=== PATIENT | male | born 1950 | race Caucasian/White ===

== ENCOUNTER 2018-01-06 05:14 | Observation (INO) | payer MEDICARE, OTHER, SELFPAY ==
[2017-12-30 11:09] VITALS: BP 133/68; PULSE 60; RESP 16; TEMP 36.6; O2SAT 94; BMI 33.3
--- NOTE | 2017-12-30 11:15 | SDCEKG_ITS ---
Test Reason : Blood Pressure : / mmHG Vent. Rate : 059 BPM Atrial Rate : 059 BPM P-R Int : 162 ms QRS Dur : 100 ms QT Int : 386 ms P-R-T Axes : 034 -29 043 degrees QTc Int : 382 ms Sinus bradycardia Leftward axis Poor R wave progression Confirmed by MARGARITA SHANE, MARVA ([id number]), commissioning editor KELLY MALDONADO ([id number] on 12/31/2017 2:29:45 PM Referred By: ABDOULAYE Confirmed By:MARVA AVILA MD
[2017-12-30 11:35] LABS: Hematocrit 44.8 % (40-54); Hemoglobin 15.5 g/dl (13.0-16.5); Mean Corp Hgb Conc 34.6 g/gl (32-36); Mean Corpuscular Hgb 32.3 pg (27.0-32.0); Mean Corpuscular Volume 93.3 fL (80-94); Mean Platelet Vol. 8.9 fl (6.2-12.0); Platelet Count 223 K/mm3 (150-450); RBC Distribution Width CV 13.5 % (11.6-14.6); RBC Distribution Width SD 45.1 fl (35.1-43.9); White Blood Count 7.9 K/mm3 (4.4-11.0)
[2017-12-30 11:36] LABS: Scan Indicated on CBC? Y/N NO
--- NOTE | 2017-12-31 10:39 | CASEMGMT ---
Social Work Note Placed call to pt to discuss discharge plan. Introduced self and role at [facility]. The pt reports that he lives with his in a one-story home with 3 entry steps and HR. DME consists of a walker and cane, and pt does not anticipate additional DME needs. Plans to participate in outpatient therapy at [facility], and does not have an appointment setup yet. can transport to appointments. RN CM to f/u with post-operatively. Plan: Outpatient therapy at [facility]. YESSICA Trejo HSE COORDINATOR
[2018-01-06] VITALS (13 sets, daily range): BP systolic 97–129; BP diastolic 60–73; PULSE 47–72; RESP 16–18; TEMP 35.9–36.9; O2SAT 92–98; BMI 33.3
[2018-01-06] MEDS: Celecoxib 200 MG Capsule PO (06:00)
[2018-01-06] MEDS: oxyCODONE HCl Cr 10 MG Tablet PO ×2 (06:00→21:36)
[2018-01-06] MEDS: Clindamycin 900 MG/50 ML BAG 75 MG IV (07:14)
--- NOTE | 2018-01-06 10:20 | RAD_ITS ---
STUDY: X-RAY - LEFT KNEE REASON FOR EXAM: Male, 67 years old. Total knee replacement. TECHNIQUE: AP and lateral view(s) of the knee. COMPARISON: Comparison is made with prior study dated September 24, 2016. FINDINGS: Normal visualized distal femur. Normal visualized proximal tibia and fibula. Normal proximal tibiofibular articulation. The patient is status post total knee replacement. Postoperative soft tissue changes. RAD/Knee 1 or 2 Views IMPRESSION: Total knee replacement. There is good alignment. Postoperative soft tissue changes. Electronically Signed: Enrique Mark MD at 11:14 EST Tel [phone], Service support ,
[2018-01-06] MEDS: Lactated Ringers 1,000 ML 75 ML IV (10:24)
--- NOTE | 2018-01-06 10:35 | PCM.IMDPSTOP ---
Immediate Post-Op Note Date of Procedure: 01/06/18 Primary Surgeon/Physician: Ross Cleary DO live out nanny: Sanjay Aguirre Pre-Operative Diagnosis: Left knee osteoarthritis Post-Operative Diagnosis: Same as above Surgery/Procedure Performed:: Left total knee arthroplasty using the [employer] press-fit system Description of Surgical Findings:: See dictation Estimated Blood Loss: 50 Specimen's removed: Bone cuts Type of Anesthesia:: Spinal - Admit VTE Documentation VTE Present on Admission: No VTE Mechan Device Prophylaxis: SCD's, Knee High RAJESH Hose VTE Pharm Prophylaxis ordered?: Yes
--- NOTE | 2018-01-06 10:36 | PCM.OPRPT ---
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 Patient had hypertrophic synovial changes and underwent a synovectomy at that time as well. Having failed conservative measures and due to the varus nature of his knee the recommendation was for total knee arthroplasty. Patient was met in the holding area where his left lower extremity was marked and identified by the with surgeon. Patient was taken the operating room in satisfactory condition with somewhat to place to identify patient up procedure limb. Patient received 900 clindamycin. He also received 1 g of TXA. He had a well-placed tourniquet left proximal thigh was then prepped and draped in usual fashion. Left lower extremity was elevated Esmarch used for exsanguination and tourniquet was increased to 250 mmHg for roughly 60 minutes. Patient had a standard midline incision made just medial to the tibia to have tibial tubercle and then moved to 2 fingerbreadths above the patella. He then underwent a standard medial parapatellar approach. Patient had a large return effusion upon opening the joint space. He has significant hypertrophic anterior fat pad that was subtotally resected using standard technique. Due to the varus nature of his knee he had when it underwent a standard posterior medial release to neutral mechanical alignment. At that point time the intramedullary kishore was introduced into the femur to perform our distal femoral cut. We took 8 mm off the distal femoral cut with 6? of valgus 3? of external rotation. Sized to a size 6 femur. We then turned our attention to performing her standard femoral cuts with a 6 sizing block. This done using standard technique. We then turned our attention to the tibia. We anticipated using a CR component. Tibial guide was set accordingly. We then took 2 mm off of the low side where he had somewhat of a cavitary change. Depressive change highly consistent with his varus deformity. We preserve the PCL. Overall size of the tibial block measured to a size 6. Injector mechanical alignment which was found to be neutral at 0 and 30?. We had no flexion or extension gap imbalances. Patient spaced out to about a 9 mm spacer block. At that point time the size 6 femur was introduced and the 6 tibial plateau along with a 9 mm spacer was placed. We had good mechanical alignment again good stability at 0 3090? of range of motion. Patient no showed no flexion extension gaps. The tibial plateau was then seated using standard technique the poly-removed as was the femoral component. We then placed her keel punch for the tibia anticipation of a press-fit component the secondary keel punch was then introduced. I placed additional drill holes around the plateau to help with bio ingrowth as well as placing holes across the femur. We then turned our attention to the patella. Patella measured overall 26 mm in overall thickness we took off 10 using a 35 patella button. Wound was then copiously irrigated and excess debris removed to include the remnant menisci. We cauterized the posterior lateral and posterior medial corners. We then prepped the knee for implantation. The patient tibial plateau was introduced and the #6 femoral component was then press-fit in to the tibia using standard technique. Femoral #6 size component was then also press-fit and we re-trialed with a 9 mm Angela patient had excellent extension and flexion balance I elected to use a 9 mm CS Angela. This was then seated using copious irrigation and then impacted using standard technique. We then turned our attention to the patella the patella was then press-fit using standard technique. We cycled the knee through a range of motion did not feel lateral release was required. The joint was ran one additional time and copious irrigated remove any excess debris. We then began our closure in full extension proximally using #1 Vicryl eocwcz-tc-afhme technique. Once we got to the superior aspect of the patella the knee was bent 30? and remaining portion of the capsule closed again using #1 Vicryl with [id number]-fh-guymv technique. Soft tissue was reapproximated with 2-0 Vicryl in a running subicular Monocryl. He was then dressed with Dermabond and a Silverlon dressing was applied with the knee in 30? knee flexion. The tourniquet was let down during final closure at roughly 68 minutes. I was scrubbed and available time during our procedure. We had no drains or complications. Implants included the [employer] triathlon total knee system press-fit 6 femur 6 tibia 9 CS Angela and a 35 patella button. Patient will be admitted floor for 24 hours of IV antibiotics. Appropriate IV and p.o. pain medication. DVT prophylaxis to include SCDs teds and aspirin 325 p.o. twice daily with GI prophylaxis. Any major issues please contact me. intelligent systems engineer: Sanjay Aguirre Type of Anesthesia:: Spinal Specimen's removed: Bone cuts Estimated Blood Loss (mL): 50 Grafts/Implants Used: Striker triathlon press-fit 6, 6, 9 CS, 35 - Complications None - Admit VTE Documentation VTE Present on Admission: No VTE Mechan Device Prophylaxis: SCD's, Knee High RAJESH Hose VTE Pharm Prophylaxis ordered?: Yes
--- NOTE | 2018-01-06 10:43 | OP.PCM_ITS ---
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 Patient had hypertrophic synovial changes and underwent a synovectomy at that time as well. Having failed conservative measures and due to the varus nature of his knee the recommendation was for total knee arthroplasty. Patient was met in the holding area where his left lower extremity was marked and identified by the with surgeon. Patient was taken the operating room in satisfactory condition with somewhat to place to identify patient up procedure limb. Patient received 900 clindamycin. He also received 1 g of TXA. He had a well-placed tourniquet left proximal thigh was then prepped and draped in usual fashion. Left lower extremity was elevated Esmarch used for exsanguination and tourniquet was increased to 250 mmHg for roughly 60 minutes. Patient had a standard midline incision made just medial to the tibia to have tibial tubercle and then moved to 2 fingerbreadths above the patella. He then underwent a standard medial parapatellar approach. Patient had a large return effusion upon opening the joint space. He has significant hypertrophic anterior fat pad that was subtotally resected using standard technique. Due to the varus nature of his knee he had when it underwent a standard posterior medial release to neutral mechanical alignment. At that point time the intramedullary kishore was introduced into the femur to perform our distal femoral cut. We took 8 mm off the distal femoral cut with 6? of valgus 3? of external rotation. Sized to a size 6 femur. We then turned our attention to performing her standard femoral cuts with a 6 sizing block. This done using standard technique. We then turned our attention to the tibia. We anticipated using a CR component. Tibial guide was set accordingly. We then took 2 mm off of the low side where he had somewhat of a cavitary change. Depressive change highly consistent with his varus deformity. We preserve the PCL. Overall size of the tibial block measured to a size 6. Injector mechanical alignment which was found to be neutral at 0 and 30?. We had no flexion or extension gap imbalances. Patient spaced out to about a 9 mm spacer block. At that point time the size 6 femur was introduced and the 6 tibial plateau along with a 9 mm spacer was placed. We had good mechanical alignment again good stability at 0 3090? of range of motion. Patient no showed no flexion extension gaps. The tibial plateau was then seated using standard technique the poly-removed as was the femoral component. We then placed her keel punch for the tibia anticipation of a press- fit component the secondary keel punch was then introduced. I placed additional drill holes around the plateau to help with bio ingrowth as well as placing holes across the femur. We then turned our attention to the patella. Patella measured overall 26 mm in overall thickness we took off 10 using a 35 patella button. Wound was then copiously irrigated and excess debris removed to include the remnant menisci. We cauterized the posterior lateral and posterior medial corners. We then prepped the knee for implantation. The patient tibial plateau was introduced and the #6 femoral component was then press-fit in to the tibia using standard technique. Femoral #6 size component was then also press-fit and we re-trialed with a 9 mm Angela patient had excellent extension and flexion balance I elected to use a 9 mm CS Angela. This was then seated using copious irrigation and then impacted using standard technique. We then turned our attention to the patella the patella was then press-fit using standard technique. We cycled the knee through a range of motion did not feel lateral release was required. The joint was ran one additional time and copious irrigated remove any excess debris. We then began our closure in full extension proximally using #1 Vicryl qlmdxj-du-lsfgy technique. Once we got to the superior aspect of the patella the knee was bent 30? and remaining portion of the capsule closed again using #1 Vicryl with afyrlx-va-sgtud technique. Soft tissue was reapproximated with 2-0 Vicryl in a running subicular Monocryl. He was then dressed with Dermabond and a Silverlon dressing was applied with the knee in 30? knee flexion. The tourniquet was let down during final closure at roughly 68 minutes. I was scrubbed and available time during our procedure. We had no drains or complications. Implants included the [employer] triathlon total knee system press-fit 6 femur 6 tibia 9 CS Angela and a 35 patella button. Patient will be admitted floor for 24 hours of IV antibiotics. Appropriate IV and p.o. pain medication. DVT prophylaxis to include SCDs teds and aspirin 325 p.o. twice daily with GI prophylaxis. Any major issues please contact me. meter repairer helper: Sanjay Aguirre Type of Anesthesia:: Spinal Specimen's removed: Bone cuts Estimated Blood Loss (mL): 50 Grafts/Implants Used: Striker triathlon press-fit 6, 6, 9 CS, 35 - Complications None - Admit VTE Documentation VTE Present on Admission: No VTE Mechan Device Prophylaxis: SCD's, Knee High RAJESH Hose VTE Pharm Prophylaxis ordered?: Yes
--- NOTE | 2018-01-06 12:43 | KNEE_PTH ---
PATIENT: RENATA MARTIN LOC: MS3 U#:[id number] AGE/SX: 67/M ROOM: MS317 RE01/06/[address]: Ross Cleary DO : 1950 BED: 1 DIS: 01/07/2018 SPEC #: [id number] RECD: 01/06/18 14:30 STATUS: KAITLYNN REBeth #: [id number] LIO: 01/06/18 12:[address]: Ross Cleary DEPT: SURGICAL PATHOLOGY RECD BY: Spencer Davis ENTERED: 01/06/18 14:30 SP TYPE: TOTAL KNEE OTHR DR: Dr. Nakul Oliva MD Tissues: Knee, NOS Procedures: Decalcification bone/plaque Surgery Specimen Level IV HEADER OPERATION: Total knee replacement PRE-OP DIAGNOSIS: Chronic pain and osteoarthritis of left knee; unspecified osteoarthritis type TISSUE SUBMITTED: Debrided bone and tissue, left knee MICROSCOPIC DIAGNOSIS Bone and soft tissue, left knee, total knee replacement: Pieces of bone with degenerative osteoarthritic changes. Fibroadipose tissue, fibroconnective tissue and reactive synovial tissue. NANCY:stefania 01/09/18 MICROSCOPIC DESCRIPTION Slides are reviewed. GROSS DESCRIPTION Received is one container designated bone and soft tissue left knee. The specimen consists of multiple fragments of daniels-yellow bone measuring in aggregate 15 x 14 x 2 cm. Also in the specimen container are multiple fragments of yellow-white soft tissue measuring in aggregate 10 x 7 x 2 cm. A number of bony fragments contain articular surfaces consistent with tibial plateau and femoral condyle and displaying prominent osteophyte formation, eburnation, and bone erosion. Statistical Engineer sections are submitted in two cassettes as follows: 1 - soft tissue, 2 - bone after decalcification. / AM:stefania 01/06/18 TC:5 [facility]: [id number]
[2018-01-06] MEDS: Clindamycin 600 MG/50 ML BAG 100 MG IV ×2 (13:06→18:36)
[2018-01-06] MEDS: Senna/Docusate Sodium 1 Tablet 2 TABLET PO ×2 (14:34→21:36)
[2018-01-06] MEDS: Famotidine 20 MG Tablet PO (14:35)
[2018-01-06] MEDS: Acetaminophen 500 MG Tablet 1000 MG PO ×2 (14:35→21:36)
[2018-01-06] MEDS: Ascorbic Acid 500 MG Tablet 1000 MG PO (14:35)
[2018-01-06] MEDS: Multivitamins,Therapeutic Tablet 1 TABLET PO (14:35)
[2018-01-06] MEDS: Finasteride 5 MG Tablet PO (14:37)
[2018-01-06] MEDS: oxyCODONE 5 MG Tablet PO (14:43)
[2018-01-06] MEDS: Aspirin 325 MG Tablet PO (16:15)
[2018-01-07] MEDS: Clindamycin 600 MG/50 ML BAG 100 MG IV (01:10)
[2018-01-07 01:30] VITALS: BP 115/65; PULSE 53; RESP 18; TEMP 36.7; O2SAT 93
--- NOTE | 2018-01-07 03:50 | NUR.TO.PHY ---
To patient room at this time due to continuous pulse ox @ 86-87% Patient did have nasal CPAP in, but was observed to be breathing out of mouth upon entering room. Awoke patient and O2 level up to 91% primary RN notified.
[2018-01-07] MEDS: Acetaminophen 500 MG Tablet 1000 MG PO ×2 (06:05→14:15)
[2018-01-07 06:26] LABS: Hematocrit 37.7 % (40-54); Mean Corp Hgb Conc 34.5 g/gl (32-36); Mean Corpuscular Hgb 32.4 pg (27.0-32.0); Mean Platelet Vol. 9.5 fl (6.2-12.0); Platelet Count 179 K/mm3 (150-450); RBC Distribution Width CV 13.3 % (11.6-14.6); RBC Distribution Width SD 43.9 fl (35.1-43.9); Red Blood Count 4.01 M/mm3 (4.6-6.2); White Blood Count 11.4 K/mm3 (4.4-11.0)
[2018-01-07 06:29] LABS: Scan Indicated on CBC? Y/N NO
[2018-01-07 06:40] LABS: Anion Gap 9 (5-15); BUN 20 mg/dL (7-18); BUN/Creat Ratio 13.6 RATIO (10-20); Calcium,Total 8.4 mg/dL (8.5-10.1); Chloride 110 mmol/L (98-107); Creatinine, Serum 1.47 mg/dL (0.70-1.30); EST Glomerular Filtration Rate 51 mL/min (>60); Est Glom Filt Rate - Afr Amer 61 mL/min (>60); Estimated Creatinine Clearance 48.76 ml/min; Glucose 142 mg/dL (74-106); Sodium Level 142 mmol/L (136-145)
--- NOTE | 2018-01-07 07:36 | PCM.PN.ORT ---
Subjective: Postop day 1 status post left total knee arthroplasty. No issues overnight. Patient currently sitting the edge of the bed performing extension raises to his leg and can bend to about 75? at this point time. No complaints. Told him that the pain will increase as the blocks were off around noon. Otherwise at this point time patient is doing well. No fevers chills nausea vomiting chest pain or shortness of breath - Physical Exam General: Alert, Oriented x3, Cooperative, No apparent distress Musculoskeletal: - - Distally neurovascular intact. SCDs teds in place. Silverlon dressing in place. No expanding hematoma. No calf pain negative Homans. EHL anterior gastric shoulders peroneals quads hamstrings 5 out of 5. Hardware reviewed well seated well-placed. H&H stable Vital Signs Temp Pulse Resp BP Pulse Ox 98.1 F 53 L 18 115/65 93 01/07/18 01:30 01/07/18 01:30 01/07/18 01:30 01/07/18 01:30 01/07/18 01:30 Oxygen Flow Rate 1 Oxygen Delivery Method Room Air Weight: 225 lb 4.999 oz Body Mass Index (BMI) 33.3 Intake and Output for Last 24 Hours 01/05/18 01/06/18 01/07/18 23:59 23:59 23:59 Intake Total 4033 / 4033 423 / 423 Output Total 500 / 500 1450 / 1450 Balance 3533 / 3533 -1027 / -1027 Laboratory Tests Past 24 Hrs 01/07/18 01/07/18 05:20 05:20 WBC 11.4 H RBC 4.01 L Hgb 13.0 Hct 37.7 L MCV 94.0 MCH 32.4 H MCHC 34.5 RDW 13.3 RDW Differential 43.9 Plt Count 179 MPV 9.5 Sodium 142 Potassium 4.0 Chloride 110 H Carbon Dioxide 23.0 Anion Gap 9 BUN 20 H Creatinine 1.47 H Estim Creat Clear Calc 48.76 Est GFR (MDRD) Af Amer 61 Est GFR (MDRD) Non-Af 51 L BUN/Creatinine Ratio 13.6 Glucose 142 H Calcium 8.4 L Assessment/Plan This point time the patient is doing well. He has been cautioned that his pain will increase some time around 11 or 12:00 as the blocks continue to wear off to include the Alberto cocktail. Told the patient however if he is doing well later today he can go home otherwise anticipate home discharge tomorrow. Continue with aspirin for prophylaxis for DVT. Any issues contact me Assessment: After orthopedics status post left total knee arthroplasty for osteoarthritis. Plan:
[2018-01-07 08:16] VITALS: BP 106/56; PULSE 55; RESP 18; TEMP 36.9; O2SAT 94
[2018-01-07] MEDS: Aspirin 325 MG Tablet PO (08:20)
[2018-01-07] MEDS: Multivitamins,Therapeutic Tablet 1 TABLET PO (08:20)
[2018-01-07] MEDS: Ascorbic Acid 500 MG Tablet 1000 MG PO (08:20)
[2018-01-07] MEDS: oxyCODONE HCl Cr 10 MG Tablet PO (09:30)
[2018-01-07] MEDS: Senna/Docusate Sodium 1 Tablet 2 TABLET PO (09:31)
[2018-01-07] MEDS: Famotidine 20 MG Tablet PO (09:31)
[2018-01-07] MEDS: Finasteride 5 MG Tablet PO (09:31)
[2018-01-07 09:35] VITALS: PULSE 64
[2018-01-07] MEDS: oxyCODONE 5 MG Tablet PO (14:17)
--- NOTE | 2018-01-07 14:23 | CASEMGMT ---
BRYSON WHALEY Face to Face with patient for initial transition planning/care coordination assessment. BRYSON WHALEY introduced self and role at [facility]. Patient sitting in chair, alert and oriented, spouse at bedside. Patient willing to participate in assessment and is able to answer all questions appropriately. Care providers, pharmacy, and demographics verified. See link attached. Pt wishes to discharge home with outpatient therapy at [facility]. Patient states he has no further needs or concerns at this time. BRYSON WHALEY called Dr. Cleary's office and requested order be sent to [facility] for outpatient therapy. CM to follow for discharge planning needs that may arise. Disposition Plan: Patient to discharge home with outpatient therapy, family support, and follow-up plans in place.
[2018-01-07 14:44] VITALS: BP 118/71; PULSE 71; RESP 18; TEMP 36.7; O2SAT 98
--- NOTE | 2018-01-07 15:48 | PCM.DC.TKR ---
Discharge Activity: Return to Normal Activity, May not drive while taking narcotic pain medications., May Shower, Use Walker, Use Crutches May shower in (days): 1 May resume sexual activity in: No Restrictions Ice area for (Minutes): 20 - Use Polar Care as needed Weight Bearing Status: Weight bearing as tolerated Call your doctor if your incision/area has: Continuous Slow Oozing, Sudden Increased Bleeding, Increased Pain/ Swelling, Increased Redness, Foul Smelling Discharge, Swelling at the incision site Call your doctor if you observe: Fever of 101 or Higher, Coldness, Increased Pain, Numbness or Tingling, Change in Color, Inability to urinate, Inability to have a bowel movement, Using more than one pad per hour, Shortness of breath, Dizziness, Fainting spells, Swelling in the ankles, Chest pain, Prolonged hiccoughing, Increased palpitations (irregular heartbeat), Calf discomfort, Uncontrolled pain Suture Line Care: Avoid Pulling/Pushing, Avoid Pinching/Bending Change Dressing in (Days):: 5 Remove Dressing in (days):: 5 Cleanse incision/area with: Soap & Water Additional Dressing/Incision Instructions:: Dressing stays in place 5-7 days from date of surgery. May shower. Do not submerge wound. Wash hands prior to touching wound. Allergies/Adverse Reactions: Allergies cephalexin monohydrate [From Keflex] Allergy (Severe, Verified 01/06/18 06:54) Swelling Medications to take at Discharge Finasteride [Finasteride] 5 mg PO DAILY 05/27/14 Aspirin [Aspirin EC] 81 mg PO QHS 03/28/17 Cholecalciferol (Vitamin D3) [Vitamin D3] 1,000 unit PO DAILY 12/30/17 Multivitamin [Multiple Vitamins] 1 each PO DAILY 12/30/17 [place]-3 Fatty Acids/Fish Oil [[place] 3 1,000 mg Softgel] 1 each PO DAILY 12/30/17 Aspirin E.C. [Ecotrin] 325 mg PO BID #30 tab 01/07/18 Docusate Sodium [Colace] 100 mg PO BID PRN PRN #10 cap 01/07/18 Famotidine [Pepcid] 20 mg PO BID #60 tab 01/07/18 Oxycodone HCl/Acetaminophen [Percocet 5/325] 1 - 2 tablet PO Q4H PRN PRN #60 tablet 01/07/18 ProMETHAzine [Phenergan] 25 mg PO Q4H PRN PRN #10 tab 01/07/18 Primary Care Physician: Nakul Oliva MD [Primary Care Provider] - Please Follow Up With: Ross Cleary DO When: call [facility] for appt for 2 weeks Proposed Discharge Date: 01/07/18
--- NOTE | 2018-01-07 15:59 | DCINST_ITS ---
Discharge Activity: Return to Normal Activity, May not drive while taking narcotic pain medications., May Shower, Use Walker, Use Crutches May shower in (days): 1 May resume sexual activity in: No Restrictions Ice area for (Minutes): 20 - Use Polar Care as needed Weight Bearing Status: Weight bearing as tolerated Call your doctor if your incision/area has: Continuous Slow Oozing, Sudden Increased Bleeding, Increased Pain/ Swelling, Increased Redness, Foul Smelling Discharge, Swelling at the incision site Call your doctor if you observe: Fever of 101 or Higher, Coldness, Increased Pain, Numbness or Tingling, Change in Color, Inability to urinate, Inability to have a bowel movement, Using more than one pad per hour, Shortness of breath, Dizziness, Fainting spells, Swelling in the ankles, Chest pain, Prolonged hiccoughing, Increased palpitations (irregular heartbeat), Calf discomfort, Uncontrolled pain Suture Line Care: Avoid Pulling/Pushing, Avoid Pinching/Bending Change Dressing in (Days):: 5 Remove Dressing in (days):: 5 Cleanse incision/area with: Soap & Water Additional Dressing/Incision Instructions:: Dressing stays in place 5-7 days from date of surgery. May shower. Do not submerge wound. Wash hands prior to touching wound. Allergies/Adverse Reactions: Allergies cephalexin monohydrate [From Keflex] Allergy (Severe, Verified 01/06/18 06:54) Swelling Medications to take at Discharge Finasteride [Finasteride] 5 mg PO DAILY 05/27/14 Aspirin [Aspirin EC] 81 mg PO QHS 03/28/17 Cholecalciferol (Vitamin D3) [Vitamin D3] 1,000 unit PO DAILY 12/30/17 Multivitamin [Multiple Vitamins] 1 each PO DAILY 12/30/17 [place]-3 Fatty Acids/Fish Oil [[place] 3 1,000 mg Softgel] 1 each PO DAILY Aspirin E.C. [Ecotrin] 325 mg PO BID #30 tab 01/07/18 Docusate Sodium [Colace] 100 mg PO BID PRN PRN #10 cap 01/07/18 Famotidine [Pepcid] 20 mg PO BID #60 tab 01/07/18 Oxycodone HCl/Acetaminophen [Percocet 5/325] 1 - 2 tablet PO Q4H PRN PRN #60 tablet 01/07/18 ProMETHAzine [Phenergan] 25 mg PO Q4H PRN PRN #10 tab 01/07/18 Primary Care Physician: Nakul Oliva MD [Primary Care Provider] - Please Follow Up With: Ross Cleary DO When: call [facility] for appt for 2 weeks Proposed Discharge Date: 01/07/18
[2018-01-07 16:28] VITALS: BP 133/63; PULSE 68; RESP 18; TEMP 36.8; O2SAT 96
== END 2018-01-07 16:47 | disposition home or self-care (01) ==
PROVIDERS: Anesthesiology; Admitting Provider Orthopaedic Surgery; Family Provider Family Medicine; PCP Family Medicine; Visit Provider Orthopaedic Surgery
PROC: (CPT 27447; principal; 2018-01-06 06:50)
DX: M17.12 Unilateral primary osteoarthritis, left knee (principal); G89.29 Other chronic pain; R00.1 Bradycardia, unspecified; G47.30 Sleep apnea, unspecified; G25.81 Restless legs syndrome; K21.9 Gastro-esophageal reflux disease without esophagitis; Z87.891 Personal history of nicotine dependence; Z79.82 Long term (current) use of aspirin; Z79.899 Other long term (current) drug therapy; Z86.718 Personal history of other venous thrombosis and embolism
CPT/HCPCS: 27447; 64447; 36415; 73560; 80048; 85027; 87081; 88305; 88311; 96361; 96365; 96366; 96375; 97110; 97116; 97162; 97165; 97530; 97535; 99218; J7120; G0378; G0379; G8979; J2405

== ENCOUNTER 2018-01-08 13:18 | Emergency (ER) | payer MEDICARE, OTHER, SELFPAY ==
[2018-01-08 13:18] VITALS: BP 145/76; PULSE 73; RESP 15; TEMP 36.6; O2SAT 96; BMI 33.2
--- NOTE | 2018-01-08 13:51 | VDLE_ITS ---
Reason For Study: LEG SWELLING RIGHT LEFT CFV is compressible, spontaneous, phasic, GSV is normal. competent and demonstrates normal CFV is compressible, spontaneous, phasic, augmentation. competent, and demonstrates normal Procedure augmentation. Exam performed in department. FV is compressible, spontaneous, phasic, A preliminary report was called and/or faxed competent and demonstrates normal to Dr. Medel. augmentation. POP V is compressible, spontaneous, phasic, competent and demonstrates normal augmentation. T/P Trunk is compressible. PTV is compressible. LT PerV is compressible. Interpretation Summary There is no evidence of left lower extremity deep vein thrombosis. Normal flow patterns right common femoral vein Ordering Physician: Elkin Medel Referring Physician: Nakul Oliva MD Performed By: Oliva Santos RVT
--- NOTE | 2018-01-08 14:47 | ED.VISSUMM ---
- ER Visit Summary Date of Service: 01/08/18 Chief Complaint: Thigh and calf pain status post total knee arthroplasty January [address] Cleary History of Present Illness: The patient is a 67 M Kimbrough with left calf pain with standing. He also complains of left inner thigh pain. He denies shortness of breath or chest discomfort. He denies fever, chills or night sweats. He also called Dr. Cleary's office because of drainage from the incision site. He was told that the dressing should remain in place until January 11. He has no other complaints please read written note Physical Examination: Vital signs are remarkable for a blood pressure of 145/76. The left lower extremity is significant swollen in comparison the right. There is pain to palpation proximal left calf and along the abductor canal left thigh. There is a medicated strip over the incision site. A small blister noted with clear serous fluid. There is bruising noted. There is no erythema or warmth noted. Heart is regular without murmur, gallop or rub. S1 and S2 are normal. Lungs are clear to auscultation with good movement of air bilaterally. Test Results: Venous duplex study was obtained since patient is moderate risk for DVT. Venous duplex study was read as negative. Emergency Department Course and Treatment: Venous duplex study was obtained because patient is at moderate risk for DVT. Treatment Plan: Elevate left lower extremity and follow-up with Dr. Cleary as scheduled Disposition: Discharge to home Impression: Lymphedema left lower extremity status post total knee arthroplasty This note was generated with [employer] dictation software. It may contain incorrect words, spelling, and punctuation that were not noted in review of the chart prior to signing ED Disposition - Plan for ED Patient: Disposition: Home or Assisted Living Chief Complaint: Wound Check Instructions: ED Wound Check Post Op No Infec, ED Lymphedema Referrals: Nakul Oliva MD [Primary Care Provider] - As Needed Ross Cleary DO [STAFF PHYSICIAN] - Keep Irene appointment
--- NOTE | 2018-01-08 14:52 | ED.DCSUM_ITS ---
- ER Visit Summary Date of Service: 01/08/18 Chief Complaint: Thigh and calf pain status post total knee arthroplasty January [address] Cleary History of Present Illness: The patient is a 67 M K[place]rough with left calf pain with standing. He also complains of left inner thigh pain. He denies shortness of breath or chest discomfort. He denies fever, chills or night sweats. He also called Dr. Cleary's office because of drainage from the incision site. He was told that the dressing should remain in place until January 11. He has no other complaints please read written note Physical Examination: Vital signs are remarkable for a blood pressure of 145/ 76. The left lower extremity is significant swollen in comparison the right. There is pain to palpation proximal left calf and along the abductor canal left thigh. There is a medicated strip over the incision site. A small blister noted with clear serous fluid. There is bruising noted. There is no erythema or warmth noted. Heart is regular without murmur, gallop or rub. S1 and S2 are normal. Lungs are clear to auscultation with good movement of air bilaterally. Test Results: Venous duplex study was obtained since patient is moderate risk for DVT. Venous duplex study was read as negative. Emergency Department Course and Treatment: Venous duplex study was obtained because patient is at moderate risk for DVT. Treatment Plan: Elevate left lower extremity and follow-up with Dr. Cleary as scheduled Disposition: Discharge to home Impression: Lymphedema left lower extremity status post total knee arthroplasty This note was generated with [employer] dictation software. It may contain incorrect words, spelling, and punctuation that were not noted in review of the chart prior to signing ED Disposition - Plan for ED Patient: Disposition: Home or Assisted Living Chief Complaint: Wound Check Instructions: ED Wound Check Post Op No Infec, ED Lymphedema Referrals: Nakul Oliva MD [Primary Care Provider] - As Needed Ross Cleary DO [STAFF PHYSICIAN] - Keep Irene appointment
== END 2018-01-08 15:02 | disposition home or self-care (01) ==
PROVIDERS: Emergency Provider Emergency Medicine; Family Provider Family Medicine; PCP Family Medicine
DX: I89.0 Lymphedema, not elsewhere classified (principal); Z96.659 Presence of unspecified artificial knee joint
CPT/HCPCS: 93971; 99282

== ENCOUNTER → 2018-02-16 15:11 | Outpatient (CLI) | payer MEDICARE, OTHER, SELFPAY ==
--- NOTE | 2018-02-16 15:14 | RAD_ITS ---
STUDY: X-RAY - LEFT KNEE REASON FOR EXAM: Male, 67 years old. Knee replacement surgery TECHNIQUE: 4 view(s) of the knee. COMPARISON: 01/06/2018 FINDINGS: There has been knee replacement surgery. The hardware is intact. There is NO acute bony abnormality. There is postsurgical soft tissue swelling. There is NO joint effusion. RAD/Knee 4 or More Views IMPRESSION: Knee replacement hardware is intact. Electronically Signed: Jamin Espinoza MD at 6:19 EDT , Service support ,
== END ==
PROVIDERS: Family Provider Family Medicine; PCP Family Medicine; Visit Provider Orthopaedic Surgery
DX: M25.562 Pain in left knee (principal)
CPT/HCPCS: 73564; 97110

== ENCOUNTER 2018-02-19 16:00 | Outpatient (RCR) | payer MEDICARE, OTHER, SELFPAY ==
--- NOTE | 2018-01-12 12:01 | HP.PTEVAL_ITS ---
Patient's Visit Information RENATA MARTIN is a 67 year old M referred to Physical Therapy by Ross Cleary DO DR.MTHEAVEN with a diagnosis of L TKA. Date of Evaluation: 01/12/18 Physical Therapist: Fabian Apodaca PT, - Visit Plan Frequency: 2-3x /Week Duration: 4-6 Weeks Plan: L knee PROM/Mobs, stretching and strengthening, balance and proprio, core , nustep, and HEP - Subjective Subjective: DOS: 01/06/18. Pt reports his L knee has been sore for a long time. Pt was unable to work all last year secondary to pain. Pt reports he had L knee arthroscopy one year ago due to pain and deg changes. Pt reports he is still in a lot of pain. Pt reports the pain is better than he had before the surgery, but he is still very sore. Pt reports sig sleep diff secondary to pain. Pt reports no T or N in L LE. Pt has 3 steps into house, and can negotiate them without problems as long as he does one step at a time. Pt is currently retired at this time. 2/10 at rest, 6/10 at worst - Pain L knee Pain Intensity (Out of 10): 2 Pain Intensity Range: 6 - Objective Neuro: B LE sensation is WNL to light touch. Observation: Obvious swelling present this date. Pt does have a blister on periphery of bandage. No obvious signs of infection. Girth at joint line: R knee 38 cm, L knee 44 cm. ROM: R knee 0-2-130; L knee 0-9-98 degrees. MMT: R knee 5/5 throughout. L knee 3/5 and painful - Goals Goal 1:: Decrease L knee pain x 50% to aid with sleep Goal Time Frame: 4-6 Weeks Goal 2:: Increase L knee strength x 1 grade to aid with stair negotiation Goal Time Frame: 4-6 Weeks Goal 3:: Increase L knee ROM x 30 degrees to aid with restoring a more normal gait pattern Goal Time Frame: 4-6 Weeks Goal 4:: I with HEP Goal Time Frame: 4-6 Weeks - Rehabilitation Potential Physical Therapy Diagnosis: L knee pain, weakness, and limited ROM secondary to L TKA Rehabilitation Potential: Good - Anticipated Interventions Patient/Client Instruction: Educate patient on: Condition, Plan of Care For the Purpose of:: To improve self management Therapeutic Exercise to Include: Strength training, Endurance training, Balance training, Flexibilty training, Gait and locomotor training, Passive ROM, Active ROM, Dynamic Lumbar Stabilization For the Purpose of:: To decrease pain, To increase ROM, To improve muscle performance and motor function Cryotherapy (ice pack, ice massage): Yes For the Purpose of:: To decrease pain Thank you for the opportunity to evaluate your patient. For Medicare and Medicare HMO plans, please review the plan of care and approve it. It will need to be FAXED BACK to us at [phone] for Medicare purposes. Please let me know if there are questions or concerns regarding this plan of care. Physician Signature: Date:
--- NOTE | 2018-02-02 17:07 | HP.PTREVAL_ITS ---
Ross Cleary DO, It has been my pleasure to treat RENATA MARTIN over the last 10 visits for L TKA. Please see the progress note below for an update on the physical therapy plan of care! Subjective: Minor pain today. Terrible pain last night Objective/Function: L knee ROM: 0-5-122. L knee MMT: flex and ext 4+/5 throughout. Pain is minimal throughout the day but still keeps pt up at night Plan Plan: L knee PROM/Mobs, stretching and strengthening, balance and proprio, core , nustep, and HEP Goals Goal 1:: Decrease L knee pain x 50% to aid with sleep Goal Time Frame: 4-6 Weeks Goal 2:: Increase L knee strength x 1 grade to aid with stair negotiation Goal Time Frame: 4-6 Weeks Goal 3:: Increase L knee ROM x 30 degrees to aid with restoring a more normal gait pattern Goal Time Frame: 4-6 Weeks Goal 4:: I with HEP Goal Time Frame: 4-6 Weeks Anticipated Interventions Patient/Client Instruction: Educate patient on: Condition, Plan of Care For the Purpose of:: To improve self management Therapeutic Exercise to Include: Strength training, Endurance training, Balance training, Flexibilty training, Gait and locomotor training, Passive ROM, Active ROM, Dynamic Lumbar Stabilization For the Purpose of:: To decrease pain, To increase ROM, To improve muscle performance and motor function Cryotherapy (ice pack, ice massage): Yes For the Purpose of:: To decrease pain Please do not hesitate to contact me at [phone] by phone or Fax: if you have questions or concerns regarding this new plan of care! Sincerely, Fabian Apodaca, PT,
--- NOTE | 2018-02-19 16:27 | HP.PTDCSUM ---
HP - PT D/C Summary It has been my pleasure to treat RENATA MARTIN under orders from Ross Cleary DO, for the diagnosis of L TKA for a total of 15 visit(s). Discharge Date: Please see the following information for a summary of their discharge status. - Subjective Subjective: Pt reports his pain is much improved - Pain L knee Pain Intensity (Out of 10): 1 - Overall Improvement % Improvement: 85 - Objective Objective/Function: L knee ROM: 0-122. L knee MMT: 03/28 throughout. L knee pain 12/03. I with HEP - Goals Goal 1:: Decrease L knee pain x 50% to aid with sleep Goal Progress: Goal Met Goal 2:: Increase L knee strength x 1 grade to aid with stair negotiation Goal Progress: Goal Met Goal 3:: Increase L knee ROM x 30 degrees to aid with restoring a more normal gait pattern Goal Progress: Goal Met Goal 4:: I with HEP Goal Progress: Goal Met - Plan Plan: Discharge - D/C Information If there are questions or concerns regarding this patient's physical therapy, please feel free to call me at [phone]. Thank you for the referral of this patient. Sincerely, Fabian Apodaca, PT,
== END 2018-02-19 19:00 | disposition home or self-care (01) ==
LOC: PT 16:00
PROVIDERS: Family Provider Family Medicine; PCP Family Medicine; Visit Provider Orthopaedic Surgery
DX: Z98.890 Other specified postprocedural states (principal)
CPT/HCPCS: 97110; 97161; 97530; G8978; G8979

== ENCOUNTER → 2018-04-08 12:20 | Outpatient (CLI) | payer MEDICARE, OTHER, SELFPAY ==
--- NOTE | 2018-04-08 12:23 | MRI_ITS ---
STUDY: MRI RIGHT KNEE REASON FOR EXAM: Right medial knee pain for 4 months, no specific injury. TECHNIQUE: Standardized fat and water weighted pulse sequences were obtained in all 3 orthogonal planes. COMPARISON: Radiographs 12/15/2017. FINDINGS: There is tear/degeneration of the posterior horn/posterior body of the medial meniscus (proton-density sagittal images 33-35; proton density coronal images 13-16). There is mild peripheral subluxation of the medial meniscus. There is arthrosis of the medial femorotibial compartment with chondral thinning (T2 sagittal image 19). There is subchondral bone edema of the medial femoral condyle and tibial plateau (T2 sagittal images 17-21), a stress phenomenon. There is mild periligamentous inflammation of the medial collateral ligament (T2 coronal image 16). Normal distal semimembranosus, gracilis and semitendinosus tendons. Normal lateral meniscus. Normal hyaline cartilage of the lateral femorotibial compartment. Normal lateral femoral condyle and tibial plateau. Normal proximal tibiofibular articulation. Normal lateral collateral (fibular) ligament. Normal popliteus tendon. Normal biceps femoris tendon. There is mild intrasubstance mucoid degeneration of the anterior cruciate ligament (T2 sagittal image 11). Normal posterior cruciate ligament (PCL). Normal congruent patellofemoral articulation. Normal hyaline cartilage of the patellofemoral compartment. Normal medial and lateral patellar retinaculum. Normal quadriceps tendon. Normal patellar tendon. Normal Hoffa's fat pad. There is a [id number] sized joint effusion with synovitis in the suprapatellar recess (T2 sagittal images 4-6). There is a small popliteal cyst with mild extravasation of fluid (T2 sagittal images 16-20). The otherwise visualized osseous structures are unremarkable. MRI/Lower Ext Joint Only (Routine) IMPRESSION: Tear/degeneration of the medial meniscus. Arthrosis of the medial femorotibial compartment. Subchondral bone edema of the medial femoral condyle and medial tibial plateau, a stress phenomenon. Mild periligamentous inflammation of the medial collateral ligament. Joint effusion with synovitis. Small popliteal cyst with mild extravasation of fluid. Electronically Signed: Kenneth Ornelas MD at 13:54 EDT Tel , Service support ,
== END ==
PROVIDERS: Family Provider Family Medicine; PCP Family Medicine; Visit Provider Orthopaedic Surgery
DX: S83.241A Other tear of medial meniscus, current injury, right knee, initial encounter (principal)
CPT/HCPCS: 73721

== ENCOUNTER 2018-05-26 10:05 | Inpatient (IN) | payer MEDICARE, OTHER, SELFPAY ==
[2018-05-18 08:18] VITALS: BP 133/72; PULSE 52; RESP 16; TEMP 36.6; O2SAT 97; BMI 34.1
[2018-05-18 08:58] LABS: Absolute Lymphocyte Count 2.09 X10^3/ul (0.83-4.51); Absolute Neutrophil Count 4.7 X10^3/uL (2.0-7.7); Basophil# 0.02 X10^3/uL; Basophil% 0.3 % (0-1); Eosinophil# 0.19 X10^3/uL; Eosinophils% 2.5 % (0-5); Hemoglobin 16.8 g/dl (13.0-16.5); Lymphocyte # 2.09 X10^3/ul (4.0); Lymphocyte % 27.9 % (19-41); Mean Corpuscular Hgb 32.3 pg (27.0-32.0); Mean Corpuscular Volume 92.3 fL (80-94); Mean Platelet Vol. 9.4 fl (6.2-12.0); Monocyte# 0.46 X10^3/uL; Monocyte% 6.1 % (0-10); Neutrophil # 4.71 X10^3/uL (2.7-7.7); Neutrophil % 63.1 % (47-70); Platelet Count 163 K/mm3 (150-450); RBC Distribution Width CV 13.6 % (11.6-14.6); RBC Distribution Width SD 45.8 fl (35.1-43.9); White Blood Count 7.5 K/mm3 (4.4-11.0)
[2018-05-18 08:59] LABS: POSITIVE COUNT NO; POSITIVE DIFFERENTIAL NO; POSITIVE MORPHOLOGY NO
[2018-05-18 09:10] LABS: Anion Gap 9 (5-15); BUN 23 mg/dL (7-18); BUN/Creat Ratio 15.1 RATIO (10-20); Calcium,Total 9.7 mg/dL (8.5-10.1); Chloride 107 mmol/L (98-107); Creatinine, Serum 1.52 mg/dL (0.70-1.30); EST Glomerular Filtration Rate 49 mL/min (>60); Est Glom Filt Rate - Afr Amer 59 mL/min (>60); Estimated Creatinine Clearance 45.63 ml/min; Glucose 110 mg/dL (74-106); Potassium 4.1 mmol/L (3.5-5.1); Sodium Level 141 mmol/L (136-145)
--- NOTE | 2018-05-19 15:33 | PCM.HP.BLA ---
History and Physical DATE OF SURGERY: 05/26/2018 SCHEDULED PROCEDURE: Right total knee arthroplasty HISTORY OF PRESENT ILLNESS: This is a 67-year-old male who is been having ongoing pain in the right knee since November 2017. Patient states his pain can reach as high as a 6 out of 10. His pain is constant, dull, aching, sharp, stabbing, and sore. He has increased pain going up and down stairs, walking any amount of distance, and sitting for extended periods of time. Pain is primarily over the medial joint line and around his patella. He does complain of episodes of instability with the right knee. The pain does wake him at night. Patient has difficult time with activities of daily living including dressing, housework, and shopping. He has tripped/stumbled secondary to his right knee pain. Patient has tried conservative measures consisting of rest and elevation with minimal relief. He has tried ice, heat, and corticosteroid injection with no relief in symptoms. He has had a previous corticosteroid injection by Dr. Cleary. Patient has tried oral medications consisting of ibuprofen with no significant improvement. Patient has not had any previous surgery on the right knee. Patient did have a left total knee arthroplasty done by Dr. Cleary in December 2017. He states the left knee is doing well. Patient currently denies any chest pain, shortness of breath, fevers chills, recent infections. Patient has medical history pertinent for previous DVT approximately 3 years ago as well as sleep apnea. We are obtaining surgical clearance from patient's primary care physician. REVIEW OF SYSTEMS: ROS: Const: Denies change in appetite, fever and weight change. CV: Denies chest pain, heart murmur and irregular heartbeat. Resp: Denies cough, pneumonia, shortness of breath, tuberculosis and wheezing. GI: Reports heartburn, but denies constipation, diarrhea, nausea, rectal itching, bloody stools and vomiting. : Denies incontinence. Musculo: Reports leg swelling, but denies pain, trouble walking and weakness. Skin: Denies Raynaud's, history of shingles and tattoo. Neuro: Denies ambulatory dysfunction, dizziness, numbness/tingling and tremor. Psych: Denies anxiety, insomnia and stress. Augustin/Lymph: Denies anemia, bleeding/bruising tendency and past transfusion. Reviewed, no changes. PAST MEDICAL HISTORY: Advance Care Plan: No Advance Directives Effective Date: 04/24/2018 PMH: Medical Problems: Arthritis, Hard of Hearing, History Of Phlebitis, Sleep Apnea Accidents: Fracture - LT RING FINGER Surgical Hx: Gallbladder Knee Arthroscopy Lt - (2017) Knee Replacement Lt - (2018) Anesthesia Complications: None Assistive Devices: Glasses, Hearing Aid Reviewed and updated. SOCIAL HISTORY: SH: Marital: .Occupation: Retired.Work Status: Retired.Hand Dominance: Right-handed. Personal Habits: Cigarette Use: Former.Alcohol: Denies use.Drug Use: Denies Use.Enjoy Exercising: Exercises 1-3 X/Week. Reviewed, no changes. VITALS: Ht: 68 Wt: 224lb Wt k.606 BMI: 34.1 BP: 118/74 Pulse: 60 Resp: 18 T: 97.6 T: 36.4C ALLERGIES: Keflex MEDICATIONS: Aspirin 81 mg 1 tab PO daily, Multi Vitamin 1 tab PO daily PRE-OP EXAM: General appearance:NORMAL Other: Eyes: Conjunctivae and lids: NORMAL Pupils: ERR Ears, Nose, Mouth, and Throat: NORMAL Other: Inspection of lips, teeth and gums: NORMAL Other: Neck: Examination of neck: no masses noted. Respiratory: Assessment of respiratory effort: NORMAL Other: Auscultation of lungs: clear to auscultation no wheezes, rhonchi or rales. Cardiovascular: Auscultation of heart: regular rate and rhythm, no murmurs, gallops or rubs. Exam of carotid arteries: NORMAL Other: Gastrointestinal: Exam of abdomen: soft, nontender, nondistended bowel sounds present. PHYSICAL EXAMINATION: Patient walks with an antalgic gait. Right knee is cool to touch without erythema or signs of infection. Patient has tenderness to palpation on the right knee over the medial joint line as well as medial/lateral patella. Patient is stable to varus and valgus stress test. Range of motion: Lacks 3? of full extension to 120? of flexion with pain at end range flexion. Sensations intact light touch. Left knee shows well-healed incision from previous total knee arthroplasty. 1. IMAGING STUDIES: X-rays were obtained at [facility] [place] on April 24, 2018 including bilateral standing AP and coronal radiographs show varus alignment medial joint space narrowing, subchondral sclerosis, and osteophyte formation consistent with severe osteoarthritis of the right knee. IMPRESSION: 1. Severe right knee osteoarthritis 2. Previous left total knee arthroplasty 3. Sleep apnea 4. History of DVT 3 years ago PLAN: Dr. Fofana did discuss and review with the patient all treatment options including surgical versus nonsurgical. Patient wishes to proceed with above-stated procedure. Potential risks, benefits, and complications of this procedure were discussed in detail including but not limited to , infection, nerve and blood vessel damage, persistent pain, numbness, tingling, paresthesias, blood clot, pulmonary embolism, and requirement for further surgery. The patient expressed full understanding has no further questions for the doctor. Patient does agree to proceed with the above-stated procedure and has signed the surgery consent form. ___ I have re-examined the patient. There are no clinical changes since date of exam. ___ See progress notes for changes. ___ Dictated on admission Date: Time: Signature:
--- NOTE | 2018-05-19 15:42 | HP.PCM_ITS ---
History and Physical DATE OF SURGERY: 05/26/2018 SCHEDULED PROCEDURE: Right total knee arthroplasty HISTORY OF PRESENT ILLNESS: This is a 67-year-old male who is been having ongoing pain in the right knee since November 2017. Patient states his pain can reach as high as a 6 out of 10. His pain is constant, dull, aching, sharp, stabbing, and sore. He has increased pain going up and down stairs, walking any amount of distance, and sitting for extended periods of time. Pain is primarily over the medial joint line and around his patella. He does complain of episodes of instability with the right knee. The pain does wake him at night. Patient has difficult time with activities of daily living including dressing, housework, and shopping. He has tripped/stumbled secondary to his right knee pain. Patient has tried conservative measures consisting of rest and elevation with minimal relief. He has tried ice, heat, and corticosteroid injection with no relief in symptoms. He has had a previous corticosteroid injection by Dr. Cleary. Patient has tried oral medications consisting of ibuprofen with no significant improvement. Patient has not had any previous surgery on the right knee. Patient did have a left total knee arthroplasty done by Dr. Cleary in December 2017. He states the left knee is doing well. Patient currently denies any chest pain, shortness of breath, fevers chills, recent infections. Patient has medical history pertinent for previous DVT approximately 3 years ago as well as sleep apnea. We are obtaining surgical clearance from patient's primary care physician. REVIEW OF SYSTEMS: ROS: Const: Denies change in appetite, fever and weight change. CV: Denies chest pain, heart murmur and irregular heartbeat. Resp: Denies cough, pneumonia, shortness of breath, tuberculosis and wheezing. GI: Reports heartburn, but denies constipation, diarrhea, nausea, rectal itching , bloody stools and vomiting. : Denies incontinence. Musculo: Reports leg swelling, but denies pain, trouble walking and weakness. Skin: Denies Raynaud's, history of shingles and tattoo. Neuro: Denies ambulatory dysfunction, dizziness, numbness/tingling and tremor. Psych: Denies anxiety, insomnia and stress. Augustin/Lymph: Denies anemia, bleeding/bruising tendency and past transfusion. Reviewed, no changes. PAST MEDICAL HISTORY: Advance Care Plan: No Advance Directives Effective Date: 04/24/2018 PMH: Medical Problems: Arthritis, Hard of Hearing, History Of Phlebitis, Sleep Apnea Accidents: Fracture - LT RING FINGER Surgical Hx: Gallbladder Knee Arthroscopy Lt - (2017) Knee Replacement Lt - (2018) Anesthesia Complications: None Assistive Devices: Glasses, Hearing Aid Reviewed and updated. SOCIAL HISTORY: SH: Marital: .Occupation: Retired.Work Status: Retired.Hand Dominance: Right- handed. Personal Habits: Cigarette Use: Former.Alcohol: Denies use.Drug Use: Denies Use.Enjoy Exercising: Exercises 1-3 X/Week. Reviewed, no changes. VITALS: Ht: 68 Wt: 224lb Wt k.606 BMI: 34.1 BP: 118/74 Pulse: 60 Resp: 18 T: 97.6 T: 36.4C ALLERGIES: Keflex MEDICATIONS: Aspirin 81 mg 1 tab PO daily, Multi Vitamin 1 tab PO daily PRE-OP EXAM: General appearance:NORMAL Other: Eyes: Conjunctivae and lids: NORMAL Pupils: ERR Ears, Nose, Mouth, and Throat: NORMAL Other: Inspection of lips, teeth and gums: NORMAL Other: Neck: Examination of neck: no masses noted. Respiratory: Assessment of respiratory effort: NORMAL Other: Auscultation of lungs: clear to auscultation no wheezes, rhonchi or rales. Cardiovascular: Auscultation of heart: regular rate and rhythm, no murmurs, gallops or rubs. Exam of carotid arteries: NORMAL Other: Gastrointestinal: Exam of abdomen: soft, nontender, nondistended bowel sounds present. PHYSICAL EXAMINATION: Patient walks with an antalgic gait. Right knee is cool to touch without erythema or signs of infection. Patient has tenderness to palpation on the right knee over the medial joint line as well as medial/lateral patella. Patient is stable to varus and valgus stress test. Range of motion: Lacks 3? of full extension to 120? of flexion with pain at end range flexion. Sensations intact light touch. Left knee shows well-healed incision from previous total knee arthroplasty. 1. IMAGING STUDIES: X-rays were obtained at [facility] [place] on April including bilateral standing AP and coronal radiographs show varus alignment medial joint space narrowing, subchondral sclerosis, and osteophyte formation consistent with severe osteoarthritis of the right knee. IMPRESSION: 1. Severe right knee osteoarthritis 2. Previous left total knee arthroplasty 3. Sleep apnea 4. History of DVT 3 years ago PLAN: Dr. Fofana did discuss and review with the patient all treatment options including surgical versus nonsurgical. Patient wishes to proceed with above- stated procedure. Potential risks, benefits, and complications of this procedure were discussed in detail including but not limited to , infection , nerve and blood vessel damage, persistent pain, numbness, tingling, paresthesias, blood clot, pulmonary embolism, and requirement for further surgery. The patient expressed full understanding has no further questions for the doctor. Patient does agree to proceed with the above-stated procedure and has signed the surgery consent form. ___ I have re-examined the patient. There are no clinical changes since date of exam. ___ See progress notes for changes. ___ Dictated on admission Date: Time: Signature:
[2018-05-26] VITALS (10 sets, daily range): BP systolic 106–138; BP diastolic 57–83; PULSE 46–59; RESP 14–18; TEMP 36.1–36.9; O2SAT 94–99; BMI 34.1
[2018-05-26] MEDS: oxyCODONE HCl Cr 10 MG Tablet PO (10:35)
[2018-05-26] MEDS: Celecoxib 200 MG Capsule 400 MG PO (10:36)
[2018-05-26] MEDS: Acetaminophen 500 MG Tablet 1000 MG PO ×2 (10:36→20:55)
--- NOTE | 2018-05-26 12:47 | RAD_ITS ---
STUDY: X-RAY - RIGHT KNEE REASON FOR EXAM: Male, 67 years old. Total knee replacement. TECHNIQUE: AP and lateral view(s) of the knee. COMPARISON: Comparison is made with prior study dated June 14, 2018. FINDINGS: Normal visualized distal femur. Normal visualized proximal tibia and fibula. Normal proximal tibiofibular articulation. The patient is status post total knee replacement. There is good alignment. Postoperative soft tissue changes. RAD/Knee 1 or 2 Views IMPRESSION: Status post total knee replacement. There is good alignment. Postoperative soft tissue changes. Electronically Signed: Enrique Mark MD at 15:32 EDT Tel [phone], Service support ,
--- NOTE | 2018-05-26 12:49 | PCM.OPRPT ---
Report of Operation Date of Procedure: 05/26/18 Pre-Operative Diagnosis: Right knee primary osteoarthritis Post-Operative Diagnosis: Right knee primary osteoarthritis Surgery/Procedure Performed:: Right total knee replacement Description of Surgical Findings:: Press-fit cruciate retaining total knee replacement commercial real estate paralegal: Tristian Sanchez Type of Anesthesia:: Spinal Anesthesiologist: Nakul Skaggs Special Medications: 600 mg clindamycin, 1 g TXA at incision, 1 g TXA closure, 10 mg Decadron, joint cocktail (5 mg Duramorph, 30 mL of 0.5% Ropivicaine, 1000 units of epinephrine, 30 mg of Toradol) Specimen's removed: Bony cuts Estimated Blood Loss (mL): 50 Fluids Replaced: 1700 ml LR Description of Procedure: Implants used: 1. [place] size 5 press-fit triathlon cruciate retaining distal femoral component 2. [place] size 6 press-fit tibial baseplate 3. [place] X3 9 mm CS polyethylene 4. Elizabeth X3 35 mm asymmetric patella Brief history operative indications: 67-year-old m with history of Right knee osteoarthritis with radiographic findings with loss of joint space, osteophyte formation and subchondral sclerosis. Failed conservative measures as mentioned in the H&P. Discussion of total knee arthroplasty as well as risk and benefits were discussed the patient including but not limited to blood loss, DVTs, PEs, neurovascular damage, general risk of anesthesia including loss of life, and stiffness or instability were discussed with patient. Patient demonstrated understanding and was able to sign informed consent. Procedure: On the date of procedure patient's right lower extremity was marked in the preoperative area. The patient was then taken back to the operating room where the patient was placed on the table in the supine position. All bony prominences were identified a well-padded. Anesthesia assumed control of the C-spine and airway and remained controlled throughout the remainder of the procedure. A tourniquet was placed on the right upper thigh and the leg was prepped in a sterile fashion. The surgeon then scrubbed at this time .Upon reentering the room right lower extremity was draped in a standard orthopedic fashion. A timeout was then called and everyone agreed upon the side, the site, the procedure to be performed, patient's identity and antibiotics given. Esmarch bandage was used to exsanguinate the extremity and the tourniquet was placed up to 250 mmHg with the knee in flexion. A midline skin incision was made and sharp dissection was taken down through skin subcutaneous tissue and fat. The standard medial parapatellar incision was made and the patella was subluxed laterally. The standard deep MCL release was done and the fat pad was resected. Next our attention was directed to the femur. Navigation pins were placed, navigation was registered. The distal femoral cutting block was pinned into place and 10 mm of distal femur resection was completed. The distal femoral cut was verified with navigation. The knee was then placed in deep flexion in the standard [employer] sizing guide was used to place the femoral component in 3? external rotation based on the posterior condyles. A size 5 4-in-1 cutting block was selected and pinned into place. The anterior cut was then made and checked for notching. The subsequent anterior chamfer cuts, posterior condylar cuts and posterior chamfer cuts were made while ensuring the MCL and LCL were protected. Our attention was then turned to the tibia where the navigation pins were placed, navigation was registered. [employer] tibial cutting guide was used to make the appropriate tibial cut 90 degrees from the mechanical axis. Navigation was then used to verify the cut. A size 6 tibial base plate was selected. the knee was flexed to 90 degrees and the soft tissues and posterior osteophytes were removed from the joint. 40 cc of the periarticular injection was injected into the posterior medial corner of the joint. The appropriate trials were then placed on the femur and tibia. A trial polyethylene was trialed to ensure proper balancing and stability of the knee. Patella tracking, was then verified and corrected appropriately as needed. The appropriate tibial internal rotation was then marked with a bovie. Our attention was then directed to the patella. The patella was everted and a flat resection was made. The lug holes were drilled and the patella trial was placed. Patellar tracking was checked and deemed appropriate. Once we were happy lug holes were drilled for the femur and trial components were removed. Cement was mixed at this time and the tourniquet was let down the tibia was subluxed and pinned into place and the keel was punched and the canal was reamed. Final components were verified and opened, and cement was mixed in a vacuum. [place] Simplex cement was used. The wound was copiously irrigated with normal saline. When the cement was ready the press-fit components were impacted into place starting with the tibia, femur and finally the patella cemented into place. The trial poly component was placed and the knee was placed in full extension. All excess cement was removed in the process. Once the cement had cured the tracking, alignment and balance were verified and a size [] mm polyethylene component was placed. Once the final components were placed the wound was copiously irrigated with normal saline solution and the periarticular injection was given. The wound was closed in a layer ramirez fashion using #1 vicryl interrupted sutures for the arthrotomy, 2-0 interrupted Vicryl suture for the subcuticular layer and jonathon for final skin closure. A sterile compressive dressing was then placed. The patient was then awakened from anesthesia, transferred to the [place] and transferred to the PACU for recovery. Post op plan DVT ppx: Xarelto due to previous DVT, thigh high compression stockings Follow up: in office in 2 weeks for wound check PT: to start POD #0 at hospital, outpatient PT should be arranged. My physician molding line assistant was a vital part of this case. He was important in appropriate retraction during the case, and protection of soft tissues during bony cuts. His intimate knowledge of the case and my steps aided in safe and expedient completion of the procedure as well as appropriate position of the leg during the case. He was also vital in assisting with closure under my direct supervision. Grafts/Implants Used: Elizabeth triathlon total knee replacement - Complications NONE - Admit VTE Documentation VTE Present on Admission: No VTE Mechan Device Prophylaxis: SCD's, Thigh High RAJESH Hose VTE Pharm Prophylaxis ordered?: Yes
--- NOTE | 2018-05-26 12:52 | OP.PCM_ITS ---
Report of Operation Date of Procedure: 05/26/18 Pre-Operative Diagnosis: Right knee primary osteoarthritis Post-Operative Diagnosis: Right knee primary osteoarthritis Surgery/Procedure Performed:: Right total knee replacement Description of Surgical Findings:: Press-fit cruciate retaining total knee replacement derrick operator: Tristian Sanchez Type of Anesthesia:: Spinal Anesthesiologist: Nakul Skaggs Special Medications: 600 mg clindamycin, 1 g TXA at incision, 1 g TXA closure, 10 mg Decadron, joint cocktail (5 mg Duramorph, 30 mL of 0.5% Ropivicaine, 1000 units of epinephrine, 30 mg of Toradol) Specimen's removed: Bony cuts Estimated Blood Loss (mL): 50 Fluids Replaced: 1700 ml LR Description of Procedure: Implants used: 1. [place] size 5 press-fit triathlon cruciate retaining distal femoral component 2. Elizabeth size 6 press-fit tibial baseplate 3. [place] X3 9 mm CS polyethylene 4. Elizabeth X3 35 mm asymmetric patella Brief history operative indications: 67-year-old m with history of Right knee osteoarthritis with radiographic findings with loss of joint space, osteophyte formation and subchondral sclerosis. Failed conservative measures as mentioned in the H&P. Discussion of total knee arthroplasty as well as risk and benefits were discussed the patient including but not limited to blood loss, DVTs, PEs, neurovascular damage , general risk of anesthesia including loss of life, and stiffness or instability were discussed with patient. Patient demonstrated understanding and was able to sign informed consent. Procedure: On the date of procedure patient's right lower extremity was marked in the preoperative area. The patient was then taken back to the operating room where the patient was placed on the table in the supine position. All bony prominences were identified a well-padded. Anesthesia assumed control of the C- spine and airway and remained controlled throughout the remainder of the procedure. A tourniquet was placed on the right upper thigh and the leg was prepped in a sterile fashion. The surgeon then scrubbed at this time .Upon reentering the room right lower extremity was draped in a standard orthopedic fashion. A timeout was then called and everyone agreed upon the side, the site, the procedure to be performed, patient's identity and antibiotics given. Esmarch bandage was used to exsanguinate the extremity and the tourniquet was placed up to 250 mmHg with the knee in flexion. A midline skin incision was made and sharp dissection was taken down through skin subcutaneous tissue and fat. The standard medial parapatellar incision was made and the patella was subluxed laterally. The standard deep MCL release was done and the fat pad was resected. Next our attention was directed to the femur. Navigation pins were placed, navigation was registered. The distal femoral cutting block was pinned into place and 10 mm of distal femur resection was completed. The distal femoral cut was verified with navigation. The knee was then placed in deep flexion in the standard [employer] sizing guide was used to place the femoral component in 3? external rotation based on the posterior condyles. A size 5 4-in-1 cutting block was selected and pinned into place. The anterior cut was then made and checked for notching. The subsequent anterior chamfer cuts, posterior condylar cuts and posterior chamfer cuts were made while ensuring the MCL and LCL were protected. Our attention was then turned to the tibia where the navigation pins were placed , navigation was registered. [employer] tibial cutting guide was used to make the appropriate tibial cut 90 degrees from the mechanical axis. Navigation was then used to verify the cut. A size 6 tibial base plate was selected. the knee was flexed to 90 degrees and the soft tissues and posterior osteophytes were removed from the joint. 40 cc of the periarticular injection was injected into the posterior medial corner of the joint. The appropriate trials were then placed on the femur and tibia. A trial polyethylene was trialed to ensure proper balancing and stability of the knee. Patella tracking, was then verified and corrected appropriately as needed. The appropriate tibial internal rotation was then marked with a bovie. Our attention was then directed to the patella. The patella was everted and a flat resection was made. The lug holes were drilled and the patella trial was placed. Patellar tracking was checked and deemed appropriate. Once we were happy lug holes were drilled for the femur and trial components were removed. Cement was mixed at this time and the tourniquet was let down the tibia was subluxed and pinned into place and the keel was punched and the canal was reamed. Final components were verified and opened, and cement was mixed in a vacuum. [employer] Simplex cement was used. The wound was copiously irrigated with normal saline. When the cement was ready the press-fit components were impacted into place starting with the tibia, femur and finally the patella cemented into place. The trial poly component was placed and the knee was placed in full extension. All excess cement was removed in the process. Once the cement had cured the tracking , alignment and balance were verified and a size [] mm polyethylene component was placed. Once the final components were placed the wound was copiously irrigated with normal saline solution and the periarticular injection was given. The wound was closed in a layer ramirez fashion using #1 vicryl interrupted sutures for the arthrotomy, 2-0 interrupted Vicryl suture for the subcuticular layer and jonathon for final skin closure. A sterile compressive dressing was then placed. The patient was then awakened from anesthesia, transferred to the [place] and transferred to the PACU for recovery. Post op plan DVT ppx: Xarelto due to previous DVT, thigh high compression stockings Follow up: in office in 2 weeks for wound check PT: to start POD #0 at hospital, outpatient PT should be arranged. My physician blood donor unit assistant was a vital part of this case. He was important in appropriate retraction during the case, and protection of soft tissues during bony cuts. His intimate knowledge of the case and my steps aided in safe and expedient completion of the procedure as well as appropriate position of the leg during the case. He was also vital in assisting with closure under my direct supervision. Grafts/Implants Used: [place] triathlon total knee replacement - Complications NONE - Admit VTE Documentation VTE Present on Admission: No VTE Mechan Device Prophylaxis: SCD's, Thigh High RAJESH Hose VTE Pharm Prophylaxis ordered?: Yes
[2018-05-26] MEDS: Lactated Ringers 1,000 ML 125 ML IV ×2 (15:44→23:51)
[2018-05-26] MEDS: Clindamycin 600 MG/50 ML BAG 100 MG IV ×2 (17:43→23:50)
[2018-05-26] MEDS: Senna/Docusate Sodium 1 Tablet 2 TABLET PO (20:55)
[2018-05-26] MEDS: Meloxicam 7.5 MG Tablet PO (20:55)
[2018-05-27] MEDS: Rivaroxaban 10 MG Tablet PO (05:17)
[2018-05-27] MEDS: Acetaminophen 500 MG Tablet 1000 MG PO (05:17)
[2018-05-27] MEDS: Clindamycin 600 MG/50 ML BAG 100 MG IV (05:17)
[2018-05-27 05:51] LABS: Hematocrit 45.7 % (40-54); Hemoglobin 15.5 g/dl (13.0-16.5); Mean Corp Hgb Conc 33.9 g/gl (32-36); Mean Corpuscular Hgb 32.6 pg (27.0-32.0); Mean Corpuscular Volume 96.2 fL (80-94); Mean Platelet Vol. 9.7 fl (6.2-12.0); Platelet Count 181 K/mm3 (150-450); RBC Distribution Width CV 13.6 % (11.6-14.6); RBC Distribution Width SD 47.5 fl (35.1-43.9); Red Blood Count 4.75 M/mm3 (4.6-6.2); White Blood Count 15.8 K/mm3 (4.4-11.0)
[2018-05-27 06:15] LABS: Scan Indicated on CBC? Y/N NO
[2018-05-27 06:19] LABS: Anion Gap 10 (5-15); BUN 21 mg/dL (7-18); Calcium,Total 8.3 mg/dL (8.5-10.1); Chloride 110 mmol/L (98-107); EST Glomerular Filtration Rate 54 mL/min (>60); Est Glom Filt Rate - Afr Amer 65 mL/min (>60); Estimated Creatinine Clearance 49.54 ml/min; Glucose 114 mg/dL (74-106); Potassium 4.6 mmol/L (3.5-5.1); Sodium Level 141 mmol/L (136-145)
[2018-05-27] MEDS: Senna/Docusate Sodium 1 Tablet 2 TABLET PO (08:13)
[2018-05-27] MEDS: Multivitamins,Therapeutic Tablet 1 TABLET PO (08:13)
[2018-05-27] MEDS: Famotidine 20 MG Tablet PO (08:14)
[2018-05-27] MEDS: Aspirin E.C. 81 MG Tablet PO (08:14)
[2018-05-27 08:20] VITALS: BP 141/72; PULSE 59; RESP 18; TEMP 36.8; O2SAT 99
--- NOTE | 2018-05-27 08:24 | PN.ORTHO_ITS ---
Subjective: The patient was sitting in bedside chair upon examination. Patient denies any chest pain, shortness of breath, dizziness, lightheadedness, nausea or vomiting , or calf pain. Pain is controlled on medications. No adverse overnight events. Overall patient is doing well this morning. Patient does wish to try to go home today if pain is well controlled and tolerates physical therapy. Objective: Vital signs stable and afebrile. Patient is able to plantarflex and dorsiflex actively. Sensation is intact to light touch to saphenous, sural, superficial and deep peroneal, and tibial distribution. Dressing is clean dry and intact. Negative Homans bilaterally, negative signs and symptoms of DVT. - Physical Exam General: Alert, Oriented x3, Cooperative, No apparent distress Vital Signs Temp Pulse Resp BP Pulse Ox 98.3 F 59 L 18 141/72 H 99 05/27/18 08:20 05/27/18 08:20 05/27/18 08:20 05/27/18 08:20 05/27/18 08:20 Oxygen Delivery Method Room Air Weight: 101.8 kg Body Mass Index (BMI) 34.1 Intake and Output for Last 24 Hours 05/25/18 05/26/18 05/27/18 23:59 23:59 23:59 Intake Total 3852 / 3852 844 / 844 Balance 3852 / 3852 844 / 844 Laboratory Tests Past 24 Hrs 05/27/18 05/27/18 05:36 05:36 WBC 15.8 H RBC 4.75 Hgb 15.5 Hct 45.7 MCV 96.2 H MCH 32.6 H MCHC 33.9 RDW 13.6 RDW Differential 47.5 H Plt Count 181 MPV 9.7 Sodium 141 Potassium 4.6 Chloride 110 H Carbon Dioxide 21.0 Anion Gap 10 BUN 21 H Creatinine 1.40 H Estim Creat Clear Calc 49.54 Est GFR (MDRD) Af Amer 65 Est GFR (MDRD) Non-Af 54 L BUN/Creatinine Ratio 15.0 Glucose 114 H Calcium 8.3 L Medical Necessity - Tobacco Use Smoking Status: Former smoker Tobacco Use: Cigarettes Assessment/Plan 1. S/P right total knee arthroplasty POD #1 2. Continue Pain Medications: Tylenol and OxyIR 3. DVT Prophylaxis: Xarelto for 2 weeks postoperatively 4. PT/OT: Weightbearing as tolerated 5. H & H: 15.5/45.7, asymptomatic 6. Leukocytosis: Currently 15.8, afebrile. Patient did receive Decadron intraoperatively 7. Encouraged Incentive Spirometry 8. Disposition: Plan will be for possible discharge home today if pain is controlled and patient tolerates physical therapy. Prescriptions will be attached to chart. Patient will follow-up per [facility] postop instructions.
--- NOTE | 2018-05-27 08:28 | PCM.DC.TKR ---
Discharge Diet: No Restrictions Discharge Activity: May Not Drive May shower in (days): 1 - Turned dressing away from water Ice area for (Minutes): 20 - every hour while awake. Weight Bearing Status: Weight bearing as tolerated Elevate: Operative Extremity Additional Activity Instructions:: Wear elastic stockings for 2 weeks after your surgery. Call your doctor if your incision/area has: Continuous Slow Oozing, Sudden Increased Bleeding, Increased Pain/ Swelling, Increased Redness, Foul Smelling Discharge Call your doctor if you observe: Fever of 101 or Higher, Coldness, Increased Pain, Numbness or Tingling, Change in Color, Calf discomfort, Uncontrolled pain Remove Dressing in (days):: 4 - Okay to remove on May 31, 2018 Additional Instructions: Follow [facility] postop instructions Allergies/Adverse Reactions: Allergies cephalexin monohydrate [From Keflex] Allergy (Severe, Verified 05/18/18 08:14) Swelling Medications to take at Discharge Multivitamin [Multiple Vitamins] 1 each PO DAILY 12/30/17 Aspirin [Adult Aspirin] 81 mg PO DAILY 05/18/18 Calcium Carbonate [Tums] 200 mg PO PRN PRN 05/18/18 Acetaminophen [Tylenol] 1,000 mg PO Q8 #90 tab 05/27/18 Famotidine [Pepcid] 20 mg PO DAILY #30 tab 05/27/18 Oxycodone [Oxyir] 5 - 10 mg PO Q4H PRN PRN 6 Days #80 tab 05/27/18 Rivaroxaban [Xarelto] 10 mg PO DAILY@0600 #14 tab 05/27/18 Senna/Docusate Sodium [Senokot-S] 2 tab PO BID #20 tab 05/27/18 The following prescriptions were given: Oxycodone [Oxyir] 5 - 10 mg PO Q4H PRN PRN 6 Days #80 tab PRN Reason: Mod-Severe Pain (4-09/02) Acetaminophen [Tylenol] 1,000 mg PO Q8 #90 tab Famotidine [Pepcid] 20 mg PO DAILY #30 tab Rivaroxaban [Xarelto] 10 mg PO DAILY@0600 #14 tab Senna/Docusate Sodium [Senokot-S] 2 tab PO BID #20 tab Primary Care Physician: Nakul Oliva MD [Primary Care Provider] - Test Results: Please Follow Up With: [facility] When: 05/29/18 @ 1:30 pm Please Follow Up With: Tristian Sanchez PA-C When: 06/08/18 @ 11:00 am
[2018-05-27] MEDS: oxyCODONE 5 MG Tablet PO ×2 (09:43→15:17)
[2018-05-27 17:36] VITALS: BP 136/66; PULSE 62; RESP 18; TEMP 36.9; O2SAT 98
== END 2018-05-27 16:15 | disposition home or self-care (01) | DRG 470 ==
LOC: ACINP 10:06 → MS3 13:01
PROVIDERS: Admitting Provider Specialist; Family Provider Family Medicine; PCP Family Medicine; Visit Provider Specialist
PROC: 0SRC0JA Replacement of Right Knee Joint with Synthetic Substitute, Uncemented, Open Approach (ICD-10-PCS; CPT 27447; principal; 2018-05-26 12:15)
DX: M17.11 Unilateral primary osteoarthritis, right knee (principal); Z96.652 Presence of left artificial knee joint; Z86.718 Personal history of other venous thrombosis and embolism; G47.30 Sleep apnea, unspecified
CPT/HCPCS: 36415; 73560; 80048; 85025; 85027; 87081; 97161; 97166; C1776; J7120

== ENCOUNTER → 2018-10-21 11:59 | Outpatient (CLI) | payer MEDICARE, OTHER, SELFPAY ==
[2018-05-26 16:36] VITALS: BMI 34.1
[2018-10-21 14:13] LABS: Absolute Lymphocyte Count 2.01 X10^3/ul (0.83-4.51); Absolute Neutrophil Count 6.3 X10^3/uL (2.0-7.7); Basophil# 0.03 X10^3/uL; Basophil% 0.3 % (0-1); Eosinophil# 0.13 X10^3/uL; Eosinophils% 1.4 % (0-5); Hematocrit 46.9 % (40-54); Hemoglobin 16.2 g/dl (13.0-16.5); Lymphocyte # 2.01 X10^3/ul (4.0); Lymphocyte % 21.9 % (19-41); Mean Corp Hgb Conc 34.5 g/gl (32-36); Mean Corpuscular Hgb 32.5 pg (27.0-32.0); Mean Corpuscular Volume 94.2 fL (80-94); Mean Platelet Vol. 10.1 fl (6.2-12.0); Monocyte# 0.69 X10^3/uL; Monocyte% 7.5 % (0-10); Neutrophil # 6.32 X10^3/uL (2.7-7.7); Neutrophil % 68.8 % (47-70); Platelet Count 195 K/mm3 (150-450); RBC Distribution Width CV 13.8 % (11.6-14.6); RBC Distribution Width SD 46.5 fl (35.1-43.9); Red Blood Count 4.98 M/mm3 (4.6-6.2); White Blood Count 9.2 K/mm3 (4.4-11.0)
[2018-10-21 14:14] LABS: POSITIVE COUNT NO; POSITIVE DIFFERENTIAL NO; POSITIVE MORPHOLOGY NO
[2018-10-21 14:26] LABS: Hemoglobin A1c 6.4 % (4.2-6.3)
[2018-10-21 14:30] LABS: ALB/GLOB Ratio 1.2 RATIO (0.9-2.4); AST(SGOT) 39 U/L (15-37); Alanine Aminotransfer ALT/SGPT 65 U/L (16-61); Albumin, Serum 3.8 g/dL (3.2-5.0); Alkaline Phosphatase 99 U/L (45-117); Anion Gap 10 (5-15); BUN 26 mg/dL (7-18); BUN/Creat Ratio 18.3 RATIO (10-20); Chloride 109 mmol/L (98-107); Cholesterol 182 mg/dL (200); Creatinine, Serum 1.42 mg/dL (0.70-1.30); EST Glomerular Filtration Rate 53 mL/min (>60); Est Glom Filt Rate - Afr Amer 64 mL/min (>60); Ferritin 158 ng/mL (26-388); Globulin 3.3 g/dL (2.2-4.2); Glucose 94 mg/dL (74-106); High Density Lipoprotein 37 mg/dL; Iron 138 ug/dL (65-175); Potassium 3.9 mmol/L (3.5-5.1); Protein, Total 7.1 g/dL (6.4-8.2); Sodium Level 142 mmol/L (136-145); Triglycerides 256 mg/dL; Very Low Density Lipoprotein 51 mg/dL (5-40)
[2018-10-22 15:14] LABS: Hepatitis A AB, Total Negative (Negative)
--- OUTSIDE RECORDS SUMMARY | 2018-12-16 21:23 | XMS RPT_ITS ---
:1950 Author Organization OHIP Support Name Relationship Address Phone CANODE MATIAS Unavailable [address] + [place] [address] R Unavailable Unavailable Unavailable CANODE, MATIAS Unavailable [address] + [place] [address] R Unavailable Unavailable Unavailable CANODE, MATIAS Unavailable [address] + [place] [address] R Unavailable Unavailable Unavailable CANODE, MATIAS Unavailable [address] + [place] [address] R Unavailable Unavailable Unavailable CANODE, MATIAS Unavailable [address] + [place] [address] R Unavailable Unavailable Unavailable CANODE, MATIAS Unavailable [address] + [place] [address] R Unavailable Unavailable Unavailable CANODE, MATIAS Unavailable [address] + [place] [address] R Unavailable Unavailable Unavailable CANODE, MATIAS Unavailable [address] + [place] [address] R Unavailable Unavailable Unavailable CANODE, MATIAS Unavailable [address] + [place] [address] R Unavailable Unavailable Unavailable CANODE, MATIAS Unavailable [address] + [place] [address] R Unavailable Unavailable Unavailable CANODE, MATIAS Unavailable [address] + [place] [address] R Unavailable Unavailable Unavailable CANODE, MATIAS Unavailable [address] + [place] [address] R Unavailable Unavailable Unavailable CANODE, MATIAS Unavailable [address] + [place] [address] R Unavailable Unavailable Unavailable CANODE, MATIAS Unavailable [address] + [place] [address] R Unavailable Unavailable Unavailable CANODE, MATIAS Unavailable [address] + [place] [address] R Unavailable Unavailable Unavailable CANODE, MATIAS Unavailable [address] + [place] [address] R Unavailable Unavailable Unavailable CANODE, MATIAS Unavailable [address] + [place] [address] R Unavailable Unavailable Unavailable CANODE, MATIAS Unavailable [address] + [place] [address] R Unavailable Unavailable Unavailable CANODE, MATIAS Unavailable [address] + [place] [address] R Unavailable Unavailable Unavailable CANODE, MATIAS Unavailable [address] + [place] [address] R Unavailable Unavailable Unavailable Care Team Providers Name Role Phone Nakul Oliva Attending Unavailable Oliva, Nakul Referring Unavailable Oliva, Nakul Primary Care Unavailable Ross Cleary Attending Unavailable Oliva, Nakul Referring Unavailable Oliva, Nakul Primary Care Unavailable Ross Cleary Attending Unavailable Oliva, Nakul Referring Unavailable Oliva, Nakul Primary Care Unavailable Ross Cleary Attending Unavailable Oliva, Nakul Primary Care Unavailable Ross Cleary Admitting Unavailable Ross Cleary Attending Unavailable Pj, Nakul Primary Care Unavailable Ross Cleary Admitting Unavailable Ross Cleary Attending Unavailable Pj, Nakul Primary Care Unavailable Ross Cleary Consulting Unavailable Ross Cleary Admitting Unavailable Ross Cleary Attending Unavailable Oliva, Nakul Primary Care Unavailable Ross Cleary Consulting Unavailable Oliva, Nakul Primary Care Unavailable Elkin Medel Attending Unavailable Ross Cleary Attending Unavailable Oliva, Nakul Primary Care Unavailable Ross Cleary Referring Unavailable Ross Cleary Attending Unavailable Oliva, Nakul Referring Unavailable Oliva, Nakul Primary Care Unavailable Edmar Avila Attending Unavailable Baltazarrtmichael, Nakul Referring Unavailable Ross Cleary Attending Unavailable Oliva, Nakul Referring Unavailable Oliva, Nakul Primary Care Unavailable Ross Cleary Attending Unavailable Oliva, Nakul Primary Care Unavailable Telly Peters Attending Unavailable Evin, Ross Attending Unavailable Oliva, Nakul Referring Unavailable Oliva, Nakul Primary Care Unavailable Evin, Ross Attending Unavailable Oliva, Nakul Referring Unavailable Oliva, Nakul Primary Care Unavailable Evin, Ross Attending Unavailable Evin, Ross Referring Unavailable Oliva, Nakul Primary Care Unavailable Evin, Ross Attending Unavailable Oliva, Nakul Referring Unavailable Oliva, Nakul Primary Care Unavailable Gary Fofana Admitting Unavailable Brgiido, Gary Attending Unavailable Brigido, Gary Referring Unavailable Oliva, Nakul Primary Care Unavailable Oliva, Nakul Attending Unavailable Oliva, Nakul Primary Care Unavailable PROBLEMS PROBLEMS DATE TYPE CONDITION / CODE ATTENDING STATUS SOURCE 05/28/2018 Unknown Z96.651 - Presence Gary Fofana Active [place] of right artificial Community knee joint / Hospital Z96.651(ICD-10) Repository 03/30/2018 Unknown S83.241A - Other Ross Cleary Active [place] tear of medial Community meniscus, current Hospital injury, right knee, Repository initial encounter / S83.241A(ICD-10) 03/30/2018 Unknown M23.91 - Unspecified Ross Cleary Active [place] internal derangement Community of right knee / Hospital M23.91(ICD-10) Repository 02/20/2018 Unknown Z98.890 - Other Ross Cleary Active [place] specified Community postprocedural Hospital states / Repository Z98.890(ICD-10) 02/16/2018 Unknown M25.562 - Pain in Ross Cleary Active [place] left knee / Community M25.562(ICD-10) Hospital Repository 02/27/2018 Unknown M79.89 - Other Telly Peters Active [place] specified soft Community tissue disorders / Hospital M79.89(ICD-10) Repository 01/07/2018 Unknown M17.12 - Unilateral Ross Cleary Active [place] primary Community osteoarthritis, left Hospital knee / Repository M17.12(ICD-10) 04/22/2018 Unknown M25.561 - Pain in Ross Cleary Active [place] right knee / Community M25.561(ICD-10) Hospital Repository 12/31/2017 Unknown G89.29 - Other Ross Cleary Active [place] chronic pain / Community G89.29(ICD-10) Hospital Repository PROCEDURES PROCEDURES No Procedure Records FoundRESULTS RESULTS LOW DOSE CT LUNG Observed: 11/09/2018 Status: F Source: [place] SCREENING 4:52 PM [facility] H[facility] REPOSITORY [facility] Imaging Services [address] [place] [address] Lung Screening MR#: [id number] Acct: [id number] Name: RENATA MARTIN Rep #: [id number] : 1950 M 68 From: Corbin Yin MD PCP: Nakul Oliva MD Status: REG CL Study: Low Dose CT Lung Screening Date of Exam: 11/09/18 Exam# [id number] Ordering Dr: Nakul Oliva MD STUDY: LOW DOSE CT LUNG CANCER SCREENING REASON FOR EXAM: Male, 68 years old. Long history of smoking RADIATION DOSAGE (If Supplied By Facility): CTDIvol = ( 4.02 ) mGy, DLP = ( 138.43 ) mGycm TECHNIQUE: No contrast was administered. Low dose technique was utilized (average mAS-38 and kVp 120). 1.25 mm axial source images with a slice interval of 1.25- mm were reconstructed in lung windows. 2.5 mm axial source images with a slice interval of 2.5-mm were reconstructed in lung windows. 5.0 mm axial source images with a slice interval of 5.0-mm were reconstructed in soft tissue windows. Nodule measured using lung windows on PACS and/or independent workstation with automated measurement of minimum and maximum diameter. Nodule measurement reported as average diameter rounded to the nearest whole number. Growth is defined as an increase ins size of greater than 1.5 mm. COMPARISON: None. NODULES: There is mild bronchial wall thickening suggesting chronic bronchitis. There is no abnormal lung mass. There is no demonstrated pleural abnormality. Normal heart and pericardium. Normal mediastinum. Normal hilar regions. Normal unenhanced pulmonary arteries. Normal aorta arch and descending thoracic aorta. There are multi-level degenerative changes of the thoracic spine. There is no demonstrated abnormality of the visualized upper abdomen. CT/Low Dose CT Lung Screening IMPRESSION: Lung-RADS category 2. Benign findings. There is no evidence of malignancy. Recommendation: Routine screening CT scan in one year. IMPORTANT NOTES FOR USE: ACR Lung-RADS Version 1.0 Assessment Categories Release Date: March 21, 2014 Category: Coded 0-4 bases on nodule(s) with highest degree of suspicion. Negative screen is defined as categories 1 and 2; a positive screen is defined as categories 3 and 4. Category 3 and 4A nodules that are unchanged on interval CT should be coded as category 2, and individuals returned to screening in 12 months. Category 4X: Category 3 or 4 nodules with additional imaging findings that increase the suspicion of lung cancer, such as spiculation, GGN that doubles in size in 1 year, enlarged lymph notes, etc. Category Modifiers: S (significant finding unrelated to lung cancer) and C (prior history of treated lung cancer) may be added to the 0-4 Lung-RADS Electronically Signed: Corbin Yin MD at 8:08 EST Tel , Service support , CC: Nakul Oliva MD Boiler/Chiller Operator: Signed CBC W/DIFF, AUTOMATED Collected: 10/21/2018 Status: F Source: [place] 12:02 PM [facility] REPOSITORY TYPE CODE TESTS RESULT OUT OF RANGE REFERENCE UNITS LAB L100.1000 4.4-11.0 K/mm3 Normal WBC 9.2 LAB L100.1200 4.6-6.2 M/mm3 Normal RBC 4.98 LAB L100.1300 13.0-16.5 g/dl Normal HGB 16.2 LAB L100.1400 40-54 % Normal HCT 46.9 LAB L100.1500 80-94 fL High MCV 94.2 LAB L100.1600 27.0-32.0 pg High MCH 32.5 LAB L100.1700 32-36 g/gl Normal MCHC 34.5 LAB L100.1810 11.6-14.6 % Normal RDW CV 13.8 LAB L100.1820 35.1-43.9 fl High RDW SD 46.5 LAB L100.1900 150-450 K/mm3 Normal PLT 195 LAB L100.2000 6.2-12.0 fl Normal MPV 10.1 LAB L100.2100 47-70 % Normal NEUT% 68.8 LAB L100.2200 19-41 % Normal LY% 21.9 LAB L100.2300 0-10 % Normal MONO% 7.5 LAB L100.2400 0-5 % Normal EO% 1.4 LAB L100.2500 0-1 % Normal BASO% 0.3 LAB L100.2550 0.0-0.9 % Normal IM GRAN % 0.100 Result Comment: IG% - Immature Granulocytes (promyelocytes, myelocytes and metamyelocytes) > 1% indicates that a LEFT SHIFT is Present. LAB L100.2620 2.0-7.7 X10 3/uL Normal Absolute Neut 6.3 LAB L100.2720 0.83-4.51 X10 3/ul Normal Absolute Lymph 2.01 Performed By: #### L100.0100, L501.9985, L500.4050, L500.4100, L503.6150, L503.6550 #### [facility] [place], [address] #### L3100.0300 #### [facility] (refer to report for specific site) refer to report for address and phone number HEMOGLOBIN A1C Collected: 10/21/2018 Status: F Source: [place] 12:02 PM [facility] REPOSITORY TYPE CODE TESTS RESULT OUT OF RANGE REFERENCE UNITS LAB L501.9985 4.2-6.3 % High HGB A1C 6.4 Performed By: #### L100.0100, L501.9985, L500.4050, L500.4100, L503.6150, L503.6550 #### [facility] [address] [place], [place], [id number] #### L3100.0300 #### [facility] (refer to report for specific site) refer to report for address and phone number COMPREHENSIVE METABOLIC Collected: 10/21/2018 Status: F Source: [facility] 12:02 PM [facility] REPOSITORY TYPE CODE TESTS RESULT OUT OF RANGE REFERENCE UNITS LAB L501.0100 74-106 mg/dL Normal GLU 94 Result Comment: Please note revised GLUCOSE reference range effective 2017. LAB L501.1000 7-18 mg/dL High BUN 26 LAB L501.1100 0.70-1.30 mg/dL High CREAT,SERUM 1.42 Result Comment: The validity of the calculated GFR AND GFRAA in patients over 70 years has not been determined. Clinical correlation is essential. LAB L501.1110 >60 mL/min Low EST GFR 53 Result Comment: Non- GFR Calc LAB L501.1115 >60 mL/min Normal EST GFR - AA 64 Result Comment: GFR Calc LAB L501.1300 10-20 RATIO Normal BUN/CRE 18.3 LAB L501.1500 6.4-8.2 g/dL T Normal PROT 7.1 LAB L501.1800 3.2-5.0 g/dL Normal ALB 3.8 LAB L501.1950 2.2-4.2 g/dL Normal GLOB 3.3 LAB L501.2000 0.9-2.4 RATIO Normal A/G 1.2 LAB L501.2200 8.5-10.1 mg/dL CA Normal 9.0 LAB L501.4100 15-37 U/L High AST 39 LAB L501.4305 45-117 U/L Normal ALK P 99 LAB L501.4405 16-61 U/L High ALT 65 LAB L501.4600 0.20-1.00 mg/dL T Normal BILI 0.80 LAB L501.5300 136-145 mmol/L NA Normal 142 LAB L501.5600 3.5-5.1 mmol/L K Normal 3.9 LAB L501.5900 98-107 mmol/L High CL 109 LAB L501.6100 21.0-32.0 mmol/L Normal CO2 23.0 LAB L501.6200 5-15 Normal GAP 10 Performed By: #### L100.0100, L501.9985, L500.4050, L500.4100, L503.6150, L503.6550 #### [facility] [address] [place], [address] #### L3100.0300 #### [facility] (refer to report for specific site) refer to report for address and phone number LIPID PROFILE Collected: 10/21/2018 Status: F Source: [place] 12:02 PM [facility] REPOSITORY TYPE CODE TESTS RESULT OUT OF RANGE REFERENCE UNITS LAB L501.4900 200 mg/dL Normal CHOL 182 Result Comment: <200 mg/dL Desirable 200-240 mg/dL Borderline >240 mg/dL High Risk LAB L501.5000 mg/dL High TRIG 256 Result Comment: The drugs N-Acetylcysteine and Metamizole may falsely depress this assay. Serum Triglycerides Reference Interval Normal <150 mg/dL Borderline high 150 - 199 mg/dL High 200 - 499 mg/dL Very High > or = 500 mg/dL LAB L501.6400 mg/dL Low HDL 37 Result Comment: The drugs N-Acetylcysteine and Metamizole may falsely depress this assay. Reference Range HDL <40 mg/dL Low HDL Cholesterol HDL >or= 60 mg/dL High HDL Cholesterol LAB L501.6500 0-130 mg/dL Normal LDL 94 LAB L501.6600 5-40 mg/dL High VLDL 51 Performed By: #### L100.0100, L501.9985, L500.4050, L500.4100, L503.6150, L503.6550 #### [facility] [address] [place] [id number] #### L3100.0300 #### [facility] (refer to report for specific site) refer to report for address and phone number IRON Collected: 10/21/2018 Status: F Source: [place] 12:02 [facility] REPOSITORY TYPE CODE TESTS RESULT OUT OF RANGE REFERENCE UNITS LAB L503.6150 65-175 ug/dL Normal IRON 138 Performed By: #### L100.0100, L501.9985, L500.4050, L500.4100, L503.6150, L503.6550 #### [facility] [address] [place], [address] #### L3100.0300 #### [facility] (refer to report for specific site) refer to report for address and phone number FERRITIN Collected: 10/21/2018 Status: F Source: [place] 12:02 PM [facility] REPOSITORY TYPE CODE TESTS RESULT OUT OF RANGE REFERENCE UNITS LAB L503.6550 26-388 ng/mL Normal FERRITIN 158 Performed By: #### L100.0100, L501.9985, L500.4050, L500.4100, L503.6150, L503.6550 #### [facility] [address] [place], [place], [id number] #### L3100.0300 #### [facility] (refer to report for specific site) refer to report for address and phone number HEPATITIS A AB, TOTAL Collected: 10/21/2018 Status: F Source: [place] 12:02 PM [facility] TYPE CODE TESTS RESULT OUT OF RANGE REFERENCE UNITS LAB L3100.0300 Negative Normal HEP A Negative AB,T.6726 Result Comment: Performed at: [facility] [address] [id number] Sheet Tester: Lobo Alicia PhD, Phone: [phone] Performed By: #### L100.0100, L501.9985, L500.4050, L500.4100, L503.6150, L503.6550 #### [facility] [address] [place] [address], [id number] #### L3100.0300 #### [facility] (refer to report for specific site) refer to report for address and phone number DISCHARGE INSTRUCTION Observed: 05/27/2018 Status: F Source: [place] 8:30 AM [facility] Medical Records Department [address] [place] [address] Instructions for Home/Discharge Instructions 05/27/18 0828 MR#: [id number] Acct: [id number] Name: RENATA MARTIN Calixto Rep #: [id number] : 1950 67 From: Tristian Sanchez PA-C PCP: Nakul Oliva MD Status: ADM IN Discharge Diet: No Restrictions Discharge Activity: May Not Drive May shower in (days): 1 - Turned dressing away from water Ice area for (Minutes): 20 - every hour while awake. Weight Bearing Status: Weight bearing as tolerated Elevate: Operative Extremity Additional Activity Instructions:: Wear elastic stockings for 2 weeks after your surgery. Call your doctor if your incision/area has: Continuous Slow Oozing, Sudden Increased Bleeding, Increased Pain/ Swelling, Increased Redness, Foul Smelling Discharge Call your doctor if you observe: Fever of 101 or Higher, Coldness, Increased Pain, Numbness or Tingling, Change in Color, Calf discomfort, Uncontrolled pain Remove Dressing in (days):: 4 - Okay to remove on May 31, 2018 Additional Instructions: Follow [place] [facility] postop instructions Allergies/Adverse Reactions: Allergies cephalexin monohydrate [From Keflex] Allergy (Severe, Verified 05/18/18 08:14) Swelling Medications to take at Discharge Multivitamin [Multiple Vitamins] 1 each PO DAILY 12/30/17 Aspirin [Adult Aspirin] 81 mg PO DAILY 05/18/18 Calcium Carbonate [Tums] 200 mg PO PRN PRN 05/18/18 Acetaminophen [Tylenol] 1,000 mg PO Q8 #90 tab 05/27/18 Famotidine [Pepcid] 20 mg PO DAILY #30 tab 05/27/18 Oxycodone [Oxyir] 5 - 10 mg PO Q4H PRN PRN 6 Days #80 tab 05/27/18 Rivaroxaban [Xarelto] 10 mg PO DAILY@0600 #14 tab 05/27/18 Senna/Docusate Sodium [Senokot-S] 2 tab PO BID #20 tab 05/27/18 The following prescriptions were given: Oxycodone [Oxyir] 5 - 10 mg PO Q4H PRN PRN 6 Days #80 tab PRN Reason: Mod-Severe Pain (4-10/10) Acetaminophen [Tylenol] 1,000 mg PO Q8 #90 tab Famotidine [Pepcid] 20 mg PO DAILY #30 tab Rivaroxaban [Xarelto] 10 mg PO DAILY@0600 #14 tab Senna/Docusate Sodium [Senokot-S] 2 tab PO BID #20 tab Primary Care Physician: Nakul Oliva MD [Primary Care Provider] - Test Results: Please Follow Up With: [facility] physical therapy When: 05/29/18 @ 1:30 pm Please Follow Up With: Tristian Sanchez PA-C When: 06/08/18 @ 11:00 am 05/27/18 0830 <Electronically signed by Tristian Sanchez PA-C> Date Tristian Sanchez PA-C CC: Nakul Oliva MD CBC-COMPLETE BLOOD CNT Collected: 05/27/2018 Status: F Source: [place] NO DIFF 5:36 AM [facility] REPOSITORY TYPE CODE TESTS RESULT OUT OF RANGE REFERENCE UNITS LAB L100.1000 4.4-11.0 K/mm3 High WBC 15.8 LAB L100.1200 4.6-6.2 M/mm3 Normal RBC 4.75 LAB L100.1300 13.0-16.5 g/dl Normal HGB 15.5 LAB L100.1400 40-54 % Normal HCT 45.7 LAB L100.1500 80-94 fL High MCV 96.2 LAB L100.1600 27.0-32.0 pg High MCH 32.6 LAB L100.1700 32-36 g/gl Normal MCHC 33.9 LAB L100.1810 11.6-14.6 % Normal RDW CV 13.6 LAB L100.1820 35.1-43.9 fl High RDW SD 47.5 LAB L100.1900 150-450 K/mm3 Normal PLT 181 LAB L100.2000 6.2-12.0 fl Normal MPV 9.7 Performed By: #### L100.0500 #### [facility] [address] [place], [address] BASIC METABOLIC Collected: 05/27/2018 Status: F Source: [place] PROFILE (BMP) 5:36 AM [facility] REPOSITORY TYPE CODE TESTS RESULT OUT OF RANGE REFERENCE UNITS LAB L501.0100 74-106 mg/dL High GLU 114 Result Comment: Fasting Glucose result from 100 to 125 mg/dL suggests IMPAIRED HOMEOSTASIS per A.D.A. criteria. Please note revised GLUCOSE reference range effective 2017. LAB L501.1000 7-18 mg/dL High BUN 21 LAB L501.1100 0.70-1.30 mg/dL High CREAT,SERUM 1.40 Result Comment: The validity of the calculated GFR AND GFRAA in patients over 70 years has not been determined. Clinical correlation is essential. LAB L501.1110 >60 mL/min Low EST GFR 54 Result Comment: Non- GFR Calc LAB L501.1115 >60 mL/min Normal EST GFR - AA 65 Result Comment: GFR Calc LAB L501.1255 ml/min Normal Estimated CRCL 49.54 LAB L501.1300 10-20 RATIO Normal BUN/CRE 15.0 LAB L501.2200 8.5-10 mg/dL Low .1 CA 8.3 LAB L501.5300 136-14 mmol/L Normal 5 NA 141 LAB L501.5600 3.5-5. mmol/L Normal 1 K 4.6 LAB L501.5900 98-107 mmol/L High CL 110 LAB L501.6100 21.0-3 mmol/L Normal 2.0 CO2 21.0 LAB L501.6200 5-15 Normal GAP 10 Performed By: #### L500.2500 #### [facility] [address] [facility] [place], [address] OPERATIVE REPORT Observed: 05/26/2018 Status: F Source: [place] 2:13 PM [facility] REPOSITORY [facility] Medical Records Department [address] [place] [address] Operative Report 05/26/18 1249 MR#: [id number] Acct: [id number] Name: RENATA MARTIN Rep #: [id number] : 1950 67 From: Gary Fofana MD PCP: Nakul Oliva MD Status: ADM IN Location: [place] [address] Report of Operation Date of Procedure: 05/26/18 Pre-Operative Diagnosis: Right knee primary osteoarthritis Post-Operative Diagnosis: Right knee primary osteoarthritis Surgery/Procedure Performed:: Right total knee replacement Description of Surgical Findings:: Press-fit cruciate retaining total knee replacement design specialist: Tristian Sanchez Type of Anesthesia:: Spinal Anesthesiologist: Nakul Skaggs Special Medications: 600 mg clindamycin, 1 g TXA at incision, 1 g TXA closure, 10 mg Decadron, joint cocktail (5 mg Duramorph, 30 mL of 0.5% Ropivicaine, 1000 units of epinephrine, 30 mg of Toradol) Specimen's removed: Bony cuts Estimated Blood Loss (mL): 50 Fluids Replaced: 1700 ml LR Description of Procedure: Implants used: 1. Elizabeth size 5 press-fit triathlon cruciate retaining distal femoral component 2. Elizabeth size 6 press-fit tibial baseplate 3. Elizabeth X3 9 mm CS polyethylene 4. [place] X3 35 mm asymmetric patella Brief history operative indications: 67-year-old m with history of Right knee osteoarthritis with radiographic findings with loss of joint space, osteophyte formation and subchondral sclerosis. Failed conservative measures as mentioned in the H AND P. Discussion of total knee arthroplasty as well as risk and benefits were discussed the patient including but not limited to blood loss, DVTs, PEs, neurovascular damage, general risk of anesthesia including loss of life, and stiffness or instability were discussed with patient. Patient demonstrated understanding and was able to sign informed consent. Procedure: On the date of procedure patient's right lower extremity was marked in the preoperative area. The patient was then taken back to the operating room where the patient was placed on the table in the supine position. All bony prominences were identified a well-padded. Anesthesia assumed control of the C-spine and airway and remained controlled throughout the remainder of the procedure. A tourniquet was placed on the right upper thigh and the leg was prepped in a sterile fashion. The surgeon then scrubbed at this time .Upon reentering the room right lower extremity was draped in a standard orthopedic fashion. A timeout was then called and everyone agreed upon the side, the site, the procedure to be performed, patient's identity and antibiotics given. Esmarch bandage was used to exsanguinate the extremity and the tourniquet was placed up to 250 mmHg with the knee in flexion. A midline skin incision was made and sharp dissection was taken down through skin subcutaneous tissue and fat. The standard medial parapatellar incision was made and the patella was subluxed laterally. The standard deep MCL release was done and the fat pad was resected. Next our attention was directed to the femur. Navigation pins were placed, navigation was registered. The distal femoral cutting block was pinned into place and 10 mm of distal femur resection was completed. The distal femoral cut was verified with navigation. The knee was then placed in deep flexion in the standard Elizabeth sizing guide was used to place the femoral component in 3 external rotation based on the posterior condyles. A size 5 4-in-1 cutting block was selected and pinned into place. The anterior cut was then made and checked for notching. The subsequent anterior chamfer cuts, posterior condylar cuts and posterior chamfer cuts were made while ensuring the MCL and LCL were protected. Our attention was then turned to the tibia where the navigation pins were placed, navigation was registered. [employer] tibial cutting guide was used to make the appropriate tibial cut 90 degrees from the mechanical axis. Navigation was then used to verify the cut. A size 6 tibial base plate was selected. the knee was flexed to 90 degrees and the soft tissues and posterior osteophytes were removed from the joint. 40 cc of the periarticular injection was injected into the posterior medial corner of the joint. The appropriate trials were then placed on the femur and tibia. A trial polyethylene was trialed to ensure proper balancing and stability of the knee. Patella tracking, was then verified and corrected appropriately as needed. The appropriate tibial internal rotation was then marked with a bovie. Our attention was then directed to the patella. The patella was everted and a flat resection was made. The lug holes were drilled and the patella trial was placed. Patellar tracking was checked and deemed appropriate. Once we were happy lug holes were drilled for the femur and trial components were removed. Cement was mixed at this time and the tourniquet was let down the tibia was subluxed and pinned into place and the keel was punched and the canal was reamed. Final components were verified and opened, and cement was mixed in a vacuum. IMVU Simplex cement was used. The wound was copiously irrigated with normal saline. When the cement was ready the press-fit components were impacted into place starting with the tibia, femur and finally the patella cemented into place. The trial poly component was placed and the knee was placed in full extension. All excess cement was removed in the process. Once the cement had cured the tracking, alignment and balance were verified and a size [] mm polyethylene component was placed. Once the final components were placed the wound was copiously irrigated with normal saline solution and the periarticular injection was given. The wound was closed in a layer ramirez fashion using #1 vicryl interrupted sutures for the arthrotomy, 2-0 interrupted Vicryl suture for the subcuticular layer and jonathon for final skin closure. A sterile compressive dressing was then placed. The patient was then awakened from anesthesia, transferred to the [facility] and transferred to the PACU for recovery. Post op plan DVT ppx: Xarelto due to previous DVT, thigh high compression stockings Follow up: in office in 2 weeks for wound check PT: to start POD #0 at hospital, outpatient PT should be arranged. My physician assistant field hockey coach was a vital part of this case. He was important in appropriate retraction during the case, and protection of soft tissues during bony cuts. His intimate knowledge of the case and my steps aided in safe and expedient completion of the procedure as well as appropriate position of the leg during the case. He was also vital in assisting with closure under my direct supervision. Grafts/Implants Used: Elizabeth triathlon total knee replacement - Complications NONE - Admit VTE Documentation VTE Present on Admission: No VTE Mechan Device Prophylaxis: SCD's, Thigh High RAJESH Hose VTE Pharm Prophylaxis ordered?: Yes 05/26/18 1413 <Electronically signed by Gary Fofana MD> Date Gary Fofana MD CC: Nakul Oliva MD; Gary Fofana MD Signed KNEE 1 OR 2 VIEWS Observed: 05/26/2018 Status: F Source: [facility] 12:49 PM [facility] REPOSITORY [facility] Imaging Services [address] [place] [id number] Knee 1 or 2 Views MR#: [id number] Acct: [id number] Name: RENATA MARTIN Rep #: [id number] : 1950 M 67 From: Enrique Mark MD PCP: Nakul Oliva MD Status: ADM IN Study: Knee 1 or 2 Views Date of Exam: 05/26/18 Exam# [id number] Ordering Dr: Gary Fofana MD STUDY: X-RAY - RIGHT KNEE REASON FOR EXAM: Male, 67 years old. Total knee replacement. TECHNIQUE: AP and lateral view(s) of the knee. COMPARISON: Comparison is made with prior study dated June 14, 2018. FINDINGS: Normal visualized distal femur. Normal visualized proximal tibia and fibula. Normal proximal tibiofibular articulation. The patient is status post total knee replacement. There is good alignment. Postoperative soft tissue changes. RAD/Knee 1 or 2 Views IMPRESSION: Status post total knee replacement. There is good alignment. Postoperative soft tissue changes. Electronically Signed: Enrique Mark MD at 15:32 EDT Tel [phone], Service support , CC: Nakul Oliva MD; Gary Fofana MD Boiler/Chiller Operator: Signed HISTORY AND PHYSICAL Observed: 05/19/2018 Status: F Source: [facility] EXAM 3:42 PM [facility] REPOSITORY [facility] Medical Records Department [address] [place] [id number] History and Physical 05/19/18 1533 MR#: [id number] Acct: [id number] Name: ERNATA MARTIN Rep #: [id number] : 1950 67 From: Tristian Sanchez PA-C PCP: Nakul Oliva MD Status: PRE IN Y Location: [facility] History and Physical DATE OF SURGERY: 05/26/2018 SCHEDULED PROCEDURE: Right total knee arthroplasty HISTORY OF PRESENT ILLNESS: This is a 67-year-old male who is been having ongoing pain in the right knee since November 2017. Patient states his pain can reach as high as a 6 out of 10. His pain is constant, dull, aching, sharp, stabbing, and sore. He has increased pain going up and down stairs, walking any amount of distance, and sitting for extended periods of time. Pain is primarily over the medial joint line and around his patella. He does complain of episodes of instability with the right knee. The pain does wake him at night. Patient has difficult time with activities of daily living including dressing, housework, and shopping. He has tripped/stumbled secondary to his right knee pain. Patient has tried conservative measures consisting of rest and elevation with minimal relief. He has tried ice, heat, and corticosteroid injection with no relief in symptoms. He has had a previous corticosteroid injection by Dr. Cleary. Patient has tried oral medications consisting of ibuprofen with no significant improvement. Patient has not had any previous surgery on the right knee. Patient did have a left total knee arthroplasty done by Dr. Cleary in December 2017. He states the left knee is doing well. Patient currently denies any chest pain, shortness of breath, fevers chills, recent infections. Patient has medical history pertinent for previous DVT approximately 3 years ago as well as sleep apnea. We are obtaining surgical clearance from patient's primary care physician. REVIEW OF SYSTEMS: ROS: Const: Denies change in appetite, fever and weight change. CV: Denies chest pain, heart murmur and irregular heartbeat. Resp: Denies cough, pneumonia, shortness of breath, tuberculosis and wheezing. GI: Reports heartburn, but denies constipation, diarrhea, nausea, rectal itching, bloody stools and vomiting. : Denies incontinence. Musculo: Reports leg swelling, but denies pain, trouble walking and weakness. Skin: Denies Raynaud's, history of shingles and tattoo. Neuro: Denies ambulatory dysfunction, dizziness, numbness/tingling and tremor. Psych: Denies anxiety, insomnia and stress. Augustin/Lymph: Denies anemia, bleeding/bruising tendency and past transfusion. Reviewed, no changes. PAST MEDICAL HISTORY: Advance Care Plan: No Advance Directives Effective Date: 04/24/2018 PMH: Medical Problems: Arthritis, Hard of Hearing, History Of Phlebitis, Sleep Apnea Accidents: Fracture - LT RING FINGER Surgical Hx: Gallbladder Knee Arthroscopy Lt - (2017) Knee Replacement Lt - (2018) Anesthesia Complications: None Assistive Devices: Glasses, Hearing Aid Reviewed and updated. SOCIAL HISTORY: SH: Marital: .Occupation: Retired.Work Status: Retired.Hand Dominance: Right-handed. Personal Habits: Cigarette Use: Former.Alcohol: Denies use.Drug Use: Denies Use.Enjoy Exercising: Exercises 1-3 X/Week. Reviewed, no changes. VITALS: Ht: 68 Wt: 224lb Wt k.606 BMI: 34.1 BP: 118/74 Pulse: 60 Resp: 18 T: 97.6 T: 36.4C ALLERGIES: Keflex MEDICATIONS: Aspirin 81 mg 1 tab PO daily, Multi Vitamin 1 tab PO daily PRE-OP EXAM: General appearance:NORMAL Other: Eyes: Conjunctivae and lids: NORMAL Pupils: ERR Ears, Nose, Mouth, and Throat: NORMAL Other: Inspection of lips, teeth and gums: NORMAL Other: Neck: Examination of neck: no masses noted. Respiratory: Assessment of respiratory effort: NORMAL Other: Auscultation of lungs: clear to auscultation no wheezes, rhonchi or rales. Cardiovascular: Auscultation of heart: regular rate and rhythm, no murmurs, gallops or rubs. Exam of carotid arteries: NORMAL Other: Gastrointestinal: Exam of abdomen: soft, nontender, nondistended bowel sounds present. PHYSICAL EXAMINATION: Patient walks with an antalgic gait. Right knee is cool to touch without erythema or signs of infection. Patient has tenderness to palpation on the right knee over the medial joint line as well as medial/lateral patella. Patient is stable to varus and valgus stress test. Range of motion: Lacks 3 of full extension to 120 of flexion with pain at end range flexion. Sensations intact light touch. Left knee shows well-healed incision from previous total knee arthroplasty. 1. IMAGING STUDIES: X-rays were obtained at [facility] [place] on April 24, 2018 including bilateral standing AP and coronal radiographs show varus alignment medial joint space narrowing, subchondral sclerosis, and osteophyte formation consistent with severe osteoarthritis of the right knee. IMPRESSION: 1. Severe right knee osteoarthritis 2. Previous left total knee arthroplasty 3. Sleep apnea 4. History of DVT 3 years ago PLAN: Dr. Fofana did discuss and review with the patient all treatment options including surgical versus nonsurgical. Patient wishes to proceed with above- stated procedure. Potential risks, benefits, and complications of this procedure were discussed in detail including but not limited to , infection, nerve and blood vessel damage, persistent pain, numbness, tingling, paresthesias, blood clot, pulmonary embolism, and requirement for further surgery. The patient expressed full understanding has no further questions for the doctor. Patient does agree to proceed with the above-stated procedure and has signed the surgery consent form. ___ I have re-examined the patient. There are no clinical changes since date of exam. ___ See progress notes for changes. ___ Dictated on admission Date: Time: Signature: 05/19/18 1542 <Electronically signed by Tristian Sanchez PA-C> Date Tristian Sanchez PA-C Cosigner Signature: Date (if applicable) CC: Nakul Oliva MD; Tristian PICHARDO Signed CBC W/DIFF, AUTOMATED Collected: 05/18/2018 Status: F Source: [facility] 8:50 AM [facility] REPOSITORY TYPE CODE TESTS RESULT OUT OF RANGE REFERENCE UNITS LAB L100.1000 4.4-11.0 K/mm3 Normal WBC 7.5 LAB L100.1200 4.6-6.2 M/mm3 Normal RBC 5.20 LAB L100.1300 13.0-16.5 g/dl High HGB 16.8 LAB L100.1400 40-54 % Normal HCT 48.0 LAB L100.1500 80-94 fL Normal MCV 92.3 LAB L100.1600 27.0-32.0 pg High MCH 32.3 LAB L100.1700 32-36 g/gl Normal MCHC 35.0 LAB L100.1810 11.6-14.6 % Normal RDW CV 13.6 LAB L100.1820 35.1-43.9 fl High RDW SD 45.8 LAB L100.1900 150-450 K/mm3 Normal PLT 163 LAB L100.2000 6.2-12.0 fl Normal MPV 9.4 LAB L100.2100 47-70 % Normal NEUT% 63.1 LAB L100.2200 19-41 % Normal LY% 27.9 LAB L100.2300 0-10 % Normal MONO% 6.1 LAB L100.2400 0-5 % Normal EO% 2.5 LAB L100.2500 0-1 % Normal BASO% 0.3 LAB L100.2550 0.0-0.9 % Normal IM GRAN % 0.100 Result Comment: IG% - Immature Granulocytes (promyelocytes, myelocytes and metamyelocytes) > 1% indicates that a LEFT SHIFT is Present. LAB L100.2620 2.0-7.7 X10 3/uL Normal Absolute Neut 4.7 LAB L100.2720 0.83-4.51 X10 3/ul Normal Absolute Lymph 2.09 Performed By: #### L100.0100 #### [facility] [address] [place], [address] BASIC METABOLIC Collected: 05/18/2018 Status: F Source: [place] PROFILE (BMP) 8:50 AM [facility] REPOSITORY TYPE CODE TESTS RESULT OUT OF RANGE REFERENCE UNITS LAB L501.0100 74-106 mg/dL High GLU 110 Result Comment: Fasting Glucose result from 100 to 125 mg/dL suggests IMPAIRED HOMEOSTASIS per A.D.A. criteria. Please note revised GLUCOSE reference range effective 2017. LAB L501.1000 7-18 mg/dL High BUN 23 LAB L501.1100 0.70-1.30 mg/dL High CREAT,SERUM 1.52 Result Comment: The validity of the calculated GFR AND GFRAA in patients over 70 years has not been determined. Clinical correlation is essential. LAB L501.1110 >60 mL/min Low EST GFR 49 Result Comment: Non- GFR Calc LAB L501.1115 >60 mL/min Low EST GFR - AA 59 Result Comment: GFR Calc LAB L501.1255 ml/min Normal Estimated CRCL 45.63 LAB L501.1300 10-20 RATIO Normal BUN/CRE 15.1 LAB L501.2200 8.5-10 mg/dL Normal .1 CA 9.7 LAB L501.5300 136-14 mmol/L Normal 5 NA 141 LAB L501.5600 3.5-5. mmol/L Normal 1 K 4.1 LAB L501.5900 98-107 mmol/L Normal CL 107 LAB L501.6100 21.0-3 mmol/L Normal 2.0 CO2 25.0 LAB L501.6200 5-15 Normal GAP 9 Performed By: #### L500.2500 #### [facility] [address] [place], [address] Observed: 05/18/2018 Status: F Source: RADHA MRSA/SAID SCREEN 8:50 AM [facility] REPOSITORY MRSA/SAID SCRN S. AUREUS S. aureus Negative MRSA MRSA Negative Performed By: #### M100.651 #### [facility] [address] [place], [address] ORTHOPEDIC VISIT Observed: 05/10/2018 Status: F Source: [facility] REPORT 9:30 PM [facility] REPOSITORY [facility] [address] [place] [address] 5 [place] [address] OFFICE VISIT Date of Service: 04/15/18 MR#: [id number] Acct: [id number] Name: WILLRENATA PASTRANA Calixto Rep #: [id number] : 1950 Provider: Ross Cleary DO Age/Sex: 67/M Location: [facility] Status: Signed Intake Intake Visit Reasons: RIGHT KNEE Is patient in pain?: Yes Pain scale (1-10): 4 Allergies cephalexin monohydrate [From Keflex] Allergy (Severe, Verified 03/30/18 15:13) Swelling Medications Finasteride 5 mg PO DAILY 05/27/14 [History Confirmed 01/08/18] Cholecalciferol (Vitamin D3) [Vitamin D3] 1,000 unit PO DAILY 12/30/17 [History Confirmed 01/08/18] Multivitamin [Multiple Vitamins] 1 ea PO DAILY 12/30/17 [History Confirmed 01/08/18] Niantic-3 Fatty Acids/Fish Oil [Niantic 3 1,000 mg Softgel] 1 ea PO DAILY 12/30/17 [History Confirmed 01/08/18] Aspirin E.C. [Ecotrin] 325 mg PO BID #30 tab 01/07/18 [Rx Confirmed 01/08/18] Docusate Sodium [Colace] 100 mg PO BID PRN PRN #10 cap 01/07/18 [Rx Confirmed 01/08/18] Famotidine [Pepcid] 20 mg PO BID #60 tab 01/07/18 [Rx Confirmed 01/08/18] proMETHazine tablet [Phenergan] 25 mg PO Q4H PRN PRN #10 tab 01/07/18 [Rx Confirmed 01/08/18] PFSH Medical History Arthritis (Chronic) Surgical History History of left knee replacement (Inactive) S/P cholecystectomy (Inactive) S/P left knee arthroscopy (Inactive) left foot (Inactive) Family History Mother Hypertension CVA (cerebral vascular accident) Father Kidney disease Brother Kidney disease Lung cancer Sister Breast cancer Social History Smoking Status: Former smoker HPI RIGHT KNEE: Details: RENATA MARTIN is a 67 year old M here today for MRI review of the right knee, he states that he has constant pain and a sharp shooting pain on occasion that is not related to any certain motion or activity. He is walking with an antalgic gait. His pain is medial, denies locking. ROS Musc Reports joint pain, Reports muscle weakness, Reports as per HPI Ortho Exam Right Knee Skin/Wound: Yes CDI Contralateral Normal: Yes Homans Sign: No 1+: Effusion Knee ROM: Yes ROM-Extension -20 to 0, Yes ROM-Flexion 0-140, Yes ROM-Passive Extension -10 to 0, Yes ROM-Passive Flexion 0-140 Examination: Yes Med jt line tenderness, Yes Crepitus, Yes Pain with flexion, Yes Natty's Test, Yes Duck Walk Quad Atrophy: No Stability: NML: Anterior Drawer, NML: Breana, NML: Posterior Drawer, NML: Valgus 0, NML: Varus 0, NML: Varus 30, NML: Dial 90, NML: Dial 30, 1+: Valgus 30 Popliteal Adenopathy: No Patella Translation: 1 Apprehension with Lateral Translation: No Patellar Tilt Normal: Yes Patella Grind: No KNEE: Alert and oriented x3 in no acute distress. Appropriate eye contact and affect. Intact from L1-S1 distributions. He has +2 pulses. Patient has a varus knee with medial compartment tenderness palpation. Positive Natty's and Thessaly at 30 and 60 degrees. Range of motion is otherwise preserved. He has grade 1 opening to his MCL. He has no popliteal mass or calf pain he has positive effusion. Muscle strength otherwise 5 out of 5 in all planes. MRI: Evaluated by myself with the patient-patient at this point time shows medial femoral condyle and medial tibial plateau subchondral edema, patient shows significant chondral injury and loss from around 10-80 degrees of knee flexion across the medial compartment. He has a complex tear of medial meniscus with partial extrusion. Patient's medial tibial plateau also shows significant chondral changes. Lateral compartment is preserved. ACL and PCL within normal limits. Left Knee Patella Translation: 1 Assessment AND Plan Problems 1. Derangement of medial meniscus of right knee M23.303 2. Other internal derangements of right knee M23.8X1 Plan Assessment: Right knee pain right knee medial meniscus tear with extrusion, subchondral edema to the medial tibial plateau and femoral condyle and associated high-grade chondromalacia and internal. Plan: This point I reviewed the MRI with the patient and his daughter. Patient had a similar knee on his left side which was treated with a arthroplasty. After his initial left knee scope which showed the patient having high-grade chondromalacia and again significant chondral changes across the medial compartment is despite the lack of significant radiographic evidence of arthrosis. However his MRI clearly showed degenerative changes. His MRI of his right knee is near similar. I think the patient may be a candidate for unicompartmental arthroplasty. Otherwise consideration for total knee arthroplasty. The patient is aware that I am leaving my practice and I am not performing the arthroplasties at this point time so we will provide him with contact information with Dr. Fofana at the [facility] for surgical intervention. Patient currently does not need to take any radiographs with him as WOG is on our system. Any issues return. Patient agrees with plan. Coding Level of Care Code Off vis,est,level 4 Diagnoses Derangement of medial meniscus of right knee M23.303 Other internal derangements of right knee M23.8X1 05/10/182129 <Electronically signed by Ross Cleary DO> Date Ross Cleary DO Cosigner Signature: Date (if applicable) CC: ORTHOPEDIC VISIT Observed: 04/09/2018 Status: F Source: [facility] REPORT 11:03 AM [facility] REPOSITORY [facility] [address] [place] [address] [place] [address] OFFICE VISIT Date of Service: 03/30/18 MR#: [id number] Acct: [id number] Name: RENATA MARTIN Rep #: [id number] : 1950 Provider: Ross Cleary DO Age/Sex: 67/M Location: [facility] Status: Signed Intake Intake Visit Reasons: LEFT KNEE Is patient in pain?: Yes Allergies cephalexin monohydrate [From Keflex] Allergy (Severe, Verified 03/30/18 15:13) Swelling Medications Finasteride 5 mg PO DAILY 05/27/14 [History Confirmed 01/08/18] Cholecalciferol (Vitamin D3) [Vitamin D3] 1,000 unit PO DAILY 12/30/17 [History Confirmed 01/08/18] Multivitamin [Multiple Vitamins] 1 ea PO DAILY 12/30/17 [History Confirmed 01/08/18] Niantic-3 Fatty Acids/Fish Oil [Niantic 3 1,000 mg Softgel] 1 ea PO DAILY 12/30/17 [History Confirmed 01/08/18] Aspirin E.C. [Ecotrin] 325 mg PO BID #30 tab 01/07/18 [Rx Confirmed 01/08/18] Docusate Sodium [Colace] 100 mg PO BID PRN PRN #10 cap 01/07/18 [Rx Confirmed 01/08/18] Famotidine [Pepcid] 20 mg PO BID #60 tab 01/07/18 [Rx Confirmed 01/08/18] proMETHazine tablet [Phenergan] 25 mg PO Q4H PRN PRN #10 tab 01/07/18 [Rx Confirmed 01/08/18] PFSH Medical History Arthritis (Chronic) Surgical History History of left knee replacement (Inactive) S/P cholecystectomy (Inactive) S/P left knee arthroscopy (Inactive) left foot (Inactive) Family History Mother Hypertension CVA (cerebral vascular accident) Father Kidney disease Brother Kidney disease Lung cancer Sister Breast cancer Social History Smoking Status: Former smoker HPI LEFT KNEE: Details: RENATA MARTIN is a 67 year old M here today for s/p left knee dos 01/06/18. Patient states that his left knee is feeling good and he has no pain. He has good range of motion and strength. He complains of pain into his right knee. He had an injection a few weeks ago which was helpful for less than a day. His pain is over his medial knee. Denies numbness, tingling or other associated symptoms. ROS Const Reports system reviewed and no additional complaints, except as docu Eyes Reports system reviewed and no additional complaints, except as docu ENT Reports system reviewed and no additional complaints, except as docu Card Reports system reviewed and no additional complaints, except as docu Resp Reports system reviewed and no additional complaints, except as docu GI Reports system reviewed and no additional complaints, except as docu Reports system reviewed and no additional complaints, except as docu Musc Reports joint pain Skin/Breast Reports system reviewed and no additional complaints, except as docu Neuro Yes system reviewed and no additional complaints, except as docu Psych Reports system reviewed and no additional complaints, except as docu Endo Reports system reviewed and no additional complaints, except as docu Ortho Exam Right Knee Patella Translation: 1 Left Knee Skin/Wound: Yes CDI, Yes healed Contralateral Normal: No Swelling: No Homans Sign: No Knee ROM: Yes ROM-Flexion 0-140 (0-125.) Examination: No med jt line tenderness, No Lat jt line tenderness, No TTP inf pole patella, No Crepitus, No Pain with flexion, No Natty's Test, No Dial at 90, No Dial at 60, No Duck Walk Quad Atrophy: No Stability: NML: Posterior Drawer, NML: Valgus 0, NML: Valgus 30, NML: Varus 0, NML: Varus 30, NML: Dial 90, NML: Dial 30 Popliteal Adenopathy: No Patella Translation: 1 Apprehension with Lateral Translation: No Patellar Tilt Normal: Yes Patella Grind: No KNEE: No calf pain negative Homans. Right knee patient continues have medial joint line pain pain across patellofemoral joint. Patient has a mild effusion noted today despite the injection. He has no calf pain negative Homans range of motion is 0-125. He continues have grade 1 MCL change. ACL PCL otherwise within normal limits. Assessment AND Plan Problems 1. Orthopedic aftercare Z47.89 Plan Assessment: After orthopedic status post left total knee arthroplasty doing well. With associated right-sided knee pain most likely with internal derangement medial compartment patellofemoral joint. Plan: This point time patient doing very well his left knee just need to stay the course. In terms of his right knee were to go and get an MRI to evaluate for medial compartment changes. Patient's left knee showed a well-preserved medial compartment initially however on MRI patient showed significant degenerative changes that was again well visualized on plain radiographs. We will proceed with the appropriate operative intervention to his right knee after the MRI is completed we will make appropriate evaluation. In terms of his left knee I will see him back for repeat radiographs the six-month desiree. Patient can follow- up with RPA for visualization. Patient well aware that I will be leaving the practice and may require transfer to the [facility] should arthroplasty need to be performed to the right or or vision procedure to the left. A major issues return. Follow-up after MRI completed Orders Orders: Coding Level of Care Code Global Post Op Diagnoses Orthopedic aftercare Z47.89 04/09/18 1103 <Electronically signed by Ross Cleary DO> Date Ross Cleary DO Cosigner Signature: Date (if applicable) CC: LOWER EXT JOINT ONLY Observed: 04/08/2018 Status: F Source: [facility]OY (ROUTINE) 12:23 PM [facility] REPOSITORY [facility] Imaging Services [address] [place] [address] Lower Ext Joint Only (Routine) MR#: [id number] Acct: [id number] Name: RENATA MARTIN Rep #: [id number] : 1950 M 67 From: Kenneth Ornelas MD PCP: Nakul Oliva MD Status: REG CLI Study: Lower Ext Joint Only (Routine) Date of Exam: 04/08/18 Exam# [id number] Ordering Dr: Ross Cleary DO STUDY: MRI RIGHT KNEE REASON FOR EXAM: Right medial knee pain for 4 months, no specific injury. TECHNIQUE: Standardized fat and water weighted pulse sequences were obtained in all 3 orthogonal planes. COMPARISON: Radiographs 12/15/2017. FINDINGS: There is tear/degeneration of the posterior horn/posterior body of the medial meniscus (proton-density sagittal images 33-35; proton density coronal images 13-16). There is mild peripheral subluxation of the medial meniscus. There is arthrosis of the medial femorotibial compartment with chondral thinning (T2 sagittal image 19). There is subchondral bone edema of the medial femoral condyle and tibial plateau (T2 sagittal images 17-21), a stress phenomenon. There is mild periligamentous inflammation of the medial collateral ligament (T2 coronal image 16). Normal distal semimembranosus, gracilis and semitendinosus tendons. Normal lateral meniscus. Normal hyaline cartilage of the lateral femorotibial compartment. Normal lateral femoral condyle and tibial plateau. Normal proximal tibiofibular articulation. Normal lateral collateral (fibular) ligament. Normal popliteus tendon. Normal biceps femoris tendon. There is mild intrasubstance mucoid degeneration of the anterior cruciate ligament (T2 sagittal image 11). Normal posterior cruciate ligament (PCL). Normal congruent patellofemoral articulation. Normal hyaline cartilage of the patellofemoral compartment. Normal medial and lateral patellar retinaculum. Normal quadriceps tendon. Normal patellar tendon. Normal Hoffa's fat pad. There is a jcqqm-ft-zqossgad sized joint effusion with synovitis in the suprapatellar recess (T2 sagittal images 4-6). There is a small popliteal cyst with mild extravasation of fluid (T2 sagittal images 16-20). The otherwise visualized osseous structures are unremarkable. MRI/Lower Ext Joint Only (Routine) IMPRESSION: Tear/degeneration of the medial meniscus. Arthrosis of the medial femorotibial compartment. Subchondral bone edema of the medial femoral condyle and medial tibial plateau, a stress phenomenon. Mild periligamentous inflammation of the medial collateral ligament. Joint effusion with synovitis. Small popliteal cyst with mild extravasation of fluid. Electronically Signed: Kenneth Ornelas MD at 13:54 EDT Tel , Service support , CC: Nakul Oliva MD; Ross Cleary DO Boiler/Chiller Operator: Signed ORTHOPEDIC VISIT Observed: 04/02/2018 Status: F Source: [facility] RE[facility] 10:41 AM [facility] REPOSITORY [facility] Orthopaedics AND Sports Medicine [address] [place] [address] [address] [place] [address] OFFICE VISIT Date of Service: 03/18/18 MR#: [id number] Acct: [id number] Name: RENATA MARTIN Rep #: [id number] : 1950 Provider: Ross Cleary DO Age/Sex: 67/M Location: [facility] [place] Status: Signed Intake Intake Visit Reasons: RIGHT KNEE Is patient in pain?: Yes Allergies cephalexin monohydrate [From Keflex] Allergy (Severe, Verified 03/30/18 15:13) Swelling Medications Finasteride 5 mg PO DAILY 05/27/14 [History Confirmed 01/08/18] Cholecalciferol (Vitamin D3) [Vitamin D3] 1,000 unit PO DAILY 12/30/17 [History Confirmed 01/08/18] Multivitamin [Multiple Vitamins] 1 ea PO DAILY 12/30/17 [History Confirmed 01/08/18] Niantic-3 Fatty Acids/Fish Oil [Niantic 3 1,000 mg Softgel] 1 ea PO DAILY 12/30/17 [History Confirmed 01/08/18] Aspirin E.C. [Ecotrin] 325 mg PO BID #30 tab 01/07/18 [Rx Confirmed 01/08/18] Docusate Sodium [Colace] 100 mg PO BID PRN PRN #10 cap 01/07/18 [Rx Confirmed 01/08/18] Famotidine [Pepcid] 20 mg PO BID #60 tab 01/07/18 [Rx Confirmed 01/08/18] proMETHazine tablet [Phenergan] 25 mg PO Q4H PRN PRN #10 tab 01/07/18 [Rx Confirmed 01/08/18] [facility] Medical History Arthritis (Chronic) Surgical History History of left knee replacement (Inactive) S/P cholecystectomy (Inactive) S/P left knee arthroscopy (Inactive) left foot (Inactive) Family History Mother Hypertension CVA (cerebral vascular accident) Father Kidney disease Brother Kidney disease Lung cancer Sister Breast cancer Social History Smoking Status: Former smoker HPI RIGHT KNEE: Details: RENATA MARTIN is a 67 year old M here today for right knee pain. Patient states that he has had right knee pain for many monrths. He complains of pain over his medial knee. He denies any popping or clicking but has swelling. He has increased pain with ambulating stairs. Patient had xrays which are here for review. He denies any recent injections. ROS Const Reports system reviewed and no additional complaints, except as docu Eyes Reports system reviewed and no additional complaints, except as docu ENT Reports system reviewed and no additional complaints, except as docu Card Reports system reviewed and no additional complaints, except as docu Resp Reports system reviewed and no additional complaints, except as docu GI Reports system reviewed and no additional complaints, except as docu Reports system reviewed and no additional complaints, except as docu Musc Reports joint pain Skin/Breast Reports system reviewed and no additional complaints, except as docu Neuro Yes system reviewed and no additional complaints, except as docu Psych Reports system reviewed and no additional complaints, except as docu Endo Reports system reviewed and no additional complaints, except as docu Ortho Exam Right Knee Contralateral Normal: Yes Swelling: Yes Homans Sign: No 1+: Effusion Knee ROM: Yes ROM-Flexion 0-140 (0-125) Examination: Yes Med jt line tenderness, Yes Pain with flexion, Yes Crepitus, Yes Pain with extention, Yes Natty's Test Quad Atrophy: No Stability: NML: Anterior Drawer, NML: Breana, NML: Posterior Drawer, NML: Valgus 0, NML: Varus 0, NML: Varus 30, NML: Dial 90, NML: Dial 30, 1+: Valgus 30 (Grade 1 MCL correctable to neutral mechanical alignment) Popliteal Adenopathy: No Patella Translation: 1 Apprehension with Lateral Translation: No Patellar Tilt Normal: Yes Patella Grind: Yes KNEE: Patient otherwise alert oriented 3 no acute distress. Appropriate eye contact and affect. Walks mild antalgic gait to his right lower extremity. Patient does have a recent history of a left total knee replacement. Otherwise no calf pain negative Homans. His range of motion is 0-125 with medial joint line pain a positive Natty's and Apley's maneuver. He has a correctable deformity of the consistent with a grade 1 MCL change. No obvious popliteal masses or calf pain. He has a +1-+2 effusion noted today. He still waiting for straight leg raise. L-[id number]-gmimvgsjdp evaluated myself with the patient showed him to have medial joint space narrowing and mild changes across the patellofemoral joint. Lateral compartment appears to be preserved. Left Knee Patella Translation: 1 Office Procedures Ortho Injections Injections Yes Knee Right Details: Obtained consent for injection. Under sterile conditions, injected the patients right knee with a 10cc cocktail of 8cc bupivacaine and 2cc kenalog. The patient tolerated the injection well without any noted complication. Patient should call our office if redness develops, pain worsens or if they have any concerns. Office Meds Jennifer Performing Provider: Ross Cleary DO Administered by: Ross Cleary DO on 03/18/18 15:00 Dose Route Admin Location Lot Number Expiration DateNDC Education Reviewer 2 mg Intra-Articularright knee [id number] 03/24/19 8083-8266-83 [employer] A/S Assessment AND Plan Problems 1. Chronic pain of right knee M25.561; G89.29 2. Knee effusion, right M25.461 3. Tear of medial meniscus of right knee, current, unspecified tear type, initial encounter S83.747A Plan Assessment: Right knee pain right knee effusion right knee internal derangement and medial meniscus tear. Plan: This point time we will address the patient's left knee pain in terms of his total knee arthroplasty. Patient now is having pain and effusions to his right knee. For now will make an attempt to conservative care and try an aspiration and subsequent knee injection. The patient were to fail conservative measures to include NSAIDs active modifications and a physician directed home rehab program we will consider MRI to evaluate for internal derangement meniscal pathology. Obtained consent for injection. Under sterile conditions, injected the patients right knee with a 10cc cocktail of 8cc bupivacaine and 2cc kenalog. The patient tolerated the injection well without any noted complication. Patient should call our office if redness develops, pain worsens or if they have any concerns. Please note that prior to injection of the corticosteroid the patient had roughly 20 cc of clear synovial effusion aspirated. It was not sent down for fluid analysis and that appears to be within normal limits. Patient will follow with me in 2-4 weeks at which time we will consider MRI if not responding to conservative care Orders Orders: Medications Discontinued: Kenalog (triamcinolone acetonide) 2 mg (0.2 mL) Intra-Articular ONCE NM25.561 Og Mekhi Discontinued Reason: Office MedicaS tion has been Documented as given Coding Level of Care Code Off vis,est,level 3 Diagnoses Chronic pain of right knee M25.561; G89.29 Chronicity: chronic Knee effusion, right M25.461 Tear of medial meniscus of right knee, current, unspecified tear type, initial encounter S83.241A Tear current or old: current Encounter type: initial encounter Meniscus tear of knee type: unspecified type Additional Codes group director.knee ([id number]) 04/02/18 1041 <Electronically signed by Ross Cleary DO> Date [facility] Cleary DO [facility] Signature: Date (if applicable) CC: ORTHOPEDIC VISIT Observed: 02/22/2018 Status: F Source: [facility] REPORT 10:11 AM [facility] RE[facility]IT[facility] Orthopaedics AND Sports Medicine [address] [place] [address] OFFICE VISIT Date of Service: 02/16/18 MR#: [id number] Acct: [id number] Name: RENATA MARTIN Rep #: [id number] : 1950 Provider: Ross Cleary DO Age/Sex: 67/M Location[place] [facility] Status: Signed Intake Intake Visit Reasons: left knee Is patient in pain?: No Allergies cephalexin monohydrate [From Keflex] Allergy (Severe, Verified 01/06/18 06:54) Swelling Medications Finasteride 5 mg PO DAILY 05/27/14 [History Confirmed 01/08/18] Cholecalciferol (Vitamin D3) [Vitamin D3] 1,000 unit PO DAILY 12/30/17 [History Confirmed 01/08/18] Multivitamin [Multiple Vitamins] 1 ea PO DAILY 12/30/17 [History Confirmed 01/08/18] Niantic-3 Fatty Acids/Fish Oil [Niantic 3 1,000 mg Softgel] 1 ea PO DAILY 12/30/17 [History Confirmed 01/08/18] Aspirin E.C. [Ecotrin] 325 mg PO BID #30 tab 01/07/18 [Rx Confirmed 01/08/18] Docusate Sodium [Colace] 100 mg PO BID PRN PRN #10 cap 01/07/18 [Rx Confirmed 01/08/18] Famotidine [Pepcid] 20 mg PO BID #60 tab 01/07/18 [Rx Confirmed 01/08/18] proMETHazine tablet [Phenergan] 25 mg PO Q4H PRN PRN #10 tab 01/07/18 [Rx Confirmed 01/08/18] PFSH Medical History Arthritis (Chronic) Surgical History History of left knee replacement (Inactive) S/P cholecystectomy (Inactive) S/P left knee arthroscopy (Inactive) left foot (Inactive) Family History Mother Hypertension CVA (cerebral vascular accident) Father Kidney disease Brother Kidney disease Lung cancer Sister Breast cancer Social History Smoking Status: Former smoker HPI left knee: Details: RENATA MARTIN is a 67 year old M here today for f/u left TKA 01/06/18. He has one more week of PT which is going well and then he is done. He has 120 degrees of flexion and full extension with no pain, ambulating well with no assistance. Denies numbness, tingling or other associated symptoms. No calf pain, no instability and only mild swelling ROS Anila Reports joint swelling, Reports as per HPI Ortho Exam Left Knee Skin/Wound: Yes CDI, Yes healed Contralateral Normal: Yes Swelling: No Homans Sign: No 1+: Effusion Knee ROM: Yes ROM-Flexion 0-140 (0 115) Examination: No med jt line tenderness, No Lat jt line tenderness, No TTP inf pole patella, No Crepitus, No Pain with flexion, No Natty's Test, No Dial at 90, No Dial at 60, No Duck Walk Quad Atrophy: No Stability: NML: Posterior Drawer, NML: Valgus 0, NML: Valgus 30, NML: Varus 0, NML: Varus 30, NML: Dial 90, NML: Dial 30 Popliteal Adenopathy: No Apprehension with Lateral Translation: No Patellar Tilt Normal: Yes Patella Grind: No KNEE: No calf pain negative Homans. Age motion 0-115. Ligamentously stable. X-rays: Evaluated myself patient-patient's hardware is otherwise well-seated well-placed status post press-fit total knee arthroplasty. No early signs of loosening could be appreciated Assessment AND Plan Problems 1. Orthopedic aftercare Z47.89 Plan Assessment: After orthopedic status post left total knee arthroplasty. Patient is doing well. Plan: Point I will see the patient back in 6 weeks to start evaluate on range of motion. Patient's range of motion is looking very good. I told him to go a little bit slower actually back pain is down slightly as he may be going a little bit fast especially for press-fit but otherwise x-rays are very good. No x-rays at next. Any major issues return Orders Orders: Coding Level of Care Code Global Post Op Diagnoses Orthopedic aftercare Z47.89 02/22/18 1011 <Electronically signed by Ross Cleary DO> Date Ross Cleary DO Cosignbarb Signature: Date (if applicable) CC: PT D/C SUMMARY (1) Observed: 02/19/2018 Status: F Source: [facility] 4:28 PM [facility] REPOSITORY [facility] Physical Therapy Health[address] [place], [place] [address] Fax REHABILITATION SERVICES DISCHARGE SUMMARY MR#: [id number] Acct: [id number] Name: RENATA MARTIN Rep #: [id number] : 1950 67 From: Fabian Apodaca PT, ATC Referring Dr.: Ross Cleary DO Status: REG RCR Insurance: MEDICARE PART A B [facility] [id number] HP - PT D/C Summary It has been my pleasure to treat RENATA MARTIN under orders from Ross Cleary DO, for the diagnosis of L TKA for a total of 15 visit(s). Discharge Date: Please see the following information for a summary of their discharge status. - Subjective Subjective: Pt reports his pain is much improved - Pain L knee Pain Intensity (Out of 10): 1 - Overall Improvement % Improvement: 85 - Objective Objective/Function: L knee ROM: 0-122. L knee MMT: 5/5 throughout. L knee pain 12/03. I with HEP - Goals Goal 1:: Decrease L knee pain x 50% to aid with sleep Goal Progress: Goal Met Goal 2:: Increase L knee strength x 1 grade to aid with stair negotiation Goal Progress: Goal Met Goal 3:: Increase L knee ROM x 30 degrees to aid with restoring a more normal gait pattern Goal Progress: Goal Met Goal 4:: I with HEP Goal Progress: Goal Met - Plan Plan: Discharge - D/C Information If there are questions or concerns regarding this patient's physical therapy, please feel free to call me at [phone]. Thank you for the referral of this patient. Sincerely, Fabian Apodaca PT, <Electronically signed by Fabian Apodaca PT, ATC> 02/19/18 1628 CC: Nakul Oliva MD; Ross Cleary DO [facility] Signed KNEE 4 OR MORE Observed: 02/16/2018 Status: F Source: [facility] 3:14 PM [facility] REPOSITORY [facility] Imaging Services [address] [place] [address] Knee 4 or More Views MR#: [id number] Acct: [id number] Name: RENATA MARTIN Rep #: [id number] : 1950 67 From: Jamin Espinoza PCP: Nakul Oliva MD Status: REG CLI Study: Knee 4 or More Views Date of Exam: 02/16/18 Exam# [id number] Ordering Dr: Ross Cleary DO STUDY: X-RAY - LEFT KNEE REASON FOR EXAM: Male, 67 years old. Knee replacement surgery TECHNIQUE: 4 view(s) of the knee. COMPARISON: 01/06/2018 FINDINGS: There has been knee replacement surgery. The hardware is intact. There is NO acute bony abnormality. There is postsurgical soft tissue swelling. There is NO joint effusion. RAD/Knee 4 or More Views IMPRESSION: Knee replacement hardware is intact. Electronically Signed: Jamin Espinoza MD at 6:19 EDT , Service support , CC: Nakul Oliva MD; Ross Cleary DO Boiler/Chiller Operator: Signed RE-EVALUATION - PT (1) Observed: 02/02/2018 Status: F Source: [place] 5:07 PM [facility] REPOSIT[facility] Physical Therapy [facility] [address] [place] [address]. [address] [place], [place] [address] Fax REEVALUATION / MEDICARE RECERTIFICATION PHYSICAL THERAPY MR#: [id number] Acct: [id number] Name: RENATA MARTIN Rep #: [id number] : 1950 67 From: Fabian Apodaca PT, ATC Referring Dr.: Ross Cleary DO Status: REG R Insurance: MEDICARE PART A B [facility] [id number] Ross Cleary DO, MTODD It has been my pleasure to treat RENATA MARTIN over the last 10 visits for L TKA. Please see the progress note below for an update on the physical therapy plan of care! Subjective: Minor pain today. Terrible pain last night Objective/Function: L knee ROM: 0-5-122. L knee MMT: flex and ext 4+/5 throughout. Pain is minimal throughout the day but still keeps pt up at night Plan Plan: L knee PROM/Mobs, stretching and strengthening, balance and proprio, core, nustep, and HEP Goals Goal 1:: Decrease L knee pain x 50% to aid with sleep Goal Time Frame: 4-6 Weeks Goal 2:: Increase L knee strength x 1 grade to aid with stair negotiation Goal Time Frame: 4-6 Weeks Goal 3:: Increase L knee ROM x 30 degrees to aid with restoring a more normal gait pattern Goal Time Frame: 4-6 Weeks Goal 4:: I with HEP Goal Time Frame: 4-6 Weeks Anticipated Interventions Patient/Client Instruction: Educate patient on: Condition, Plan of Care For the Purpose of:: To improve self management Therapeutic Exercise to Include: Strength training, Endurance training, Balance training, Flexibilty training, Gait and locomotor training, Passive ROM, Active ROM, Dynamic Lumbar Stabilization For the Purpose of:: To decrease pain, To increase ROM, To improve muscle performance and motor function Cryotherapy (ice pack, ice massage): Yes For the Purpose of:: To decrease pain Please do not hesitate to contact me at [phone] by phone or if you have questions or concerns regarding this new plan of care! Sincerely, Fabian Apodaca, PT, <Electronically signed by Fabian Aopdaca PT, ATC> 02/02/18 0505 CC: Nakul Oliva MD; Ross Cleary DO [facility] Signed For Medicare only, by signing this I certify the plan of care. Physicians Signature Date ORTHOPEDIC VISIT Observed: 01/19/2018 Status: F Source: [place] REPORT 3:40 PM [facility] REPOSITORY [facility] Orthopaedics AND Sports Medicine [address] [place] [address] OFFICE VISIT Date of Service: 01/19/18 MR#: [id number] Acct: [id number] Name: RENATA MARTIN Rep #: [id number] : 1950 Provider: Ross Cleary DO Age/Sex: 67/M Location: [facility] Status: Signed Intake Intake Visit Reasons: LEFT KNEE Allergies cephalexin monohydrate [From Keflex] Allergy (Severe, Verified 01/06/18 06:54) Swelling Medications Finasteride 5 mg PO DAILY 05/27/14 [History Confirmed 01/08/18] Cholecalciferol (Vitamin D3) [Vitamin D3] 1,000 unit PO DAILY 12/30/17 [History Confirmed 01/08/18] Multivitamin [Multiple Vitamins] 1 ea PO DAILY 12/30/17 [History Confirmed 01/08/18] Niantic-3 Fatty Acids/Fish Oil [Niantic 3 1,000 mg Softgel] 1 ea PO DAILY 12/30/17 [History Confirmed 01/08/18] Aspirin E.C. [Ecotrin] 325 mg PO BID #30 tab 01/07/18 [Rx Confirmed 01/08/18] Docusate Sodium [Colace] 100 mg PO BID PRN PRN #10 cap 01/07/18 [Rx Confirmed 01/08/18] Famotidine [Pepcid] 20 mg PO BID #60 tab 01/07/18 [Rx Confirmed 01/08/18] ProMETHAzine [Phenergan] 25 mg PO Q4H PRN PRN #10 tab 01/07/18 [Rx Confirmed 01/08/18] oxycodone-acetaminophen 5 mg-325 mg tablet 1 - 2 tab PO Q6H PRN #42 tab 01/19/18 [Rx Confirmed 01/19/18] PFSH Medical History Arthritis (Chronic) Surgical History S/P cholecystectomy (Inactive) S/P left knee arthroscopy (Inactive) left foot (Inactive) Family History Mother Hypertension CVA (cerebral vascular accident) Father Kidney disease Brother Kidney disease Lung cancer Sister Breast cancer Social History Smoking Status: Former smoker HPI LEFT KNEE: Details: RENATA MARTIN is a 67 year old M here today for follow- up examination status post left total knee arthroplasty. Patient is doing very well. Daughter reports that he is only using his pain medication really for physical therapy and at night. Otherwise doing very well and fevers chills nausea vomiting chest pain or shortness of breath. Currently using aspirin for DVT prophylaxis. He will be converted at this point in time. Ortho Exam Left Knee Skin/Wound: Yes CDI, Yes healing Contralateral Normal: Yes Homans Sign: No 1+: Effusion Knee ROM: Yes ROM-Flexion 0-140 (0-110) Quad Atrophy: No Stability: NML: Posterior Drawer, NML: Valgus 0, NML: Valgus 30, NML: Varus 0, NML: Varus 30, NML: Dial 90, NML: Dial 30 Apprehension with Lateral Translation: No Patellar Tilt Normal: Yes Patella Grind: No KNEE: Incision clean dry intact no signs of any erythema. Range of motion is 0-110. Able for straight leg raise without lag. Remains ligamentously stable. No calf pain negative Homans no adenopathy. Small blister formation is drying out this point from his traction from the Silverlon dressing. Soft tissue swelling as expected but no erythema or signs of infection. Assessment AND Plan Problems 1. Orthopedic aftercare Z47.89 Plan Assessment: After orthopedic status post left total knee arthroplasty doing well. Plan: This point I will see the patient back in 4 weeks and get x-rays at that point. Patient is doing very well as. Range of motion is excellent excellent. We will refill his pain medication which is really only using for physical therapy. In another couple weeks he can start an anti-inflammatory. Convert from regular strength aspirin to baby aspirin at this time Medications Changed: Coding Level of Care Code Global Post Op Diagnoses Orthopedic aftercare Z47.89 01/19/18 1540 <Electronically signed by Ross Cleary DO> Date Ross Cleary DO Cosigner Signature: Date (if applicable) CC: INITAL EVALUATION (1) Observed: 01/12/2018 Status: F Source: [facility] - [facility] 12:01 PM [facility] REPOSIT[facility] Physical Therapy Health[address] [place] [address] Fax REHABILITATION SERVICES INITIAL EVALUATION MR#: [id number] Acct: [id number] Name: RENATA MARTIN Rep #: [id number] : 1950 67 From: Fabian Apodaca PT, ATC Referring DrLuis Alfredo: Ross Cleary DO Status: REG RCR Insurance: MEDICARE PART A B [facility] [id number] Patient's Visit Information RENATA MARTIN is a 67 year old M referred to Physical Therapy by Ross Cleary DO DR.MTHEAVEN with a diagnosis of L TKA. Date of Evaluation: 01/12/18 Physical Therapist: Fabian Apodaca PT, - Visit Plan Frequency: 2-3x /Week Duration: 4-6 Weeks Plan: L knee PROM/Mobs, stretching and strengthening, balance and proprio, core, nustep, and HEP - Subjective Subjective: DOS: 01/06/18. Pt reports his L knee has been sore for a long time. Pt was unable to work all last year secondary to pain. Pt reports he had L knee arthroscopy one year ago due to pain and deg changes. Pt reports he is still in a lot of pain. Pt reports the pain is better than he had before the surgery, but he is still very sore. Pt reports sig sleep diff secondary to pain. Pt reports no T or N in L LE. Pt has 3 steps into house, and can negotiate them without problems as long as he does one step at a time. Pt is currently retired at this time. 2/10 at rest, 6/10 at worst - Pain L knee Pain Intensity (Out of 10): 2 Pain Intensity Range: 6 - Objective Neuro: B LE sensation is WNL to light touch. Observation: Obvious swelling present this date. Pt does have a blister on periphery of bandage. No obvious signs of infection. Girth at joint line: R knee 38 cm, L knee 44 cm. ROM: R knee 0-2-130; L knee 0-9-98 degrees. MMT: R knee 5/5 throughout. L knee 3/5 and painful - Goals Goal 1:: Decrease L knee pain x 50% to aid with sleep Goal Time Frame: 4-6 Weeks Goal 2:: Increase L knee strength x 1 grade to aid with stair negotiation Goal Time Frame: 4-6 Weeks Goal 3:: Increase L knee ROM x 30 degrees to aid with restoring a more normal gait pattern Goal Time Frame: 4-6 Weeks Goal 4:: I with HEP Goal Time Frame: 4-6 Weeks - Rehabilitation Potential Physical Therapy Diagnosis: L knee pain, weakness, and limited ROM secondary to L TKA Rehabilitation Potential: Good - Anticipated Interventions Patient/Client Instruction: Educate patient on: Condition, Plan of Care For the Purpose of:: To improve self management Therapeutic Exercise to Include: Strength training, Endurance training, Balance training, Flexibilty training, Gait and locomotor training, Passive ROM, Active ROM, Dynamic Lumbar Stabilization For the Purpose of:: To decrease pain, To increase ROM, To improve muscle performance and motor function Cryotherapy (ice pack, ice massage): Yes For the Purpose of:: To decrease pain Thank you for the opportunity to evaluate your patient. For Medicare and Medicare HMO plans, please review the plan of care and approve it. It will need to be FAXED BACK to us at [phone] for Medicare purposes. Please let me know if there are questions or concerns regarding this plan of care. Physician Signature: Date: <Electronically signed by Fabian Apodaca PT, ATC> 01/12/18 1201 CC: Nakul Oliva MD; Ross Cleary DO [facility] Signed For Medicare only, by signing this I certify the plan of care. Physicians Signature Date VENOUS DUPLEX LOWER Observed: 01/08/2018 Status: F Source: [facility] EXTREMITY 5:47 PM [facility] REPOSITORY [facility] Cardiovascular Services [address] [place] [address] Venous Duplex US, Unilateral 01/08/18 1428 MR#: [id number] Acct: [id number] Name: RENATA MARTIN Rep #: [id number] : 1950 67 From: Telly Peters MD Attending Dr: Status: DEP ER Ordering Dr: Elkin Medel MD Date: 01/08/18 Location: ED Sex: M C Admitted: Reason For Study: LEG SWELLING RIGHT LEFT CFV is compressible, spontaneous, phasic, GSV is normal. competent and demonstrates normal CFV is compressible, spontaneous, phasic, augmentation. competent, and demonstrates normal Procedure augmentation. Exam performed in department. FV is compressible, spontaneous, phasic, A preliminary report was called and/or faxed competent and demonstrates normal to Dr. Medel. augmentation. POP V is compressible, spontaneous, phasic, competent and demonstrates normal augmentation. T/P Trunk is compressible. PTV is compressible. LT PerV is compressible. Interpretation Summary There is no evidence of left lower extremity deep vein thrombosis. Normal flow patterns right common femoral vein Ordering Physician: Elikn Medel Referring Physician: Nakul Oliva MD Performed By: Oliva Santos RVT 01/08/181745 Date Telly Peters MD CC: Nakul Oliva MD; Elkin Medel MD Date Dictated: 01/08/18 1428 Date Transcribed: 01/08/181745 Boiler/Chiller Operator: Signed EMERGENCY DEPARTMENT Observed: 01/08/2018 Status: F Source: [facility] SUMMARY 2:52 PM [facility] REPOSITORY [facility] Medical Records Department [address] [place] [address] Emergency Department Summary 01/08/18 1447 MR#: [id number] Acct: [id number] Name: RENATA MARTIN Rep #: [id number] : 1950 67 From: Elkin Medel MD PCP: Nakul Oliva MD Status: REG ER - ER Visit Summary Date of Service: 01/08/18 Chief Complaint: Thigh and calf pain status post total knee arthroplasty January [address] Cleary History of Present Illness: The patient is a 67 M [place] with left calf pain with standing. He also complains of left inner thigh pain. He denies shortness of breath or chest discomfort. He denies fever, chills or night sweats. He also called Dr. Cleary's office because of drainage from the incision site. He was told that the dressing should remain in place until January 11. He has no other complaints please read written note Physical Examination: Vital signs are remarkable for a blood pressure of 145/76. The left lower extremity is significant swollen in comparison the right. There is pain to palpation proximal left calf and along the abductor canal left thigh. There is a medicated strip over the incision site. A small blister noted with clear serous fluid. There is bruising noted. There is no erythema or warmth noted. Heart is regular without murmur, gallop or rub. S1 and S2 are normal. Lungs are clear to auscultation with good movement of air bilaterally. Test Results: Venous duplex study was obtained since patient is moderate risk for DVT. Venous duplex study was read as negative. Emergency Department Course and Treatment: Venous duplex study was obtained because patient is at moderate risk for DVT. Treatment Plan: Elevate left lower extremity and follow-up with Dr. Cleary as scheduled Disposition: Discharge to home Impression: Lymphedema left lower extremity status post total knee arthroplasty This note was generated with [employer] dictation software. It may contain incorrect words, spelling, and punctuation that were not noted in review of the chart prior to signing ED Disposition - Plan for ED Patient: Disposition: Home or Assisted Living Chief Complaint: Wound Check Instructions: ED Wound Check Post Op No Infec, ED Lymphedema Referrals: Nakul Oliva MD [Primary Care Provider] - As Needed Ross Cleary DO [STAFF PHYSICIAN] - Keep Irene appointment What to do if you have Problems For any increased pain, shortness of breath, bleeding, nausea or vomiting, chest pain, or any unexpected problems, contact your Primary Care Provider. Call [email or web address] ([phone]) or report to the closest Emergency Room. Call 911 if necessary. 01/08/18 1885 <Electronically signed by Elkin Medel MD> Date Elkin Medel MD Cosigner Signature (If Indicated): Date CC: Nakul Oliva MD DISCHARGE INSTRUCTION Observed: 01/07/2018 Status: F Source: [facility] 3:59 PM [facility] REPOSITORY [facility] Medical Records Department [address] [place] [address] Instructions for Home/Discharge Instructions 01/07/18 1548 MR#: [id number] Acct: [id number] Name: RENATA MARTIN Rep #: [id number] : 1950 67 From: Ross Cleary DO PCP: Nakul Oliva MD Status: ADM SHAINA Discharge Activity: Return to Normal Activity, May not drive while taking narcotic pain medications., May Shower, Use Walker, Use Crutches May shower in (days): 1 May resume sexual activity in: No Restrictions Ice area for (Minutes): 20 - Use Polar Care as needed Weight Bearing Status: Weight bearing as tolerated Call your doctor if your incision/area has: Continuous Slow Oozing, Sudden Increased Bleeding, Increased Pain/ Swelling, Increased Redness, Foul Smelling Discharge, Swelling at the incision site Call your doctor if you observe: Fever of 101 or Higher, Coldness, Increased Pain, Numbness or Tingling, Change in Color, Inability to urinate, Inability to have a bowel movement, Using more than one pad per hour, Shortness of breath, Dizziness, Fainting spells, Swelling in the ankles, Chest pain, Prolonged hiccoughing, Increased palpitations (irregular heartbeat), Calf discomfort, Uncontrolled pain Suture Line Care: Avoid Pulling/Pushing, Avoid Pinching/Bending Change Dressing in (Days):: 5 Remove Dressing in (days):: 5 Cleanse incision/area with: Soap AND Water Additional Dressing/Incision Instructions:: Dressing stays in place 5-7 days from date of surgery. May shower. Do not submerge wound. Wash hands prior to touching wound. Allergies/Adverse Reactions: Allergies cephalexin monohydrate [From Keflex] Allergy (Severe, Verified 01/06/18 06:54) Swelling Medications to take at Discharge Finasteride [Finasteride] 5 mg PO DAILY 05/27/14 Aspirin [Aspirin EC] 81 mg PO QHS 03/28/17 Cholecalciferol (Vitamin D3) [Vitamin D3] 1,000 unit PO DAILY 12/30/17 Multivitamin [Multiple Vitamins] 1 each PO DAILY 12/30/17 Niantic-3 Fatty Acids/Fish Oil [Niantic 3 1,000 mg Softgel] 1 each PO DAILY 12/30/17 Aspirin E.C. [Ecotrin] 325 mg PO BID #30 tab 01/07/18 Docusate Sodium [Colace] 100 mg PO BID PRN PRN #10 cap 01/07/18 Famotidine [Pepcid] 20 mg PO BID #60 tab 01/07/18 Oxycodone HCl/Acetaminophen [Percocet 5/325] 1 - 2 tablet PO Q4H PRN PRN #60 tablet 01/07/18 ProMETHAzine [Phenergan] 25 mg PO Q4H PRN PRN #10 tab 01/07/18 Primary Care Physician: Nakul Oliva MD [Primary Care Provider] - Please Follow Up With: Ross Cleary DO When: call [facility] for appt for 2 weeks Proposed Discharge Date: 01/07/18 01/07/18 4435 <Electronically signed by Ross Cleary DO> Date Ross Cleary DO CC: Nakul Oliva MD CBC-COMPLETE BLOOD CNT Collected: 01/07/2018 Status: F Source: [facility] NO DIFF 5:20 AM [facility] REPOSITORY TYPE CODE TESTS RESULT OUT OF RANGE REFERENCE UNITS LAB L100.1000 4.4-11.0 K/mm3 High WBC 11.4 LAB L100.1200 4.6-6.2 M/mm3 Low RBC 4.01 LAB L100.1300 13.0-16.5 g/dl Normal HGB 13.0 LAB L100.1400 40-54 % Low HCT 37.7 LAB L100.1500 80-94 fL Normal MCV 94.0 LAB L100.1600 27.0-32.0 pg High MCH 32.4 LAB L100.1700 32-36 g/gl Normal MCHC 34.5 LAB L100.1810 11.6-14.6 % Normal RDW CV 13.3 LAB L100.1820 35.1-43.9 fl Normal RDW SD 43.9 LAB L100.1900 150-450 K/mm3 Normal PLT 179 LAB L100.2000 6.2-12.0 fl Normal MPV 9.5 Performed By: #### L100.0500 #### [facility] [address] [place], [address] BASIC METABOLIC Collected: 01/07/2018 Status: F Source: [place] PROFILE (BMP) 5:20 AM [facility] REPOSITORY TYPE CODE TESTS RESULT OUT OF RANGE REFERENCE UNITS LAB L501.0100 74-106 mg/dL High GLU 142 Result Comment: Fasting Glucose result greater than or equal to 126 mg/dL suggests DIABETES MELLITUS per A.D.A. criteria. Please note revised GLUCOSE reference range effective 2017. LAB L501.1000 7-18 mg/dL High BUN 20 LAB L501.1100 0.70-1.30 mg/dL High CREAT,SERUM 1.47 Result Comment: The validity of the calculated GFR AND GFRAA in patients over 70 years has not been determined. Clinical correlation is essential. LAB L501.1110 >60 mL/min Low EST GFR 51 Result Comment: Non- GFR Calc LAB L501.1115 >60 mL/min Normal EST GFR - AA 61 Result Comment: GFR Calc LAB L501.1255 ml/min Normal Estimated CRCL 48.76 LAB L501.1300 10-20 RATIO Normal BUN/CRE 13.6 LAB L501.2200 8.5-10 mg/dL Low .1 CA 8.4 LAB L501.5300 136-14 mmol/L Normal 5 NA 142 LAB L501.5600 3.5-5. mmol/L Normal 1 K 4.0 LAB L501.5900 98-107 mmol/L High CL 110 LAB L501.6100 21.0-3 mmol/L Normal 2.0 CO2 23.0 LAB L501.6200 5-15 Normal GAP 9 Performed By: #### L500.2500 #### [facility] [address] [place], [address] TOTAL KNEE REPLACEMENT Observed: 01/06/2018 Status: F Source: [facility] 12:43 PM [facility] REPOSITORY Patient: RENATA MARTIN : 1950 (67/M) Acct Num: [id number] Phys: Ross Cleary DO Unit Num: [id number] Loc: MS3 ZX301-2 Specimen: [id number] Received: 01/06/18 - 0 Spec Type: TOTAL KNEE TISSUES TISSUES: Knee, NOS GROSS DESCRIPTION Received is one container designated bone and soft tissue left knee. The specimen consists of multiple fragments of daniels-yellow bone measuring in aggregate 15 x 14 x 2 cm. Also in the specimen container are multiple fragments of yellow-white soft tissue measuring in aggregate 10 x 7 x 2 cm. A number of bony fragments contain articular surfaces consistent with tibial plateau and femoral condyle and displaying prominent osteophyte formation, eburnation, and bone erosion. Car Wash Manager sections are submitted in two cassettes as follows : 1 - soft tissue, 2 - bone after decalcification. / AM:stefania 01/06/18 TC:5 CPT: 50837, 02665 HEADER OPERATION: Total knee replacement PRE-OP DIAGNOSIS: Chronic pain and osteoarthritis of left knee; unspecified osteoarthritis type TISSUE SUBMITTED: Debrided bone and tissue, left knee MICROSCOPIC DESCRIPTION Slides are reviewed. MICROSCOPIC DIAGNOSIS Bone and soft tissue, left knee, total knee replacement: Pieces of bone with degenerative osteoarthritic changes. Fibroadipose tissue, fibroconnective tissue and reactive synovial tissue. SJ:stefanai 01/09/18 Signed Ran Rivera 01/09/18 <signature on file> Performed By: #### PKNEE #### [facility] [address] [place], [address] OPERATIVE REPORT Observed: 01/06/2018 Status: F Source: [place] 10:43 AM [facility] REPOSITORY [facility] Medical Records Department [address] [place] [address] Operative Report 01/06/18 1036 MR#: [id number] Acct: [id number] Name: RENATA MARTIN Rep #: [id number] : 1950 67 From: Ross Cleary DO PCP: Nakul Oliva MD Status: ADM IN Y [facility] Date of Procedure: 01/06/18 Pre-Operative Diagnosis: Left knee osteoarthritis Post-Operative Diagnosis: Same as above Surgery/Procedure Performed:: Left total knee arthroplasty using the Xiaohongshun press-fit system Description of Surgical Findings:: 87-year-old male with recalcitrant left knee pain that failed nonoperative management to include NSAIDs and modifications physical therapy and a previous arthroscopy where he was found to have 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 Patient had hypertrophic synovial changes and underwent a synovectomy at that time as well. Having failed conservative measures and due to the varus nature of his knee the recommendation was for total knee arthroplasty. Patient was met in the holding area where his left lower extremity was marked and identified by the with surgeon. Patient was taken the operating room in satisfactory condition with somewhat to place to identify patient up procedure limb. Patient received 900 clindamycin. He also received 1 g of TXA. He had a well-placed tourniquet left proximal thigh was then prepped and draped in usual fashion. Left lower extremity was elevated Esmarch used for exsanguination and tourniquet was increased to 250 mmHg for roughly 60 minutes. Patient had a standard midline incision made just medial to the tibia to have tibial tubercle and then moved to 2 fingerbreadths above the patella. He then underwent a standard medial parapatellar approach. Patient had a large return effusion upon opening the joint space. He has significant hypertrophic anterior fat pad that was subtotally resected using standard technique. Due to the varus nature of his knee he had when it underwent a standard posterior medial release to neutral mechanical alignment. At that point time the intramedullary kishore was introduced into the femur to perform our distal femoral cut. We took 8 mm off the distal femoral cut with 6 of valgus 3 of external rotation. Sized to a size 6 femur. We then turned our attention to performing her standard femoral cuts with a 6 sizing block. This done using standard technique. We then turned our attention to the tibia. We anticipated using a CR component. Tibial guide was set accordingly. We then took 2 mm off of the low side where he had somewhat of a cavitary change. Depressive change highly consistent with his varus deformity. We preserve the PCL. Overall size of the tibial block measured to a size 6. Injector mechanical alignment which was found to be neutral at 0 and 30 . We had no flexion or extension gap imbalances. Patient spaced out to about a 9 mm spacer block. At that point time the size 6 femur was introduced and the 6 tibial plateau along with a 9 mm spacer was placed. We had good mechanical alignment again good stability at 0 3090 of range of motion. Patient no showed no flexion extension gaps. The tibial plateau was then seated using standard technique the poly-removed as was the femoral component. We then placed her keel punch for the tibia anticipation of a press-fit component the secondary keel punch was then introduced. I placed additional drill holes around the plateau to help with bio ingrowth as well as placing holes across the femur. We then turned our attention to the patella. Patella measured overall 26 mm in overall thickness we took off 10 using a 35 patella button. Wound was then copiously irrigated and excess debris removed to include the remnant menisci. We cauterized the posterior lateral and posterior medial corners. We then prepped the knee for implantation. The patient tibial plateau was introduced and the #6 femoral component was then press-fit in to the tibia using standard technique. Femoral #6 size component was then also press-fit and we re-trialed with a 9 mm Angela patient had excellent extension and flexion balance I elected to use a 9 mm CS Angela. This was then seated using copious irrigation and then impacted using standard technique. We then turned our attention to the patella the patella was then press-fit using standard technique. We cycled the knee through a range of motion did not feel lateral release was required. The joint was ran one additional time and copious irrigated remove any excess debris. We then began our closure in full extension proximally using #1 Vicryl [id number] technique. Once we got to the superior aspect of the patella the knee was bent 30 and remaining portion of the capsule closed again using #1 Vicryl with sopdlo-fx-sewap technique. Soft tissue was reapproximated with 2-0 Vicryl in a running subicular Monocryl. He was then dressed with Dermabond and a Silverlon dressing was applied with the knee in 30 knee flexion. The tourniquet was let down during final closure at roughly 68 minutes. I was scrubbed and available time during our procedure. We had no drains or complications. Implants included the Elizabeth triathlon total knee system press-fit 6 femur 6 tibia 9 CS Angela and a 35 patella button. Patient will be admitted floor for 24 hours of IV antibiotics. Appropriate IV and p.o. pain medication. DVT prophylaxis to include SCDs teds and aspirin 325 p.o. twice daily with GI prophylaxis. Any major issues please contact me. design specialist: Sanjay Aguirre Type of Anesthesia:: Spinal Specimen's removed: Bone cuts Estimated Blood Loss (mL): 50 Grafts/Implants Used: Striker triathlon press-fit 6, 6, 9 CS, 35 - Complications None - Admit VTE Documentation VTE Present on Admission: No VTE Mechan Device Prophylaxis: SCD's, Knee High RAJESH Hose VTE Pharm Prophylaxis ordered?: Yes 01/06/18 1043 <Electronically signed by Ross Cleary DO> Date Ross Cleary DO CC: Nakul Oliva MD; Ross Cleary DO Signed KNEE 1 OR 2 VIEWS Observed: 01/06/2018 Status: F Source: [facility] 6:54 AM [facility] REPOSITORY [facility] Imaging Services [address] [place] [address] Knee 1 or 2 Views MR#: [id number] Acct: [id number] Name: RENATA MARTIN Rep #: [id number] : 1950 M 67 From: Enrique Mark MD PCP: Nakul Oliva MD Status: ADM IN Study: Knee 1 or 2 Views Date of Exam: 01/06/18 Exam# [id number] Ordering Dr: Ross Cleary DO STUDY: X-RAY - LEFT KNEE REASON FOR EXAM: Male, 67 years old. Total knee replacement. TECHNIQUE: AP and lateral view(s) of the knee. COMPARISON: Comparison is made with prior study dated September 24, 2016. FINDINGS: Normal visualized distal femur. Normal visualized proximal tibia and fibula. Normal proximal tibiofibular articulation. The patient is status post total knee replacement. Postoperative soft tissue changes. RAD/Knee 1 or 2 Views IMPRESSION: Total knee replacement. There is good alignment. Postoperative soft tissue changes. Electronically Signed: Enrique Mark MD at 11:14 EST Tel [phone], Service support , CC: Nakul Oliva MD; Ross Cleary DO Boiler/Chiller Operator: Signed 12 LEAD ELECTROCARDIOGRAM Observed: 12/31/2017 Status: F Source: [place] 2:30 PM [facility] REPOSITORY [facility] Cardiovascular Services [address] [place] [address] EKG - [facility] 12/30/17 1116 MR#: [id number] Acct: [id number] Name: WILLVICTORIANORENATA D Rep #: [id number] : 1950 67 From: Edmar Avila MD Attending Dr: Ross Cleary DO Status: PRE IN Ordering Dr: Nakul Skaggs MD Date: 12/30/17 Location: [facility] Sex: M C Admitted: Test Reason : Blood Pressure : / mmHG Vent. Rate : 059 BPM Atrial Rate : 059 BPM P-R Int : 162 ms QRS Dur : 100 ms QT Int : 386 ms P-R-T Axes : 034 -29 043 degrees QTc Int : 382 ms Sinus bradycardia Leftward axis Poor R wave progression Confirmed by MARGARITA SHANE, EDMAR ([id number]), editorial assistant KELLY MALDONADO ([id number]) on 12/31/2017 2:29:45 PM Referred By: ABDOULAYE Confirmed By:EDMAR AVILA MD 12/31/17 142 Date Edmar Avila MD CC: Nakul Oliva MD Date Dictated: 12/30/171115 Date Transcribed: 12/30/171115 Boiler/Chiller Operator: Signed CBC-COMPLETE BLOOD CNT Collected: 12/30/2017 Status: F Source: [facility] NO DIFF 11:20 AM [facility] REPOSITORY TYPE CODE TESTS RESULT OUT OF RANGE REFERENCE UNITS LAB L100.1000 4.4-11.0 K/mm3 Normal WBC 7.9 LAB L100.1200 4.6-6.2 M/mm3 Normal RBC 4.80 LAB L100.1300 13.0-16.5 g/dl Normal HGB 15.5 LAB L100.1400 40-54 % Normal HCT 44.8 LAB L100.1500 80-94 fL Normal MCV 93.3 LAB L100.1600 27.0-32.0 pg High MCH 32.3 LAB L100.1700 32-36 g/gl Normal MCHC 34.6 LAB L100.1810 11.6-14.6 % Normal RDW CV 13.5 LAB L100.1820 35.1-43.9 fl High RDW SD 45.1 LAB L100.1900 150-450 K/mm3 Normal PLT 223 LAB L100.2000 6.2-12.0 fl Normal MPV 8.9 Performed By: #### L100.0500 #### [facility] [address] [place], [place], [address] Observed: 12/30/2017 Status: F Source: [facility] MRSA/SAID SCREEN 11:20 AM [facility] REPOSITORY MRSA/SAID SCRN S. AUREUS S. aureus Negative MRSA MRSA Negative Performed By: #### M100.651 #### [facility] [address] [place], [place], [address] ORTHOPEDIC VISIT Observed: 12/22/2017 Status: F Source: [facility] REPORT 11:11 AM [facility] Orthopaedics AND Sports Medicine [facility] [address] [address] OFFICE VISIT Date of Service: 12/15/17 MR#: [id number] Acct: [id number] Name: RENATA MARTIN Rep #: [id number] : 1950 Provider: Ross Cleary DO Age/Sex: 67/M Location: [facility] Status: Signed with Addenda ADDENDUM by Ross Cleary DO on 12/22/17 at 1111 Addendum entered and electronically signed by Ross Cleary DO 12/22/17 11:11: HPI: 67-year-old male here to discuss operative intervention to his left knee specifically total knee arthroplasty. Patient is also reporting right knee pain would be interested in having right knee x-rays determine if there is any orthopedic issues that need to be addressed. Patient denies any other significant fevers chills nausea vomiting chest pain or shortness of breath. Points to the bilateral knees. Again interested in the left total knee arthroplasty. 12/22/17 1111 <Electronically signed by Ross Cleary DO> Date Ross Cleary DO cc: * Signed Intake Intake Visit Reasons: LT KNEE Allergies cephalexin monohydrate [From Keflex] Adverse Reaction (Severe, Verified 12/03/17 15:26) Swelling Medications Finasteride [Finasteride] 5 mg PO DAILY 05/27/14 [History Confirmed 12/03/17] Aspirin [Aspirin EC] 81 mg PO QHS 03/28/17 [History Confirmed 12/03/17] PFSH Medical History Arthritis (Chronic) Surgical History S/P cholecystectomy (Inactive) S/P left knee arthroscopy (Inactive) left foot (Inactive) Family History Mother Hypertension CVA (cerebral vascular accident) Father Kidney disease Brother Kidney disease Lung cancer Sister Breast cancer Social History Smoking Status: Former smoker HPI LT KNEE: Details: RENATA MARTIN is a 67 year old M here today for Ortho Exam Right Knee Skin/Wound: Yes CDI Contralateral Normal: No Swelling: No Homans Sign: No Knee ROM: Yes ROM-Extension -20 to 0, Yes ROM-Passive Flexion 0-140, Yes ROM-Flexion 0-140, Yes ROM-Passive Extension -10 to 0 Quad Atrophy: No Examination: Med jt line tenderness, Pain with flexion Stability: NML: Anterior Drawer, NML: Breana, NML: Posterior Drawer, NML: Valgus 0, NML: Valgus 30, NML: Varus 0, NML: Varus 30, NML: Dial 90, NML: Dial 30 Popliteal Adenopathy: No Patella Translation: 1 Apprehension with Lateral Translation: No Patellar Tilt Normal: Yes Patella Grind: No Left Knee Contralateral Normal: No Swelling: Yes Homans Sign: No 1+: Effusion Quad Atrophy: No Examination: Med jt line tenderness, Lat jt line tenderness, Pain with flexion, Pain with extension, Duck Walk, Crepitus Stability: NML: Anterior Drawer, NML: Breana, NML: Posterior Drawer, NML: Valgus 0, NML: Varus 0, NML: Varus 30, NML: Dial 90, NML: Dial 30, 1+: Valgus 30 Popliteal Adenopathy: No Patella Translation: 1 Apprehension with Lateral Translation: No Patellar Tilt Normal: No Patella Grind: Yes KNEE: General: well developed, well nourished in no acute distress. Head: normocephalic and atraumatic Pulses: pulses normal in all 4 extremities. Neurologic: no focal deficits, cranial nerves II-XII grossly intact with normal sensation, reflexed, coordination, muscle strength and tone. Axillary Nodes: no significant adenopathy. Psych: alert and cooperative, normal mood and affect, normal attention span and concentration. Heart regular with an S1-S2. Lungs clear to auscultation bilaterally. Abdomen is soft nontender nondistended with no gross this medicine intermittently. He has +2 pulses. EHL anterior gastrocsoleus peroneals quads hamstrings 5 out of 5. Right knee x-rays: Evaluated by myself with patient-joint space well preserved no obvious signs of arthrosis mechanically more neutral alignment although still varus. Left knee x-rays: Previously evaluated. MRI-subchondral edema to the medial tibial plateau and medial femoral condyle., Scope pictures-patient with cartilage delamination to the medial compartment concerning for early onset avascular necrosis. Assessment AND Plan Problems 1. Chronic pain of left knee M25.562; G89.29 2. Osteoarthritis of left knee, unspecified osteoarthritis type M17.12 Plan Assessment: Left knee osteoarthritis left knee pain. Concerned about early cartilage delamination and avascular necrosis. Plan: At this point, I feel the patient's right knee is actually doing well. I think he may be guarding because of his left knee pain. However with the patient's rapid relatively normal-appearing left knee films he may at some point need a right knee MRI to evaluate for any subchondral edema in the plateau or femoral condyle. Patient does have concerns on his left knee for possible early avascular necrosis. He does not show any leonila collapse but during his arthroscopy he had significant delamination of his cartilaginous region again of the medial tibial plateau and femoral condyles. At this point time patient would like to proceed with a left total knee arthroplasty. Having failed conservative measures to include NSAIDs activity modifications physical therapy injections and a prior knee scope that showed significant chondromalacia changes my recommendations for total knee arthroplasty. Patient agrees.. Reviewed the pre-operative plans with the patient. Risks and benefits of the procedure were fully explained, including but not limited to infection, neurovascular injury, continued pain, arthritis, stiffness, need for further surgery, re-injury, DVT, PE, general risks of anesthesia, and loss of limb or life. The patient understands all the risks and does wish to proceed with written consent. Orders Orders: Coding Level of Care Code Off vis,est,level 4 Diagnoses Chronic pain of left knee M25.562; G89.29 Chronicity: chronic Osteoarthritis of left knee, unspecified osteoarthritis type M17.12 Osteoarthritis type: unspecified 12/22/17 1107 <Electronically signed by Ross Cleary DO> Date Ross Cleary DO Cosigner Signature: Date (if applicable) CC: KNEE 4 OR MORE Observed: 12/15/2017 Status: F Source: RADHA VIEWS 3:31 PM [facility] REPOSITORY [facility] Imaging Services [address] [place] [address] Knee 4 or More Views MR#: [id number] Acct: [id number] Name: RENATA MARTIN Rep #: [id number] : 1950 M 67 From: Almaz Gallagher MD PCP: Nakul Oliva MD Status: REG CLI Study: Knee 4 or More Views Date of Exam: 12/15/17 Exam# [id number] Ordering Dr: Ross Cleary DO STUDY: X-RAY - RIGHT KNEE REASON FOR EXAM: Male, 67 years old. No known recent injury. Pain in right knee. TECHNIQUE: 5 view(s) of the knee. COMPARISON: None. FINDINGS: Normal visualized distal femur. Normal visualized proximal tibia and fibula. Normal proximal tibiofibular articulation. Tiny spurs along the tibial spine and femoral notch. There is mild degenerative arthrosis of the medial femorotibial compartment. Normal lateral femorotibial compartment. Normal patellofemoral articulation. The soft tissue structures are unremarkable. RAD/Knee 4 or More Views IMPRESSION: Minimal degenerative changes. Electronically Signed: Almaz Gallagher MD at 7:31 EST , Service support , CC: Nakul Oliva MD; Ross Cleary DO Boiler/Chiller Operator: Signed ORTHOPEDIC VISIT Observed: 12/05/2017 Status: F Source: RADHA REPORT 4:49 PM [facility] REPOSITORY [facility] Orthopaedics AND Sports Medicine [address] [place] [address] 5 [place] [address] OFFICE VISIT Date of Service: 12/03/17 MR#: [id number] Acct: [id number] Name: RENATA MARTIN Rep #: [id number] : 1950 Provider: Ross Cleary DO Age/Sex: 67/M Location: [facility].SMO Status: Signed Intake Intake Visit Reasons: LT KNEE Is patient in pain?: Yes Pain scale (1-10): 7 Allergies cephalexin monohydrate [From Keflex] Adverse Reaction (Severe, Verified 12/03/17 15:26) Swelling Medications Finasteride [Finasteride] 5 mg PO DAILY 05/27/14 [History Confirmed 12/03/17] Aspirin [Aspirin EC] 81 mg PO QHS 03/28/17 [History Confirmed 12/03/17] PFSH Medical History Arthritis (Chronic) Surgical History S/P cholecystectomy (Inactive) S/P left knee arthroscopy (Inactive) left foot (Inactive) Family History Mother Hypertension CVA (cerebral vascular accident) Father Kidney disease Brother Kidney disease Lung cancer Sister Breast cancer Social History Smoking Status: Former smoker HPI LT KNEE: Details: RENATA MARTIN is a 67 year old M here today for left knee pain. He would like to get an injection today as well as discuss possible surgery. He complains of intermittent medial knee pain that radiates down into his calf and castillo. Constant swelling. He feels it's warm to the touch. No redness. Denies locking. He feels it's the worst in the morning, he feels it's weak and can't hold him up. He has difficulty walking up stairs. He does not take anything for pain usually but if it's real bad he will take Ibuprofen. ROS Const Reports system reviewed and no additional complaints, except as docu Eyes Reports system reviewed and no additional complaints, except as docu ENT Reports system reviewed and no additional complaints, except as docu Card Reports system reviewed and no additional complaints, except as docu Resp Reports system reviewed and no additional complaints, except as docu GI Reports system reviewed and no additional complaints, except as docu Reports system reviewed and no additional complaints, except as docu Musc Reports joint pain, Reports joint swelling Skin/Breast Reports system reviewed and no additional complaints, except as docu Neuro Yes system reviewed and no additional complaints, except as docu Psych Reports system reviewed and no additional complaints, except as docu Endo Reports system reviewed and no additional complaints, except as docu Augustin/Lymph Reports system reviewed and no additional complaints, except as docu Aller/Immun Reports system reviewed and no additional complaints, except as docu Ortho Exam Right Knee Patella Translation: 1 Left Knee Contralateral Normal: Yes Swelling: Yes Homans Sign: No 1+: Effusion Quad Atrophy: No Examination: Med jt line tenderness, Pain with flexion, Duck Walk, Crepitus Stability: NML: Anterior Drawer, NML: Breana, NML: Posterior Drawer, NML: Valgus 0, NML: Valgus 30, NML: Varus 0, NML: Varus 30, NML: Dial 90, NML: Dial 30, 1+: Valgus 30 Popliteal Adenopathy: No Patella Translation: 1 Apprehension with Lateral Translation: No Patellar Tilt Normal: Yes Patella Grind: Yes KNEE: Patient is alert oriented 3 no distress with eye contact affect. Otherwise intact from L1 S1 distributions. Walks an antalgic gait. No adenopathy. Gross motor strength 5 out of 5 in all planes. Office Procedures Ortho Injections Injections Yes Knee Left Details: Obtained consent for injection. Under sterile conditions, injected the patients left knee with a 10cc cocktail of 8cc bupivacaine and 2cc kenalog . The patient tolerated the injection well without any noted complication. Patient should call our office if redness develops, pain worsens or if they have any concerns. Office Meds Kenalog Performing Provider: Ross Cleary DO Administered by: Ross Cleary DO on 12/03/17 15:47 Dose Route Admin Location Lot Number Expiration DateNDC Education Reviewer 2 mg Intra-Articularleft knee [id number] 03/23/19 [id number] [employer] A/S Assessment AND Plan Problems 1. Chronic pain of left knee M25.562; G89.29 2. Primary osteoarthritis of left knee M17.12 Plan Assessment: Left knee osteoarthritis left knee pain. Plan: At this point time patient would like to discuss operative intervention to include a total knee arthroplasty. I reviewed this with him and his daughter in terms of how to proceed with intervention, time in hospital, early weightbearing status, and DVT prophylaxis. At this point time we will plan on surgical option for December but in the meantime we will go ahead and prepare his left knee to do a left knee injection to try to give him some symptomatic relief until operative intervention time. We will send appropriate eval over for cardiology clearance if needed. Patient agrees with plan. Obtained consent for injection. Under sterile conditions, injected the patients left knee with a 10cc cocktail of 8cc bupivacaine and 2cc kenalog . The patient tolerated the injection well without any noted complication. Patient should call our office if redness develops, pain worsens or if they have any concerns. Patient will follow-up with me in about 2-3 weeks in order to get him set up for operative intervention to include left total knee arthroplasty. Any major issues return. Orders Orders: Medications Discontinued: Kenalog (triamcinolone acetonide)2 mg (0.2 mL) Intra-Articular ONCM25.562 Radha Mathis Discontinued Reason: Office E NS Medication has been Documented as given 12/05/17 1649 <Electronically signed by Ross Cleary DO> Date Ross Cleary DO Cosigner Signature: Date (if applicable) CC: ALLERGIES ALLERGIES DATE TYPE / CODE NAME / CODE REACTION SEVERITY SOURCE 05/18/2018 Drug cephalexin Swelling SV Radha Allergy/416 monohydrate/F0000 [facility] [id number]([facility] [address](RXNORM) Hospital ED CT) Repository ENCOUNTERS ENCOUNTERS ADMIT/DISCHARGE ACCOUNT ADMITTING ENCOUNTER LOCATION SOURCE NUMBER CLASS 11/09/2018 [id number] Ambulatory [place] 1 [facility] ing:CT Repository 10/21/2018 [id number] Ambulatory [place] Radha 4 [facility] ing:MFPLAB Repository 05/26/2018/ [id number] Brigiod, Inpatient [place] 8 2 Gary Encounter [facility] ing:RB0Pkgq: Repository PD907Ybc: 1 04/15/2018/ [id number] Ambulatory BMSBuilding:B [place] 8 1 [facility] Repository 04/08/2018 [id number] Ambulatory [place] Radha 7 [facility] ing:MRI Repository 03/30/2018/ [id number] Ambulatory BMSBuilding:B Radha 8 0 [facility] Repository 03/18/2018/ [id number] Ambulatory BMSBuilding:B [place] 8 1 [facility] Repository 02/19/2018/ [id number] Ambulatory Radha Radha 8 6 [facility] ing:PT Repository 02/16/2018 [id number] Ambulatory [place] Radha 2 [facility] ing:HPRAD Repository 02/16/2018/ [id number] Ambulatory BMSBuilding:B [place] 8 5 [facility] Repository 01/19/2018/ [id number] Ambulatory BMSBuilding:B [place] 8 6 [facility] Repository 01/08/2018/ [id number] Emergency [place] 8 8 [facility] ing:ED Repository 01/08/2018 [id number] Ambulatory BMSBuilding:B Radha 7 [facility] Repository 01/06/2018/ [id number] Ross Cleary Ambulatory [place] 8 1 [facility] ing:GR9Mnro: Repository BS276Vyo: 1 01/06/2018 [id number] Ross Cleary Ambulatory BMSBuilding:B [place] 4 [facility] Repository 01/06/2018 [id number] Ross Cleary Ambulatory BMSBuilding:B [place] 7 [facility] Repository 01/06/2018/ [id number] Ambulatory BMSBuilding:W [place] 8 7 [facility] Repository 12/15/2017 [id number] Ambulatory [place] Radha 8 [facility] ing:HPRAD Repository 12/15/2017/ [id number] Ambulatory BMSBuilding:B [place] 8 0 [facility] Repository 12/03/2017/ [id number] Ambulatory BMSBuilding:B [place] 8 1 [facility] Repository PAYERS PAYERS ENCOUNTER GUARANTOR PAYER SUBSCRIBER SOURCE 11/09/2018 RENATA De Luna Primary RENATA De Luna Radha [id number] Insurance:MEDICARE CANODEDOB: [facility] [id number] Number: Repository [id number]: 330 [id number] [phone] () Date:2018-11-03 11/09/2018 Secondary RENATA D Rdaha Insurance:UNITED [facility] CANODEDOB: [address] [id number] Hospital Number: Repository [id number] Date:5641-40-56HS [facility] 512351XKQCPTM, [place] [address]BV: 11/09/2018 Tertiary NOT GIVENUNK [place] Insurance:SELF PAY [facility] Number: Effective Repository Date:2018-11-03 10/21/2018 RENATA D Primary RENATA D [place] [id number] Insurance:MEDICARE CANODEDOB: [facility] [id number] Number: Repository [address]Hys: 330 [id number] [phone] () Date:2018-10-21 10/21/2018 Secondary RENATA D [place] Insurance:UNITED TH CANODEDOB: [address] [id number] Hospital Number: Repository [id number] Date:8128-24-16[address]CM, [place] [address]SU: 10/21/2018 Tertiary NOT GIVENUNK [place] Insurance:SELF PAY [facility] Number: Effective Repository Date:2018-10-21 05/26/2018 RENATA D Primary RENATA D Radha [id number] Insurance:MEDICARE CANODEDOB: [facility] [id number] Number: Repository [id number]: 330 [id number] [phone] (HP) Date:2018-04-30 05/26/2018 Secondary RENATA D [place] Insurance:UNITED HLTH CANODEDOB: [facility] CARE [address] [place], [place] [id number] Hospital Number: Repository [id number] Date:4739-17-95NZ [address]QZZFWFE, [place] [address]HJ: 05/26/2018 Tertiary NOT GIVENUNK [place] Insurance:SELF PAY [facility] Number: Effective Repository Date:2018-04-30 04/15/2018 RENATA D Primary RENATA D [place] [id number] Insurance:MEDICARE CANODEDOB: [facility] [id number] Number: Repository [address]Hkw: 330 [id number] [phone] () Date:2018-04-13 04/15/2018 Secondary RENATA D [place] Insurance:UNITED HLTH CANODEDOB: [facility] CARE [address] [place] [address] Hospital Number: Repository [id number] Date:6889-56-73[address]PQCAWUJ, [place] [address]VP: 04/15/2018 Tertiary NOT GIVENUNK Radha Insurance:SELF PAY [facility] Number: Effective Repository Date:2018-04-15 04/08/2018 RENATA D Primary RENATA D [place] [id number] Insurance:MEDICARE CANODEDOB: [facility] [id number] Number: Repository [id number]: 330 [id number] [phone] (HP) Date:2018-03-31 04/08/2018 Secondary RENATA D [place] Insurance:UNITED HLTH CANODEDOB: [facility] CARE [address] [place], [place] [id number] Hospital Number: Repository [id number] Date:8707-56-84EM [address]JIEAX, [place] [address]DD: 04/08/2018 Tertiary NOT GIVENUNK Radha Insurance:SELF PAY [facility] Number: Effective Repository Date:2018-03-31 03/30/2018 RENATA D Primary RENATA D Radha [id number] Insurance:MEDICARE CANODEDOB: Community [facility] PART A [facility] [id number] [place] Number: Repository [address]Wiv: 330 [id number] [phone] () Date:2018-02-16 03/30/2018 Secondary RENATA D [place] Insurance:UNITED HLTH CANODEDOB: Community CARE [address] [place] [address] [id number] Hospital Number: Repository [id number] Date:5815-04-99[address] [place] [address]NZ: 03/30/2018 Tertiary NOT GIVENUNK Radha Insurance:SELF PAY [facility] Number: Effective Repository Date:2018-03-30 03/18/2018 RENATA D Primary RENATA D [place] [id number] Insurance:MEDICARE CANODEDOB: [facility] [id number] [facility] Number: Repository [address]Ljq: 330 [id number] [phone] () Date:2018-03-16 03/18/2018 Secondary RENATA D Radha Insurance:UNITED HLTH CANODEDOB: Community CARE [address] [place] [address] [id number] Hospital Number: Repository [id number] Date:4594-53-86UM [address] [place] [address]BN: 03/18/2018 Tertiary NOT GIVENUNK [place] Insurance:SELF PAY [facility] Number: Effective Repository Date:2018-03-18 02/19/2018 RENATA D Primary RENATA D [place] [id number] Insurance:MEDICARE CANODEDOB: [facility] [id number] Medical Center, [place] Number: Repository [id number]: 330 [id number] [phone] () Date:2015-10-24 02/19/2018 Secondary RENATA D Radha Insurance:UNITED HLTH CANODEDOB: Community CARE [id number] [id number] Hospital Number: Repository [id number] Date:1926-44-49[address]QPRJVVD, [place] [address]CG: 02/19/2018 Tertiary NOT GIVENUNK Radha Insurance:SELF PAY [facility] Number: Effective Repository Date:2018-01-09 02/16/2018 RENATA D Primary RENATA D [place] [id number] Insurance:MEDICARE CANODEDOB: [facility] [id number] Number: Repository [address]Qjm: 330 [id number] [phone] () Date:2018-02-16 02/16/2018 Secondary RENATA D [place] Insurance:UNITED HLTH CANODEDOB: [facility] CARE [id number] Hospital Number: Repository [id number] Date:1684-66-07RH [address]OLXYQHM, [place] [address]VA: 02/16/2018 Tertiary NOT GIVENUNK Radha Insurance:SELF PAY [facility] Number: Effective Repository Date:2018-02-16 02/16/2018 RENATA D Primary RENATA D Radha [id number] Insurance:MEDICARE CANODEDOB: [facility] [id number] Number: Repository [address]Rwc: 330 [id number] [phone] () Date:2018-01-19 02/16/2018 Secondary RENATA D Radha Insurance:UNITED HLTH CANODEDOB: Community CARE [id number] Hospital Number: Repository [id number] Date:7106-74-23[address]YDVSVAN, [place] [address]OF: 02/16/2018 Tertiary NOT GIVENUNK [place] Insurance:SELF PAY [facility] Number: Effective Repository Date:2018-02-16 01/19/2018 RENATA D Primary RENATA D [place] [id number] Insurance:MEDICARE CANODEDOB: [facility] [id number] [place] Number: Repository [address]Yrj: 330 [id number] [phone] (HP) Date:2017-12-04 01/19/2018 Secondary RENATA D [place] Insurance:UNITED HLTH CANODEDOB: [facility] CARE [address] [place] [address] [id number] Hospital Number: Repository [id number] Date:0925-66-82XD [facility] [place]16[place], [place] [address]SP: 01/19/2018 Tertiary NOT GIVENUNK [place] Insurance:SELF PAY [facility] Number: Effective Repository Date:2017-12-04 01/08/2018 RENATA D Primary RENATA D [place] [id number] Insurance:MEDICARE CANODEDOB: [facility] [id number] Medical [facility], [place] Number: Repository [address]Eaf: 330 [id number] [phone] (HP) Date:2018-01-08 01/08/2018 Secondary RENATA D [place] Insurance:UNITED HLTH CANODEDOB: [facility] CARE [id number] Hospital Number: Repository [id number] Date:9411-48-30RR [address]SSOPHCO, [place] [address]NQ: 01/08/2018 Tertiary NOT GIVENUNK Radha Insurance:SELF PAY [facility] Number: Effective Repository Date:2018-01-08 01/08/2018 RENATA D Primary RENATA D Radha [id number] Insurance:MEDICARE CANODEDOB: [facility] [id number] [place] Number: Repository [id number]: (476) [id number] [phone] (HP) Date:2018-01-08 01/08/2018 Secondary RENATA D [place] Insurance:UNITED HLTH CANODEDOB: [facility] CARE [id number] Hospital Number: Repository [id number] Date:5954-28-31ZV [address]EKSZJUS, [place] [address]FL: 01/08/2018 Tertiary NOT GIVENUNK Radha Insurance:SELF PAY [facility] Number: Effective Repository Date:2018-01-08 01/06/2018 RENATA D Primary RENATA D Radha [id number] Insurance:MEDICARE CANODEDOB: [address], [place] Number: Repository [id number]: 330 [id number] [phone] (HP) Date:2017-12-04 01/06/2018 Secondary RENATA D [place] Insurance:UNITED HLTH CANODEDOB: [facility] CARE [id number] [place] [address] Hospital Number: Repository [id number] Date:8996-95-71[address]QQFQQUA, [place] [address]RP: 01/06/2018 Tertiary NOT GIVENUNK Radha Insurance:SELF PAY [facility] Number: Effective Repository Date:2017-12-04 01/06/2018 RENATA D Primary RENATA D Radha [id number] Insurance:MEDICARE CANODEDOB: [address] Number: Repository [id number]: 330 [id number] [phone] () Date:2017-12-04 01/06/2018 Secondary RENATA D [place] Insurance:UNITED HLTH CANODEDOB: Community CARE [id number] [place] [address] Hospital Number: Repository [id number] Date:2414-29-86LC [address]BWIYVEE, [place] [address]PY: 01/06/2018 Tertiary NOT GIVENUNK Radha Insurance:SELF PAY [facility] Number: Effective Repository Date:2018-01-06 01/06/2018 RENATA D Primary RENATA D Radha [id number] Insurance:MEDICARE CANODEDOB: [facility] PART A [facility] [id number] Number: Repository [address]Unu: 330 [id number] [phone] (HP) Date:2017-12-04 01/06/2018 Secondary RENATA D Radha Insurance:UNITED HLTH CANODEDOB: [facility] CARE [address] [place] [address] [id number] Hospital Number: Repository [id number] Date:3294-31-12VC [address]KRLEYAF, [place] [address]VZ: 01/06/2018 Tertiary NOT GIVENUNK Radha Insurance:SELF PAY [facility] Number: Effective Repository Date:2018-01-06 01/06/2018 RENATA D Primary RENATA D Radha [id number] Insurance:MEDICARE CANODEDOB: [facility] A [facility] [id number] [place] Number: Repository [id number]: 330 [id number] [phone] (HP) Date:2017-12-04 01/06/2018 Secondary RENATA D [place] Insurance:UNITED TH CANODEDOB: [facility] CARE [address] [place] [address] [id number] Hospital Number: Repository [id number] Date:2355-53-51[address], [place] [address]HO: 01/06/2018 Tertiary NOT GIVENUNK Radha Insurance:SELF PAY [facility] Number: Effective Repository Date:2017-12-30 12/15/2017 RENATA D Primary RENATA D [place] [id number] Insurance:UNITED HLTH CANODEDOB: [facility] CARE [address] [place] [address] [id number] Number: Repository [id number]: 330 [id number] [phone] (HP) Date:5961-31-96KZ [address]CAVMKJN, [place] [address]KJ: 12/15/2017 Secondary RENATA D Radha Insurance:MEDICARE CANODEDOB: Community PART A [facility] [id number] Hospital Number: Repository [id number] Date:2017-12-15 12/15/2017 Tertiary NOT GIVENUNK [place] Insurance:SELF PAY [facility] Effective Repository Date:2017-12-15 12/15/2017 RENATA D Primary RENATA D Radha [id number] Insurance:MEDICARE CANODEDOB: [facility] [id number] [place] Number: Repository [id number]: 330 [id number] [phone] (HP) Date:2017-12-03 12/15/2017 Secondary RENATA D Radha Insurance:UNITED HLTH CANODEDOB: [facility] [facility] [address] [place] [address] [id number] Hospital Number: Repository [id number] Date:[id number] [facility] [id number], [place] [address]FA: 12/15/2017 Tertiary NOT GIVENUNK [place] Insurance:SELF PAY [facility] Number: Effective Repository Date:2017-12-15 12/03/2017 RENATA D Primary RENATA D Radha [id number] Insurance:MEDICARE CANODEDOB: [facility] [id number] Number: Repository [id number]: [id number] () Date:2017-11-20 12/03/2017 Secondary RENATA D [place] Insurance:UNITED HLTH CANODEDOB: [facility] [id number] Hospital Number: Repository [id number] Date:[id number], [place] [address]FY: 12/03/2017 Tertiary NOT GIVENUNK Radha Insurance:SELF PAY [facility] Number: Effective Repository Date:2017-11-20
== END ==
PROVIDERS: Family Provider Family Medicine; PCP Family Medicine; Visit Provider Family Medicine
DX: K76.0 Fatty (change of) liver, not elsewhere classified (principal); G25.81 Restless legs syndrome
CPT/HCPCS: 36415; 80053; 80061; 82728; 83036; 83540; 85025; 86708

== ENCOUNTER → 2018-11-09 16:50 | Outpatient (CLI) | payer MEDICARE, OTHER, SELFPAY ==
--- NOTE | 2018-11-09 16:52 | CT_ITS ---
STUDY: LOW DOSE CT LUNG CANCER SCREENING REASON FOR EXAM: Male, 68 years old. Long history of smoking RADIATION DOSAGE (If Supplied By Facility): CTDIvol = ( 4.02 ) mGy, DLP = ( 138.43 ) mGycm TECHNIQUE: No contrast was administered. Low dose technique was utilized (average mAS-38 and kVp 120). 1.25 mm axial source images with a slice interval of 1.25-mm were reconstructed in lung windows. 2.5 mm axial source images with a slice interval of 2.5-mm were reconstructed in lung windows. 5.0 mm axial source images with a slice interval of 5.0-mm were reconstructed in soft tissue windows. Nodule measured using lung windows on PACS and/or independent workstation with automated measurement of minimum and maximum diameter. Nodule measurement reported as average diameter rounded to the nearest whole number. Growth is defined as an increase ins size of greater than 1.5 mm. COMPARISON: None. NODULES: There is mild bronchial wall thickening suggesting chronic bronchitis. There is no abnormal lung mass. There is no demonstrated pleural abnormality. Normal heart and pericardium. Normal mediastinum. Normal hilar regions. Normal unenhanced pulmonary arteries. Normal aorta arch and descending thoracic aorta. There are multi-level degenerative changes of the thoracic spine. There is no demonstrated abnormality of the visualized upper abdomen. CT/Low Dose CT Lung Screening IMPRESSION: Lung-RADS category 2. Benign findings. There is no evidence of malignancy. Recommendation: Routine screening CT scan in one year. IMPORTANT NOTES FOR USE: ACR Lung-RADS Version 1.0 Assessment Categories Release Date: March 21, 2014 Category: Coded 0-4 bases on nodule(s) with highest degree of suspicion. Negative screen is defined as categories 1 and 2; a positive screen is defined as categories 3 and 4. Category 3 and 4A nodules that are unchanged on interval CT should be coded as category 2, and individuals returned to screening in 12 months. Category 4X: Category 3 or 4 nodules with additional imaging findings that increase the suspicion of lung cancer, such as spiculation, GGN that doubles in size in 1 year, enlarged lymph notes, etc. Category Modifiers: S (significant finding unrelated to lung cancer) and C (prior history of treated lung cancer) may be added to the 0-4 Lung-RADS Electronically Signed: Corbin Yin MD at 8:08 EST Tel , Service support ,
--- OUTSIDE RECORDS SUMMARY | 2019-02-11 09:19 | XMS RPT_ITS ---
:1950 Author Organization OHIP Support Name Relationship Address Phone CANODE MATIAS Unavailable [address] + [place] [address] R Unavailable Unavailable Unavailable CANODE, MATIAS Unavailable [address] + [place] [address] R Unavailable Unavailable Unavailable CANODE, MATIAS Unavailable [address] + [place] [address] R Unavailable Unavailable Unavailable CANODE, MATIAS Unavailable [address] + [place] [address] R Unavailable Unavailable Unavailable CANODE, MATIAS Unavailable [address] + [place] [address] R Unavailable Unavailable Unavailable CANODE, MATIAS Unavailable [address] + [place] [address] R Unavailable Unavailable Unavailable CANODE, MATIAS Unavailable [address] + [place] [address] R Unavailable Unavailable Unavailable CANODE, MATIAS Unavailable [address] + [place] [address] R Unavailable Unavailable Unavailable CANODE, MATIAS Unavailable [address] + [place] [address] R Unavailable Unavailable Unavailable CANODE, MATIAS Unavailable [address] + [place] [address] R Unavailable Unavailable Unavailable CANODE, MATIAS Unavailable [address] + [place] [address] R Unavailable Unavailable Unavailable CANODE, MATIAS Unavailable [address] + [place] [address] R Unavailable Unavailable Unavailable CANODE, MATIAS Unavailable [address] + [place] [address] R Unavailable Unavailable Unavailable CANODE, MATIAS Unavailable [address] + [place] [address] R Unavailable Unavailable Unavailable CANODE, MATIAS Unavailable [address] + [place] [address] R Unavailable Unavailable Unavailable CANODE, MATIAS Unavailable [address] + [place] [address] R Unavailable Unavailable Unavailable CANODE, MATIAS Unavailable [address] + [place] [address] R Unavailable Unavailable Unavailable CANODE, MATIAS Unavailable [address] + [place] [address] R Unavailable Unavailable Unavailable Care Team Providers Name Role Phone OlivaNakul Attending Unavailable Oliva, Nakul Referring Unavailable Oliva, [...] Primary Care Unavailable Edmar Avila Attending Unavailable Baltazarrta, Nakul Referring Unavailable Ross Cleary Attending Unavailable Oliva, Nakul Referring Unavailable Oliva, Nakul Primary Care Unavailable Ross Cleary Attending Unavailable Oliva, Nakul Primary Care Unavailable Telly Peters Attending Unavailable Ross Cleary Attending Unavailable Oliva, Nakul Referring Unavailable Oliva, Nakul Primary Care Unavailable Ross Cleary Attending Unavailable Oliva, Nakul Referring Unavailable Oliva, Nakul Primary Care Unavailable Ross Cleary Attending Unavailable Ross Cleary Referring Unavailable Oliva, Nakul Primary Care Unavailable Ross Cleary Attending Unavailable Oliva, Nakul Referring Unavailable Oliva, Nakul Primary Care Unavailable Gary Fofana Admitting Unavailable Gary Fofana Attending Unavailable Gary Fofana Referring Unavailable Oliva, Nakul Primary Care Unavailable Oliva, Nakul Attending Unavailable Oliva, Nakul Primary Care Unavailable Ross Cleary Attending Unavailable Oliva, Nakul Referring Unavailable Nakul Oliva Primary Care Unavailable PROBLEMS PROBLEMS DATE TYPE CONDITION / CODE ATTENDING STATUS SOURCE 05/28/2018 Unknown Z96.651 - Presence Gary Fofana Active [facility] of right artificial Community knee joint / Hospital Z96.651(ICD-10) Repository 03/30/2018 Unknown S83.241A - Other Ross Cleary Active [place] tear of medial Community meniscus, current Hospital injury, right knee, Repository initial encounter / S83.241A(ICD-10) 03/30/2018 Unknown M23.91 - Unspecified Ross Cleary Active [facility] internal derangement Community of right knee / Hospital M23.91(ICD-10) Repository 02/20/2018 Unknown Z98.890 - Other Ross Cleary Active [place] specified Community postprocedural Hospital states / Repository Z98.890(ICD-10) 02/16/2018 Unknown M25.562 - Pain in Ross Cleary Active [facility] left knee / Community M25.562(ICD-10) Hospital Repository 02/27/2018 Unknown M79.89 - Other Telly Peters Active [place] specified soft Community tissue disorders / Hospital M79.89(ICD-10) Repository 01/07/2018 Unknown M17.12 - Unilateral Ross Cleary primary Community osteoarthritis, left Hospital knee / Repository M17.12(ICD-10) 12/31/2017 Unknown M25.561 - Pain in Ross Cleary Active [place] right knee / Community M25.561(ICD-10) Hospital Repository 12/31/2017 Unknown G89.29 - Other Ross Cleary Active [facility] chronic pain / Community G89.29(ICD-10) Hospital Repository PROCEDURES PROCEDURES No Procedure Records FoundRESULTS RESULTS LOW DOSE CT LUNG Observed: 11/09/2018 Status: F Source: [place] SCREENING 4:52 PM [facility] HOSPITAL REPOSITORY [facility] Imaging Services [address] [place] [address] Lung Screening MR#: [id number] Acct: [id number] Name: RENATA MARTIN Rep #: [id number] : 1950 M 68 From: Corbin Yin MD PCP: Nakul Oliva MD Status: REG CLI Study: Low Dose CT Lung Screening Date of Exam: 11/09/18 Exam# [id number] Ordering Dr: Nakul Oliva MD STUDY: LOW [...] Service support , CC: Nakul Oliva MD Dividing Machine Operator: Signed CBC W/DIFF, AUTOMATED Collected: 10/21/2018 Status: F Source: [place] 12:02 PM [facility] REPOSITORY TYPE CODE TESTS RESULT OUT OF [...] L100.0100, L501.9985, L500.4050, L500.4100, L503.6150, L503.6550 #### [facility] [address] [place], [place], [address] #### L3100.0300 #### [facility] (refer to report for specific site) refer to report for address and phone number HEMOGLOBIN A1C Collected: 10/21/2018 Status: F Source: [place] 12:02 PM [facility] REPOSITORY TYPE CODE TESTS RESULT OUT OF RANGE REFERENCE UNITS LAB L501.9985 4.2-6.3 % High HGB A1C 6.4 Performed By: #### L100.0100, L501.9985, L500.4050, L500.4100, L503.6150, L503.6550 #### [facility] [address] [place], [address] #### L3100.0300 #### [facility] (refer to report for specific site) refer to report for address and phone number COMPREHENSIVE METABOLIC Collected: 10/21/2018 Status: F Source: [facility] 12:02 PM [facility] REPOSITORY TYPE CODE TESTS RESULT OUT OF [...] L100.0100, L501.9985, L500.4050, L500.4100, L503.6150, L503.6550 #### [facility] [address] [place], [place], [address] #### L3100.0300 #### [facility] (refer to report for specific site) refer to report for address and phone number LIPID PROFILE Collected: 10/21/2018 Status: F Source: [place] 12:02 PM [facility] REPOSITORY TYPE CODE TESTS RESULT OUT OF [...] L100.0100, L501.9985, L500.4050, L500.4100, L503.6150, L503.6550 #### [facility] [address] [place], [address] #### L3100.0300 #### [facility] (refer to report for specific site) refer to report for address and phone number IRON Collected: 10/21/2018 Status: F Source: [place] 12:02 PM [facility] REPOSITORY TYPE CODE TESTS RESULT OUT OF RANGE REFERENCE UNITS LAB L503.6150 65-175 ug/dL Normal IRON 138 Performed By: #### L100.0100, L501.9985, L500.4050, L500.4100, L503.6150, L503.6550 #### [facility] [address] [place], [address] #### L3100.0300 #### [facility] (refer to report for specific site) refer to report for address and phone number FERRITIN Collected: 10/21/2018 Status: F Source: [place] 12:02 PM [facility] REPOSITORY TYPE CODE TESTS RESULT OUT OF RANGE REFERENCE UNITS LAB L503.6550 26-388 ng/mL Normal FERRITIN 158 Performed By: #### L100.0100, L501.9985, L500.4050, L500.4100, L503.6150, L503.6550 #### [facility] [address] [facility] [place], [address] #### L3100.0300 #### [facility] (refer to report for specific site) refer to report for address and phone number HEPATITIS A AB, TOTAL Collected: 10/21/2018 Status: F Source: [place] 12:02 PM [facility] REPOSITORY TYPE CODE TESTS RESULT OUT OF RANGE REFERENCE UNITS LAB L3100.0300 Negative Normal HEP A Negative AB,T.6726 Result Comment: Performed at: - [facility] [address] [id number] Director Information: Lobo Alicia PhD, Phone: [phone] Performed By: #### L100.0100, L501.9985, L500.4050, L500.4100, L503.6150, L503.6550 #### [facility] [address] [place], [place], [address] #### L3100.0300 #### [facility] (refer to report for specific site) refer to report for address and phone number DISCHARGE INSTRUCTION Observed: 05/27/2018 Status: F Source: [place] 8:30 AM [facility] REPOSITORY [facility] Medical Records Department [address] [place] [address] Instructions for Home/Discharge Instructions 05/27/18 0828 MR#: [id number] Acct: [id number] Name: RENATA MARTIN Rep #: [id number] : 1950 67 From: Tristian Sanchez PA-C [...] on May 31, 2018 Additional Instructions: Follow [facility] postop instructions Allergies/Adverse Reactions: Allergies cephalexin [...] Days #80 tab PRN Reason: Mod-Severe Pain () Acetaminophen [Tylenol] 1,000 mg PO Q8 #90 [...] F Source: [place] NO DIFF 5:36 AM [facility] REPOSITORY TYPE CODE TESTS RESULT OUT OF [...] MPV 9.7 Performed By: #### L100.0500 #### [facility] [address] [place], [address] BASIC METABOLIC Collected: 05/27/2018 Status: F Source: [place] PROFILE (BMP) 5:36 AM [facility] REPOSITORY TYPE CODE TESTS RESULT OUT OF [...] GAP 10 Performed By: #### L500.2500 #### [facility] [address] [place], [address] OPERATIVE REPORT Observed: 05/26/2018 Status: F Source: [place] 2:13 PM [facility] REPOSITORY [facility] Medical Records Department [address] [place] [address] Operative Report 05/26/18 1249 MR#: [id number] Acct: [id number] Name: RENATA MARTIN Rep #: [id number] : 1950 67 From: Gary Fofana MD PCP: Nakul Oliva MD Status: ADM IN Location: [facility] [id number] Report of Operation Date of Procedure: 05/26/18 Pre-Operative Diagnosis: Right knee primary osteoarthritis Post-Operative Diagnosis: Right knee primary osteoarthritis Surgery/Procedure Performed:: Right total knee replacement Description of Surgical Findings:: Press-fit cruciate retaining total knee replacement people manager: Tristian Sanchez Type of Anesthesia:: Spinal Anesthesiologist: [...] LR Description of Procedure: Implants used: 1. [place] size 5 press-fit triathlon cruciate retaining distal femoral component 2. [place] size 6 press-fit tibial baseplate 3. Elizabeth X3 9 mm CS polyethylene 4. [place] X3 35 mm asymmetric patella Brief history [...] placed in deep flexion in the standard [place] sizing guide was used to place the [...] navigation pins were placed, navigation was registered. Fantex tibial cutting guide was used to make [...] and cement was mixed in a vacuum. [employer] Sim[employer] cement was used. The wound was [...] then awakened from anesthesia, transferred to the [facility] and transferred to the PACU for recovery. Post op plan DVT ppx: Xarelto due to previous DVT, thigh high compression stockings Follow up: in office in 2 weeks for wound check PT: to start POD #0 at hospital, outpatient PT should be arranged. My physician district administrative assistant was a vital part of this case. [...] 2 VIEWS Observed: 05/26/2018 Status: F Source: [place] 12:49 PM [facility] REPOSITORY [facility] Imaging Services [address] [place] [address] Knee 1 or 2 Views MR#: [id number] Acct: [id number] Name: RENATA MARTIN Rep #: [id number] : 1950 M 67 From: Enrique Mark MD PCP: Nakul Oliva MD Status: ADM IN Study: Knee 1 or 2 Views Date of Exam: 05/26/18 Exam# [id number] Ordering Dr: Gary Fofana MD STUDY: X-RAY [...] Enrique Mark MD at 15:32 EDT Tel [phone], Service support , CC: Nakul Oliva MD; Gary Fofana MD Dividing Machine Operator: Signed HISTORY AND PHYSICAL Observed: 05/19/2018 Status: F Source: [place] EXAM 3:42 PM [facility] REPOSITORY [facility] Medical Records Department [address] [place] [address] History and Physical 05/19/18 1533 MR#: [id number] Acct: [id number] Name: RENATA MARTIN Rep #: [id number] : 1950 67 From: Tristian Sanchez PA-C PCP: Nakul Oliva MD Status: PRE IN Y Location: [facility] History and Physical DATE OF SURGERY: 05/26/2018 [...] 1. IMAGING STUDIES: X-rays were obtained at [facility] [place] on April 24, 2018 including bilateral standing [...] 05/18/2018 Status: F Source: [place] 8:50 AM [facility] REPOSITORY TYPE CODE TESTS RESULT OUT OF [...] Lymph 2.09 Performed By: #### L100.0100 #### [facility] [address] [facility] [place], [address] BASIC METABOLIC Collected: 05/18/2018 Status: F Source: [place] PROFILE (BMP) 8:50 AM [facility] REPOSITORY TYPE CODE TESTS RESULT OUT OF [...] GAP 9 Performed By: #### L500.2500 #### [facility] [address] [facility] [place], [address] Observed: 05/18/2018 Status: F Source: [place] MRSA/SAID SCREEN 8:50 AM [facility] REPOSITORY MRSA/SAID SCRN S. AUREUS S. aureus Negative MRSA MRSA Negative Performed By: #### M100.651 #### [facility] [address], [address] ORTHOPEDIC VISIT Observed: 05/10/2018 Status: F Source: [place] REPORT 9:30 PM [facility] REPOSITORY [facility] Orthopaedics AND Sports Medicine [facility] [facility] [address] [place] [address] OFFICE VISIT Date of Service: 04/15/18 MR#: [id number] Acct: [id number] Name: RENATA MARTIN Rep #: [id number] : 1950 Provider: Ross Cleary DO Age/Sex: 67/M Location: [facility] Status: Signed Intake Intake Visit Reasons: RIGHT KNEE Is patient in pain?: Yes Pain scale (1-10): 4 Allergies cephalexin monohydrate [From Keflex] Allergy (Severe, Verified 03/30/18 15:13) Swelling Medications Finasteride 5 mg PO DAILY 05/27/14 [History Confirmed 01/08/18] Cholecalciferol (Vitamin D3) [Vitamin D3] 1,000 unit PO DAILY 12/30/17 [History Confirmed 01/08/18] Multivitamin [Multiple Vitamins] 1 ea PO DAILY 12/30/17 [History Confirmed 01/08/18] Clayton-3 Fatty Acids/Fish Oil [Clayton 3 1,000 mg Softgel] 1 ea PO [...] contact information with Dr. Fofana at the [facility] for surgical intervention. Patient currently does not need to take any radiographs with him as WOG is on our system. Any issues return. Patient agrees with plan. Coding Level of Care Code Off vis,est,level 4 Diagnoses Derangement of medial meniscus of right knee M23.303 Other internal derangements of right knee M23.8X1 05/10/180 <Electronically signed by Ross Cleary DO> Date Ross Cleary DO Cosigner Signature: Date (if applicable) CC: ORTHOPEDIC VISIT Observed: 04/09/2018 Status: F Source: [place] REPORT 11:[address] [facility] Orthopaedics AND Sports Medicine [address] [place] [address] OFFICE VISIT Date of Service: 03/30/18 MR#: [id number] Acct: [id number] Name: RENATA MARTIN Rep #: [id number] : 1950 Provider: Ross Cleary DO Age/Sex: 67/M Location: [facility] Status: Signed Intake Intake Visit Reasons: LEFT KNEE Is patient in pain?: Yes Allergies cephalexin monohydrate [From Keflex] Allergy (Severe, Verified 03/30/18 15:13) Swelling Medications Finasteride 5 mg PO DAILY 05/27/14 [History Confirmed 01/08/18] Cholecalciferol (Vitamin D3) [Vitamin D3] 1,000 unit PO DAILY 12/30/17 [History Confirmed 01/08/18] Multivitamin [Multiple Vitamins] 1 ea PO DAILY 12/30/17 [History Confirmed 01/08/18] Clayton-3 Fatty Acids/Fish Oil [Clayton 3 1,000 mg Softgel] 1 ea PO [...] numbness, tingling or other associated symptoms. ROS [employer] Reports system reviewed and no additional complaints, [...] practice and may require transfer to the [facility] should arthroplasty need to be [...] JOINT ONLY Observed: 04/08/2018 Status: F Source: [place] (ROUTINE) 12:23 PM [facility] REPOSITORY [facility] Imaging Services [address] [place] [address] Lower Ext Joint Only (Routine) MR#: [id number] Acct: [id number] Name: RENATA MARTIN Rep #: [id number] : 1950 M 67 From: Kenneth Ornelas MD PCP: Nakul Oliva MD Status: REG CLI Study: Lower Ext Joint Only (Routine) Date of Exam: 04/08/18 Exam# [id number] Ordering Dr: Ross Cleary DO STUDY: MRI [...] Normal Hoffa's fat pad. There is a acadz-kf-igldxznf sized joint effusion with synovitis in the [...] CC: Nakul Oliva MD; Ross Cleary DO Dividing Machine Operator: Signed ORTHOPEDIC VISIT Observed: 04/02/2018 Status: F Source: [place] REPORT 10:[address] [facility] Orthopaedics AND Sports Medicine [address] [place] [address] 5 [place] [address] OFFICE VISIT Date of Service: 03/18/18 MR#: [id number] Acct: [id number] Name: RENATA MARTIN Rep #: [id number] : 1950 Provider: Ross Cleary DO Age/Sex: 67/M Location: [facility] Status: Signed Intake Intake Visit Reasons: RIGHT KNEE Is patient in pain?: Yes Allergies cephalexin monohydrate [From Keflex] Allergy (Severe, Verified 03/30/18 15:13) Swelling Medications Finasteride 5 mg PO DAILY 05/27/14 [History Confirmed 01/08/18] Cholecalciferol (Vitamin D3) [Vitamin D3] 1,000 unit PO DAILY 12/30/17 [History Confirmed 01/08/18] Multivitamin [Multiple Vitamins] 1 ea PO DAILY 12/30/17 [History Confirmed 01/08/18] Clayton-3 Fatty Acids/Fish Oil [Clayton 3 1,000 mg Softgel] 1 ea PO [...] He still waiting for straight leg raise. G-xipn-fpmwipqzxv evaluated myself with the patient showed him [...] Route Admin Location Lot Number Expiration DateNDC Topstitcher Lockstitch 2 mg Intra-Articularright knee [id number] 03/24/19 4552-0326-39 EnStorage Assessment AND Plan Problems 1. Chronic pain of right knee M25.561; G89.29 2. Knee effusion, right M25.461 3. Tear of medial meniscus of right knee, current, unspecified tear type, initial encounter S83.669A Plan Assessment: Right knee pain right knee [...] mg (0.2 mL) Intra-Articular ONCE NM25.561 [employer] Discontinued Reason: Office MedicaS tion has been [...] of knee type: unspecified type Additional Codes technical support consultant.knee ([id number]) 04/02/18 1041 <Electronically signed by Ross Cleary DO> Date Ross Cleary DO Cosigner Signature: Date (if applicable) CC: ORTHOPEDIC VISIT Observed: 02/22/2018 Status: F Source: [place] REPORT 10:11 AM [facility] REPOSITORY [facility] Orthopaedics AND Sports Medicine [address] [place] [address] OFFICE VISIT Date of Service: 02/16/18 MR#: [id number] Acct: [id number] Name: RENATA MARTIN Calixto Rep #: [id number] : 1950 Provider: Ross Cleary DO Age/Sex: 67/M Location: [facility] Status: Signed Intake Intake Visit Reasons: left knee Is patient in pain?: No Allergies cephalexin monohydrate [From Keflex] Allergy (Severe, Verified 01/06/18 06:54) Swelling Medications Finasteride 5 mg PO DAILY 05/27/14 [History Confirmed 01/08/18] Cholecalciferol (Vitamin D3) [Vitamin D3] 1,000 unit PO DAILY 12/30/17 [History Confirmed 01/08/18] Multivitamin [Multiple Vitamins] 1 ea PO DAILY 12/30/17 [History Confirmed 01/08/18] Clayton-3 Fatty Acids/Fish Oil [Clayton 3 1,000 mg Softgel] 1 ea PO [...] no instability and only mild swelling ROS Musc Reports joint swelling, Reports as per HPI [...] DO Cosigner Signature: Date (if applicable) CC: PT D/C SUMMARY (1) Observed: 02/19/2018 Status: F Source: [place] 4:28 PM [facility] REPOSITORY [facility] [place] [address] Fax REHABILITATION SERVICES DISCHARGE SUMMARY MR#: [id number] Acct: [id number] Name: RENATA MARTIN Rep #: [id number] : 1950 67 From: Fabian Apodaca PT, ATC Referring DrLuis Alfredo: Ross Cleary DO Status: REG RCR Insurance: MEDICARE PART A B [facility] [id number] - PT D/C Summary It has been my pleasure to treat RENATA MARTIN under orders from Ross Cleary DO, DR.MTHEAVEN for the diagnosis of L TKA for [...] knee MMT: 5/5 throughout. L knee pain 10. I with HEP - Goals Goal 1:: [...] please feel free to call me at [phone]. Thank you for the referral of this patient. Sincerely, Fabian Apodaca, PT, <Electronically signed by Fabian Apodaca PT, ATC> 02/19/18 1628 CC: Nakul Oliva MD; Ross Cleary DO [facility] Signed KNEE 4 OR MORE Observed: 02/16/2018 Status: F Source: [facility] 3:14 PM [facility] REPOSITORY [facility] Imaging Services [address] [place] [address] Knee 4 or More Views MR#: [id number] Acct: [id number] Name: RENATA MARTIN Calixto Rep #: [id number] : 1950 M 67 From: Jamin Espinoza PCP: Nakul Oliva MD Status: REG CLI Study: Knee 4 or More Views Date of Exam: 02/16/18 Exam# [id number] Ordering Dr: Ross Cleary DO STUDY: X-RAY [...] CC: Nakul Oliva MD; Ross Cleary DO Dividing Machine Operator: Signed RE-EVALUATION - PT (1) Observed: 02/02/2018 Status: F Source: [place] 5:07 PM [facility] REPOSITORY [facility] [address] [place] [address]. [address] [place] [address] Fax REEVALUATION / MEDICARE RECERTIFICATION PHYSICAL THERAPY MR#: [id number] Acct: [id number] Name: RENATA MARTIN Rep #: [id number] : 1950 67 From: Fabian Apodaca PT, ATC Referring DrLuis Alfredo: Ross Cleary DO Status: REG RCR Insurance: MEDICARE PART A B [facility] [id number] Ross Cleary DO, MTODD It has been [...] do not hesitate to contact me at [phone] by phone or if you have questions or concerns regarding this new plan of care! Sincerely, Fabian Apodaca, PT, <Electronically signed by Fabian Apodaca PT, ATC> 02/02/18 9253 CC: Nakul Oliva MD; Ross Cleary DO [facility] Signed For Medicare only, by signing this I certify the plan of care. Physicians Signature Date ORTHOPEDIC VISIT Observed: 01/19/2018 Status: F Source: [place] REPORT 3:40 PM [facility] REPOSITORY [facility] Orthopaedics AND Sports Medicine [address] [place] [address] OFFICE VISIT Date of Service: 01/19/18 MR#: [id number] Acct: [id number] Name: RENATA MARTIN Calixto Rep #: [id number] : 1950 Provider: Ross Cleary DO Age/Sex: 67/M Location: [facility] Status: Signed Intake Intake Visit Reasons: LEFT KNEE Allergies cephalexin monohydrate [From Keflex] Allergy (Severe, Verified 01/06/18 06:54) Swelling Medications Finasteride 5 mg PO DAILY 05/27/14 [History Confirmed 01/08/18] Cholecalciferol (Vitamin D3) [Vitamin D3] 1,000 unit PO DAILY 12/30/17 [History Confirmed 01/08/18] Multivitamin [Multiple Vitamins] 1 ea PO DAILY 12/30/17 [History Confirmed 01/08/18] Clayton-3 Fatty Acids/Fish Oil [Clayton 3 1,000 mg Softgel] 1 ea PO [...] (1) Observed: 01/12/2018 Status: F Source: [place] Flores PT 12:01 PM [facility] REPOSITORY [facility] [place], [place] [address] Fax REHABILITATION SERVICES INITIAL EVALUATION MR#: [id number] Acct: [id number] Name: RENATA MARTIN Rep #: [id number] : 1950 67 From: Fabian Apodaca PT, ATC Referring DrLuis Alfredo: Ross Cleary DO Status: REG RCR Insurance: MEDICARE PART A B [facility] [id number] Patient's Visit Information RENATA MARTIN is a 67 year old M referred to Physical Therapy by DO YUSEF Gore with a diagnosis of L TKA. Date [...] to be FAXED BACK to us at [phone] for Medicare purposes. Please let me know if there are questions or concerns regarding this plan of care. Physician Signature: Date: <Electronically signed by Fabian Apodaca PT, ATC> 01/12/18 1201 CC: Nakul Oliva MD; Ross Cleary DO [facility] Signed For Medicare only, by signing this I certify the plan of care. Physicians Signature Date VENOUS DUPLEX LOWER Observed: 01/08/2018 Status: F Source: KATHLEEN EXTREMITY 5:47 PM [facility] REPOSITORY [facility] Cardiovascular Services [address] [place] [address] Venous Duplex US, Unilateral 01/08/18 1428 MR#: [id number] Acct: [id number] Name: RENATA MARTIN Rep #: [id number] : 1950 67 From: Telly Peters MD [...] patterns right common femoral vein Ordering Physician: Elkin Medel Referring Physician: Nakul Oliva MD Performed By: Oliva Santos RVT 01/08/18 1746 Date Telly Peters MD CC: Nakul Oliva MD; Elkin Medel MD Date Dictated: 01/08/18 1428 Date Transcribed: 01/08/181745 Dividing Machine Operator: Signed EMERGENCY DEPARTMENT Observed: 01/08/2018 Status: F Source: KATHLEEN SUMMARY 2:52 PM [facility] REPOSITORY [facility] Medical Records Department [address] [place] [address] Emergency Department Summary 01/08/18 1447 MR#: [id number] Acct: [id number] Name: VERONICARENATA Calixto Rep #: [id number] : 1950 67 From: Elkin Medel MD [...] knee arthroplasty This note was generated with Impact dictation software. It may contain incorrect words, [...] problems, contact your Primary Care Provider. Call [employer] [facility] ([phone]) or report to the closest Emergency Room. Call 911 if necessary. 01/08/18 8754 <Electronically signed by Elkin Medel MD> Date Elkin Medel MD Cosigner Signature (If Indicated): Date CC: Nakul Oliva MD DISCHARGE INSTRUCTION Observed: 01/07/2018 Status: F Source: RADHA 3:59 PM [facility] REPOSITORY [facility] Medical Records Department [address] [place] [address] Instructions for Home/Discharge Instructions 01/07/18 1548 MR#: [id number] Acct: [id number] Name: RENATA MARTIN Rep #: [id number] : 1950 67 From: Ross Cleary DO [...] [Multiple Vitamins] 1 each PO DAILY 12/30/17 Clayton-3 Fatty Acids/Fish Oil [Clayton 3 1,000 mg Softgel] 1 each PO [...] 2 weeks Proposed Discharge Date: 01/07/18 01/07/18 1559 <Electronically signed by Ross Cleary DO> Date Ross Cleary DO CC: Nakul Oliva MD CBC-COMPLETE BLOOD CNT Collected: 01/07/2018 Status: F Source: RADHA NO DIFF 5:20 AM [facility] REPOSITORY TYPE CODE TESTS RESULT OUT OF [...] MPV 9.5 Performed By: #### L100.0500 #### [facility] [address] [place], [place], [address] BASIC METABOLIC Collected: 01/07/2018 Status: F Source: KATHLEEN PROFILE (BMP) 5:20 AM [facility] REPOSITORY TYPE CODE TESTS RESULT OUT OF [...] GAP 9 Performed By: #### L500.2500 #### [facility] [address] [place], [place], [address] TOTAL KNEE REPLACEMENT Observed: 01/06/2018 Status: F Source: RADHA 12:43 PM [facility] REPOSITORY Patient: RENATA MARTIN : 1950 (67/M) Acct Num: [id number] Phys: Ross Cleary DO Unit Num: [id number] Loc: MS3 [id number] Specimen: [id number] Received: 01/06/18 - 1430 Spec Type: TOTAL KNEE TISSUES TISSUES: Knee, [...] prominent osteophyte formation, eburnation, and bone erosion. Pbx Installer sections are submitted in two cassettes as follows : 1 - soft tissue, 2 - bone after decalcification. / AM:stefania 01/06/18 TC:5 CPT: 06747, 88568 HEADER OPERATION: Total knee replacement PRE-OP DIAGNOSIS: Chronic pain and osteoarthritis of left knee; unspecified osteoarthritis type TISSUE SUBMITTED: Debrided bone and tissue, left knee MICROSCOPIC DESCRIPTION Slides are reviewed. MICROSCOPIC DIAGNOSIS Bone and soft tissue, left knee, total knee replacement: Pieces of bone with degenerative osteoarthritic changes. Fibroadipose tissue, fibroconnective tissue and reactive synovial tissue. SJ:stefania 01/09/18 Signed Rna Rivera 01/09/18 <signature on file> Performed By: #### PKNEE #### [facility] [address] [place], [place], [address] OPERATIVE REPORT Observed: 01/06/2018 Status: F Source: RADHA 10:43 AM [facility] REPOSITORY [facility] Medical Records Department [address] [address] Operative Report 01/06/18 1036 MR#: [id number] Acct: [id number] Name: RENATA MARTIN Rep #: [id number] : 1950 67 From: Ross Cleary DO PCP: Nakul Oliva MD Status: ADM IN Y Location: MS3 NG449-6 Report of Operation Date of Procedure: 01/06/18 Pre-Operative Diagnosis: Left knee osteoarthritis Post-Operative Diagnosis: Same as above Surgery/Procedure Performed:: Left total knee arthroplasty using the [employer] triathlon press-fit system Description of Surgical Findings:: 87-year-old [...] in full extension proximally using #1 Vicryl ewerba-az-nvzck technique. Once we got to the superior aspect of the patella the knee was bent 30 and remaining portion of the capsule closed again using #1 Vicryl with aruxre-nw-ejaqq technique. Soft tissue was reapproximated with 2-0 [...] prophylaxis. Any major issues please contact me. people manager: Sanjay Aguirre Type of Anesthesia:: Spinal Specimen's [...] 2 VIEWS Observed: 01/06/2018 Status: F Source: KATHLEEN 6:54 AM [facility] REPOSITORY [facility] Imaging Services [address] [place] [address] Knee 1 or 2 Views MR#: [id number] Acct: [id number] Name: RENATA MARTIN Rep #: [id number] : 1950 67 From: Enrique Mark MD PCP: Nakul Oliva MD Status: ADM IN Study: Knee 1 or 2 Views Date of Exam: 01/06/18 Exam# [id number] Ordering Dr: Ross Cleary DO STUDY: X-RAY [...] Enrique Mark MD at 11:14 EST Tel [phone], Service support , CC: Nakul Oliva MD; Ross Cleary DO Dividing Machine Operator: Signed 12 LEAD ELECTROCARDIOGRAM Observed: 12/31/2017 Status: F Source: KATHLEEN 2:30 PM [facility] REPOSITORY [facility] Cardiovascular Services [address] [place] [address] EKG - [facility] 12/30/17 1116 MR#: [id number] Acct: [id number] Name: RENATA MARTIN Rep #: [id number] : 1950 67 From: Edmar Avila MD Attending Dr: Ross Cleary DO Status: PRE IN Ordering Dr: Nakul Skaggs MD Date: 12/30/17 Location: [facility] Sex: M C Admitted: Test Reason : Blood Pressure : / mmHG Vent. Rate : 059 BPM Atrial Rate : 059 BPM P-R Int : 162 ms QRS Dur : 100 ms QT Int : 386 ms P-R-T Axes : 034 -29 043 degrees QTc Int : 382 ms Sinus bradycardia Leftward axis Poor R wave progression Confirmed by MARGARITA SHANE, EDMAR ([id number]), video tape editor KELLY MALDONADO (56) on 12/31/2017 2:29:45 PM Referred By: ABDOULAYE Confirmed By:EDMAR AVILA MD 12/31/17 1429 Date Edmar Avila MD CC: Nakul Oliva MD Date Dictated: 12/30/17 1116 Date Transcribed: 12/30/17 1116 Dividing Machine Operator: Signed CBC-COMPLETE BLOOD CNT Collected: 12/30/2017 Status: F Source: RADHA NO DIFF 11:20 AM [facility] REPOSITORY TYPE CODE TESTS RESULT OUT OF [...] MPV 8.9 Performed By: #### L100.0500 #### [facility] [address] [place], [place], [address] Observed: 12/30/2017 Status: F Source: RADHA MRSA/SAID SCREEN 11:20 AM [facility] REPOSITORY MRSA/SAID SCRN S. AUREUS S. aureus Negative MRSA MRSA Negative Performed By: #### M100.651 #### [facility] [address] [place], [place], [address] ORTHOPEDIC VISIT Observed: 12/22/2017 Status: F Source: RADHA REPORT 11:11 AM [facility] REPOSITORY [facility] Orthopaedics AND Sports Medicine [address] [place] [address] OFFICE VISIT Date of Service: 12/15/17 MR#: [id number] Acct: [id number] Name: RENATA MARTIN Rep #: [id number] : 1950 Provider: Ross Cleary DO Age/Sex: 67/M Location: [facility].SMO Status: Signed with Addenda ADDENDUM by Ross [...] SEVERITY SOURCE 05/18/2018 Drug cephalexin Swelling SV Romeo Allergy/416 monohydrate/F0000 [facility] 992303[facility]([facility] ED CT) Repository ENCOUNTERS ENCOUNTERS ADMIT/DISCHARGE ACCOUNT ADMITTING ENCOUNTER LOCATION SOURCE NUMBER CLASS 11/09/2018 [id number] Ambulatory Radha Radha 1 [facility] ing:CT Repository 10/21/2018 [id number] Ambulatory Radha Romeo 4 [facility] ing:MFPLAB Repository 05/26/2018/ [id number] Brigido, Inpatient Radha Romeo 8 2 Gary Cantrell [facility] ing:IV3Pfda: Repository AP837Ohs: 1 04/15/2018/ [id number] Ambulatory BMSBuilding:B Romeo [address] [facility] Repository 04/08/2018 [id number] Ambulatory Radha Radha 7 [facility] ing:MRI Repository 03/30/2018/ [id number] Ambulatory BMSBuilding:B Radha [address] [facility] Repository 03/18/2018/ [id number] Ambulatory BMSBuilding:B Radha [address] [facility] Repository 02/19/2018/ [id number] Ambulatory Romeo Radha 8 6 [facility] ing:PT Repository 02/16/2018 [id number] Ambulatory Romeo Radha 2 [facility] ing:HPRAD Repository 02/16/2018/ [id number] Ambulatory BMSBuilding:B Radha [address] [facility] Repository 01/19/2018/ [id number] Ambulatory BMSBuilding:B Romeo [address] [facility] Repository 01/08/2018/ [id number] Emergency Radha Romeo 8 8 [facility] ing:ED Repository 01/08/2018 [id number] Ambulatory BMSBuilding:B Romeo 7 [facility] Repository 01/06/2018/ [id number] Ross Cleary Ambulatory Radha Romeo 8 1 [facility] ing:WV7Cecw: Repository KM935Yme: 1 01/06/2018 [id number] Ross Cleary Ambulatory BMSBuilding:B Romeo [address] [facility] Repository 01/06/2018 [id number] Ross Cleary Ambulatory BMSBuilding:B Romeo [address] [facility] Repository 01/06/2018/ [id number] Ambulatory BMSBuilding:W Romeo 8 7 [facility] Repository 12/15/2017/ [id number] Ambulatory BMSBuilding:B Radha [address] [facility] Repository PAYERS PAYERS ENCOUNTER GUARANTOR PAYER SUBSCRIBER SOURCE 11/09/2018 RENATA De Luna Primary RENATA De Luna Radha [id number] Insurance:MEDICARE CANODEDOB: [facility] [id number] Number: Repository [id number]: 330 [id number] [phone] () Date:2018-11-03 11/09/2018 Secondary RENATA D Radha Insurance:UNITED TH CANODEDOB: [address] [id number] Hospital Number: Repository [id number] Date:6780-02-81PX [address]W, [place] [address]YI: 11/09/2018 Tertiary NOT GIVENUNK Romeo Insurance:SELF PAY [facility] Number: Effective Repository Date:2018-11-03 10/21/2018 RENATA D Primary RENATA D Radha [id number] Insurance:MEDICARE CANODEDOB: [facility] [id number] Number: Repository [id number]: 330 [id number] [phone] () Date:2018-10-21 10/21/2018 Secondary RENATA D Radha Insurance:UNITED TH CANODEDOB: [address] [id number] Hospital Number: Repository [id number] Date:4514-13-63UC [address], [place] [address]UX: 10/21/2018 Tertiary NOT GIVENUNK Radha Insurance:SELF PAY [facility] Number: Effective Repository Date:2018-10-21 05/26/2018 RENATA D Primary RENATA De Luna Romeo [id number] Insurance:MEDICARE CANODEDOB: [facility] [id number] [place] Number: Repository [address]Hrq: 330 [id number] [phone] (HP) Date:2018-04-30 05/26/2018 Secondary RENATA D Radha Insurance:UNITED HLTH CANODEDOB: [facility] CARE [address] [place] [address] [id number] Hospital Number: Repository [id number] Date:1318-42-19RN [address], [place] [address]US: 05/26/2018 Tertiary NOT GIVENUNK Romeo Insurance:SELF PAY [facility] Hospital Number: Effective Repository Date:2018-04-30 04/15/2018 RENATA D Primary RENATA D Romeo [id number] Insurance:MEDICARE CANODEDOB: [facility] [id number] Number: Repository [address]Dfz: 330 [id number] [phone] () Date:2018-04-13 04/15/2018 Secondary RENATA D Romeo Insurance:UNITED HLTH CANODEDOB: [facility] CARE [address] [place] [address] [id number] Hospital Number: Repository [id number] Date:8147-26-42ZH [address], [place] [address]ZU: 04/15/2018 Tertiary NOT GIVENUNK Radha Insurance:SELF PAY [facility] Hospital Number: Effective Repository Date:2018-04-15 04/08/2018 RENATA D Primary RENATA D Radha [id number] Insurance:MEDICARE CANODEDOB: [facility] [id number] [facility] Number: Repository [id number]: 330 [id number] [phone] () Date:2018-03-31 04/08/2018 Secondary RENATA D Radha Insurance:UNITED HLTH CANODEDOB: [facility] CARE [address] [place] [address] [id number] Hospital Number: Repository [id number] Date:0249-83-18XL [address], [place] [address]TQ: 04/08/2018 Tertiary NOT GIVENUNK Radha Insurance:SELF PAY [facility] Number: Effective Repository Date:2018-03-31 03/30/2018 RENATA D Primary RENATA D Romeo [id number] Insurance:MEDICARE CANODEDOB: [facility] [id number] [place] Number: Repository [id number]: 330 [id number] [phone] () Date:2018-02-16 03/30/2018 Secondary RENATA D Romeo Insurance:UNITED TH CANODEDOB: [facility] CARE [address] [place] [address] [id number] Hospital Number: Repository [id number] Date:5447-91-41BI [address]QLMZJJC, [place] [address]XW: 03/30/2018 Tertiary NOT GIVENUNK Radha Insurance:SELF PAY [facility] Hospital Number: Effective Repository Date:2018-03-30 03/18/2018 RENATA D Primary RENATA D Radha [id number] Insurance:MEDICARE CANODEDOB: [facility] [id number] [place] Number: Repository [address]Blv: 330 [id number] [phone] () Date:2018-03-16 03/18/2018 Secondary RENATA D Radha Insurance:UNITED HLTH CANODEDOB: [facility] CARE [id number] Hospital Number: Repository [id number] Date:0708-67-04XM [address] [place] [address]EO: 03/18/2018 Tertiary NOT GIVENUNK Romeo Insurance:SELF PAY [facility] Hospital Number: Effective Repository Date:2018-03-18 02/19/2018 RENATA D Primary RENATA D Radha [id number] Insurance:MEDICARE CANODEDOB: [facility] [id number] [place] Number: Repository [address]Pyo: 330 [id number] [phone] () Date:2015-10-24 02/19/2018 Secondary RENATA D Romeo Insurance:UNITED HLTH CANODEDOB: Community [facility] [address] [place], [place] [id number] Hospital Number: Repository [id number] Date:4450-78-47WA [address]YCQPSYK, [place] [address]SE: 02/19/2018 Tertiary NOT GIVENUNK Radha Insurance:SELF PAY [facility]: Effective Repository Date:2018-01-09 02/16/2018 RENATA D Primary RENATA D Radha [id number] Insurance:MEDICARE CANODEDOB: [address] Number: Repository [id number]: 330 [id number] [phone] () Date:2018-02-16 02/16/2018 Secondary RENATA D Romeo Insurance:UNITED HLTH CANODEDOB: [facility] CARE [id number] [place] [address] Hospital Number: Repository [id number] Date:8902-54-63LD [address]DCBOWPV, [place] [address]OB: 02/16/2018 Tertiary NOT GIVENUNK Radha Insurance:SELF PAY [facility] Hospital Number: Effective Repository Date:2018-02-16 02/16/2018 RENATA D Primary RENATA D Radha [id number] Insurance:MEDICARE CANODEDOB: [address] Number: Repository [id number]: 330 [id number] [phone] () Date:2018-01-19 02/16/2018 Secondary RENATA D Radha Insurance:UNITED TH CANODEDOB: [facility] CARE [address] [place], [place] [id number] Hospital Number: Repository [id number] Date:3644-29-33VB [address]WZQ, [place] [address]MW: 02/16/2018 Tertiary NOT GIVENUNK Radha Insurance:SELF PAY [facility] Number: Effective Repository Date:2018-02-16 01/19/2018 RENATA D Primary RENATA D Romeo [id number] Insurance:MEDICARE CANODEDOB: [address], [place] Number: Repository [id number]: 330 [id number] [phone] (HP) Date:2017-12-04 01/19/2018 Secondary RENATA D Radha Insurance:UNITED HLTH CANODEDOB: [facility] CARE [address] [place] [address] Hospital Number: Repository [id number] Date:1788-08-33TM [facility] [address], [place] [address]VI: 01/19/2018 Tertiary NOT GIVENUNK Romeo Insurance:SELF PAY [facility] Number: Effective Repository Date:2017-12-04 01/08/2018 RENATA D Primary RENATA D Romeo [id number] Insurance:MEDICARE CANODEDOB: [facility] [id number], [place] Number: Repository [address]Yms: 330 [id number] [phone] (HP) Date:2018-01-08 01/08/2018 Secondary RENATA D Romeo Insurance:UNITED HLTH CANODEDOB: [facility] CARE [address] [place] [address] Hospital Number: Repository [id number] Date:9596-41-07FP [address] [place] [address]FY: 01/08/2018 Tertiary NOT GIVENUNK Radha Insurance:SELF PAY [facility] Hospital Number: Effective Repository Date:2018-01-08 01/08/2018 RENATA D Primary RENATA D Romeo [id number] Insurance:MEDICARE CANODEDOB: [address], [place] Number: Repository [id number]: (321) [id number] [phone] (HP) Date:2018-01-08 01/08/2018 Secondary RENATA D Radha Insurance:UNITED HLTH CANODEDOB: [facility] [id number] Hospital Number: Repository [id number] Date:6212-84-43DW [address]WTPJCBW, [place] [address]BU: 01/08/2018 Tertiary NOT GIVENUNK Romeo Insurance:SELF PAY [facility] Hospital Number: Effective Repository Date:2018-01-08 01/06/2018 RENATA D Primary RENATA D Romeo [id number] Insurance:MEDICARE CANODEDOB: [facility] [id number] [place] Number: Repository [address]Frz: 330 [id number] [phone] () Date:2017-12-04 01/06/2018 Secondary RENATA D Radha Insurance:UNITED HLTH CANODEDOB: [facility] CARE [id number] Hospital Number: Repository [id number] Date:3421-77-74FU [address]UNR, [place] [address]JA: 01/06/2018 Tertiary NOT GIVENUNK Romeo Insurance:SELF PAY [facility] Hospital Number: Effective Repository Date:2017-12-04 01/06/2018 RENATA D Primary RENATA D Radha [id number] Insurance:MEDICARE CANODEDOB: [facility] [id number][facility] [place] Number: Repository [address]Rmg: 330 [id number] [phone] () Date:2017-12-04 01/06/2018 Secondary RENATA D Romeo Insurance:UNITED HLTH CANODEDOB: Community [facility] [id number] Hospital Number: Repository [id number] Date:4809-43-77BM [facility] [address]888[address], [place] [address]RW: 01/06/2018 Tertiary NOT GIVENUNK Radha Insurance:SELF PAY [facility] Hospital Number: Effective Repository Date:2018-01-06 01/06/2018 RENATA D Primary RENATA D Romeo [id number] Insurance:MEDICARE CANODEDOB: [facility] [id number] [place] Number: Repository [id number]: 330 [id number] [phone] (HP) Date:2017-12-04 01/06/2018 Secondary RENATA D Romeo Insurance:UNITED HLTH CANODEDOB: [facility] CARE [address] [place] [address] [id number] Hospital Number: Repository [id number] Date:6845-28-44ZN [address]YSVPEIG, [place] [address]PE: 01/06/2018 Tertiary NOT GIVENUNK Romeo Insurance:SELF PAY [facility] Hospital Number: Effective Repository Date:2018-01-06 01/06/2018 RENATA D Primary RENATA D Radha [id number] Insurance:MEDICARE CANODEDOB: [facility] [id number] [place] Number: Repository [address]Yba: 330 [id number] [phone] (HP) Date:2017-12-04 01/06/2018 Secondary RENATA D Romeo Insurance:UNITED HLTH CANODEDOB: [address] [id number] Hospital Number: Repository [id number] Date:4787-65-02UE [address]DY, [place] [address]XV: 01/06/2018 Tertiary NOT GIVENUNK Radha Insurance:SELF PAY [facility] Hospital Number: Effective Repository Date:2017-12-30 12/15/2017 RENATA D Primary RENATA D Romeo [id number] Insurance:MEDICARE CANODEDOB: [facility] [id number] Number: Repository [id number]: (956) [id number] [phone] (HP) Date:2017-12-03 12/15/2017 Secondary RENATA D Romeo Insurance:UNITED HLTH CANODEDOB: [facility] CARE [address] [place] [address] [id number] Hospital Number: Repository [id number] Date:9949-55-80BR [address]PGLLJGH, [place] [address]SA: 12/15/2017 Tertiary NOT GIVENEFRAIN Garcia Insurance:SELF PAY [facility] Number: Effective Repository Date:2017-12-15
== END ==
PROVIDERS: Family Provider Family Medicine; PCP Family Medicine; Referring Provider Family Medicine; Visit Provider Family Medicine
DX: Z12.2 Encounter for screening for malignant neoplasm of respiratory organs (principal); Z87.891 Personal history of nicotine dependence; Z80.1 Family history of malignant neoplasm of trachea, bronchus and lung
CPT/HCPCS: G0297

== ENCOUNTER → 2019-04-28 | Outpatient (CLI) | payer MEDICARE, OTHER, SELFPAY ==
[2018-05-26 16:36] VITALS: BMI 34.1
[2019-04-28 14:16] LABS: Hematocrit 44.7 % (40-54); Hemoglobin 15.5 g/dl (13.0-16.5); Mean Corp Hgb Conc 34.7 g/gl (32-36); Mean Corpuscular Hgb 32.8 pg (27.0-32.0); Mean Corpuscular Volume 94.5 fL (80-94); Mean Platelet Vol. 9.7 fl (6.2-12.0); Platelet Count 184 K/mm3 (150-450); RBC Distribution Width CV 13.8 % (11.6-14.6); RBC Distribution Width SD 47.6 fl (35.1-43.9); Red Blood Count 4.73 M/mm3 (4.6-6.2); White Blood Count 8.8 K/mm3 (4.4-11.0)
[2019-04-28 14:20] LABS: Scan Indicated on CBC? Y/N NO
[2019-04-28 14:33] LABS: ALB/GLOB Ratio 1.1 RATIO (0.9-2.4); AST(SGOT) 42 U/L (15-37); Alanine Aminotransfer ALT/SGPT 79 U/L (16-61); Albumin, Serum 3.5 g/dL (3.2-5.0); Alkaline Phosphatase 108 U/L (45-117); Anion Gap 9 (5-15); BUN 23 mg/dL (7-18); BUN/Creat Ratio 16.2 RATIO (10-20); Calcium,Total 8.8 mg/dL (8.5-10.1); Chloride 111 mmol/L (98-107); Creatinine, Serum 1.42 mg/dL (0.70-1.30); EST Glomerular Filtration Rate 53 mL/min (>60); Est Glom Filt Rate - Afr Amer 64 mL/min (>60); Globulin 3.3 g/dL (2.2-4.2); Glucose 117 mg/dL (74-106); Potassium 4.1 mmol/L (3.5-5.1); Protein, Total 6.8 g/dL (6.4-8.2); Sodium Level 144 mmol/L (136-145)
[2019-04-28 14:41] LABS: Hemoglobin A1c 6.7 % (4.2-6.3)
== END | disposition home or self-care (01) ==
LOC: MFPLAB 11:35
PROVIDERS: Family Provider Family Medicine; PCP Family Medicine; Referring Provider Family Medicine; Visit Provider Family Medicine
DX: K76.0 Fatty (change of) liver, not elsewhere classified (principal)
CPT/HCPCS: 36415; 80053; 83036; 85027

== ENCOUNTER → 2019-08-16 16:21 | Outpatient (CLI) | payer MEDICARE, OTHER, SELFPAY ==
[2018-05-26 16:36] VITALS: BMI 34.1
[2019-08-16 17:52] LABS: ALB/GLOB Ratio 1.1 RATIO (0.9-2.4); AST(SGOT) 18 U/L (15-37); Alanine Aminotransfer ALT/SGPT 19 U/L (16-61); Albumin, Serum 3.6 g/dL (3.2-5.0); Alkaline Phosphatase 82 U/L (45-117); Anion Gap 7 (5-15); BUN 21 mg/dL (7-18); BUN/Creat Ratio 16.3 RATIO (10-20); Chloride 109 mmol/L (98-107); Creatinine, Serum 1.29 mg/dL (0.70-1.30); EST Glomerular Filtration Rate 59 mL/min (>60); Est Glom Filt Rate - Afr Amer 71 mL/min (>60); Globulin 3.4 g/dL (2.2-4.2); Glucose 83 mg/dL (74-106); Potassium 3.9 mmol/L (3.5-5.1); Sodium Level 143 mmol/L (136-145)
[2019-08-16 18:13] LABS: Microalbumin,Random Urine 16.8 mg/L (NO RANGE EST.); Microalbumin:Creatinine Ratio 30.1 mg/g CRE (<30 mg/g CRE)
== END ==
PROVIDERS: Family Provider Family Medicine; PCP Family Medicine; Visit Provider Family Medicine
DX: E88.81 Metabolic syndrome and other insulin resistance (principal)
CPT/HCPCS: 36415; 80053; 82043; 82570

== ENCOUNTER → 2019-08-27 09:00 | Outpatient (CLI) | payer MEDICARE, OTHER, SELFPAY | PROVIDERS: Family Provider Family Medicine; PCP Family Medicine; Visit Provider Clinical Nurse Specialist Acute Care | DX: G47.33 Obstructive sleep apnea (adult) (pediatric) (principal) ==

== ENCOUNTER → 2019-11-11 07:17 | Outpatient (CLI) | payer MEDICARE, OTHER, SELFPAY ==
--- NOTE | 2019-11-11 07:21 | CT_ITS ---
STUDY: LOW DOSE CT LUNG CANCER SCREENING REASON FOR EXAM: Male, 69 years old. Screening RADIATION DOSAGE (If Supplied By Facility): CTDIvol = ( 3.02 ) mGy, DLP = ( 105.71 ) mGycm TECHNIQUE: No contrast was administered. Low dose technique was utilized (average mAS-38 and kVp 120). 1.25 mm axial source images with a slice interval of 1.25-mm were reconstructed in lung windows. 2.5 mm axial source images with a slice interval of 2.5-mm were reconstructed in lung windows. 5.0 mm axial source images with a slice interval of 5.0-mm were reconstructed in soft tissue windows. Nodule measured using lung windows on PACS and/or independent workstation with automated measurement of minimum and maximum diameter. Nodule measurement reported as average diameter rounded to the nearest whole number. Growth is defined as an increase ins size of greater than 1.5 mm. COMPARISON: None. NODULES: Total lung nodules (excluding granulomas): 0 Emphysema: Mild Endobronchial lesion: None Aorta: Normal Coronary arteries: Minimal Heart: Normal Pulmonary artery: Normal Mediastinal nodes: Normal Other chest and abdominal findings: Normal CT/Low Dose CT Lung Screening IMPRESSION: No significant pulmonary nodules or masses. LRADS 1. Mild emphysema. IMPORTANT NOTES FOR USE: ACR Lung-RADS Version 1.0 Assessment Categories Release Date: March 21, 2014 Category: Coded 0-4 bases on nodule(s) with highest degree of suspicion. Negative screen is defined as categories 1 and 2; a positive screen is defined as categories 3 and 4. Category 3 and 4A nodules that are unchanged on interval CT should be coded as category 2, and individuals returned to screening in 12 months. Category 4X: Category 3 or 4 nodules with additional imaging findings that increase the suspicion of lung cancer, such as spiculation, GGN that doubles in size in 1 year, enlarged lymph notes, etc. Category Modifiers: S (significant finding unrelated to lung cancer) and C (prior history of treated lung cancer) may be added to the 0-4 Lung-RADS Electronically Signed: Alfredo Gay, at 20:26 EST Tel , Service support ,
--- NOTE | 2019-11-11 07:32 | AAVD_ITS ---
Reason For Study: R10.84 abdomnal pain, former smoker Aorta Measurements Aorta Doppler Measurements Proximal aorta measures1.5 x 1.61cm. in cross- Peak systolic flow velocities within the proximal sectional axis. aorta measure 91.9 cm/sec. Proximal aorta measures1.5cm. in longitudinal Peak systolic flow velocities within the mid aorta axis. measure 80.9 cm/sec. Mid aorta measures1.19 x 1.25cm. in cross- Peak systolic flow velocities within the distal sectional axis. aorta measure 62.2 cm/sec. Mid aorta measures1.28cm. in longitudinal axis. Distal aorta measures1.21 x 1.18cm. in cross- sectional axis. Distal aorta measures1.28cm. in longitudinal axis. Left Iliac Artery Left iliac artery measures .73 x .82 cm. in the cross-sectional axis. Left iliac artery measures .75 cm. in the longitudinal axis. Peak systolic velocity in the left iliac artery measures 150.5 cm/sec. Right Iliac Artery Right iliac artery measures .55 x .72 cm. in the cross-sectional axis. Right iliac artery measures .66 cm. in the longitudinal axis. Peak systolic velocity in the right iliac artery measures 263.8 cm/sec. Procedure The exam was diagnostic. Exam performed in department. Interpretation Summary The dimensions of the intra-abdominal aorta appear to be normal, without evidence of aneurysmal dilatation. The iliac arteries also appear to be normal in caliber bilaterally. The intra-abdominal aorta and iliac arteries appear to be patent, demonstrating pulsatile arterial flow. Elevated velocities are noted in the right common iliac artery, which is suggestive of stenosis. Clinical correlation is advised. Ordering Physician: Nakul Oliva Performed By: Nile Grant RVBishnu
== END ==
PROVIDERS: Family Provider Family Medicine; PCP Family Medicine; Referring Provider Family Medicine; Visit Provider Family Medicine
DX: Z87.891 Personal history of nicotine dependence (principal); R10.84 Generalized abdominal pain
CPT/HCPCS: 93978; G0297

== ENCOUNTER → 2020-05-04 10:24 | Outpatient (CLI) | payer MEDICARE, OTHER, SELFPAY ==
[2018-05-26 16:36] VITALS: BMI 34.1
[2020-05-04 12:33] LABS: Absolute Lymphocyte Count 2.16 X10^3/uL (0.83-4.51); Absolute Neutrophil Count 4.1 X10^3/uL (2.0-7.7); Basophil# 0.04 X10^3/uL; Basophil% 0.6 % (0-1); Eosinophil# 0.28 X10^3/uL; Eosinophils% 3.9 % (0-5); Hematocrit 46.2 % (40-54); Hemoglobin 15.5 g/dL (13.0-16.5); Lymphocyte # 2.16 X10^3/ul (4.0); Lymphocyte % 30.3 % (19-41); Mean Corp Hgb Conc 33.5 g/dL (32-36); Mean Corpuscular Hgb 32.4 pg (27.0-32.0); Mean Corpuscular Volume 96.7 fL (80-94); Mean Platelet Vol. 9.7 fl (6.2-12.0); Monocyte# 0.54 X10^3/uL; Monocyte% 7.6 % (0-10); NRBC Flagged by Analyzer 0 % (0-5); Neutrophil # 4.08 X10^3/uL (2.7-7.7); Neutrophil % 57.3 % (47-70); Platelet Count 187 K/mm3 (150-450); RBC Distribution Width CV 13.2 % (11.6-14.6); RBC Distribution Width SD 46.9 fl (35.1-43.9); Red Blood Count 4.78 M/mm3 (4.6-6.2); White Blood Count 7.1 K/mm3 (4.4-11.0)
[2020-05-04 12:54] LABS: Hemoglobin A1c 5.4 % (3.8-5.6)
[2020-05-04 13:12] LABS: Microalbumin,Random Urine 11.7 mg/L (NO RANGE EST.); Microalbumin:Creatinine Ratio 20.4 mg/g CRE (<30 mg/g CRE)
[2020-05-04 13:13] LABS: AST(SGOT) 19 U/L (15-37); Alanine Aminotransfer ALT/SGPT 22 U/L (16-61); Albumin, Serum 3.7 g/dL (3.2-5.0); Alkaline Phosphatase 79 U/L (45-117); Anion Gap 5 (5-15); BUN 24 mg/dL (7-18); BUN/Creat Ratio 17.8 RATIO (10-20); Calcium,Total 9.4 mg/dL (8.5-10.1); Chloride 108 mmol/L (98-107); Creatinine, Serum 1.35 mg/dL (0.70-1.30); EST Glomerular Filtration Rate 56 mL/min (>60); Est Glom Filt Rate - Afr Amer 67 mL/min (>60); Globulin 3.6 g/dL (2.2-4.2); Glucose 99 mg/dL (74-106); Potassium 4.9 mmol/L (3.5-5.1); Protein, Total 7.3 g/dL (6.4-8.2); Sodium Level 142 mmol/L (136-145); Thyroid Stim Hormone (TSH) 2.53 uIU/mL (0.358-3.74)
[2020-05-10 09:08] LABS: Testosterone, Free 5.96 ng/dL (5.00-21.00)
[2020-05-10 13:31] LABS: Testosterone, % Free 1.62 % (1.50-4.20); Testosterone, Total 368 ng/dL (264-916)
== END ==
PROVIDERS: PCP Family Medicine; Referring Provider Family Medicine; Visit Provider Family Medicine
DX: K76.0 Fatty (change of) liver, not elsewhere classified (principal); E34.9 Endocrine disorder, unspecified; E11.22 Type 2 diabetes mellitus with diabetic chronic kidney disease; E88.81 Metabolic syndrome and other insulin resistance
CPT/HCPCS: 36415; 80053; 82043; 82570; 83036; 84402; 84403; 84443; 85025

== ENCOUNTER → 2021-05-04 10:07 | Outpatient (CLI) | payer MEDICARE, OTHER, SELFPAY ==
[2018-05-26 16:36] VITALS: BMI 34.1
[2021-05-04 12:24] LABS: Absolute Lymphocyte Count 1.96 X10^3/uL (0.83-4.51); Absolute Neutrophil Count 5.6 X10^3/uL (2.0-7.7); Basophil# 0.04 X10^3/uL; Basophil% 0.5 % (0-1); Eosinophil# 0.21 X10^3/uL; Eosinophils% 2.5 % (0-5); Hematocrit 45.5 % (40-54); Hemoglobin 15.5 g/dL (13.0-16.5); Lymphocyte # 1.96 X10^3/ul (0.83-4.51); Lymphocyte % 23.4 % (19-41); Mean Corp Hgb Conc 34.1 g/dL (32-36); Mean Corpuscular Hgb 31.6 pg (27.0-32.0); Mean Corpuscular Volume 92.7 fL (80-94); Mean Platelet Vol. 9.4 fl (6.2-12.0); Monocyte# 0.55 X10^3/uL; Monocyte% 6.6 % (0-10); NRBC Flagged by Analyzer 0 % (0-5); Neutrophil % 66.9 % (47-70); Platelet Count 208 K/mm3 (150-450); RBC Distribution Width CV 13.5 % (11.6-14.6); Red Blood Count 4.91 M/mm3 (4.6-6.2); White Blood Count 8.4 K/mm3 (4.4-11.0)
[2021-05-04 12:41] LABS: AST(SGOT) 22 U/L (15-37); Alanine Aminotransfer ALT/SGPT 26 U/L (16-61); Albumin, Serum 3.7 g/dL (3.2-5.0); Alkaline Phosphatase 81 U/L (45-117); Anion Gap 4 (5-15); BUN 23 mg/dL (7-18); BUN/Creat Ratio 16.8 RATIO (10-20); Calcium,Total 9.3 mg/dL (8.5-10.1); Chloride 110 mmol/L (98-107); Creatinine, Serum 1.37 mg/dL (0.70-1.30); EST Glomerular Filtration Rate 55 mL/min (>60); Est Glom Filt Rate - Afr Amer 66 mL/min (>60); Globulin 3.6 g/dL (2.2-4.2); Glucose 98 mg/dL (74-106); Potassium 4.3 mmol/L (3.5-5.1); Protein, Total 7.3 g/dL (6.4-8.2); Sodium Level 141 mmol/L (136-145)
[2021-05-04 12:42] LABS: Vitamin D,25 Hydroxy 47.6 ng/mL
[2021-05-04 12:49] LABS: Microalbumin,Random Urine 36.3 mg/L (NO RANGE EST.); Microalbumin:Creatinine Ratio 32.7 mg/g CRE (<30 mg/g CRE)
== END ==
PROVIDERS: PCP Family Medicine; Referring Provider Family Medicine; Visit Provider Family Medicine
DX: N18.32 Chronic kidney disease, stage 3b (principal); K76.0 Fatty (change of) liver, not elsewhere classified
CPT/HCPCS: 36415; 80053; 82043; 82306; 82570; 85025

== ENCOUNTER 2022-01-02 15:09 | Outpatient (CLI) | payer MEDICARE, OTHER, SELFPAY | END 2022-01-02 23:59 | disposition home or self-care (01) | LOC: LAB 15:11 | PROVIDERS: PCP Family Medicine; Visit Provider Internal Medicine Cardiovascular Disease | DX: R00.1 Bradycardia, unspecified (principal) | CPT/HCPCS: 36415; 84443 ==

== ENCOUNTER 2022-01-17 09:32 | Outpatient (CLI) | payer MEDICARE, OTHER, SELFPAY ==
--- NOTE | 2022-01-17 09:38 | ECHOD_ITS ---
Reason For Study: ARRHYTHMIA Procedure This was a 2D Doppler, Color Flow transthoracic echocardiogram. Exam performed in department. Left Ventricle Normal LV size. Left ventricular systolic function is normal. The estimated ejection fraction is 55 %. Stage 1 diastolic dysfunction. No regional wall motion abnormalities noted. Right Ventricle Normal RV size. Normal systolic function. Atria Normal left atrium. Normal right atrium. Mitral Valve Normal mitral valve. Tricuspid Valve Normal tricuspid valve. Mild (1+) tricuspid valve insufficiency. Pulmonary artery systolic pressure is 28 mmHg. Aortic Valve Normal aortic valve. Trisinus/trileaflet aortic valve. Pulmonic Valve Normal pulmonic valve. Great Vessels Mildly dilated aortic root. The pulmonary artery is normal size. Normal inferior vena cava. Pericardium/Pleural No pericardial effusion. MMode/2D Measurements & Calculations LVIDd: 4.5 cm IVSd: 0.93 cm Ao root diam: 3.6 cm LVIDs: 2.9 cm LVPWd: 1.1 cm RVDd: 3.6 cm FS: 35.3 % LAV(MOD-bp): 43.9 ml LA A4 area: 14.5 cm2 LA dimension(2D): 3.6 cm LAV(MOD-bp) Indexed: 21.3 ml/m2 LAV(MOD-sp2): 42.7 ml LAV(MOD-sp4): 36.2 ml RA A4 area: 12.4 cm2 Time Measurements MV dec time: 0.27 sec Doppler Measurements & Calculations MV E max elver: 60.7 cm/sec Lat Peak E' Elvre: 9.9 cm/sec Med Peak E' Lever: 8.1 cm/sec MV A max elver: 81.1 cm/sec E/E' lat: 6.1 E/E' med: 7.5 MV E/A: 0.75 Ao V2 max: 132.0 cm/sec LV V1 max: 111.5 cm/sec PA V2 max: 87.9 cm/sec Ao max P.0 mmHg LV V1 max P.0 mmHg TR max elver: 241.7 cm/sec TR max P.4 mmHg ECHO/Echo Complete Interpretation Summary Normal LV size. Left ventricular systolic function is normal. The estimated ejection fraction is 55 %. Stage 1 diastolic dysfunction. Mildly dilated aortic root. Ordering Physician: Mal Barbosa Referring Physician: Nakul Oliva Performed By: Annette Solares RDCS, RVT
== END 2022-01-17 23:59 | disposition home or self-care (01) ==
LOC: CVS 09:34
PROVIDERS: PCP Family Medicine; Referring Provider Internal Medicine Cardiovascular Disease; Visit Provider Internal Medicine Cardiovascular Disease
DX: R00.1 Bradycardia, unspecified (principal); R94.31 Abnormal electrocardiogram [ECG] [EKG]
CPT/HCPCS: 93225; 93226; 93306

== ENCOUNTER 2022-02-01 10:29 | Outpatient (CLI) | payer MEDICARE, OTHER, SELFPAY ==
[2022-02-01 12:35] LABS: Vitamin D,25 Hydroxy 40.5 ng/mL
[2022-02-01 12:39] LABS: Albumin, Serum 3.5 g/dL (3.2-5.0); BUN 29 mg/dL (7-18); BUN/Creat Ratio 18.6 RATIO (10-20); Calcium,Total 9.4 mg/dL (8.5-10.1); Chloride 111 mmol/L (98-107); Cholesterol 167 mg/dL (200); Creatinine, Serum 1.56 mg/dL (0.70-1.30); EST Glomerular Filtration Rate 47 mL/min (>60); Est Glom Filt Rate - Afr Amer 57 mL/min (>60); Glucose 107 mg/dL (74-106); High Density Lipoprotein 36 mg/dL; Phosphorus 2.5 mg/dL (2.5-4.9); Potassium 4.1 mmol/L (3.5-5.1); Sodium Level 142 mmol/L (136-145)
== END 2022-02-01 23:59 | disposition home or self-care (01) ==
LOC: MFPLAB 10:33
PROVIDERS: PCP Family Medicine; Referring Provider Family Medicine; Visit Provider Family Medicine
DX: N18.32 Chronic kidney disease, stage 3b (principal)
CPT/HCPCS: 36415; 80069; 82306; 82465; 83718

== ENCOUNTER → 2022-11-08 | Outpatient (CLI) | payer MEDICARE, OTHER, SELFPAY ==
[2022-11-08 12:30] LABS: Absolute Lymphocyte Count 1.74 X10^3/uL (0.83-4.51); Absolute Neutrophil Count 5.6 X10^3/uL (2.0-7.7); Basophil# 0.05 X10^3/uL; Basophil% 0.6 % (0-1); Eosinophil# 0.21 X10^3/uL; Eosinophils% 2.6 % (0-5); Hematocrit 45.2 % (40-54); Hemoglobin 15.3 g/dL (13.0-16.5); Lymphocyte # 1.74 X10^3/ul (0.83-4.51); Lymphocyte % 21.3 % (19-41); Mean Corp Hgb Conc 33.8 g/dL (32-36); Mean Corpuscular Hgb 32.1 pg (27.0-32.0); Mean Platelet Vol. 9.4 fl (6.2-12.0); Monocyte# 0.56 X10^3/uL; Monocyte% 6.9 % (0-10); NRBC Flagged by Analyzer 0 % (0-5); Neutrophil # 5.56 X10^3/uL (2.7-7.7); Neutrophil % 68.2 % (47-70); Platelet Count 204 K/mm3 (150-450); RBC Distribution Width CV 13.3 % (11.6-14.6); RBC Distribution Width SD 46.5 fl (35.1-43.9); Red Blood Count 4.76 M/mm3 (4.6-6.2); White Blood Count 8.2 K/mm3 (4.4-11.0)
[2022-11-08 12:39] LABS: Vitamin D,25 Hydroxy 43.5 ng/mL
[2022-11-08 12:41] LABS: ALB/GLOB Ratio 1.1 RATIO (0.9-2.4); AST(SGOT) 15 U/L (15-37); Alanine Aminotransfer ALT/SGPT 27 U/L (16-61); Albumin, Serum 3.5 g/dL (3.2-5.0); Alkaline Phosphatase 102 U/L (45-117); Anion Gap 6 (5-15); BUN 31 mg/dL (7-18); Calcium,Total 8.9 mg/dL (8.5-10.1); Chloride 113 mmol/L (98-107); Cholesterol 180 mg/dL (200); Creatinine, Serum 1.29 mg/dL (0.70-1.30); EST Glomerular Filtration Rate 58 mL/min (>60); Est Glom Filt Rate - Afr Amer 70 mL/min (>60); Globulin 3.1 g/dL (2.2-4.2); Glucose 68 mg/dL (74-106); High Density Lipoprotein 41 mg/dL; PSA,Total - Annual Screen 4.31 ng/mL (0.00-4.00); Potassium 4.2 mmol/L (3.5-5.1); Protein, Total 6.6 g/dL (6.4-8.2); Sodium Level 143 mmol/L (136-145)
[2022-11-08 12:42] LABS: Microalbumin:Creatinine Ratio 42.3 mg/g CRE (<30 mg/g CRE)
[2022-11-09 14:25] LABS: LDL, Direct 120295 125 mg/dL (0-99)
== END | disposition home or self-care (01) ==
LOC: MFPLAB 09:27
PROVIDERS: PCP Family Medicine; Referring Provider Family Medicine; Visit Provider Family Medicine
DX: Z00.00 Encounter for general adult medical examination without abnormal findings (principal); N18.31 Chronic kidney disease, stage 3a; E78.6 Lipoprotein deficiency; Z12.5 Encounter for screening for malignant neoplasm of prostate
CPT/HCPCS: 36415; 80053; 82043; 82306; 82465; 82570; 83718; 83721; 84153; 85025; G0103

== ENCOUNTER → 2022-11-11 | Outpatient (CLI) | payer MEDICARE, OTHER, SELFPAY ==
[2022-11-11 08:41] LABS: Bacteria 0 SEEN /hpf (None Seen); Mucous, Urine 0 SEEN /hpf (<or=2+); Squamous Epithelial Cells - UA 0 SEEN /hpf (0-5); White Blood Cells 0 SEEN /hpf (0-5)
[2022-11-11 10:59] LABS: Color, Urine Yellow (Yellow); Glucose, Dipstick Normal (Normal); Ketone-Dipstick Negative (Negative); Leukocyte Esterase-Dipstick Negative /ul (Negative); Nitrite-Dipstick Negative (Negative); Occult Blood-Urine 25 /ul (Negative); Protein-Dipstick Negative (Negative); Urine Bilirubin Dipstick Negative (Negative); Urine Clarity Clear (Clear); Urine Urobilinogen Normal (Normal)
[2022-11-11 11:09] LABS: Red Blood Cells-Urine 0-5 SEEN /hpf (0-5)
== END | disposition home or self-care (01) ==
LOC: LABSPEC 08:39
PROVIDERS: PCP Family Medicine; Visit Provider Family Medicine
DX: R97.20 Elevated prostate specific antigen [PSA] (principal); N40.0 Benign prostatic hyperplasia without lower urinary tract symptoms
CPT/HCPCS: 81001; 87086

== ENCOUNTER → 2022-11-22 | Outpatient (CLI) | payer MEDICARE, OTHER, SELFPAY ==
--- NOTE | 2022-11-22 08:12 | CT_ITS ---
STUDY: LOW DOSE CT LUNG CANCER SCREENING REASON FOR EXAM: Male, 72 years old. One pack per day smoker x47 years, quit 5 years ago RADIATION DOSAGE (If Supplied By Facility): CTDIvol = ( 3.02 ) mGy, DLP = ( 110.23 ) mGycm TECHNIQUE: No contrast was administered. Low dose technique was utilized (average mAS-38 and kVp 120). 1.25 mm axial source images with a slice interval of 1.25-mm were reconstructed in lung windows. 2.5 mm axial source images with a slice interval of 2.5-mm were reconstructed in lung windows. 5.0 mm axial source images with a slice interval of 5.0-mm were reconstructed in soft tissue windows. COMPARISON: 11/11/2019 FINDINGS: Nodule #: Density: Lung windows show the lungs to be normally expanded. Soft tissue windows show normal-appearing thyroid. No suspicious axillary, mediastinal, or perihilar adenopathy. No organized infiltrate effusion or suspicious noncalcified mass or nodule. No pleural or pericardial effusions, no calcified coronary vessels noted. Bony structures show degenerative change. Limited cuts of the upper abdomen show simple right renal cyst. No specific follow-up needed. CT/Low Dose CT Lung Screening IMPRESSION: Lung-RADS category 2 - Continue annual screening with LDCT in 12 months. IMPORTANT NOTES FOR USE: ACR Lung-RADS Version 1.1 Assessment Categories Release Date: 2018 Category: Coded 0-4 bases on nodule(s) with highest degree of suspicion. Negative screen is defined as categories 1 and 2; a positive screen is defined as categories 3 and 4. Category 3 and 4A nodules that are unchanged on interval CT should be coded as category 2, and individuals returned to screening in 12 months. Category 4X: Category 3 or 4 nodules with additional imaging findings that increase the suspicion of lung cancer, such as spiculation, GGN that doubles in size in 1 year, enlarged lymph notes, etc. Category Modifiers: S (significant finding unrelated to lung cancer) Electronically Signed: Nicolas Churchill MD at 12:01 EST ,
== END | disposition home or self-care (01) ==
PROVIDERS: PCP Family Medicine; Referring Provider Family Medicine; Visit Provider Family Medicine
DX: Z12.2 Encounter for screening for malignant neoplasm of respiratory organs (principal); Z87.891 Personal history of nicotine dependence; N28.1 Cyst of kidney, acquired; M19.90 Unspecified osteoarthritis, unspecified site; R91.8 Other nonspecific abnormal finding of lung field
CPT/HCPCS: 71271

== ENCOUNTER → 2023-05-20 | Outpatient (CLI) | payer MEDICARE, OTHER, SELFPAY ==
[2023-05-20 10:20] LABS: Absolute Lymphocyte Count 2.29 X10^3/uL (0.83-4.51); Absolute Neutrophil Count 4.4 X10^3/uL (2.0-7.7); Basophil# 0.05 X10^3/uL; Basophil% 0.7 % (0-1); Eosinophil# 0.31 X10^3/uL; Eosinophils% 4.1 % (0-5); Hematocrit 47.2 % (40-54); Hemoglobin 16.1 g/dL (13.0-16.5); Lymphocyte # 2.29 X10^3/ul (0.83-4.51); Mean Corp Hgb Conc 34.1 g/dL (32-36); Mean Corpuscular Hgb 32.3 pg (27.0-32.0); Mean Corpuscular Volume 94.8 fL (80-94); Mean Platelet Vol. 9.4 fl (6.2-12.0); Monocyte# 0.52 X10^3/uL; Monocyte% 6.8 % (0-10); NRBC Flagged by Analyzer 0 % (0-5); Neutrophil # 4.43 X10^3/uL (2.7-7.7); Platelet Count 215 K/mm3 (150-450); RBC Distribution Width CV 13.6 % (11.6-14.6); RBC Distribution Width SD 46.9 fl (35.1-43.9); Red Blood Count 4.98 M/mm3 (4.6-6.2); White Blood Count 7.6 K/mm3 (4.4-11.0)
[2023-05-20 10:51] LABS: Vitamin D,25 Hydroxy 62.2 ng/mL
[2023-05-20 11:00] LABS: ALB/GLOB Ratio 0.9 RATIO (0.9-2.4); AST(SGOT) 21 U/L (15-37); Alanine Aminotransfer ALT/SGPT 29 U/L (16-61); Albumin, Serum 3.6 g/dL (3.2-5.0); Alkaline Phosphatase 78 U/L (45-117); Anion Gap 7 (5-15); BUN 23 mg/dL (7-18); BUN/Creat Ratio 14.8 RATIO (10-20); Calcium,Total 9.6 mg/dL (8.5-10.1); Chloride 109 mmol/L (98-107); Cholesterol 181 mg/dL (200); Creatinine, Serum 1.55 mg/dL (0.70-1.30); EST Glomerular Filtration Rate 47 mL/min (>60); Est Glom Filt Rate - Afr Amer 57 mL/min (>60); Globulin 3.9 g/dL (2.2-4.2); Glucose 105 mg/dL (74-106); High Density Lipoprotein 39 mg/dL; Potassium 4.3 mmol/L (3.5-5.1); Protein, Total 7.5 g/dL (6.4-8.2); Sodium Level 141 mmol/L (136-145); Thyroid Stim Hormone (TSH) 3.35 uIU/mL (0.358-3.74); Triglycerides 156 mg/dL; Uric Acid 9.3 mg/dL (3.5-7.2); Very Low Density Lipoprotein 31 mg/dL (5-40)
[2023-05-20 11:49] LABS: Hemoglobin A1c 5.7 % (3.8-5.6)
[2023-05-20 15:09] LABS: Microalbumin,Random Urine 23.1 mg/L (NO RANGE EST.); Microalbumin:Creatinine Ratio 25.3 mg/g CRE (<30 mg/g CRE)
== END | disposition home or self-care (01) ==
LOC: MFPLAB 08:54
PROVIDERS: PCP Family Medicine; Visit Provider Family Medicine
DX: N18.31 Chronic kidney disease, stage 3a (principal); E78.00 Pure hypercholesterolemia, unspecified
CPT/HCPCS: 36415; 80053; 80061; 82043; 82306; 82570; 83036; 84443; 84550; 85025

== ENCOUNTER → 2023-11-11 | Outpatient (CLI) | payer MEDICARE, OTHER, SELFPAY ==
[2023-11-11 12:38] LABS: AST(SGOT) 21 U/L (15-37); Alanine Aminotransfer ALT/SGPT 37 U/L (16-61); Albumin, Serum 3.8 g/dL (3.2-5.0); Alkaline Phosphatase 80 U/L (45-117); Anion Gap 4 (5-15); BUN 24 mg/dL (7-18); BUN/Creat Ratio 16.4 RATIO (10-20); Calcium,Total 9.9 mg/dL (8.5-10.1); Chloride 110 mmol/L (98-107); Cholesterol 194 mg/dL (200); Creatinine, Serum 1.46 mg/dL (0.70-1.30); EST Glomerular Filtration Rate 50 mL/min (>60); Est Glom Filt Rate - Afr Amer 61 mL/min (>60); GGTP 29 U/L (15-85); Globulin 3.9 g/dL (2.2-4.2); Glucose 99 mg/dL (74-106); High Density Lipoprotein 39 mg/dL; PSA,Total - Annual Screen 4.23 ng/mL (0.00-4.00); Potassium 4.2 mmol/L (3.5-5.1); Protein, Total 7.7 g/dL (6.4-8.2); Sodium Level 141 mmol/L (136-145); Triglycerides 207 mg/dL; Uric Acid 8.4 mg/dL (3.5-7.2); Very Low Density Lipoprotein 41 mg/dL (5-40)
[2023-11-11 13:04] LABS: Hemoglobin A1c 5.5 % (3.8-5.6)
== END | disposition home or self-care (01) ==
LOC: MFPLAB 09:51
PROVIDERS: PCP Family Medicine; Visit Provider Family Medicine
DX: N18.31 Chronic kidney disease, stage 3a (principal); E88.810 Metabolic syndrome; K76.0 Fatty (change of) liver, not elsewhere classified; E79.0 Hyperuricemia without signs of inflammatory arthritis and tophaceous disease; Z12.5 Encounter for screening for malignant neoplasm of prostate
CPT/HCPCS: 36415; 80053; 80061; 82977; 83036; 84153; 84550; G0103

== ENCOUNTER → 2024-05-14 | Outpatient (CLI) | payer MEDICARE, OTHER, SELFPAY ==
[2024-05-14 10:31] LABS: Microalbumin:Creatinine Ratio 9.5 mg/g CRE (<30 mg/g CRE)
[2024-05-14 10:48] LABS: Hemoglobin A1c 5.6 % (3.8-5.6)
[2024-05-14 10:56] LABS: AST(SGOT) 20 U/L (15-37); Alanine Aminotransfer ALT/SGPT 28 U/L (16-61); Albumin, Serum 3.6 g/dL (3.2-5.0); Alkaline Phosphatase 103 U/L (45-117); Anion Gap 2 (5-15); BUN 26 mg/dL (7-18); BUN/Creat Ratio 17.2 RATIO (10-20); Calcium,Total 9.5 mg/dL (8.5-10.1); Chloride 110 mmol/L (98-107); Cholesterol 182 mg/dL (200); Creatinine, Serum 1.51 mg/dL (0.70-1.30); EST Glomerular Filtration Rate 48 mL/min (>60); Est Glom Filt Rate - Afr Amer 59 mL/min (>60); Globulin 3.5 g/dL (2.2-4.2); Glucose 110 mg/dL (74-106); High Density Lipoprotein 39 mg/dL; Potassium 4.5 mmol/L (3.5-5.1); Protein, Total 7.1 g/dL (6.4-8.2); Sodium Level 141 mmol/L (136-145); Triglycerides 87 mg/dL; Uric Acid 8.2 mg/dL (3.5-7.2); Very Low Density Lipoprotein 17 mg/dL (5-40)
[2024-05-16 09:07] LABS: GGTP 25 IU/L (0-65)
== END | disposition home or self-care (01) ==
LOC: MTLAB 07:28
PROVIDERS: PCP Family Medicine; Referring Provider Family Medicine; Visit Provider Family Medicine
DX: K76.0 Fatty (change of) liver, not elsewhere classified (principal); N18.31 Chronic kidney disease, stage 3a; E88.810 Metabolic syndrome; E78.5 Hyperlipidemia, unspecified; R97.20 Elevated prostate specific antigen [PSA]; E79.0 Hyperuricemia without signs of inflammatory arthritis and tophaceous disease
CPT/HCPCS: 36415; 80053; 80061; 82043; 82570; 82977; 83036; 84550

== ENCOUNTER 2024-09-26 13:39 | Emergency (ER) | payer MEDICARE, OTHER, SELFPAY ==
[2024-09-26 13:40] VITALS: BP 156/61; PULSE 62; RESP 16; TEMP 36.6; O2SAT 99; BMI 30.2
--- NOTE | 2024-09-26 13:57 | ED.RN ---
Dr. Leo bedside
--- NOTE | 2024-09-26 14:11 | EDS_ITS ---
HPI History of Present Illness Chief Complaint: Lower Extremity Injury Informant: patient Narrative Narrative: 73-year-old male presenting to the emergency room with swelling of the right leg. Patient noted that yesterday morning he awoke had fullness and discomfort posterior to the knee on the right. He notes swelling of the leg. He states he has had prior DVT in that leg. Not currently on any anticoagulants. He has had prior knee replacement. No history that he knows of Rushing's cyst. Denies any fever chest pain shortness of breath. He states that his toes feel fine. [facility] Medical History Nonalcoholic fatty liver disease Chronic kidney disease (CKD) Metabolic syndrome Obesity BPH (benign prostatic hyperplasia) Obstructive sleep apnea Arthritis Home Medications ?Medication ?Instructions ?Recorded ?Last Taken ?Type multivitamin (Multiple Vitamins 1 ea PO DAILY SUPPLEMENT 12/30/17 05/21/18 08:00 History tablet) 1 TAB aspirin 81 mg tablet,delayed 81 mg PO DAILY BLOOD THINNER 05/18/18 05/26/18 16:44 History release (Adult Aspirin Regimen) 81 MG Allergy/AdvReac Type Severity Reaction Status Date / Time cephalexin monohydrate (From Allergy Severe Swelling Verified 09/26/24 13:42 Keflex) Family History Mother Hypertension CVA (cerebral vascular accident) Myocardial infarction, Onset Age: 72 Father Kidney disease Brother Kidney disease Lung cancer Sister Breast cancer Surgical History History of foot surgery History of cholecystectomy H/O arthroscopic knee surgery History of left knee replacement Social History Smoking Status: Former smoker ROS ROS ED Constitutional Constitutional ED: Denies chills, fever(s) or weight loss Eyes Eyes: Denies change in vision or diplopia ENT ENT ED: Denies ear pain, rhinorrhea or sore throat Cardiovascular Cardiovascular: Denies chest pain, orthopnea, palpitations or racing heartbeat Respiratory/Chest Respiratory/Chest: Denies cough, dyspnea or orthopnea Gastrointestinal Gastrointestinal: Denies abdominal pain, diarrhea, nausea or vomiting Genitourinary Genitourinary ED: Denies dysuria, hematuria or urinary frequency Musculoskeletal Musculoskeletal: Reports other Details: See history of present illness ; Denies arthralgias or myalgias Integumentary Denies abscess or rash Neurologic Neurologic: Denies headache(s), paresthesias or weakness Psychiatric Psychiatric: Denies anxiety, depression, suicidal ideation or suicidal thoughts Endocrine Endocrinology: Denies polydipsia, polyphagia or polyuria Allergic/Immunologic Allergic/Immunologic ED: Denies mouth swelling, tongue swelling or urticaria EXAM Physical Exam Const Vital Signs: 09/26/24 13:40 Temperature 97.8 F Temperature Source Oral Pulse Rate 62 Respiratory Rate 16 Blood Pressure 156/61 H Blood Pressure Mean 92 Pulse Ox 99 Oxygen Delivery Method Room Air Positive well nourished and well developed General Appearance ED: well developed and NAD HEENT Reports normocephalic, head/scalp atraumatic and moist mucous membranes Eyes PERRL and EOMs intact bilaterally Neck no lymphadenopathy, supple and no JVD Resp normal respiratory effort and clear to auscultation bilaterally Cardio regular rate, regular rhythm and no murmurs GI normal to inspection, nondistended, normoactive bowel sounds and non-tender Palpation: soft Back/Spine no CVA tenderness and normal ROM Extremity Extremity Narrative: There is a palpable fullness to the popliteal fossa. There is mild nonpitting edema of the right leg to the level of the ankle. There are no palpable cords or varicosities. Normal skin color. The foot appears with no significant swelling discoloration. I am able to palpate a dorsalis pedis pulse. General Extremety ED: Negative for edema General Extremity: Negative for edema Neuro oriented x3 and CN's II-XII intact bilaterally Sensorium / Orientation: alert Motor Exam: strength 5/5 throughout Psych mental status grossly normal Mood & Affect: Negative for depressed or tearful Skin no rashes or lesions noted and no wounds MDM MDM MDM Narrative Medical decision making narrative: Differential diagnosis includes but not limited to lymphedema DVT Rushing's cyst peripheral vascular disease Patient has had no trauma. We do not have duplex ultrasound readily available today. I can set him up for an ultrasound for tomorrow morning. He does not currently have any signs or symptoms of pulmonary embolism. We talked about home treatment. Patient will return to emergency if the DVT ultrasound is positive. Patient and his family are comfortable with this plan History & Record Review Discussion w/independent historian: Patient and Family Discharge Plan Triage Chief Complaint: Lower Extremity Injury ED Provider: Scottie Leo Dx/Rx/DC Orders Clinical Impression: Right leg swelling, Leg pain, right Instructions: ED Peripheral Edema, Unilateral Prescriptions: No Action multivitamin [Multiple Vitamins] 1 EACH tablet 1 ea PO DAILY aspirin [Adult Aspirin Regimen] 81 MG tablet,delayed release (DR/EC) 81 mg PO DAILY Patient Comments: WAS TOLD TO STOP 5 DAYS BEFORE SURGERY Other Ambulatory Orders: Venous Duplex US, Unilateral (Stat) Facility: [facility] - Location: [facility] Ordered By: Dr. Scottie Leo Primary Care Provider: Nakul Oliva Referrals: Nakul Oliva MD [Primary Care Provider] - As Needed Activity Restrictions/Additional Instructions: You are being set up for a formal ultrasound to be obtained tomorrow. Print Language: Guinean Disposition Disposition: Home, Self Care
== END 2024-09-26 14:21 | disposition home or self-care (01) ==
LOC: ED 14:14
PROVIDERS: Emergency Provider Emergency Medicine; PCP Family Medicine; Visit Provider Emergency Medicine
DX: M79.89 Other specified soft tissue disorders (principal); M79.604 Pain in right leg; N18.9 Chronic kidney disease, unspecified; Z87.891 Personal history of nicotine dependence; Z90.49 Acquired absence of other specified parts of digestive tract; Z96.652 Presence of left artificial knee joint
CPT/HCPCS: 99282

== ENCOUNTER → 2024-09-27 | Outpatient (CLI) | payer MEDICARE, OTHER, SELFPAY ==
--- NOTE | 2024-09-27 08:48 | VDLE_ITS ---
Reason For Study: Right leg swelling RIGHT LEFT GSV is normal. CFV is compressible, spontaneous, phasic, Acute deep vein thrombosis is noted in the competent, and demonstrates normal CFV, FV, PopV, T/P trunk, PTV, PeroV, augmentation. GastrocV and SoleusV. It is dilated and NONCOMPRESSIBLE. Thrombus in CFV is mobile with minimal venous flow noted. Procedure This is a venous duplex using B-mode, color flow and spectral Doppler. Exam performed in department. A preliminary report was called and/or faxed to PCP: Emely TOLENTINO. VL/Venous Duplex US, Unilateral Interpretation Summary Acute deep vein thrombosis is noted in the right common femoral vein. Acute tex p vein thrombosis is noted in the right femoral vein. Acute deep vein thrombosis is noted in the rig ht popliteal vein. Acute deep vein thrombosis is noted in the right tibio-peroneal trunk. Acute de ep vein thrombosis is noted in the right posterior tibial vein. Acute deep vein thrombosis is noted i n the right peroneal vein. Acute deep vein thrombosis is noted in the right gastrocnemius vein. Acut e deep vein thrombosis is noted in the right soleus vein. The right great saphenous vein ap pears patent and compressible segmentally. The left common femoral vein is patent and compressib le . Ordering Physician: Scottie Leo Referring Physician: Nakul Oliva Performed By: Nadja Brooks RVT
--- OUTSIDE RECORDS SUMMARY | 2024-09-27 09:11 | XMS RPT_ITS | CCD ---
Author Organization [facility] InformFormerly [facility] Care Team Providers Care Snow Blower Name Role Phone Janay Navarrojairon Kwan Unavailable NavarroJanay gautamjairon Kwan Unavailable Ross Cleary Unavailable Melanie Beverly N Unavailable Ross Celary Unavailable Janay Navarrojairon Kwan Unavailable Unavailable Primary Care Provider Unavailabl e Allergies Allergy Classification Reported Allergen(s) Allergy Type Date of Onset Reaction(s) Facility (11 sources) cephalexin drug allergy 0 [facility] Work Phone: (1 source) Cephalexin Drug Allergy 9 Other: See Comments [facility] Medications Current Medications Medication Drug Class(es) Dates Sig (Normalized) Sig (Original) benzonatate 100 mg oral capsule (1 source) Non-narcotic Antitussive Start: 11-25-2015 take 1 capsule by mouth three times daily as needed for cough benzonatate (TESSALON PERLES) 100 mg capsule Indications: Acute bronchitis, unspecified organism Take 1 capsule by mouth three times daily as needed for Cough. 30 capsule 0 11/25/2015 Active doxycycline monohydrate 100 mg oral tablet (1 source) Tetracycline-class Drug Start: 11-25-2015 take 1 tablet by mouth twice daily doxycycline monohydrate 100 mg tablet Indications: Acute bronchitis, unspecified organism Take 1 tablet by mouth twice daily. 20 tablet 0 11/25/2015 Active ammonium lactate 120 mg/ml topical cream (1 source) Start: 02-18-2013 AMMONIUM LACTATE 12 % cream as needed. 02/18/2013 Active MULTIVITAMIN TAB (1 source) Start: 03-17-2009 MULTIVITAMIN TAB Take one(1) tablet daily. 0 03/17/2009 Active tamsulosin hydrochloride 0.4 mg oral capsule (1 source) alpha-Adrenergic Xu Start: 04-22-2013 TAMSULOSIN 0.4 mg Cp24 once daily. 04/22/2013 Active Completed/Discontinued Medications Medication Drug Class(es) Dates Sig (Normalized) Sig (Original) aspirin (11 sources) Nonsteroidal Anti-inflammatory Drug take 1 tablet by mouth once daily ASPIR-81 81 MG TBEC One tablet by mouth daily. ASPIRIN [id number] Raul Willard take 1 tablet by mouth once tiff y ASPIR-81 81 MG TBEC One tablet by mouth daily. ASPIRIN [id number] Raul Willard celecoxib 200 mg oral capsule (20 sources) Nonsteroidal Anti-inflammatory Drug End: 11-06-2016 take 2 tablets by mouth once daily CELEBREX 200 MG CAPS Two tablets by mouth daily. CELECOXIB [id number] Carter Akash Willard finasteride 5 mg oral tablet (11 sources) 5-alpha Reductase Inhibitor take 1 tablet by mouth once daily FINASTERIDE 5 MG TABS One tablet by mouth daily. FINASTERIDE [id number] Carter Akash Willard levoFLOXacin 500 mg oral tablet (20 sources) Quinolone Antimicrobial Start: 07-12-2010 End: 10-23-2016 LEVAQUIN 500 MG TABS one tab daily LEVOFLOXACIN [id number] Mark Heck MD MULTIPLE VITAMIN (2 sources) take 1 tablet by mouth once daily MULTI-VITAMIN TABS One tablet by mouth daily. MULTIPLE VITAMIN [id number] Linda R Donavan [employer]ICAL OFFICE SUPERVISOR multivitamin (9 sources) take 1 tablet by mouth once daily MULTI-VITAMIN TABS One tablet by mouth daily. MULTIPLE VITAMIN [id number] Linda R Donavan [employer]ICAL OFFICE SUPERVISOR rivaroxaban 20 mg oral tablet (11 sources) Factor Xa Inhibitor take 1 tablet by mouth once daily XARELTO 20 MG TABS One tablet by mouth daily. RIVAROXABAN [id number] Raul Akash Srinivasakash rosuvastatin calcium 5 mg oral tablet (20 sources) HMG-CoA Reductase Inhibitor End: 02-04-2017 take 1 tablet by mouth once daily CRESTOR 5 MG TABS One tablet by mouth daily. ROSUVASTATIN CALCIUM [id number] Raul Willard Problems Active Problems Problem Classification Problem Date Documented Da te Episodic/Chronic Joint disorders and dislocations; trauma-related (20 sources) Derangement of knee; Translations: [Other internal derangements of left knee] Onset: 02-20-2017 03-28-2017 Chronic Other connective tissue disease (1 source) Swelling of right lower limb; Translations: [Other specified soft tissue disorders] 09-26-2024 Episodic Unclassified (7 sources) Aftercare ; Translations: [Encounter for other orthopedic aftercare] Onset: 04-11-2017 04-23-2017 Past or Other Problems Problem Classification Problem Date Documented Da te Episodic/Chronic Biliary tract disease (3 sources) Biliary calculus; Translations: [Calculus of gallbladder without cholecystitis without obstruction] Onset: 04-29-2013 04-29-2013 Episodic Calculus of urinary tract (1 source) Kidney stone; Translations: [Calculus of kidney] Onset: 04-29-2013 04-29-2013 Episodic Joint disorders and dislocations; trauma-related (13 sources) Acute meniscal tear, medial; Translations: [Other tear of medial meniscus, current injury, left knee, subsequent encounter] Onset: 02-20-2017 02-20-2017 Episodic Other aftercare (8 sources) Other tear of medial meniscus, current injury, left knee, subsequent encounter; Translations: [Other tear of medial meniscus, current injury, left knee, subsequent encounter] Onset: 03-26-2017 03-28-2017 Episodic Other connective tissue disease (20 sources) Residual foreign body in soft tissue; Translations: [Rupture of popliteal cyst] Onset: 07-12-2010 08-19-2010 Episodic Other connective tissue disease (2 sources) Rupture of popliteal cyst; Translations: [Rupture of popliteal cyst] Onset: 02-20-2017 03-05-2017 Episodic Other liver diseases (11 sources) Elevated levels of transaminase & lactic acid dehydrogenase; Translations: [Nonspecific elevation of levels of transaminase and lactic acid dehydrogenase [LDH]] Onset: 02-04-2017 02-04-2017 Episodic Other non-traumatic joint disorders (20 sources) Effusion, left knee; Translations: [Pain in left knee] Onset: 02-20-2017 03-17-2017 Episodic Other non-traumatic joint disorders (2 sources) Pain in left knee; Translations: [Pain in left knee] Onset: 02-20-2017 03-05-2017 Episodic Phlebitis; thrombophlebitis and thromboembolism (11 sources) Deep venous thrombosis; Translations: [Acute embolism and thrombosis of unspecified vein] Onset: 02-04-2017 02-04-2017 Episodic Unclassified (11 sources) Edema of lower extremity; Translations: [Localized edema] Onset: 02-04-2017 02-04-2017 Episodic Results Test Name Value Interpretation Reference Range Facility Office Vis[facility] 06-23-2017 Documentation of current medications (procedure) Done Invalid Interpretation Code [facility] Work Phone: [facility]: Tobacco smoking status NHIS Never Invalid Interpretation Code [facility] Work Phone: Tobacco smoking status NHIS Former smoker [facility] Work Phone: Tobacco use CPHS Former smoker Invalid Interpretation Code [facility] Work Phone: Office Visiton 05-09-2017 Documentation of current medications (procedure) Done Invalid Interpretation Code [facility] Work Phone: [facility] conc [facility] Work [facility]: Tobacco smoking status NHIS Never Invalid Interpretation Code [facility] Work Phone: Tobacco smoking status NHIS Former smoker [facility] Work Phone: Tobacco use CPHS Former smoker Invalid Interpretation Code [facility] Work Phone: Office Visiton 04-11-2017 Documentation of current medications (procedure) Done Invalid Interpretation Code [facility] Work Phone: Tobacco smoking status NHIS Never Invalid Interpretation Code [facility] Work Phone: Tobacco use CPHS Former smoker Invalid Interpretation Code [facility] Work Phone: Office Visiton 03-26-2017 Documentation of current medications (procedure) Done Invalid Interpretation Code [facility] Work Phone: Tobacco smoking status NHIS Never Invalid Interpretation Code [facility] Work Phone: Tobacco use CPHS Former smoker Invalid Interpretation Code [facility] Work Phone: Microbiology: Culture, Body Fluidon 03-19-2017 body fluid culture . Invalid Interpretation Code [facility] Work Phone: CUBF . [facility] Work Phone: Lab Report: GLUCOSE, SYNOVIA L FLUIDon 03-07-2017 GE use only - for [employer] import when terms are not otherwise specified 133 mg/dL Invalid Interpretation Code . [facility] Work Phone: GLU, SYN FLD 133 mg/dL . [facility] Work Phone: Lab Report: Crystals, Body F luidon 03-06-2017 PATH REV Reviewed [facility] Work Phone: Pathology comment Reviewed Invalid Interpretation Code [facility] Work Phone: Lab Report: (P) Synovial Flu id RBC, WBC AND Diffon 03-05-2017 Cell Count, Synovial Fluid 0.1820 10 3 uL High 0.000-0.000 [facility] Work Phone: mononuclear cells, synovial fluid as percent of leukocytes 78.4 % Invalid Interpretation Code [facility] Work Phone: neutrophils, polymorphonuclear as percent of synovial fluid leukocytes 21.6 % Invalid Interpretation Code [facility] Work Phone: SYBF MN WBC% 78.4 % [facility] Work Phone: SYBF PMN WBC% 21.6 % [facility] Work Phone: SYN Tot Cell Ct 0.1820 10 3 uL High 0.000-0.000 [facility] Work Phone: SYNOVIAL WBC 0.1760 10 3UL High 0.000-0.002 [facility] Work Phone: WBC, Fluid 0.1760 10 3UL High 0.000-0.002 [facility] Work Phone: Office Visiton 03-05-2017 Documentation of current medications (procedure) Done Invalid Interpretation Code [facility] Work Phone: Tobacco smoking status NHIS Never Invalid Interpretation Code [facility] Work Phone: Tobacco use CPHS Former smoker Invalid Interpretation Code [facility] Work Phone: Replaced Document: (P) Cryst als, Body Fluidon 03-05-2017 crystals, body fluid SYNOVIAL Invalid Interpretation Code [facility] Work Phone: CRYSTALS/BF SYNOVIAL [facility] Work Phone: Replaced Document: (P) Synov ial Fluid RBC, WBC AND Diffon 03-05-2017 Erythrocytes (RBC) 0.70059 10*6/uL High 0 [facility] Work Phone: SYNOVIAL RBC 590 /uL High 0 [facility] Work Phone: appearance, body fluid Sl Cl Invalid Interpretation Code CLEAR [facility] Work Phone: color, synovial fluid Yellow Invalid Interpretation Code Pale Yellow [facility] Work Phone: SYNOVIAL COLOR Yellow Pale Yellow [facility] Work Phone: Replaced Document: Synovial Fluid RBC, WBC AND Diffon 03-05-2017 Lymphocytes/100 leukocytes 54 % Invalid Interpretation Code [facility] Work Phone: Lymphocytes/100 WBC (Bld) 54 % [facility] Work Phone: Monocytes 31 % Invalid Interpretation Code [facility] Work Phone: Monocytes #/vol (Bld) 31 % [facility] Work Phone: NEUTROPHIL 15 % 0-25 [facility] Work Phone: neutrophils as percent of body fluid leukocytes 15 % Invalid Interpretation Code 0-25 [facility] Work Phone: source of sample KNEE Invalid Interpretation Code [facility] Work Phone: SYNOVIAL SOURCE KNEE [facility] Work Phone: Lab Report: CBC W/Diff, Auto - EPLAB Onlyon 02-04-2017 Basophils/100 leukocytes 0.7 % Invalid Interpretation Code 0-1 [facility] Work Phone: Basophils/100 WBC (Bld) 0.7 % 0-1 [facility] Work Phone: Eosinophils/100 leukocytes 2.7 % Invalid Interpretation Code 0-5 [facility] Work Phone: Eosinophils/100 WBC (Bld) 2.7 % 0-5 [facility] Work Phone: Erythrocytes (RBC) 4.85 10*6/uL Invalid Interpretation Code 4.6-6.2 [facility] Work Phone: Hematocrit (HCT) 47.5 % Invalid Interpretation Code 40-54 [facility] Work Phone: Hematocrit Volume Fraction (Bld) 47.5 % 40-54 [facility] Work Phone: Hemoglobin (HGB) 15.9 g/dL Invalid Interpretation Code 13.0-16.5 [facility] Work Phone: Lymphocytes/100 leukocytes 27.9 % Invalid Interpretation Code 19-41 [facility] Work Phone: Lymphocytes/100 WBC (Bld) 27.9 % 19-41 [facility] Work Phone: MCH 32.7 pg High 27.0-32.0 [facility] Work Phone: MCH Entitic mass (RBC) 32.7 pg High 27.0-32.0 [facility] Work Phone: MCHC 33.4 g/dL Invalid Interpretation Code 32-36 [facility] Work Phone: MCHC mass conc (RBC) 33.4 g/dL 32-36 [facility] Work Phone: MCV 98.0 fL High 80-94 [facility] Work Phone: MCV Entitic volume (RBC) 98.0 fL High 80-94 [facility] Work Phone: Monocytes/100 leukocytes 4.7 % Invalid Interpretation Code 0-10 [facility] Work Phone: Monocytes/100 WBC (Bld) 4.7 % 0-10 [facility] Work Phone: Neutrophils/100 leukocytes 64.0 % Invalid Interpretation Code 47-70 [facility] Work Phone: Neutrophils/100 WBC (Bld) 64.0 % 47-70 [facility] Work Phone: Platelet mean volume Entitic volume (Bld) 6.1 fL Low 6.2-12.0 [facility] Work Phone: Platelets 201 10*3/mm3 Invalid Interpretation Code 150-450 [facility] Work Phone: Platelets #/vol (Bld) 201 10*3/mm3 150-450 [facility] Work Phone: PMV by Isacc 6.1 fL Low 6.2-12.0 [facility] ([place] [place] Work Phone: RBC #/vol (Bld) 4.85 10*6/uL 4.6-6.2 [facility] [place] Work Phone: WBC #/vol (Bld) 8.8 10*3/uL 4.4-11.0 [facility] Work Phone: WBC (Leukocytes) 8.8 10*3/uL Invalid Interpretation Code 4.4-11.0 [facility] Work Phone: Erythrocyte distribution width Ratio (RBC) 12.9 % 11.6-14.6 [facility] Work Phone: Lymphocytes 2.47 X10 3/UL Invalid Interpretation Code 0.83-4.51 [facility] Work Phone: Lymphocytes #/vol (Bld) 2.47 X10 3/UL 0.83-4.51 [facility] Work Phone: neutrophil count, blood 5.7 X10 3/UL Invalid Interpretation Code 2.0-7.7 [facility] Work Phone: Neutrophils #/vol (Bld) 5.7 X10 3/UL 2.0-7.7 [facility] Work Phone: RDW-CA 12.9 % Invalid Interpretation Code 11.6-14.6 [facility] Work Phone: Lab Report: Rommel Dc benson Profilon 02-04-2017 Alanine aminotransferase (ALT) 83 U/L High 12-78 [facility] Work Phone: Albumin 3.8 g/dL Invalid Interpretation Code 3.4-5.0 [facility] Work Phone: Albumin/Globulin Ratio 1 {ratio} Invalid Interpretation Code 0.9-2.4 [facility] Work Phone: Alkaline phosphatase (ALP) 97 U/L Invalid Interpretation Code 45-117 [facility] Work Phone: ALP enzyme act/vol (Bld) 97 U/L 45-117 [facility] Work Phone: Anion gap 9 mmol/L Invalid Interpretation Code 5-15 [facility] Work Phone: Anion gap molar conc 9 mmol/L 5-15 [facility] Work Phone: Aspartate aminotransferase (AST) 41 U/L High 15-37 [facility] Work Phone: Bilirubin (total) 0.60 mg/dL Invalid Interpretation Code 0.20-1.00 [facility] Work Phone: BUN/Creatinine Ratio 18.8 RATIO Invalid Interpretation Code 10-20 [facility] Work Phone: Calcium 9.7 mg/dL Invalid Interpretation Code 8.5-10.1 [facility] Work Phone: Chloride 107 mmol/L Invalid Interpretation Code 98-107 [facility] Work Phone: CO2 27.0 mmol/L Invalid Interpretation Code 21.0-32.0 [facility] Work Phone: CO2 ppres (BldV) 27.0 mmol/L 21.0-32.0 [facility] ([place], [place] Work Phone: Creatinine 1.54 mg/dL High 0.70-1.30 [facility] Work Phone: eGFR (non-black) 58 mL/min/{1.73_m2} Low >60 [facility] Work Phone: eGFR (non-black) 48 mL/min/{1.73_m2} Low >60 [facility] Work Phone: EST GFR - AA 58 mL/min Low >60 [facility] Work Phone: Globulin 3.8 g/dL High 2.3-3.5 [facility] Work Phone: Globulin mass conc (S) 3.8 g/dL High 2.3-3.5 [facility] Work Phone: Glucose 99 mg/dL Invalid Interpretation Code 70-110 [facility] Work Phone: Glucose mass conc 99 mg/dL 70-110 [facility] [place] Work Phone: Potassium 4.1 mmol/L Invalid Interpretation Code 3.5-5.1 [facility] Work Phone: Protein 7.6 g/dL Invalid Interpretation Code 6.4-8.2 [facility] Work Phone: Sodium 143 mmol/L Invalid Interpretation Code 136-145 [facility] Work Phone: Urea nitrogen 29 mg/dL High 7-18 [facility] Work Phone: Office Visit: 3 mo f/u: Unpr ovoked DVT (Xarelto) PHQ9 Completeon 02-04-2017 Adolescent depression screening assessment Adolescent depression screening assessment Invalid Interpretation Code [facility] Work Phone: Adult depression screening assessment Adolescent depression screening assessment Invalid Interpretation Code [facility] Work Phone: Replaced Document: (P) Antit hrombin 3 Functionon 11-02-2016 antithrombin, functional 129 % Invalid Interpretation Code 75-135 [facility] Work Phone: AT3 FUNCTION 129 % 75-135 [facility] Work Phone: Replaced Document: (P) Fact V Leiden Mutationon 11-02-2016 FACTOR V LEIDEN Comment . [facility] Work Phone: factor V Leiden, DNA testing by PCR, whole blood Comment Invalid Interpretation Code . [facility] Work Phone: Replaced Document: (P) Facto r II, DNA Analysison 11-02-2016 Protein mass conc Comment . [facility] ([place], [place]) [facility] Work Phone: prothrombin [id number] mutation, DNA testing by PCR, whole blood Comment Invalid Interpretation Code . [facility] Work Phone: Replaced Document: (P) Lupus Anticoagulant Compon 11-02-2016 aPTT 45.5 s High 0.0-40.6 [facility] Work Phone: coagulation comments Comment: Invalid Interpretation Code . [facility] Work Phone: DILUTE PT (dPT) 78.8 s High 0.0-55.0 [facility] Work Phone: dilute Pacheco Viper venom time 115.6 s High 0.0-44.0 [facility] Work Phone: dPT Conf. Ratio 1.8 ratio High 0.8-1.2 [facility] Work Phone: DRVVT 115.6 s High 0.0-44.0 [facility] Work Phone: dRVVT confirm 1.8 ratio High 0.8-1.2 [facility] Work Phone: HEX PHAS PHOSPH 10 s 0-11 [facility] Work Phone: hexagonal phospholipid, neutral 10 s Invalid Interpretation Code 0-11 [facility] [place] [facility] Work Phone: Interpretation Comment: . [facility] Work Phone: Prothrombin time, outside laboratory 78.8 s High 0.0-55.0 [facility] Work Phone: PTT-LA 45.5 s High 0.0-40.6 [facility] Work Phone: Thrombin Time 18.3 s Invalid Interpretation Code 0.0-20.9 [facility] Work Phone: Replaced Document: (P) Prote in C Defic. Profileon 11-02-2016 protein C antigen, plasma 124 % Invalid Interpretation Code 60-150 [facility] [place] [facility] Work Phone: Protein mass conc 124 % 60-150 [facility] ([place], [place]) [facility] Work Phone: Replaced Document: (P) Prote in C, Functionalon 11-02-2016 Protein C, Functional 148 % Invalid Interpretation Code 73-180 [facility] [place] [facility] Work Phone: Protein mass conc 148 % 73-180 [facility] ([place], [place]) [facility] Work Phone: Replaced Document: (P) Prote in Electroph, Son 11-02-2016 Albumin 3.8 g/dL Invalid Interpretation Code 2.9-4.4 [facility] Work Phone: Albumin/Globulin Ratio 1.3 (?) Invalid Interpretation Code 0.7-1.7 [facility] Work Phone: ALPHA-1 GLOBUL 0.2 g/dL 0.0-0.4 [facility] Work Phone: ALPHA-2 GLOBUL 0.7 g/dL 0.4-1.0 [facility] Work Phone: BETA GLOBULIN 1.1 g/dL 0.7-1.3 [facility] Work Phone: GAMMA GLOBULIN 0.9 g/dL 0.4-1.8 [facility] Work Phone: Globulin 3.0 g/dL Invalid Interpretation Code 2.2-3.9 [facility] Work Phone: Globulin . Invalid Interpretation Code [facility] Work Phone: Globulin 0.9 g/dL Invalid Interpretation Code 0.4-1.8 [facility] Work Phone: Globulin 1.1 g/dL Invalid Interpretation Code 0.7-1.3 [facility] Work Phone: Globulin 0.7 g/dL Invalid Interpretation Code 0.4-1.0 [facility] Work Phone: Globulin 0.2 g/dL Invalid Interpretation Code 0.0-0.4 [facility] Work Phone: Globulin mass conc (S) 3.0 g/dL 2.2-3.9 [facility] Work Phone: lab comments Comment Invalid Interpretation Code . [facility] Work Phone: M-SPIKE . [facility] Work Phone: NOTE: Comment . [facility] Work Phone: Protein 6.8 g/dL Invalid Interpretation Code 6.0-8.5 [facility] Work Phone: serum protein electrophoresis, interpretation/comment Comment Invalid Interpretation Code . [facility] [place] [facility] Work Phone: Replaced Document: (P) Prote in S Defic. Profileon 11-02-2016 Protein mass conc 175 % High 63-140 [facility] ([place], [place]) [facility] Work Phone: Protein S, Functional 175 % High 63-140 [facility] Work Phone: Lab Report: Vitamin B12on Cobalamin (Vitamin B12) mass conc 674 pg/mL 211-911 [facility] [place] [facility] Work Phone: vitamin b12, serum 674 pg/mL Invalid Interpretation Code 911 [facility] [place] [facility] Work Phone: Lab Report: CBC W/Diff, Auto matedon 10-24-2016 Erythrocyte distribution width Ratio (RBC) 48.2 fL High 35.1-43.9 [facility] Work Phone: Immature granulocytes #/vol (Bld) 0.300 % 0.0-0.9 [facility] [place] [facility] Work Phone: immature granulocytes, percentage of total cells, blood 0.300 % Invalid Interpretation Code 0.0-0.9 [facility] Work Phone: red blood cell distribution width, size density 48.2 fL High 35.1-43.9 [facility] Work Phone: Lab Report: D-Dimer Quantita tive (DVT/PE)on 10-24-2016 D-dimer quantitative mcg/mL 0.34 FEU/UG/M Invalid Interpretation Code 0.27-0.49 [facility] Work Phone: D-DIMER QUANT 0.34 FEU/UG/M 0.27-0.49 [facility] Work Phone: Lab Report: Folates, (Folic Acid)on 10-24-2016 Folate 64.40 ng/mL High 3.1-17.5 [facility] [place] [facility] Work Phone: Lab Report: Iron Binding Cap acity,Totalon 10-24-2016 iron binding capacity, total 367 ug/dL Invalid Interpretation Code 250-450 [facility] [place] [facility] Work Phone: Lab Report: LDHon 10-24-2016 lactate dehydrogenase - serum 231 U/L Invalid Interpretation Code 87-241 [facility] Work Phone: LDH 231 U/L 87-241 [facility] Work Phone: Lab Report: Uric Acidon 12-0 Urate 7.6 mg/dL High 3.5-7.2 [facility] Work Phone: Office Visit: 3 mo f/u: Unpr ovoked DVT (Xarelto) PHQ9 Completeon 09-25-2005 Colonoscopy (procedure) Colonoscopy (procedure) Invalid Interpretation Code [facility] Work Phone: Protein mass conc Colonoscopy (procedure) [facility] Work Phone: Vital Signs Date Time Vital Sign Value Performing Clinician Facility 02-20-2017 14:03-0400 BMI (Body Mass Index) 33.96 kg/m2 [facility] Work Phone: 02-20-2017 14:03-0400 Weight 104.33 kg [facility] Work Phone: 02-18-2017 14:12-0400 Body Temperature 98.2 [degF] [facility] Work Phone: 02-18-2017 14:12-0400 BP Diastolic 80 mm[Hg] [facility] Work Phone: 02-18-2017 14:12-0400 BP Systolic 133 mm[Hg] [facility] Work Phone: 02-18-2017 14:12-0400 BSA (Body Surface Area) 2.21 m2 [facility] Work Phone: 02-18-2017 14:12-0400 Height 175.26 cm [facility] [place] [facility] Work Phone: 02-18-2017 14:12-0400 Pulse (Heart Rate) 65 /min [facility] [place] [facility] Work Phone: 02-18-2017 14:12-0400 Pulse Oximetry 96 % [place] [facility] Work Phone: 02-18-2017 14:12-0400 Respiratory Rate 18 /min [facility] [place] [facility] Work Phone: 02-18-2017 14:12-0400 Weight 106.36 kg [place] [facility] Work Phone: 07-12-2010 10:24-0400 Height 175.26 cm [facility] Work Phone: Encounters Encounter Date Encounter Type Care Provider Facility Start: 09-26-2024 End: 09-26-2024 Patient encounter procedure Charley Garcia PA-C Work Phone: [facility] Comment on above: Right leg swelling ( Primary Dx) Procedures Date Procedure Procedure Detail Performing Clinician Start: 03-05-2017 End: 03-05-2017 *BFRW - Body Fluid RBC, WBC & DIFF Ross Cleary Work Phone: Start: 03-05-2017 End: 03-05-2017 Bacteria identified in Body fluid by Culture Ross Cleary Work Phone: Start: 03-05-2017 End: 03-05-2017 Crystals [type] in Body fluid by Light microscopy Ross Cleary Work Phone: Start: 03-05-2017 End: 03-17-2017 Drain/inject, joint/bursa Ross Cleary Work Phone: Start: 03-05-2017 End: 03-05-2017 Glucose Ross Cleary Work Phone: Start: 03-05-2017 End: 03-05-2017 Glucose [Mass/volume] in Body fluid Ross Cleary Work Phone: Start: 03-05-2017 End: 03-05-2017 Protein in fluid Ross Cleary Work Phone: Start: 02-20-2017 End: 03-05-2017 Mri jnt of lwr extre w/o dye Ross Cleary Work Phone: Start: 02-18-2017 End: 02-19-2017 Referral to orthopedic surgeon Linda Go [employer]ICAL OFFICE SUPERVISOR Work Phone: Start: 02-12-2017 End: 03-05-2017 Us exam, abdom, complete Linda Marcus h MEDICAL OFFICE SUPERVISOR Work Phone: Start: 02-04-2017 End: 02-04-2017 *CBC w/Diff - oncology ONLY Raul short Work Phone: Start: 02-04-2017 End: 02-04-2017 *CMP Complete Metabolic Panel Raul Willard Work Phone: Start: 02-04-2017 End: 02-04-2017 Extremity study Lindamichael Go MEDICAL OFFICE SUPERVISOR Work Phone: Start: 02-04-2017 End: 03-05-2017 Fibrin D-dimer FEU Raul Green [employer] Work Phone: Start: 02-04-2017 End: 03-05-2017 Lactate dehydrogenase (LDH) Raul short Work Phone: Start: 02-04-2017 End: 03-05-2017 Urate Raul Green [employer] Work Phone: Start: 05-23-2009 Colonoscopy Charley Garcia PA-C Work Phone: Plan of Treatment Date Care Activity Detail Author Start: 12-01-2028 Urine microalbumin profile DTaP,Tdap,Td Vaccine (2 - Td or Tdap) [facility] Start: 2025 RSV Vaccine (1 - 1-dose 75+ series) RSV Vaccine (1 - 1-dose 75+ series) [facility] Start: 11-19-2024 Screening for malignant neoplasm of colon Cologuard (FIT-DNA) [facility] Start: 07-25-2024 Covid-19 Vaccine ( season) Covid-19 Vaccine ( season) [facility] Start: 07-25-2024 Influenza vaccination Influenza Vaccine (#1) [facility] Start: 11-24-2023 Advance Directive Discussion Advance Directive Discussion [facility] Start: 11-20-2021 Screening for malignant neoplasm of colon Colorectal Cancer Screening [facility] Start: 05-23-2019 Screening for malignant neoplasm of colon Colonoscopy [facility] Start: 06-23-2017 End: 06-23-2017 Appointment Appointment [facility] [place] [facility] Work Phone: Start: 05-09-2017 End: 05-09-2017 Appointment Appointment [facility] Work Phone: Start: 05-09-2017 End: 05-09-2017 Appointment Appointment [facility] Work Phone: Start: 04-11-2017 End: 04-11-2017 Appointment Appointment [facility] Work Phone: Start: 04-01-2017 End: 04-01-2017 Appointment Appointment [facility] Work Phone: Start: 03-26-2017 End: 03-26-2017 Appointment Appointment [facility] Work Phone: Start: 03-17-2017 End: 02-21-2017 *LUPA Lupus Anticoag Comp [id number] *LUPA Lupus Anticoag Comp [id number] [facility] Work Phone: Start: 03-17-2017 End: 02-21-2017 *MISC - Miscellaneous Lab Test #1 *MISC - Miscellaneous Lab Test #1 [facility] Work Phone: Start: 03-17-2017 End: 02-21-2017 *MISC2 - Miscellaneious Lab Test #2 *MISC2 - Miscellaneious Lab Test #2 [facility] Work Phone: Start: 03-17-2017 End: 02-21-2017 *PROTS Protein S Defic. Profile [id number] *PROTS Protein S Defic. Profile [id number] [facility] Work Phone: Start: 03-17-2017 End: 02-21-2017 Coagulation factor induced.INR assay in platelet poor plasma *Prothrombin Time (PT) [facility] Work Phone: Start: 03-17-2017 End: 02-21-2017 Fibrin D-dimer FEU *DDIMQ - Fibrin Degrd Ultrsens Qual/Semiquan [facility] Work Phone: Start: 03-17-2017 End: 02-21-2017 Fibrin D-dimer FEU mass conc (PPP) *DDIMQ - Fibrin Degrd Ultrsens Qual/Semiquan [facility] Work Phone: Start: 03-05-2017 End: 03-05-2017 *BFRW - Body Fluid RBC, WBC & DIFF *BFRW - Body Fluid RBC, WBC & DIFF [facility] Work Phone: Start: 03-05-2017 End: 03-05-2017 Bacteria identified in Body fluid by Culture *CUBF- Culture, Body Fluid [facility] Work Phone: Start: 03-05-2017 End: 03-05-2017 Crystals [type] in Body fluid by Light microscopy *SAE - Crystals, Body Fluid [facility] Work Phone: Start: 03-05-2017 End: 03-05-2017 Glucose *GLUBF - Glucose, Body Fluid [facility] Work Phone: Start: 03-05-2017 End: 03-05-2017 Glucose mass conc (Body fld) *GLUBF - Glucose, Body Fluid [facility] Work Phone: Start: 03-05-2017 End: 03-05-2017 Protein in fluid *PROBF - Protein, Body Fluid [facility] Work Phone: Start: 02-21-2017 End: 02-21-2017 *CBC w/Diff - oncology ONLY *CBC w/Diff - oncology ONLY [facility] Work Phone: Start: 02-21-2017 End: 02-21-2017 *CMP Complete Metabolic Panel *CMP Complete Metabolic Panel [facility] Work Phone: Start: 02-20-2017 End: 03-05-2017 Mri jnt of lwr extre w/o dye MRI Joint Lower Extremity [facility] Work Phone: Start: 02-18-2017 End: 02-24-2017 Orthopedic Referral Orthopedic Referral Ross Cleary DO, [facility] Orthopaedics & Sports Medicine, [address] [place] [address], [address], [place], [address] [facility] Work Phone: Start: 02-12-2017 End: 03-05-2017 Us exam, abdom, complete US Abdomen Complete [facility] Work Phone: Start: 02-04-2017 End: 02-04-2017 *CBC w/Diff - oncology ONLY *CBC w/Diff - oncology ONLY [facility] Work Phone: Start: 02-04-2017 End: 02-04-2017 *CMP Complete Metabolic Panel *CMP Complete Metabolic Panel [facility] Work Phone: Start: 02-04-2017 End: 02-04-2017 Extremity study Venous Doppler LE Left [facility] Work Phone: Start: 02-04-2017 End: 03-05-2017 Fibrin D-dimer FEU *DDIMQ - Fibrin Degrd Ultrsens Qual/Semiquan [facility] Work Phone: Start: 02-04-2017 End: 03-05-2017 Fibrin D-dimer FEU mass conc (PPP) *DDIMQ - Fibrin Degrd Ultrsens Qual/Semiquan [facility] Work Phone: Start: 02-04-2017 End: 03-05-2017 Lactate dehydrogenase (LDH) *LDH -LDH (Lactate Dehydrogenase) [facility] Work Phone: Start: 02-04-2017 End: 03-05-2017 Urate *Uric Acid Blood [facility] Work Phone: Start: 05-05-2016 Diabetes Screening Diabetes Screening [facility] Start: 1995 Screening for malignant neoplasm of colon [facility] Start: 1985 Lipid panel Lipid Screening [facility] Start: 1968 Anxiety Screening Anxiety Screening [facility] Start: 1968 Depression Screening Depression Screening [facility] Start: 1968 Hepatitis C screening Hepatitis C Screening [facility] Start: 1950 Abdominal aortic aneurysm screening Abdominal Aortic Aneurysm Screening [facility] Patient Education Rosuvastatin%2 0(Oral)%20 (Tablet) [facility] Work Phone: Immunizations Immunization Date Immunization Notes Care Provider Mauro vieyra 07-26-2015 influenza virus vacc ine, unspecified formulation Charley Garcia PA-C Work Phone: [facility] Payers Date Payer Category Payer Medicare MEDICARE MEDICAR E B [id number] 2015-[place] [place] [address] Medicare [id number] 2007 Unknown [employer] BLUE CARD PPO OOS [id number] 2007-Present [phone] [address] [place] [address] PPO [id number] Social History Date Type Detail Facility Start: 11-25-2015 Tobacco smoking stat us OKIS Ex-smoker [facility] Start: 02-18-1970 End: 02-18-2015 History of tobacco use Current smoker [facility] Start: 02-18-1970 End: 02-18-2015 History of tobacco use Cigarette Smoker [facility] Start: 11-25-2015 Cigarettes smoked cu rrent (pack per day) - Reported 1 [facility] Start: 11-25-2015 Alcoholic beverage intake Curr ent drinker of alcohol (finding) [facility] Start: 05-05-2013 Alcohol Comment 2 drinks per year Cl [facility] Start: 1950 Sex assigned at Not on file [facility] Gender identity Not on file [facility] in History of Present illness Narrative 09-26-2024 Charley Garcia PA-C - 09/26/2024 1:49 PM EST Note Date & Type Note Facility 09-26-2024 History of Presen t illness Narrative Patient presents [facility] triage with chief complaint of right leg swelling since yesterday. He has a history of a DVT several years ago and is not currently anticoagulated. Denies injury to the leg. It hurts minimally behind the knee and on the medial leg. No recent surgeries or travel. No chest pain or shortness of breath. Recommended the patient be evaluated in the emergency department as we cannot evaluate for DVT over the weekend. [facility] will [facility] ED to be evaluated. documented in this encounter [facility] Evaluation note Note Date & Type Note Facility Evaluation note Diagnosis Right leg swelling- Primary Swelling of limb documented in this encounter [facility] Additional Source Comments Source Comments (unrecognize d section and content) In the event this informatio n is protected by the Federal Confidentiality of Alcohol and Drug Abuse Patient Records regulations: The Federal rules restrict any use of the information to criminally investigate or prosecute any alcohol or drug abuse patient.[facility] FOR RECORDS PERTAINING TO PATIENTS WHO ARE OR HAVE BEEN ENROLLED IN A CHEMICAL DEPENDENCY/SUBSTANCEABUSE PROGRAM, SOME INFORMATION MAY BE OMITTED. This clinical summary was aggregated from multiple sources. Caution should be exercised in using it in the provision of clinical care. This summary normalizes information from multiple sources, and as a consequence, information in this document may materially change the coding, format and clinical context of patient data. In addition, data may be omitted in some cases. CLINICAL DECISIONS SHOULD BE BASED ON THE PRIMARY CLINICAL RECORDS. [facility]. provides no warranty or guarantee of the accuracy or completeness of information in this document.
== END | disposition home or self-care (01) ==
LOC: CVS 08:44
PROVIDERS: PCP Family Medicine; Referring Provider Emergency Medicine; Visit Provider Emergency Medicine
DX: M79.89 Other specified soft tissue disorders (principal)
CPT/HCPCS: 93971

== ENCOUNTER → 2024-11-26 | Outpatient (CLI) | payer MEDICARE, OTHER, SELFPAY ==
[2024-11-26 16:02] LABS: PSA,Total - Annual Screen 6.87 ng/mL (0.00-4.00)
== END | disposition home or self-care (01) ==
LOC: MFPLAB 11:56
PROVIDERS: PCP Family Medicine; Referring Provider Family Medicine; Visit Provider Family Medicine
DX: Z12.5 Encounter for screening for malignant neoplasm of prostate (principal)
CPT/HCPCS: 36415; 84153; G0103

== ENCOUNTER 2025-03-21 09:46 | Outpatient (CLI) | payer MEDICARE, OTHER, SELFPAY ==
[2025-03-21 13:31] LABS: Absolute Lymphocyte Count 1.25 X10^3/uL (0.83-4.51); Basophil# 0.06 X10^3/uL; Basophil% 0.5 % (0-1); Eosinophil# 0.07 X10^3/uL; Eosinophils% 0.6 % (0-5); Hematocrit 45.6 % (40-54); Lymphocyte # 1.25 X10^3/ul (0.83-4.51); Lymphocyte % 10.5 % (19-41); Mean Corp Hgb Conc 35.1 g/dL (32-36); Mean Platelet Vol. 9.6 fl (6.2-12.0); Monocyte# 0.43 X10^3/uL; Monocyte% 3.6 % (0-10); NRBC Flagged by Analyzer 0 % (0-5); Neutrophil # 10.01 X10^3/uL (2.7-7.7); Neutrophil % 84.3 % (47-70); Platelet Count 247 K/mm3 (150-450); RBC Distribution Width CV 13.2 % (11.6-14.6); RBC Distribution Width SD 45.1 fl (35.1-43.9); Red Blood Count 4.85 M/mm3 (4.6-6.2); White Blood Count 11.9 K/mm3 (4.4-11.0)
[2025-03-21 13:41] LABS: D-Dimer Quantitative (DVT/PE) 0.43 FEU/ug/m (0.27-0.49)
[2025-03-21 14:46] LABS: ALB/GLOB Ratio 1.5 RATIO (0.9-2.4); AST(SGOT) 19 U/L (<=37); Alanine Aminotransfer ALT/SGPT 21 U/L (<=46); Albumin, Serum 4.4 g/dL (3.4-4.8); Alkaline Phosphatase 70 U/L (40-129); Anion Gap 13 (5-15); BUN 33 mg/dL (4-19); BUN/Creat Ratio 20.7 RATIO (10-20); Calcium,Total 9.8 mg/dL (7.6-11.0); Carbon Dioxide 22.1 mmol/L (21.0-32.0); Chloride 105 mmol/L (98-108); Creatinine, Serum 1.57 mg/dL (0.70-1.20); EST Glomerular Filtration Rate 46 (>60); Globulin 2.9 g/dL (2.2-4.2); Glucose 105 mg/dL (70-99); LDH 167 U/L (87-241); Potassium 4.5 mmol/L (3.3-5.1); Protein, Total 7.3 g/dL (5.9-8.4); Sodium Level 140 mmol/L (133-145); Total Bilirubin 0.68 mg/dL (0.00-1.30)
== END 2025-03-21 23:59 | disposition home or self-care (01) ==
LOC: MTLAB 09:47
PROVIDERS: PCP Family Medicine; Referring Provider Internal Medicine Medical Oncology; Visit Provider Internal Medicine Medical Oncology
DX: E72.12 Methylenetetrahydrofolate reductase deficiency (principal); I82.409 Acute embolism and thrombosis of unspecified deep veins of unspecified lower extremity
CPT/HCPCS: 36415; 80053; 83615; 85025; 85379

== ENCOUNTER → 2025-05-09 | Outpatient (CLI) | payer MEDICARE, OTHER, SELFPAY ==
[2025-05-09 16:35] LABS: PSA,Total- Diagnostic 4.23 ng/mL (0.00-4.00)
== END | disposition home or self-care (01) ==
LOC: MTLAB 09:30
PROVIDERS: PCP Family Medicine; Referring Provider Nurse Practitioner; Visit Provider Nurse Practitioner
DX: R97.20 Elevated prostate specific antigen [PSA] (principal)
CPT/HCPCS: 36415; 84153

== ENCOUNTER → 2025-05-24 | Outpatient (CLI) | payer MEDICARE, OTHER, SELFPAY ==
--- NOTE | 2025-05-24 10:44 | VDLE_ITS ---
Reason For Study Reason For Study: RLE SWELLING RIGHT LEFT GSV is normal. CFV is compressible, spontaneous, phasic, competent, CFV is compressible, spontaneous, phasic, competent and demonstrates normal augmentation. and demonstrates normal augmentation. Chronic DVT noted in the FV, Pop V, PTV, PERV, GASTROCNEMIUS V. Procedure This is a venous duplex using B-mode, color flow and spectral Doppler. Exam performed in department. A preliminary report was called and/or faxed to DR. Nkaul Oliva's nurse. She will notify him and connect with PT. VL/Venous Duplex US, Unilateral Interpretation Summary Chronic deep vein thrombosis noted in the right femoral vein, popliteal vein, p osterior tibial vein, peroneal vein, gastrocnemius vein. Ordering Physician: Nakul Oliva Referring Physician: Nakul Oliva Performed By: Annette Solares, RDCS, RVT
== END | disposition home or self-care (01) ==
LOC: CVS 10:40
PROVIDERS: PCP Family Medicine; Referring Provider Family Medicine; Visit Provider Family Medicine
DX: I82.401 Acute embolism and thrombosis of unspecified deep veins of right lower extremity (principal); M79.89 Other specified soft tissue disorders
CPT/HCPCS: 93971

== ENCOUNTER → 2025-05-24 | Outpatient (CLI) | payer MEDICARE, OTHER, SELFPAY ==
[2025-05-24 12:50] LABS: Hematocrit 46.4 % (40-54); Hemoglobin 15.9 g/dL (13.0-16.5); Immature Granulocytes Count 0.020 X10^3/uL (0.0-0.0); Mean Corp Hgb Conc 34.3 g/dL (32-36); Mean Corpuscular Volume 93.7 fL (80-94); Mean Platelet Vol. 9.6 fl (6.2-12.0); NRBC Flagged by Analyzer 0 % (0-5); Platelet Count 204 K/mm3 (150-450); RBC Distribution Width CV 13.5 % (11.6-14.6); RBC Distribution Width SD 45.6 fl (35.1-43.9); Red Blood Count 4.95 M/mm3 (4.6-6.2); White Blood Count 7.4 K/mm3 (4.4-11.0)
[2025-05-24 13:59] LABS: AST(SGOT) 24 U/L (<=37); Alanine Aminotransfer ALT/SGPT 23 U/L (<=46); Albumin, Serum 4.3 g/dL (3.4-4.8); Alkaline Phosphatase 77 U/L (40-129); Anion Gap 13 (5-15); BUN 29 mg/dL (4-19); BUN/Creat Ratio 18.1 RATIO (10-20); Calcium,Total 9.6 mg/dL (7.6-11.0); Carbon Dioxide 21.9 mmol/L (21.0-32.0); Chloride 105 mmol/L (98-108); Cholesterol 184 mg/dL (<=200); Globulin 3.1 g/dL (2.2-4.2); Glucose 99 mg/dL (70-99); Low Density Lipoprotein Calc. 117 mg/dL; Potassium 4.2 mmol/L (3.3-5.1); Triglycerides 148 mg/dL; Very Low Density Lipoprotein 30 mg/dL (5-40); Vitamin B12 608 pg/mL (180-914); cholesterol:hdl ratio screen 4.87
[2025-05-24 14:04] LABS: CRP < 3.00 mg/L (0.0-3.0); Uric Acid 9.4 mg/dL (3.5-7.2)
[2025-05-24 15:38] LABS: FOLATES,SERUM (FOLIC ACID) 15.30 ng/mL (4.60-34.80)
== END | disposition home or self-care (01) ==
LOC: MFPLAB 09:19
PROVIDERS: PCP Family Medicine; Referring Provider Family Medicine; Visit Provider Family Medicine
DX: R41.89 Other symptoms and signs involving cognitive functions and awareness (principal); R42 Dizziness and giddiness; E78.5 Hyperlipidemia, unspecified; M10.9 Gout, unspecified
CPT/HCPCS: 36415; 80053; 80061; 82607; 82746; 83036; 84443; 84550; 85025; 85652; 86140

== ENCOUNTER → 2025-06-20 | Outpatient (CLI) | payer MEDICARE, OTHER, SELFPAY ==
[2025-06-20 20:01] LABS: Prothrombin Time (Protime)PT. 12.9 SECONDS (11.7-14.9)
[2025-06-20 20:02] LABS: Partial Thromboplast Time 27.4 Seconds (24.1-36.2)
[2025-06-20 20:05] LABS: D-Dimer Quantitative (DVT/PE) 0.48 FEU/ug/m (0.27-0.49)
--- OUTSIDE RECORDS SUMMARY | 2025-06-20 23:11 | XMS RPT_ITS | CCD ---
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 Nakul Oliva Primary Care Provider 1([facility])[phone] Dr. Nakul Oliva Referring Provider 1([facility])[phone] Mal Barbosa Attending Provider 1([facility])-[phone] Unavailable Primary Care Provider Unavailjohn Oliva MD, Dr. Mota Primary Care Provider 1([facility])[phone] Dr. Moreno Travis MD Attending Provider [phone] Moreno Travis MD Referring Provider [phone] Nakul Oliva MD Referring Provider 1([facility])[phone] Amanda Corey Attending Provider 1([facility])[phone] Amanda Corey Referring Provider 1([facility])[phone] Nakul Oliva MD Attending Provider Dr. Nakul Zelaya MD Attending Provider Denae Miranda Attending Provider 1([facility])-[phone] Pj, Nakul Primary Care Unavailable Nakul Oliva Attending Unavailable Pj, Nakul Referring Unavailable Oliva, Nakul Primary Care Unavailable OlivaNakul Attending Unavailable Oliva, Nakul Referring Unavailable Oliva, Nakul Primary Care Unavailable Scottie Leo Attending Unavailable Oliva, Nakul Primary Care Unavailable Scottie Leo Attending Unavailable Scottie Leo Referring Unavailable Moreno Travis Attending Unavailable Moreno Travis Referring Unavailable Oliva, Nakul Primary Care Unavailable Oliva, Nakul Primary Care Unavailable Bonaparte, Amanda Attending Unavailable Bonaparte, Amanda Referring Unavailable Oliva, Nakul Primary Care Unavailable Moreno Travis Attending Unavailable Oliva, Nakul Referring Unavailable Thaddeus, Moreno Attending Unavailable Oliva, Nakul Primary Care Unavailable Oliva, Nakul Referring Unavailable Oliva, Nakul Primary Care Unavailable Denae Gross Attending Unavailable Oliva, Nakul Referring Unavailable Oliva, Nakul Primary Care Unavailable Jeannette Jain Attending Unavailable Oliva, Nakul Primary Care Unavailable Nakul Zelaya Attending Unavailable Oliva, Nakul Referring Unavailable Prah, Moreno Referring Unavailable Oliva, Nakul Primary Care Unavailable Thaddeus, Moreno Attending Unavailable Oliva, Nakul Primary Care Unavailable Oliva, Nakul Attending Unavailable Oliva, Naukl Referring Unavailable Allergies Allergy Classification Reported Allergen(s) Allergy Type Date of Onset Reaction(s) Facility (11 sources) cephalexin drug allergy 0 [facility] Work Phone: (11 sources) Cephalexin; Translations: [cephalexin monohydrate] Drug Allergy 2 [facility] (2 sources) Cephalexin; Translations: [CEPHALEXIN] Drug Allergy 9 Other: See Comments [facility] Medications Current Medications Medication Drug Class(es) Dates Sig (Normalized) Sig (Original) apixaban 5 mg oral tablet (8 sources) Factor Xa Inhibitor Start: 10-07-2024 End: 12-14-2024 take 1 tablet by mouth twice daily Apixaban (Eliquis) 5 mg tablet Active 5 mg PO TWICE A DAY 60 2 December 14, 2024 12:33pm benzonatate 100 mg oral capsule (1 source) [...] 12 % cream as needed. 02/18/2013 Active Multivitamin (Multiple Vitamins) 1 EACH tablet (10 sources) Start: 12-30-2017 take 1 tablet by mouth once daily Multivitamin (Multiple Vitamins) 1 EACH tablet Active 1 EACH PO DAILY December 30, 2017 11:54am Start: 12-30-2017 take 1 tablet by jerry th once daily Multivitamin (Multiple Vitamins) 1 EACH tablet Active 1 NMA PO DAILY December 30, 2017 1:00am SUPPLEMENT Start: 12-30-2017 take 1 tablet by jerry th once daily Multivitamin (Multiple Vitamins) 1 EACH tablet Active 1 NMA PO DAILY December 30, 2017 1:00am Start: 12-30-2017 take 1 tablet by jerry th once daily Multivitamin (Multiple Vitamins) 1 EACH tablet Active 1 EACH PO DAILY December 30, 2017 1:00am Start: 12-30-2017 take 1 tablet by jerry th once daily Multivitamin (Multiple Vitamins) 1 EACH tablet Active 1 EACH PO DAILY December 30, 2017 12:00am MULTIVITAMIN TAB (1 source) Start: 03-17-2009 MULTIVITAMIN T AB Take one(1) tablet daily. 0 03/17/2009 Active Completed/Discontinued Medications Medication Drug Class(es) Dates Sig (Normalized) Sig (Original) acetaminophen 500 mg oral tablet (10 sources) Start: 05-27-2018 End: 01-02-2022 take 2 tablets by mouth every eight hours Acetaminophen 500 MG tablet Discontinued 1000 mg PO EVERY 8 HOURS 90 0 May 27, 2018 12:00am January 02, 2022 3:34pm Start: 05-27-2018 End: 01-02-2022 take 1000 mg by mouth every eight hours Acetaminophen Discontinued 1000 MG PO EVERY 8 HOURS 90 May 26, 2018 11:00pm January 02, 2022 2:34pm acetaminophen 325 mg / HYDROcodone bitartrate 5 mg oral tablet (10 sources) Opioid Agonist Start: 04-01-2017 End: 12-03-2017 Hydrocodone-Acetaminophen 1 TABLET tablet Discontinued 1 - 2 {tbl} PO EVERY 6 HOURS NEEDED as needed for Pain 60 0 April 01, 2017 12:00am December 03, 2017 4:28pm Start: 04-01-2017 End: 12-03-2017 take 1 tablet by mouth every six hours as needed Hydrocodone-Acetaminophen Discontinued 1 - 2 TABLET PO EVERY 6 HOURS NEEDED 60 March 31, 2017 11:00pm December 03, 2017 3:28pm acetaminophen 325 mg / oxyCODONE hydrochloride 5 mg oral tablet (20 sources) Opioid Agonist Start: 01-19-2018 End: 01-19-2018 Oxycodone-Acetaminophen 1 TABLET tablet Discontinued 1 - 2 {tbl} PO EVERY 6 HOURS as needed for Pain 42 0 January 19, 2018 January 19, 2018 4:45pm Arthritis of left knee Unilateral primary osteoarthritis, left knee Start: 01-19-2018 End: 01-26-2018 Oxycodone-Acetaminophen (Per cocet) 5-325 mg tablet Discontinued 0 PO Q8H as needed for pain 42 7 0 January 19, 2018 January 25, 2018 1:00am January 26, 2018 1:06am Unilateral primary osteoarthritis, left knee 1-2 po q8h prn pain PO Q8H PRN Start: 01-19-2018 End: 01-19-2018 take 1 tablet by mouth every six hours Oxycodone-Acetaminophen Discontinued 1 - 2 TABLET PO EVERY 6 HOURS 42 January 19, 2018 January 19, 2018 3:45pm Start: 01-07-2018 End: 01-19-2018 Oxycodone-Acetaminophen 1 TA BLET tablet Discontinued 1 - 2 {tbl} PO EVERY 4 HOURS NEEDED as needed for Pain 60 January 07, 2018 1:00am January 19, 2018 4:39pm Arthritis of left knee Unilateral primary osteoarthritis, left knee Start: 01-07-2018 End: 01-19-2018 take 1 tablet by mouth every four hours as needed Oxycodone-Acetaminophen Discontinued 1 - 2 TABLET PO EVERY 4 HOURS NEEDED 60 January 07, 2018 12:00am January 19, 2018 3:39pm aspirin 81 mg delayed release oral tablet (20 sources) Nonsteroidal Anti-inflammatory Drug Start: 05-18-2018 End: 12-14-2024 take 1 tablet by mouth once daily Aspirin (Adult Aspirin Regimen) 81 MG tablet,delayed release (DR/EC) Discontinued 81 mg PO DAILY May 18, 2018 12:00am December 14, 2024 11:55am BLOOD THINNER Start: 03-28-2017 End: 01-07-2018 take 1 tablet by mouth at bedtime Aspirin 81 MG tablet,delayed release (DR/EC) Discontinued 81 mg PO AT BEDTIME March 28, 2017 12:00am January 07, 2018 4:59pm HEART HEALTH take 1 tablet by jerry th once daily ASPIR-81 81 MG TBEC One tablet by mouth daily. ASPIRIN [id number] Raul Willard calcium carbonate 500 mg chewable tablet (10 sources) Start: 05-18-2018 End: 01-01-2022 Calcium Carbonate (Tums) 200 MG tablet,chewable Discontinued 200 mg PO NEEDED as needed for Heartburn May 18, 2018 12:00am January 01, 2022 9:25pm celecoxib 200 mg oral capsule (20 sources) Nonsteroidal Anti-inflammatory Drug End: 11-06-2016 take 2 tablets by mouth once daily CELEBREX 200 MG CAPS Two tablets by mouth daily. CELECOXIB [id number] Raul Willard docusate sodium 100 mg oral capsule (10 sources) Start: 04-01-2017 End: 12-03-2017 take 1 capsule by mouth twice daily as needed for constipation Docusate Sodium 100 MG capsule Discontinued 100 mg PO TWICE DAILY NEEDED as needed for Constipation 10 April 01, 2017 12:00am December 03, 2017 4:28pm docusate sodium 50 mg / sennosides, detention 8.6 mg oral tablet (10 sources) Start: 05-27-2018 End: 01-01-2022 Sennosides-Docusate Sodium 1 TABLET tablet Discontinued 2 {tbl} PO TWICE A DAY May 27, 2018 12:00am January 01, 2022 9:25pm Take until first bowel movement, then as needed Start: 05-27-2018 End: 01-01-2022 Sennosides-Docusate Sodium D iscontinued 2 TABLET PO TWICE A DAY May 26, 2018 11:00pm January 01, 2022 8:25pm Take until first bowel movement, then as needed famotidine 20 mg oral tablet (10 sources) Histamine-2 Receptor Antagonist Start: 05-27-2018 End: 01-01-2022 take 1 tablet by mouth once daily Famotidine 20 MG tablet Discontinued 20 mg PO DAILY May 27, 2018 12:00am January 01, 2022 9:25pm finasteride 5 mg oral tablet (11 sources) 5-alpha Reductase Inhibitor take 1 tablet by mouth once daily FINASTERIDE 5 MG TABS One tablet by mouth daily. FINASTERIDE [id number] Raul Willard levoFLOXacin 500 mg oral tablet (20 sources) Quinolone Antimicrobial Start: 07-12-2010 End: 10-23-2016 LEVAQUIN 500 MG TABS one tab daily LEVOFLOXACIN [id number] Mark Heck MD MULTIPLE VITAMIN (2 sources) take 1 tablet by mouth once daily MULTI-VITAMIN TABS One tablet by mouth daily. MULTIPLE VITAMIN [id number] Linda Go CNP multivitamin (15 sources) Start: 02-20-2017 End: 12-03-2017 take 1 tablet by mouth once daily Multivitamin Discontinued 1 TABLET PO DAILY February 20, 2017 9:38am December 03, 2017 4:27pm Start: 02-20-2017 End: 12-03-2017 take 1 tablet by mouth once daily Multivitamin Discontinued 1 TABLET PO DAILY February 20, 2017 12:00am December 03, 2017 4:27pm Start: 02-20-2017 End: 12-03-2017 take 1 tablet by mouth once daily Multivitamin Discontinued 1 TABLET PO DAILY February 19, 2017 11:00pm December 03, 2017 3:27pm take 1 tablet by jerry once daily MULTI-VITAMIN TABS One tablet by mouth daily. MULTIPLE VITAMIN [id number] Linda Go CNP Multivitamin 1 EACH tablet (4 sources) Start: 02-20-2017 End: 12-03-2017 Multivitamin 1 EACH tablet Discontinued 1 {tbl} PO DAILY February 20, 2017 12:00am December 03, 2017 4:27pm oxyCODONE hydrochloride 5 mg oral tablet (10 sources) Opioid Agonist Start: 05-27-2018 End: 01-01-2022 take 5-10 mg by mouth every four hours as needed for pain Oxycodone 5 MG tablet Discontinued 5 - 10 mg PO EVERY 4 HOURS NEEDED as needed for Mod-Severe Pain (-09/02) 80 6 0 May 27, 2018 12:00am January 01, 2022 9:25pm Presence of right artificial knee joint predniSONE 20 mg oral tablet (4 sources) Start: 03-22-2025 End: 06-10-2025 Prednisone 20 mg tablet Discontinued mg PO March 22, 2025 12:00am June 10, 2025 11:14am promethazine hydrochloride 25 mg oral tablet (10 sources) Phenothiazine Start: 04-01-2017 End: 12-03-2017 take 1 tablet by mouth every four hours as needed for nausea Promethazine 25 MG tablet Discontinued 25 mg PO EVERY 4 HOURS NEEDED as needed for Nausea 10 0 April 01, 2017 12:00am December 03, 2017 4:28pm rivaroxaban 10 mg oral tablet (20 sources) Factor Xa Inhibitor Start: 05-27-2018 End: 01-01-2022 take 1 tablet by mouth once daily Rivaroxaban 10 MG tablet Discontinued 10 mg PO DAILY@0600 14 0 May 27, 2018 12:00am January 01, 2022 9:25pm take 1 tablet by mouth once tiff y XARELTO 20 MG TABS One tablet by mouth daily. RIVAROXABAN [id number] Raul Willard rosuvastatin calcium 5 mg oral tablet (20 sources) HMG-CoA Reductase Inhibitor End: 02-04-2017 take 1 tablet by mouth once daily CRESTOR 5 MG TABS One tablet by mouth daily. ROSUVASTATIN CALCIUM [id number] Raul Willard tamsulosin hydrochloride 0.4 mg oral capsule (11 sources) alpha-Adrenergic Xu Start: 04-22-2013 End: 03-20-2017 take 1 capsule by mouth once daily Tamsulosin 0.4 MG Cap.Er.24h Discontinued 0.4 mg PO DAILY May 27, 2014 12:00am March 20, 2017 2:49pm triamcinolone acetonide 40 mg/ml injectable suspension (2 sources) Corticosteroid Start: 03-18-2018 End: 03-18-2018 Kenalog (triamcinolone acetonide) 10 mg/mL suspension for injection Discontinued 2 MG INTRAARTIC ONCE 0.2 March 18, 2018 1:37pm March 18, 2018 3:02pm Start: 12-03-2017 End: 12-03-2017 Kenalog (triamcinolone aceto nide) 10 mg/mL suspension for injection Discontinued 2 MG INTRAARTIC ONCE 0.2 December 03, 2017 4:44pm December 03, 2017 4:48pm Problems Active Problems Problem Classification Problem Date Documented Date Episodic/Chronic Cardiac dysrhythmias (11 sources) Bradycardia; Translations: [Bradycardia, unspecified] Episodic Chronic kidney disease (10 sources) Chronic kidney disease; Translations: [Chronic kidney disease, unspecified] 02-08-2022 Chronic Conditions associated with dizziness or vertigo (10 sources) Lightheadedness; Translations: [Dizziness and giddiness] 01-02-2022 Episodic Joint disorders and dislocations; trauma-related (20 sources) Derangement of knee; Translations: [Other internal derangements of left knee] Onset: 03-28-2017 Chronic Other connective tissue disease (5 sources) Swelling of right lower limb; Translations: [Other specified soft tissue disorders] 09-26-2024 Episodic Other connective tissue disease (4 sources) Pain in right lower limb; Translations: [Pain in right leg] 10-04-2024 Episodic Other nervous system disorders (1 source) Other symptoms and signs involving cognitive functions and awareness; Translations: [Other symptoms and signs involving cognitive functions and awareness] Onset: Episodic Other nutritional; endocrine; and metabolic disorders (10 sources) Metabolic syndrome X; Translations: [Metabolic syndrome] 01-01-2022 Chronic Other nutritional; endocrine; and metabolic disorders (10 sources) Obesity; Translations: [Obesity, unspecified] 01-01-2022 Chronic Other screening for suspected conditions (not mental disorders or infectious disease) (12 sources) Electrocardiogram abnormal; Translations: [Abnormal electrocardiogram [ECG] [EKG]] Onset: 01-17-2022 Episodic Phlebitis; thrombophlebitis and thromboembolism (20 sources) Deep venous thrombosis; Translations: [Acute embolism and thrombosis of unspecified deep veins of unspecified lower extremity] Onset: 02-04-2017 Episodic Comment on above: Discussed management of 2nd episode of DVT, he needs to Eliquis for 6 months. He did not have Factor V Leiden or Prothrombin gene mutations in 2016.D-dimers is normal today=0.43 Residual codes; unclassified (8 sources) Heterozygous methylenetetrahydrofolate reductase mutation; Translations: [Genetic susceptibility to other disease] 12-14-2024 Episodic Residual codes; unclassified (1 source) Genetic susceptibility to other disease; Translations: [Genetic susceptibility to other disease] Onset: Episodic Unclassified (7 sources) Aftercare ; Translations: [Encounter for other orthopedic aftercare] Onset: 04-23-2017 Varicose veins of lower extremity (9 sources) Varicose veins of lower extremity; Translations: [Asymptomatic varicose veins of unspecified lower extremity] Onset: 03-22-2025 Episodic Comment on above: Discussed varicose v eins, increased risk of DVT. Pt does not want Vascular Surgery evaluation. Past or Other Problems Problem Classification Problem Date Documented Date Episodic/Chronic Biliary tract disease (3 sources) Biliary [...] popliteal cyst] Onset: 02-20-2017 03-05-2017 Episodic Other connective tissue disease (1 source) Other specified soft tissue disorders; Translations: [Other specified soft tissue disorders] Onset: 10-19-2024 Episodic Other liver diseases (11 sources) Elevated [...] in left knee] Onset: 02-20-2017 03-05-2017 Episodic Unclassified (11 sources) Edema of lower extremity; Translations: [Localized edema] Onset: 02-04-2017 02-04-2017 Episodic Results Test Name Value Interpretation Reference Range Facility MR/Jin 06-09-2025 /MELLO [facility] Vascular Surgery [address] [place] [address] OFFICE VISIT Date of Service: 06/10/25 MR#: [id number] Acct: [id number] Name: RENATA MARTIN Rep #: [id number] : 1950 Provider: MARINO Krause Age/Sex: 74/M Location: [facility] Status: Signed Intake Vital Signs 03/22/25 11:17 06/10/25 11:14 Height 5 ft 9 in Weight: 202 lb BP 133/73 H Blood Pressure Location Rt brachial Position Sitting Respiration 18 Pulse 59 L Pulse Source Monitor Temp 98.2 F Temp Source Temporal Pulse Oximetry (%) 96 Oxygen Delivery Method room air Intake Visit Reasons: Deep vein thrombosis Chief Complaint: F/u for DVT. Is patient in pain?: No Allergies cephalexin monohydrate (From Keflex) Allergy (Severe, Verified 06/10/25 11:13) Swelling Medications ???Medication ???Instructions ???Recorded ???Confirmed ???Type multivitamin (Multiple Vitamins 1 ea PO DAILY SUPPLEMENT 12/30/17 06/10/25 History tablet) apixaban 5 mg tablet (Eliquis) 5 mg PO BID #60 tabs 12/14/2405/24 Rx Have you fallen in the past year?: No PFSH Medical History History of DVT (deep vein thrombosis) Nonalcoholic fatty liver disease Chronic kidney disease (CKD) Metabolic syndrome Obesity BPH (benign prostatic hyperplasia) Obstructive sleep apnea Arthritis Surgical History History of total right knee replacement Hx of cystoscopy H/O vasectomy History of foot surgery History of cholecystectomy H/O arthroscopic knee surgery History of left knee replacement Family History Mother Hypertension CVA (cerebral vascular accident) Myocardial infarction, Onset Age: 72 Heart disease Father Kidney disease Brother Kidney disease Lung cancer Heart disease Sister Breast cancer Hypertension Diabetes Social History household members: spouse current occupational status: retired Smoking Status: Former smoker alcohol intake: never substance use type: does not use HPI HPI HPI: RENATA MARTIN, is a 74 M who presents to the office today for evaluation of RLE DVT as referred by his PCP. He does also follow with hematology who has been managing his anticoagulation. He had unprovoked RLE DVT in 09/2024; duplex at that time demonstrated acute DVT R CFV, FV, PopV, TP trunk, PTV, PeroV, GastrocV, and SoleusV. His primary symptoms with this DVT were pain and swelling; he was initiated on Eliquis and the pain improved but his swelling has remained persistent. He had been on Eliquis for 6 months and then it was dicontinued by hematology and they have been trending his blood work. Then he recently had repeat duplex due to his persistent swelling (he reports it had not gotten any worse) on 05/24/25 which demonstrated chronic DVT FV, PopV, PTV, PeroV, GastrocV; no acute DVT. Following this duplex, he was restarted on his Eliquis by PCP. He reports no change in his swelling. He'd also had RLE in similar distribution in 2016 which was also reportedly unprovoked. ROS General General: Yes fatigue; No weight change, appetite, colon cancer, breast cancer or weakness HEENT HEENT: No difficulty swallowing, eye injury, eye surgery, swollen glands or hoarseness Endo Endocrine: No thyroid disease, diabetes mellitus, thyroid cancer, Hair loss, heat intolerance or cold intolerance Skin Skin: No rash or changing moles Musc Musculoskeletal: Yes back problems, arthritis and gout; No rheumatoid arthritis or joint pain Cardio Cardiovascular: No murmur, pacemaker, heart disease, atrial fibrillation, high blood pressure, heart attack, heart stent, palpitations, shortness of breath with exertion or chest pain Psych Psychiatric: No depression, anxiety or hearing voices Resp Respiratory: Yes shortness of breath, Yes sleep apnea, No cough, No COPD, No asthma, No emphysema and No wheezing Gastro Gastrointestinal: No abdominal pain, Yes nausea or vomiting, No diarrhea, No constipation, No blood in stool, Yes acid reflux, No hemorrhoids, No ulcers, No gallbladder problem and No black,tarry stools Augustin Hematologic: Yes blood thinners, No blood disorders, No bleeding, No anemia and Yes blood clots Neuro Neurologic: No system reviewed and no additional complaints, except as documented, No as per HPI, Yes abnormal gait (occasionally goes sideways), No abnormal hearing, No abnormal movements, No abnormal speech, No behavioral changes, No burning sensations, No confusion, No convulsions, Yes disequilibrium, Yes dizziness, Yes localized weakness (occasional), No frequent falls, No headache(s), No lack of coordination, No loss o (more content not included)... Normal [facility] Absolute lymphocyte countOrd ered By: Nakul Oliva on 05-24-2025 Lymphocytes Auto (Unsp spec) [#/Vol] 1.71 10*3/uL 0.83-4.51 [facility] Absolute neutrophil countOrd ered By: Nakul Oliva on 05-24-2025 Neutrophils (Bld) [#/Vol] 4.8 10*3/uL 2.0-7.7 [facility] Anion gap in Serum or Plasma Ordered By: Nakul Oliva on 05-24-2025 Anion gap [Moles/Vol] 13 mmol/L 5-15 [facility] Comment on above: Previous reported re sult: 15 Edited by: COBY on 05/24/25:1359 AMENDED REPORT 05/24/25 1359 GAP previously reported as: 15 Automated lymphocyte count a s percentage of total leukocytesOrdered By: Nakul Oliva on 05-24-2025 Lymphocytes/100 WBC Auto (Unsp spec) 23.0 % 19-41 [facility] BUN/creatinine ratioOrdered By: Nakul Oliva on 05-24-2025 Urea nitrogen/Creatinine [Mass ratio] 18.1 mg/mg 10-20 [facility] Comment on above: Previous reported re sult: 17.9 RATIOEdited by: COBY on 05/24/25:1359 AMENDED REPORT 05/24/25 1359 BUN/CRE previously reported as: 17.9 RATIO Basophil percentageOrdered B y: Nakul Oliva on 05-24-2025 Basophils/100 WBC (Bld) 0.9 % 0-1 [facility] Bilirubin, totalOrdered By: Nakul Oliva on 05-24-2025 Bilirubin [Mass/Vol] 0.93 mg/dL 0.00-1.30 [facility] Comment on above: Previous reported re sult: 0.98 mg/dLEdited by: COBY on 05/24/25:1359 AMENDED REPORT 05/24/25 1359 T BILI previously reported as: 0.98 mg/dL CBC W/Diff, Automatedon Absolute Lymph 1.71 X10 3/uL Normal 0.83-4.51 [facility] Comment on above: Order Comment: Order Date: 05/24/25Order Info: [id number] - CBCDOrder Info: [id number] - SED Performed By: #### L 500.4100, L100.0100, L500.4050, L501.1400 ####[facility] [address] [place], [address] Absolute Neut 4.8 X10 3/uL Normal 2.0-7.7 [facility] Comment on above: Order Comment: Order Date: 05/24/25Order Info: [id number] - CBCDOrder Info: [id number] - SED Performed By: #### L 500.4100, L100.0100, L500.4050, L501.1400 ####[facility] [address] [place], [address] Basophils/100 WBC (Bld) 0.9 % Normal 0-1 [facility] Comment on above: Order Comment: Order Date: 05/24/25Order Info: [id number] - CBCDOrder Info: [id number] - SED Performed By: #### L 500.4100, L100.0100, L500.4050, L501.1400 ####[facility] [address] [place], [address] Eosinophils/100 WBC (Bld) 4.3 % Normal 0-5 [facility] Comment on above: Order Comment: Order Date: 05/24/25Order Info: [id number] - CBCDOrder Info: [id number] - SED Performed By: #### L 500.4100, L100.0100, L500.4050, L501.1400 ####[facility] [address] [place], [address] Erythrocyte distribution width (RBC) [Ratio] 13.5 % Normal 11.6-14.6 [facility] Comment on above: Order Comment: Order Date: 05/24/25Order Info: [id number] - CBCDOrder Info: [id number] - SED Performed By: #### L 500.4100, L100.0100, L500.4050, L501.1400 ####[facility] [address] [place], [address] Hematocrit (Bld) [Volume fraction] 46.4 % Normal 40-54 [facility] Comment on above: Order Comment: Order Date: 05/24/25Order Info: [id number] - CBCDOrder Info: [id number] - SED Performed By: #### L 500.4100, L100.0100, L500.4050, L501.1400 ####[facility] [address] [place] [place], [address] Hemoglobin (Bld) [Mass/Vol] 15.9 g/dL Normal 13.0-16.5 [facility] Comment on above: Order Comment: Order Date: 05/24/25Order Info: [id number] - CBCDOrder Info: [id number] - SED Performed By: #### L 500.4100, L100.0100, L500.4050, L501.1400 ####[facility] [address] [place], [address] IG% 0.300 Normal 0.0-0.9 [facility] Comment on above: Order Comment: Order Date: 05/24/25Order Info: 183- - CBCDOrder Info: [id number] - SED Result Comment: IG% - Immature Granulocytes (promyelocytes, myelocytes and metamyelocytes) > 1% indicates that a LEFT SHIFT is Present. Performed By: #### L 500.4100, L100.0100, L500.4050, L501.1400 ####[facility] [address] [place], [address] Lymphocytes/100 WBC (Bld) 23.0 % Normal 19-41 [facility] Comment on above: Order Comment: Order Date: 05/24/25Order Info: [id number] - CBCDOrder Info: [id number] - SED Performed By: #### L 500.4100, L100.0100, L500.4050, L501.1400 ####[facility] [address] [place], [address] MCH (RBC) [Entitic mass] 32.1 pg High 27.0-32.0 [facility] Comment on above: Order Comment: Order Date: 05/24/25Order Info: [id number] - CBCDOrder Info: [id number] - SED Performed By: #### L 500.4100, L100.0100, L500.4050, L501.1400 ####[facility] [address] [place], [address] MCHC (RBC) [Mass/Vol] 34.3 g/dL Normal 32-36 [facility] Comment on above: Order Comment: Order Date: 05/24/25Order Info: 018- - CBCDOrder Info: [id number] - SED Performed By: #### L 500.4100, L100.0100, L500.4050, L501.1400 ####[facility] [address] [place], [address] MCV (RBC) [Entitic vol] 93.7 fL Normal 80-94 [facility] Comment on above: Order Comment: Order Date: 05/24/25Order Info: [id number] - CBCDOrder Info: [id number] - SED Performed By: #### L 500.4100, L100.0100, L500.4050, L501.1400 ####[facility] [address] [place], [address] Monocytes/100 WBC (Bld) 6.9 % Normal 0-10 [facility] Comment on above: Order Comment: Order Date: 05/24/25Order Info: [id number] - CBCDOrder Info: [id number] - SED Performed By: #### L 500.4100, L100.0100, L500.4050, L501.1400 ####[facility] [address] [place], [address] Neutrophils/100 WBC (Bld) 64.6 % Normal 47-70 [facility] Comment on above: Order Comment: Order Date: 05/24/25Order Info: [id number] - CBCDOrder Info: [id number] - SED Performed By: #### L 500.4100, L100.0100, L500.4050, L501.1400 ####[facility] [address] [place], [address] Nucleated RBC (Bld) [#/Vol] 0 10*3/uL Normal 0-5 [facility] Comment on above: Order Comment: Order Date: 05/24/25Order Info: [id number] - CBCDOrder Info: [id number] - SED Performed By: #### L 500.4100, L100.0100, L500.4050, L501.1400 ####[facility] [address] [place], [address] Platelet mean volume (Bld) [Entitic vol] 9.6 fL Normal 6.2-12.0 [facility] Comment on above: Order Comment: Order Date: 05/24/25Order Info: [id number] - CBCDOrder Info: [id number] - SED Performed By: #### L 500.4100, L100.0100, L500.4050, L501.1400 ####[facility] [address] [place], [address] Platelets (Bld) [#/Vol] 204 10*3/uL Normal 150-450 [facility] Comment on above: Order Comment: Order Date: 05/24/25Order Info: 018- - CBCDOrder Info: [id number] - SED Performed By: #### L 500.4100, L100.0100, L500.4050, L501.1400 ####[facility] [address] [place], [address] RBC (Bld) [#/Vol] 4.95 10*6/uL Normal 4.6-6.2 [facility] Comment on above: Order Comment: Order Date: 05/24/25Order Info: [id number] - CBCDOrder Info: [id number] - SED Performed By: #### L 500.4100, L100.0100, L500.4050, L501.1400 ####[facility] [address] [place], [address] RDW SD 45.6 fl High 35.1-43.9 [facility] Comment on above: Order Comment: Order Date: 05/24/25Order Info: [id number] - CBCDOrder Info: [id number] - SED Performed By: #### L 500.4100, L100.0100, L500.4050, L501.1400 ####[facility] [address] [place], [address] WBC (Bld) [#/Vol] 7.4 10*3/uL Normal 4.4-11.0 [facility] Comment on above: Order Comment: Order Date: 05/24/25Order Info: [id number]- - CBCDOrder Info: [id number] - SED Performed By: #### L 500.4100, L100.0100, L500.4050, L501.1400 ####[facility] [address] [place], [place], [address] CRPon 05-24-2025 C-REACTIVE PROT < 3.00 Normal 0.0-3.0 [facility] Comment on above: Order Comment: Order Date: 05/24/25 Order Info: [id number]- - CMP Order Info: - LIPID Order Info: [id number] - URIC Order Info: - CRP Order Info: [id number] - TSH Order Info: [id number] - FOLS Performed By: #### L 501.9520, L101.9900, L501.6710 #### [facility] [address] [place], [place], [id number] Calculated very low density lipoprotein (VLDL) cholesterol measurementOrdered By: Nakul Oliva on 05-24-2025 Calculated very low density lipoprotein (VLDL) cholesterol measurement 30 mg/dL 5-40 [facility] Carbon dioxide, total [Moles /volume] in Central venous bloodOrdered By: Nakul Oliva on 05-24-2025 CO2 [Moles/Vol] 21.9 mmol/L 21.0-32.0 [facility] Chloride assayOrdered By: Barb Oliva on 05-24-2025 Chloride [Moles/Vol] 105 mmol/L 98-108 [facility] Comment on above: Previous reported re sult: 106 mmol/LEdited by: COBY on 05/24/25:1359 AMENDED REPORT 05/24/25 1359 CL previously reported as: 106 mmol/L Comprehensive Metabolic Prof ilon 05-24-2025 Albumin [Mass/Vol] 4.3 g/dL Normal 3.4-4.8 [facility] Comment on above: Order Comment: Order Date: 05/24/25Order Info: [id number] - CMPOrder Info: - LIPIDOrder Info: [id number] - URICOrder Info: - CRPOrder Info: [id number] - TSHOrder Info: [id number] - FOLS Result Comment: AMENDED REPORT 05/24/25 1359 ALB previously reported as: 4.4 g/dL Performed By: #### L 500.4100, L100.0100, L500.4050, L501.1400 ####[facility] [address] [place], [address] Albumin/Globulin [Mass ratio] 1.4 {ratio} Normal 0.9-2.4 [facility] Comment on above: Order Comment: Order Date: 05/24/25Order Info: [id number] - CMPOrder Info: [id number] - LIPIDOrder Info: [id number] - URICOrder Info: [id number] - CRPOrder Info: [id number] - TSHOrder Info: [id number] - FOLS Result Comment: AMENDED REPORT 05/24/25 1359 A/G previously reported as: 1.8 RATIO Performed By: #### L 500.4100, L100.0100, L500.4050, L501.1400 ####[facility] [address] [place], [address] ALK PHOS 77 U/L Normal 40-129 [facility] Comment on above: Order Comment: Order Date: 05/24/25Order Info: [id number] - CMPOrder Info: [id number] - LIPIDOrder Info: [id number] - URICOrder Info: [id number] - CRPOrder Info: [id number] - TSHOrder Info: [id number] - FOLS Result Comment: AMENDED REPORT 05/24/25 1359 ALK P previously reported as: 80 U/L Performed By: #### L 500.4100, L100.0100, L500.4050, L501.1400 ####[facility] [address] [place], [address] ALT [Catalytic activity/Vol] 23 U/L Normal <=46 [facility] Comment on above: Order Comment: Order Date: 05/24/25Order Info: [id number] - CMPOrder Info: [id number] - LIPIDOrder Info: [id number] - URICOrder Info: [id number] - CRPOrder Info: [id number] - TSHOrder Info: [id number] - FOLS Performed By: #### L 500.4100, L100.0100, L500.4050, L501.1400 ####[facility] [address] [place], [address] AST [Catalytic activity/Vol] 24 U/L Normal <=37 [facility] Comment on above: Order Comment: Order Date: 05/24/25Order Info: [id number] - CMPOrder Info: [id number] - LIPIDOrder Info: [id number] - URICOrder Info: [id number] - CRPOrder Info: [id number] - TSHOrder Info: [id number] - FOLS Result Comment: AMENDED REPORT 05/24/25 6366 AST previously reported as: 25 U/L Performed By: #### L 500.4100, L100.0100, L500.4050, L501.1400 ####[facility] [address] [place], [address] Bilirubin [Mass/Vol] 0.93 mg/dL Normal 0.00-1.30 [facility] Comment on above: Order Comment: Order Date: 05/24/25Order Info: [id number] - CMPOrder Info: [id number] - LIPIDOrder Info: [id number] - URICOrder Info: [id number] - CRPOrder Info: [id number] - TSHOrder Info: [id number] - FOLS Result Comment: AMENDED REPORT 05/24/25 6544 T BILI previously reported as: 0.98 mg/dL Performed By: #### L 500.4100, L100.0100, L500.4050, L501.1400 ####[facility] [address] [place], [address] BUN/CRE 18.1 RATIO Normal 10-20 [facility] Comment on above: Order Comment: Order Date: 05/24/25Order Info: [id number] - CMPOrder Info: [id number] - LIPIDOrder Info: [id number] - URICOrder Info: [id number] - CRPOrder Info: [id number] - TSHOrder Info: [id number] - FOLS Result Comment: AMENDED REPORT 05/24/25 4060 BUN/CRE previously reported as: 17.9 RATIO Performed By: #### L 500.4100, L100.0100, L500.4050, L501.1400 ####[facility] [address] [place], [address] Calcium [Mass/Vol] 9.6 mg/dL Normal 7.6-11.0 [facility] Comment on above: Order Comment: Order Date: 05/24/25Order Info: [id number] - CMPOrder Info: [id number] - LIPIDOrder Info: [id number] - URICOrder Info: [id number] - CRPOrder Info: [id number] - TSHOrder Info: [id number] - FOLS Performed By: #### L 500.4100, L100.0100, L500.4050, L501.1400 ####[facility] [address] [place], [address] Chloride [Moles/Vol] 105 mmol/L Normal 98-108 [facility] Comment on above: Order Comment: Order Date: 05/24/25Order Info: [id number] - CMPOrder Info: [id number] - LIPIDOrder Info: [id number] - URICOrder Info: [id number] - CRPOrder Info: [id number] - TSHOrder Info: [id number] - FOLS Result Comment: AMENDED REPORT 05/24/25 7276 CL previously reported as: 106 mmol/L Performed By: #### L 500.4100, L100.0100, L500.4050, L501.1400 ####[facility] [address] [place], [address] CO2 [Moles/Vol] 21.9 mmol/L Normal 21.0-32.0 [facility] Comment on above: Order Comment: Order Date: 05/24/25Order Info: [id number] - CMPOrder Info: [id number] - LIPIDOrder Info: [id number] - URICOrder Info: [id number] - CRPOrder Info: [id number] - TSHOrder Info: [id number] - FOLS Performed By: #### L 500.4100, L100.0100, L500.4050, L501.1400 ####[facility] [address] [place], [address] Creatinine [Mass/Vol] 1.61 mg/dL High 0.70-1.20 [facility] Comment on above: Order Comment: Order Date: 05/24/25Order Info: [id number] - CMPOrder Info: [id number] - LIPIDOrder Info: [id number] - URICOrder Info: [id number] - CRPOrder Info: [id number] - TSHOrder Info: [id number] - FOLS Result Comment: AMENDED REPORT 05/24/25 1359 CREAT,SERUM previously reported as: 1.64 H mg/dL Performed By: #### L 500.4100, L100.0100, L500.4050, L501.1400 ####[facility] [address] [place], [address] GAP 13 Normal 5-15 [facility] Comment on above: Order Comment: Order Date: 05/24/25Order Info: [id number] - CMPOrder Info: [id number] - LIPIDOrder Info: [id number] - URICOrder Info: [id number] - CRPOrder Info: [id number] - TSHOrder Info: [id number] - FOLS Result Comment: AMENDED REPORT 05/24/25 1359 GAP previously reported as: 15 Performed By: #### L 500.4100, L100.0100, L500.4050, L501.1400 ####[facility] [address] [place], [address] Globulin (S) [Mass/Vol] 3.1 g/dL Normal 2.2-4.2 [facility] Comment on above: Order Comment: Order Date: 05/24/25Order Info: [id number] - CMPOrder Info: [id number] - LIPIDOrder Info: [id number] - URICOrder Info: [id number] - CRPOrder Info: [id number] - TSHOrder Info: [id number] - FOLS Result Comment: AMENDED REPORT 05/24/25 1359 GLOB previously reported as: 2.5 g/dL Performed By: #### L 500.4100, L100.0100, L500.4050, L501.1400 ####[facility] [address] [place], [address] Glucose [Mass/Vol] 99 mg/dL Normal 70-99 [facility] Comment on above: Order Comment: Order Date: 05/24/25Order Info: [id number] - CMPOrder Info: [id number] - LIPIDOrder Info: [id number] - URICOrder Info: [id number] - CRPOrder Info: [id number] - TSHOrder Info: 228-8 - FOLS Result Comment: AMENDED REPORT 05/24/251358 GLU previously reported as: 100 H mg/dL Performed By: #### L 500.4100, L100.0100, L500.4050, L501.1400 ####[facility] [address] [place], [address] Potassium [Moles/Vol] 4.2 mmol/L Normal 3.3-5.1 [facility] Comment on above: Order Comment: Order Date: 05/24/25Order Info: [id number] - CMPOrder Info: [id number] - LIPIDOrder Info: [id number] - URICOrder Info: [id number] - CRPOrder Info: [id number] - TSHOrder Info: [id number] - FOLS Result Comment: AMENDED REPORT 05/24/25 1359 K previously reported as: 4.4 mmol/L Performed By: #### L 500.4100, L100.0100, L500.4050, L501.1400 ####[facility] [address] [place], [address] Sodium [Moles/Vol] 140 mmol/L Normal 133-145 [facility] Comment on above: Order Comment: Order Date: 05/24/25Order Info: [id number] - CMPOrder Info: [id number] - LIPIDOrder Info: [id number] - URICOrder Info: [id number] - CRPOrder Info: [id number] - TSHOrder Info: [id number] - FOLS Result Comment: AMENDED REPORT 05/24/25 5324 NA previously reported as: 142 mmol/L Performed By: #### L 500.4100, L100.0100, L500.4050, L501.1400 ####[facility] [address] [place], [address] T PROT 7.4 g/dL Normal 5.9-8.4 [facility] Comment on above: Order Comment: Order Date: 05/24/25Order Info: [id number] - CMPOrder Info: [id number] - LIPIDOrder Info: [id number] - URICOrder Info: [id number] - CRPOrder Info: [id number] - TSHOrder Info: [id number] - FOLS Result Comment: AMENDED REPORT 05/24/25 1272 T PROT previously reported as: 7.0 g/dL Performed By: #### L 500.4100, L100.0100, L500.4050, L501.1400 ####[facility] [address] [place], [address] Urea nitrogen [Mass/Vol] 29 mg/dL High 4-19 [facility] Comment on above: Order Comment: Order Date: 05/24/25Order Info: [id number] - CMPOrder Info: [id number] - LIPIDOrder Info: [id number] - URICOrder Info: [id number] - CRPOrder Info: [id number] - TSHOrder Info: [id number] - FOLS Performed By: #### L 500.4100, L100.0100, L500.4050, L501.1400 ####[facility] [address] [place], [address] Eosinophil percentageOrdered By: Nakul Oliva on 05-24-2025 Eosinophils/100 WBC (Bld) 4.3 % 0-5 [facility] Erythrocyte Sed Rateon 05-24 SED RATE 16 mm/hr Normal 0-20 [facility] Comment on above: Order Comment: Order Date: 05/24/25 Order Info: [id number] - CBCD Order Info: [id number] - SED Performed By: #### L 501.9520, L101.9900, L501.6710 #### [facility] [address] [place], [address] Erythrocyte distribution wid th ratioOrdered By: Nakul Oliva on 05-24-2025 Erythrocyte distribution width (RBC) [Ratio] 13.5 % 11.6-14.6 [facility] Erythrocyte distribution wid th standard deviationOrdered By: Nakul Oliva on 05-24-2025 Erythrocyte distribution width (RBC) [Ratio] 45.6 fl High 35.1-43.9 [facility] Erythrocyte sedimentation ra teOrdered By: Nakul Oliva on 05-24-2025 ESR (Bld) [Velocity] 16 mm/h 0-20 [facility] Folate [Moles/volume] in Ser um or PlasmaOrdered By: Nakul Oliva on 05-24-2025 Folate [Moles/Vol] 15.30 ng/mL 4.60-34.80 [facility] Comment on above: Hemolysis, Results w ill be affected, Requires Recollection. Folates,Serum (Folic Acid)on 05-24-2025 FOLATES,SERUM 15.30 ng/mL Normal 4.60-34.80 [facility] Comment on above: Order Comment: N Result Comment: Hemo lysis, Results will be affected, Requires Recollection. Performed By: #### L 503.0106, L506.0200 ####[facility] [address] [place], [address] Glomerular filtration rate ( GFR) estimation/1.73 sq m using serum, plasma, or whole bOrdered By: Nakul Oliva on 05-24-2025 GFR/1.73 sq M.predicted among non-blacks MDRD (S/P/Bld) [Vol rate/Area] 44 mL/min/{1.73_m2} Low >60 [facility] Comment on above: mL/min/1.73m2 CKD-EP I Creatinine Equation (2020) Hematocrit Auto (Bld) [Volum e fraction]Ordered By: Nakul Oliva on 05-24-2025 Hematocrit (Bld) [Volume fraction] 46.4 % 40-54 [facility] Hemoglobin A1con 05-24-2025 HbA1c (Bld) [Mass fraction] 5.9 % High <=5.6 [facility] Comment on above: Order Comment: Order Date: 05/24/25Order Info: [id number] - A1C Result Comment: Norm al < 5.7 % Prediabetic 5.7 - 6.4 % Diabetic >or= 6.5 % Please note range changes. Performed By: #### L 501.9985 ####[facility] [address] [place], [address] Hemoglobin A1c percentageOrd ered By: Nakul Oliva on 05-24-2025 HbA1c (Bld) [Mass fraction] 5.9 % High <5.7 [facility] Comment on above: Normal < 5.7 % Predi abetic 5.7 - 6.4 % Diabetic >or= 6.5 % Please note range changes. Hemoglobin measurementOrdere d By: Nakul Oliva on 05-24-2025 Hemoglobin (Bld) [Mass/Vol] 15.9 g/dL 13.0-16.5 [facility] Immature granulocytes/100 WB C Auto (Bld)Ordered By: Nakul Oliva on 05-24-2025 Immature granulocytes/100 WBC (Bld) 0.300 % 0.0-0.9 [facility] Comment on above: IG% - Immature Granu locytes (promyelocytes, myelocytes and metamyelocytes) > 1% indicates that a LEFT SHIFT is Present. LDL calc ser/plasOrdered By: Nakul Oliva on 05-24-2025 Cholesterol in LDL [Mass/Vol] 117 mg/dL [facility] Comment on above: Xieqyeiuhj=456-050 m g/dL & Higher Nzvb=390 mg/dL or greater Laboratory - Chemistry and C hemistry - challengeOrdered By: Nakul Oliva on 05-24-2025 AST [Catalytic activity/Vol] 24 U/L <38 [facility] Comment on above: Previous reported re sult: 25 U/LEdited by: COBY on 05/24/25:1359 AMENDED REPORT 05/24/25 1359 AST previously reported as: 25 U/L Lipid Profileon 05-24-2025 CHOL:HDL 4.87 Normal [facility] Comment on above: Order Comment: Order Date: 05/24/25Order Info: [id number] - CMPOrder Info: [id number] - LIPIDOrder Info: [id number] - URICOrder Info: [id number] - CRPOrder Info: [id number] - TSHOrder Info: [id number] - FOLS Performed By: #### L 500.4100, L100.0100, L500.4050, L501.1400 ####[facility] [address] [place], [address] Cholesterol [Mass/Vol] 184 mg/dL Normal <=200 [facility] Comment on above: Order Comment: Order Date: 05/24/25Order Info: [id number] - CMPOrder Info: [id number] - LIPIDOrder Info: [id number] - URICOrder Info: [id number] - CRPOrder Info: [id number] - TSHOrder Info: [id number] - FOLS Result Comment: Chol esterol level, Desirable <200 mg/dL Borderline high cholesterol 200-239 mg/dL High cholesterol >=240 mg/dL Recommendations of the NCEP Adult Treatment Panel for the following risk-cutoff thresholds for the [place] population. Performed By: #### L 500.4100, L100.0100, L500.4050, L501.1400 ####[facility] [address] [place], [address] Cholesterol in HDL [Mass/Vol] 38 mg/dL Low [facility] Comment on above: Order Comment: Order Date: 05/24/25Order Info: [id number] - CMPOrder Info: [id number] - LIPIDOrder Info: [id number] - URICOrder Info: [id number] - CRPOrder Info: [id number] - TSHOrder Info: [id number] - FOLS Result Comment: Harriet onal Cholesterol Education Program (NCEP) guidelines: <40 mg/dL: Low HDL-cholesterol (major risk factor for CHD) >= 60 mg/dL: High HDL-cholesterol (negative risk factor for CHD) HDL-cholesterol is affected by a number of factors, e.g. smoking, exercise, hormones, sex and age. Performed By: #### L 500.4100, L100.0100, L500.4050, L501.1400 ####[facility] [address] [place], [address] Cholesterol in LDL [Mass/Vol] 117 mg/dL Normal [facility] Comment on above: Order Comment: Order Date: 05/24/25Order Info: [id number] - CMPOrder Info: [id number] - LIPIDOrder Info: [id number] - URICOrder Info: [id number] - CRPOrder Info: [id number] - TSHOrder Info: [id number] - FOLS Result Comment: Bord ocrfya=351-328 mg/dL Higher Cdrf=240 mg/dL or greater Performed By: #### L 500.4100, L100.0100, L500.4050, L501.1400 ####[facility] [address] [place], [address] Cholesterol in VLDL [Mass/Vol] 30 mg/dL Normal 5-40 [facility] Comment on above: Order Comment: Order Date: 05/24/25Order Info: [id number] - CMPOrder Info: [id number] - LIPIDOrder Info: [id number] - URICOrder Info: [id number] - CRPOrder Info: [id number] - TSHOrder Info: [id number] - FOLS Performed By: #### L 500.4100, L100.0100, L500.4050, L501.1400 ####[facility] [address] [place], [address] Triglyceride [Mass/Vol] 148 mg/dL Normal [facility] Comment on above: Order Comment: Order Date: 05/24/25Order Info: [id number] - CMPOrder Info: [id number] - LIPIDOrder Info: [id number] - URICOrder Info: [id number] - CRPOrder Info: [id number] - TSHOrder Info: [id number] - FOLS Result Comment: The drugs N-Acetylcysteine and Metamizole may falsely depress this assay. Normal range: <150 mg/dL Borderline High: 150-199 mg/dL High: 200-499 mg/dL Very High: >500 mg/dL Performed By: #### L 500.4100, L100.0100, L500.4050, L501.1400 ####[facility] [address] [place], [address] MCV (mean corpuscular volume ) determinationOrdered By: Nakul Oliva on 05-24-2025 MCV (RBC) [Entitic vol] 93.7 fL 80-94 [facility] Mean corpuscular hemoglobin (MCH) determinationOrdered By: Nakul Oliva on 05-24-2025 MCH (RBC) [Entitic mass] 32.1 pg High 27.0-32.0 [facility] Mean corpuscular hemoglobin concentration (MCHC) determinationOrdered By: Nakul Oliva on 05-24-2025 MCHC (RBC) [Mass/Vol] 34.3 g/dL 32-36 [facility] Mean platelet volume determi nationOrdered By: Nakul Oliva on 05-24-2025 Platelet mean volume (Bld) [Entitic vol] 9.6 fL 6.2-12.0 [facility] Monocyte percentageOrdered B y: Nakul Oliva on 05-24-2025 Monocytes/100 WBC (Bld) 6.9 % 0-10 [facility] Neutrophil percentageOrdered By: Nakul Oliva on 05-24-2025 Neutrophils/100 WBC (Bld) 64.6 % 47-70 [facility] Nucleated red blood cell per centageOrdered By: Nakul Oliva on 05-24-2025 Nucleated RBC/100 WBC (Bld) [Ratio] 0 % 0-5 [facility] Platelet countOrdered By: Barb Oliva on 05-24-2025 Platelets (Bld) [#/Vol] 204 10*3/uL 150-450 [facility] Potassium measurement (mass/ volume)Ordered By: Nakul Oliva on 05-24-2025 Potassium (Unsp spec) [Mass/Vol] 4.2 mmol/L 3.3-5.1 [facility] Comment on above: Previous reported re sult: 4.4 mmol/LEdited by: COBY on 05/24/25:1359 AMENDED REPORT 05/24/25 1359 K previously reported as: 4.4 mmol/L RBC Auto (Bld) [#/Vol]Ordere d By: Nakul Oliva on 05-24-2025 RBC (Bld) [#/Vol] 4.95 10*6/uL 4.6-6.2 [facility] Screening total cholesterol/ high density lipoprotein (HDL) cholesterol ratioOrdered By: Nakul Oliva on 05-24-2025 Cholesterol.total/Regina sterol in HDL [Mass ratio] 4.87 {ratio} [facility] Serum creatinine measurement (mass/volume)Ordered By: Nakul Oliva on 05-24-2025 Creatinine [Mass/Vol] 1.61 mg/dL High 0.70-1.20 [facility] Comment on above: Previous reported re sult: 1.64 mg/dLEdited by: COBY on 05/24/25:1359 AMENDED REPORT 05/24/25 1359 CREAT,SERUM previously reported as: 1.64 H mg/dL Serum globulin measurementOr dered By: Nakul Oliva on 05-24-2025 Globulin (S) [Mass/Vol] 3.1 g/dL 2.2-4.2 [facility] Comment on above: Previous reported re sult: 2.5 g/dLEdited by: COBY on 05/24/25:1359 AMENDED REPORT 05/24/25 1359 GLOB previously reported as: 2.5 g/dL Serum glucose measurement (m ass/volume)Ordered By: Nakul Oliva on 05-24-2025 Glucose [Mass/Vol] 99 mg/dL 70-99 [facility] Comment on above: Previous reported re sult: 100 mg/dLEdited by: COBY on 05/24/25:1359 AMENDED REPORT 05/24/25 1359 GLU previously reported as: 100 H mg/dL Serum or plasma C reactive p rotein measurement (mass/volume)Ordered By: Nakul Oliva on 05-24-2025 CRP [Mass/Vol] mg/L 0.0-3.0 [facility] Serum or plasma alanine zavala otransferase (ALT) measurementOrdered By: Nakul Oliva on 05-24-2025 ALT [Catalytic activity/Vol] 23 U/L <47 [facility] Serum or plasma albumin mikayla urement (mass/volume)Ordered By: Nakul Oliva on 05-24-2025 Albumin [Mass/Vol] 4.3 g/dL 3.4-4.8 [facility] Comment on above: Previous reported re sult: 4.4 g/dLEdited by: COBY on 05/24/25:1359 AMENDED REPORT 05/24/25 1359 ALB previously reported as: 4.4 g/dL Serum or plasma albumin/glob ulin mass ratioOrdered By: Nakul Oliva on 05-24-2025 Albumin/Globulin [Mass ratio] 1.4 {ratio} 0.9-2.4 [facility] Comment on above: Previous reported re sult: 1.8 RATIOEdited by: COBY on 05/24/25:1359 AMENDED REPORT 05/24/25 1359 A/G previously reported as: 1.8 RATIO Serum or plasma alkaline jazlyn sphatase measurementOrdered By: Nakul Oliva on 05-24-2025 ALP [Catalytic activity/Vol] 77 U/L 40-129 [facility] Comment on above: Previous reported re sult: 80 U/LEdited by: COBY on 05/24/25:1359 AMENDED REPORT 05/24/25 1359 ALK P previously reported as: 80 U/L Serum or plasma calcium mikayla urement (mass/volume)Ordered By: Nakul Oliva on 05-24-2025 Calcium [Mass/Vol] 9.6 mg/dL 7.6-11.0 [facility] Serum or plasma cholesterol in HDL measurement (mass/volume)Ordered By: Nakul Oliva on 05-24-2025 Cholesterol in HDL [Mass/Vol] 38 mg/dL Low >40 [facility] Comment on above: National Cholesterol Education Program (NCEP) guidelines:<40 mg/dL: Low HDL-cholesterol (major risk factor for CHD)>= 60 mg/dL: High HDL-cholesterol (negative risk factor for CHD)HDL-cholesterol is affected by a number of factors, e.g. smoking, exercise, hormones, sex and age. Serum or plasma cholesterol measurement (mass/volume)Ordered By: Nakul Oliva on 05-24-2025 Cholesterol [Mass/Vol] 184 mg/dL <201 [facility] Comment on above: Cholesterol level, D esirable <200 mg/dLBorderline high cholesterol 200-239 mg/dLHigh cholesterol >=240 mg/dLRecommendations of the NCEP Adult Treatment Panel for the following risk-cutoff thresholds for the [place] population. Serum or plasma urea nitroge n measurement (mass/volume)Ordered By: Nakul Oliva on 05-24-2025 Urea nitrogen [Mass/Vol] 29 mg/dL High 4-19 [facility] Serum or plasma uric acid me asurement (mass/volume)Ordered By: Nakul Oliva on 05-24-2025 Urate [Mass/Vol] 9.4 mg/dL High 3.5-7.2 [facility] Comment on above: The drugs N-Acetylcy steine and Metamizole may falsely depress this assay. Sodium levelOrdered By: Nakul Oliva on 05-24-2025 Sodium [Moles/Vol] 140 mmol/L 133-145 [facility] Comment on above: Previous reported re sult: 142 mmol/LEdited by: COBY on 05/24/25:1359 AMENDED REPORT 05/24/25 1359 NA previously reported as: 142 mmol/L TSH DL <= 0.005 mIU/L QnOrde red By: Nakul Oliva on 05-24-2025 TSH Qn 4.280 uIU/mL High 0.300-4.200 [facility] Thyroid Stim Hormone (TSH)on 05-24-2025 TSH 4.280 uIU/mL High 0.300-4.200 [facility] Comment on above: Order Comment: Order Date: 05/24/25 Order Info: [id number] - CMP Order Info: [id number] - LIPID Order Info: [id number] - URIC Order Info: [id number] - CRP Order Info: [id number] - TSH Order Info: [id number] - FOLS Performed By: #### L 501.9520, L101.9900, L501.6710 #### [facility] [address] [place], [place], [address] Total proteinOrdered By: Briseyda Oliva on 05-24-2025 Protein [Mass/Vol] 7.4 g/dL 5.9-8.4 [facility] Comment on above: Previous reported re sult: 7.0 g/dLEdited by: AUTOINS on 05/24/25:1359 AMENDED REPORT 05/24/25 1359 T PROT previously reported as: 7.0 g/dL Triglycerides measurementOrd ered By: Nakul Oliva on 05-24-2025 Triglyceride [Mass/Vol] 148 mg/dL <199 [facility] Comment on above: The drugs N-Acetylcy steine and Metamizole may falsely depress this assay. Normal range: <150 mg/dLBorderline High: 150-199 mg/dLHigh: 200-499 mg/dLVery High: >500 mg/dL Uric Acidon 05-24-2025 URIC 9.4 mg/dL High 3.5-7.2 [facility] Comment on above: Order Comment: Order Date: 05/24/25Order Info: [id number] - CMPOrder Info: [id number] - LIPIDOrder Info: [id number] - URICOrder Info: [id number] - CRPOrder Info: [id number] - TSHOrder Info: [id number] - FOLS Result Comment: The drugs N-Acetylcysteine and Metamizole may falsely depress this assay. Performed By: #### L 500.4100, L100.0100, L500.4050, L501.1400 ####[facility] [id number] [place], [place], [address] Venous Duplex US, Unilateral on 05-24-2025 Venous Duplex US, Unilateral [facility] [address] [place] [place] [address] Venous Duplex US, Unilateral 07/12/18 1050 MR#: [id number] Acct: [id number] Name: RENATA MARTIN Rep #: [id number] : 1950 74 From: Nakul Zelaya MD Attending Dr: Dr. Nakul Oliva MD Status: REG CL I Ordering Dr: Nakul Oliva MD Date: 05/24/25 Location: [facility] Sex: M C Admitted: Reason For Study Reason For Study: RLE SWELLING RIGHT LEFT GSV is normal. CFV is compressible, spontaneous, phasic, competent, CFV is compressible, spontaneous, phasic, competent and demonstrates normal augmentation. and demonstrates normal augmentation. Chronic DVT noted in the FV, Pop V, PTV, PERV, GASTROCNEMIUS V. Procedure This is a venous duplex using B-mode, color flow and spectral Doppler. Exam performed in department. A preliminary report was called and/or faxed to DR. Nakul Oliva's nurse. She will notify him and connect with PT. VL/Venous Duplex US, Unilateral Interpretation Summary Chronic deep vein thrombosis noted in the right femoral vein, popliteal vein, posterior tibial vein, peroneal vein, gastrocnemius vein. Ordering Physician: Nakul Oliva Referring Physician: Nakul Oliva Performed By: Annette Solares, BILL, RVT 05/24/25 1549 Date Nakul Zelaya MD CC: Dr. Nakul Oliva MD Date Dictated: 05/24/251050 Date Transcribed: 05/24/251548 Perfusionist: Signed Normal [facility] Venous duplex ultrasound rep ortOrdered By: Nakul Zelaya on 05-24-2025 [facility] [address] [place] [address] Venous Duplex US, Unilateral 05/24/25 105 MR#: [id number] Acct: [id number] Name: RENATA MARTIN Rep #:[id number] : 1950 74 From: Nakul De Luna Attending Dr: Dr. Nakul Oliva MD atus: REG CLI Ordering Dr: Nakul Oliva MD Date: 12/18 Location: CVS Sex: M C Admitted: Reason For Study Reason For Study: RLE SWELLING RIGHT LEFT GSV is normal. CFV is compressible, spontaneous, phasic, competent, CFV is compressible, spontaneous, phasic, competent and demonstrates normal augmentation. and demonstrates normal augmentation. Chronic DVT noted in the FV, Pop V, PTV, PERV, GASTROCNEMIUS V. Procedure This is a venous duplex using B-mode, color flow and spectral Doppler. Exam performed in department. A preliminary report was called and/or faxed to DR. Nakul Oliva's nurse. She will notify him and connect with PT. VL/Venous Duplex US, Unilateral Interpretation Summary Chronic deep vein thrombosis noted in the right femoral vein, popliteal vein, posterior tibial vein, peroneal vein, gastrocnemius vein. Ordering Physician: Nakul Oliva Referring Physician: Nakul Oliva Performed By: Annette Solares, RDCS, RVT 05/24/25 1549 Date _ Nakul Zelaya MD CC: Dr. Nakul Oliva MD ~ Date Dictated: 05/24/25 1051 Date Transcribed: 05/24/25 1549 Perfusionist: Signed [facility] Work Phone: Vitamin B12on 05-24-2025 Cobalamin (Vitamin B12) [Mass/Vol] 608 pg/mL Normal 180-914 [facility] Comment on above: Order Comment: Order Date: 05/24/25Order Info: [id number] - CMPOrder Info: [id number] - LIPIDOrder Info: [id number] - URICOrder Info: [id number] - CRPOrder Info: [id number] - TSHOrder Info: [id number] - FOLS Performed By: #### L 503.0106, L506.0200 ####[facility] [address] [place], [place], [address] Vitamin B12 ser/plasOrdered By: Nakul Oliva on 05-24-2025 Cobalamin (Vitamin B12) [Mass/Vol] 608 pg/mL 180-914 [facility] White blood cell (WBC) count Ordered By: Nakul Oliva on 05-24-2025 WBC (Bld) [#/Vol] 7.4 10*3/uL 4.4-11.0 [facility] PSA,Total- Diagnosticon 04-24 PSA, DIAGNOSTIC 4.23 ng/mL High 0.00-4.00 [facility] Comment on above: Result Comment: This test was performed using the [employer] tPSA method. Measured values of a patient??sample can vary depending on the testing procedure used. PSA values determined on patient samples by different testing procedures cannot be used interchangeably. If there is a change in PSA assays while monitoring therapy, sequential testing should be performed to confirm baseline values. Performed By: #### L 501.9940 #### [facility] [address] [place], [place], [address] Oncology Visit Reporton 02-23 Oncology Visit Report [facility] [address] [place] [address] OFFICE VISIT Date of Service: 03/22/25 1116 MR#: [id number] Acct: [id number] Name: RENATA MARTIN Rep #: [id number] : 1950 From: Moreno Travis MD Age/Sex: 74/M Location: [facility] Status: Signed HPI Subjective Date of Service 03/22/25 Chief Complaint F/u for DVT. History of Present Illness 74y.o.man had R lower extremity DVT in 2016, treated with anticoagulant. He was found to have MTHFR heterozygous mutation at that time. He developed another R Lower extremity DVT on 09/27/2024 and started on Eliquis. He was referred for further evaluation. He remains on Eliquis, comes for follow up. He feels well. [facility] Medical History History of DVT (deep vein thrombosis) Nonalcoholic fatty liver disease Chronic kidney disease (CKD) Metabolic syndrome Obesity BPH (benign prostatic hyperplasia) Obstructive sleep apnea Arthritis Surgical History History of total right knee replacement Hx of cystoscopy H/O vasectomy History of foot surgery History of cholecystectomy H/O arthroscopic knee surgery History of left knee replacement Family History Mother Hypertension CVA (cerebral vascular accident) Myocardial infarction, Onset Age: 72 Heart disease Father Kidney disease Brother Kidney disease Lung cancer Heart disease Sister Breast cancer Hypertension Diabetes Social History household members: spouse current occupational status: retired Smoking Status: Former smoker alcohol intake: never substance use type: does not use Intake Vital Signs 12/14/24 11:02 03/22/25 11:17 Height 5 ft 9 in 5 ft 9 in Weight: 92.278 kg 92.193 kg BMI 30.0 29.9 BP 122/73 H Blood Pressure Location Lt brachial Position Sitting Respiration 18 Pulse 57 L Pulse Source Monitor Temp 98.3 F Temperature Source Temporal Artery Pulse Oximetry (%) 93 Oxygen Delivery Method room air Intake Is patient in pain?: No Allergies cephalexin monohydrate (From Keflex) Allergy (Severe, Verified 03/22/25 11:19) Swelling Medications ???Medication ???Instructions ???Recorded ???Confirmed ???Type multivitamin (Multiple Vitamins 1 ea PO DAILY SUPPLEMENT 12/30/17 03/22/25 History tablet) apixaban 5 mg tablet (Eliquis) 5 mg PO BID #60 tabs 12/14/2402/23 Rx prednisone 20 mg tablet mg PO 03/22/25 03/22/25 History Have you fallen in the past year?: No Central Venous Access Central Venous Access: No Exam Physical Exam Const alert, oriented x3 and no apparent distress HEENT normocephalic, external ears normal and external nose normal Eyes conjunctivae normal and no scleral icterus Neck no lymphadenopathy and supple Lymph Lymphatic: no lymphadenopathy noted Resp normal respiratory effort and clear to auscultation bilaterally Cardio regular rate, regular rhythm, S1 normal heart sound, S2 normal heart sound and no murmurs GI normal to inspection, nondistended, normoactive bowel sounds no CVA tenderness Back/Spine thoracic and lumbar spine normal to inspection Extremity Extremity Narrative: +scar. + varicose veins lower legs Skin no rashes or lesions noted Neuro oriented x3, CN's II-XII intact bilaterally and moves all extremities Psych mental status grossly normal Coding Level of Care Code Off vis,est,level 3 Exam Problem Focused Diagnoses Acute deep vein thrombosis (DVT) of femoral vein of right lower extremity I82.411 DVT location: lower extremity Affected thrombotic vein of extremity: femoral Chronicity: acute Laterality: right Heterozygous MTHFR mutation C677T Z15.89 Asymptomatic varicose veins of both lower extremities I83.93 Varicose vein complication: asymptomatic Laterality: bilateral Assessment and Plan Assessment and Plan (1) DVT (deep venous thrombosis): Status: Acute Qualifiers: DVT location: lower extremity Affected thrombotic vein of extremity: femoral Chronicity: acute Laterality: right Qualified Code(s): I82.411 - Acute embolism and thrombosis of right femoral vein Comment: Discussed management of 2nd episode of DVT, he needs to Eliquis for 6 months. He did not have Factor V Leiden or Prothrombin gene mutations in 2016. D-dimers is normal today=0.43 Plan: To continue Eliquis till prescription runs out in March 2025. (2) Heterozygous MTHFR mutation C677T: Status: Chronic Plan: To continue Eliquis till prescription runs out in March 2025. (3) Varicose vein of leg: Status: Chronic Qualifiers: Varicose vein complication: asymptomatic Later (more content not included)... Normal [facility] Absolute lymphocyte countOrd ered By: Moreno Travis on 03-21-2025 Lymphocytes Auto (Unsp spec) [#/Vol] 1.25 10*3/uL 0.83-4.51 [facility] Absolute neutrophil countOrd ered By: Moreno [facility] on 03-21-2025 Neutrophils (Bld) [#/Vol] 10.0 10*3/uL High 2.0-7.7 [facility] Anion gap in Serum or Plasma Ordered By: Moreno Gamez on 03-21-2025 Anion gap [Moles/Vol] 13 mmol/L 5-15 [facility] Automated lymphocyte count a s percentage of total leukocytesOrdered By: Moreno Gamez on 03-21-2025 Lymphocytes/100 WBC Auto (Unsp spec) 10.5 % Low 19-41 [facility] BUN/creatinine ratioOrdered By: Moreno [facility] on 03-21-2025 Urea nitrogen/Creatinine [Mass ratio] 20.7 mg/mg High 10-20 [facility] Basophil percentageOrdered B y: Moreno Gamezcaesar on 03-21-2025 Basophils/100 WBC (Bld) 0.5 % 0-1 [facility] Bilirubin, totalOrdered By: Moreno Gamez on 03-21-2025 Bilirubin [Mass/Vol] 0.68 mg/dL 0.00-1.30 [facility] CBC W/Diff, Automatedon 02-23 Absolute Lymph 1.25 X10 3/uL Normal 0.83-4.51 [facility] Comment on above: Performed By: #### L 300.8000, L504.2610, L100.0100, L500.4050 #### [facility] [address] [place], [address] Absolute Neut 10.0 X10 3/uL High 2.0-7.7 [facility] Comment on above: Performed By: #### L 300.8000, L504.2610, L100.0100, L500.4050 #### [facility] [address] [place], [address] Basophils/100 WBC (Bld) 0.5 % Normal 0-1 [facility] Comment on above: Performed By: #### L 300.8000, L504.2610, L100.0100, L500.4050 #### [facility] [address] [place], [address] Eosinophils/100 WBC (Bld) 0.6 % Normal 0-5 [facility] Comment on above: Performed By: #### L 300.8000, L504.2610, L100.0100, L500.4050 #### [facility] [address] [place], [address] Erythrocyte distribution width (RBC) [Ratio] 13.2 % Normal 11.6-14.6 [facility] Comment on above: Performed By: #### L 300.8000, L504.2610, L100.0100, L500.4050 #### [facility] [address] [place], [address] Hematocrit (Bld) [Volume fraction] 45.6 % Normal 40-54 [facility] Comment on above: Performed By: #### L 300.8000, L504.2610, L100.0100, L500.4050 #### [facility] [address] [place], [address] Hemoglobin (Bld) [Mass/Vol] 16.0 g/dL Normal 13.0-16.5 [facility] Comment on above: Performed By: #### L 300.8000, L504.2610, L100.0100, L500.4050 #### [facility] [address] [place], [address] IG% 0.500 Normal 0.0-0.9 [facility] Comment on above: Result Comment: IG% - Immature Granulocytes (promyelocytes, myelocytes and metamyelocytes) > 1% indicates that a LEFT SHIFT is Present. Performed By: #### L 300.8000, L504.2610, L100.0100, L500.4050 #### [facility] [address] [place], [address] Lymphocytes/100 WBC (Bld) 10.5 % Low 19-41 [facility] Comment on above: Performed By: #### L 300.8000, L504.2610, L100.0100, L500.4050 #### [facility] [address] [place], [address] MCH (RBC) [Entitic mass] 33.0 pg High 27.0-32.0 [facility] Comment on above: Performed By: #### L 300.8000, L504.2610, L100.0100, L500.4050 #### [facility] [address] [place], [address] MCHC (RBC) [Mass/Vol] 35.1 g/dL Normal 32-36 [facility] Comment on above: Performed By: #### L 300.8000, L504.2610, L100.0100, L500.4050 #### [facility] [address] [place], [address] MCV (RBC) [Entitic vol] 94.0 fL Normal 80-94 [facility] Comment on above: Performed By: #### L 300.8000, L504.2610, L100.0100, L500.4050 #### [facility] [address] [place], [address] Monocytes/100 WBC (Bld) 3.6 % Normal 0-10 [facility] Comment on above: Performed By: #### L 300.8000, L504.2610, L100.0100, L500.4050 #### [facility] [address] [place], [address] Neutrophils/100 WBC (Bld) 84.3 % High 47-70 [facility] Comment on above: Performed By: #### L 300.8000, L504.2610, L100.0100, L500.4050 #### [facility] [address] [place], [address] Nucleated RBC (Bld) [#/Vol] 0 10*3/uL Normal 0-5 [facility] Comment on above: Performed By: #### L 300.8000, L504.2610, L100.0100, L500.4050 #### [facility] [address] [place], [address] Platelet mean volume (Bld) [Entitic vol] 9.6 fL Normal 6.2-12.0 [facility] Comment on above: Performed By: #### L 300.8000, L504.2610, L100.0100, L500.4050 #### [facility] [address] [place], [address] Platelets (Bld) [#/Vol] 247 10*3/uL Normal 150-450 [facility] Comment on above: Performed By: #### L 300.8000, L504.2610, L100.0100, L500.4050 #### [facility] [address] [place], [address] RBC (Bld) [#/Vol] 4.85 10*6/uL Normal 4.6-6.2 [facility] Comment on above: Performed By: #### L 300.8000, L504.2610, L100.0100, L500.4050 #### [facility] [address] [place], [address] RDW SD 45.1 fl High 35.1-43.9 [facility] Comment on above: Performed By: #### L 300.8000, L504.2610, L100.0100, L500.4050 #### [facility] [address] [place], [address] WBC (Bld) [#/Vol] 11.9 10*3/uL High 4.4-11.0 [facility] Comment on above: Performed By: #### L 300.8000, L504.2610, L100.0100, L500.4050 #### [facility] [address] [place], [address] Carbon dioxide, total [Moles /volume] in Central venous bloodOrdered By: Moreno Travis on 03-21-2025 CO2 [Moles/Vol] 22.1 mmol/L 21.0-32.0 [facility] Chloride assayOrdered By: Rachael Travis on 03-21-2025 Chloride [Moles/Vol] 105 mmol/L 98-108 [facility] Comprehensive Metabolic Prof ilon 03-21-2025 Albumin [Mass/Vol] 4.4 g/dL Normal 3.4-4.8 [facility] Comment on above: Performed By: #### L 300.8000, L504.2610, L100.0100, L500.4050 #### [facility] [address] [place], [address] Albumin/Globulin [Mass ratio] 1.5 {ratio} Normal 0.9-2.4 [facility] Comment on above: Performed By: #### L 300.8000, L504.2610, L100.0100, L500.4050 #### [facility] [address] [place], [address] ALK PHOS 70 U/L Normal 40-129 [facility] Comment on above: Performed By: #### L 300.8000, L504.2610, L100.0100, L500.4050 #### [facility] [address] [place], [address] ALT [Catalytic activity/Vol] 21 U/L Normal <=46 [facility] Comment on above: Performed By: #### L 300.8000, L504.2610, L100.0100, L500.4050 #### [facility] [address] [place], [address] AST [Catalytic activity/Vol] 19 U/L Normal <=37 [facility] Comment on above: Performed By: #### L 300.8000, L504.2610, L100.0100, L500.4050 #### [facility] [address] [place], [address] Bilirubin [Mass/Vol] 0.68 mg/dL Normal 0.00-1.30 [facility] Comment on above: Performed By: #### L 300.8000, L504.2610, L100.0100, L500.4050 #### [facility] [address] [place], [address] BUN/CRE 20.7 RATIO High 10-20 [facility] Comment on above: Performed By: #### L 300.8000, L504.2610, L100.0100, L500.4050 #### [facility] [address] [place], [address] Calcium [Mass/Vol] 9.8 mg/dL Normal 7.6-11.0 [facility] Comment on above: Performed By: #### L 300.8000, L504.2610, L100.0100, L500.4050 #### [facility] [address] [place], [address] Chloride [Moles/Vol] 105 mmol/L Normal 98-108 [facility] Comment on above: Performed By: #### L 300.8000, L504.2610, L100.0100, L500.4050 #### [facility] [address] [place], [address] CO2 [Moles/Vol] 22.1 mmol/L Normal 21.0-32.0 [facility] Comment on above: Performed By: #### L 300.8000, L504.2610, L100.0100, L500.4050 #### [facility] [address] [place], [address] Creatinine [Mass/Vol] 1.57 mg/dL High 0.70-1.20 [facility] Comment on above: Performed By: #### L 300.8000, L504.2610, L100.0100, L500.4050 #### [facility] [address] [place], [address] GAP 13 Normal 5-15 [facility] Comment on above: Performed By: #### L 300.8000, L504.2610, L100.0100, L500.4050 #### [facility] [address] [place], [address] GFR/1.73 sq M.predicted among non-blacks MDRD (S/P/Bld) [Vol rate/Area] 46 mL/min/{1.73_m2} Low >60 [facility] Comment on above: Result Comment: mL/m in/1.73m2 CKD-EPI Creatinine Equation (2020) Performed By: #### L 300.8000, L504.2610, L100.0100, L500.4050 #### [facility] [address] [place], [address] Globulin (S) [Mass/Vol] 2.9 g/dL Normal 2.2-4.2 [facility] Comment on above: Performed By: #### L 300.8000, L504.2610, L100.0100, L500.4050 #### [facility] [address] [place], [address] Glucose [Mass/Vol] 105 mg/dL High 70-99 [facility] Comment on above: Performed By: #### L 300.8000, L504.2610, L100.0100, L500.4050 #### [facility] [address] [place], [address] Potassium [Moles/Vol] 4.5 mmol/L Normal 3.3-5.1 [facility] Comment on above: Performed By: #### L 300.8000, L504.2610, L100.0100, L500.4050 #### [facility] [address] [place], [address] Sodium [Moles/Vol] 140 mmol/L Normal 133-145 [facility] Comment on above: Performed By: #### L 300.8000, L504.2610, L100.0100, L500.4050 #### [facility] [address] [place], [address] T PROT 7.3 g/dL Normal 5.9-8.4 [facility] Comment on above: Performed By: #### L 300.8000, L504.2610, L100.0100, L500.4050 #### [facility] [address] [place], [address] Urea nitrogen [Mass/Vol] 33 mg/dL High 4-19 [facility] Comment on above: Performed By: #### L 300.8000, L504.2610, L100.0100, L500.4050 #### [facility] [address] [place], [address] D-Dimer Quantitative (DVT/PE )on 03-21-2025 D-DIMER QUANT 0.43 FEU/ug/m Normal 0.27-0.49 [facility] Comment on above: Result Comment: NORM AL D-Dimer level (<0.50) indicates no DVT or PE. Performed By: #### L 300.8000, L504.2610, L100.0100, L500.4050 #### [facility] [address] [place], [address] Eosinophil percentageOrdered By: Moreno Travis on 03-21-2025 Eosinophils/100 WBC (Bld) 0.6 % 0-5 [facility] Erythrocyte distribution wid th ratioOrdered By: Moreno Travis on 03-21-2025 Erythrocyte distribution width (RBC) [Ratio] 13.2 % 11.6-14.6 [facility] Erythrocyte distribution wid th standard deviationOrdered By: Moreno Travis on 03-21-2025 Erythrocyte distribution width (RBC) [Ratio] 45.1 fl High 35.1-43.9 [facility] Glomerular filtration rate ( GFR) estimation/1.73 sq m using serum, plasma, or whole bOrdered By: Moreno Travis on 03-21-2025 GFR/1.73 sq M.predicted among non-blacks MDRD (S/P/Bld) [Vol rate/Area] 46 mL/min/{1.73_m2} Low >60 [facility] Comment on above: mL/min/1.73m2 CKD-EP I Creatinine Equation (2020) Hematocrit Auto (Bld) [Volum e fraction]Ordered By: Moreno Travis on 03-21-2025 Hematocrit (Bld) [Volume fraction] 45.6 % 40-54 [facility] Hemoglobin measurementOrdere d By: Moreno Travis on 03-21-2025 Hemoglobin (Bld) [Mass/Vol] 16.0 g/dL 13.0-16.5 [facility] Immature granulocytes/100 WB C Auto (Bld)Ordered By: Moreno Travis on 03-21-2025 Immature granulocytes/100 WBC (Bld) 0.500 % 0.0-0.9 [facility] Comment on above: IG% - Immature Granu locytes (promyelocytes, myelocytes and metamyelocytes) > 1% indicates that a LEFT SHIFT is Present. LDHon 03-21-2025 LDH 167 U/L Normal 87-241 [facility] Comment on above: Order Comment: 1 Performed By: #### L 300.8000, L504.2610, L100.0100, L500.4050 ####[facility] [id number] [place], [address] Laboratory - Chemistry and C hemistry - challengeOrdered By: Moreno Travis on 03-21-2025 AST [Catalytic activity/Vol] 19 U/L <38 [facility] Lactate dehydrogenase (LDH) measurementOrdered By: Moreno Travis on 03-21-2025 LDH [Catalytic activity/Vol] 167 U/L 87-241 [facility] MCV (mean corpuscular volume ) determinationOrdered By: Moreno Travis on 03-21-2025 MCV (RBC) [Entitic vol] 94.0 fL 80-94 [facility] Mean corpuscular hemoglobin (MCH) determinationOrdered By: Moreno Travis on 03-21-2025 MCH (RBC) [Entitic mass] 33.0 pg High 27.0-32.0 [facility] Mean corpuscular hemoglobin concentration (MCHC) determinationOrdered By: Moreno Travis on 03-21-2025 MCHC (RBC) [Mass/Vol] 35.1 g/dL 32-36 [facility] Mean platelet volume determi nationOrdered By: Moreno Travis on 03-21-2025 Platelet mean volume (Bld) [Entitic vol] 9.6 fL 6.2-12.0 [facility] Monocyte percentageOrdered B y: Moreno Travis on 03-21-2025 Monocytes/100 WBC (Bld) 3.6 % 0-10 [facility] Neutrophil percentageOrdered By: Moreno Travis on 03-21-2025 Neutrophils/100 WBC (Bld) 84.3 % High 47-70 [facility] Nucleated red blood cell per centageOrdered By: Moreno Travis on 03-21-2025 Nucleated RBC/100 WBC (Bld) [Ratio] 0 % 0-5 [facility] Platelet countOrdered By: Rachael Travis on 03-21-2025 Platelets (Bld) [#/Vol] 247 10*3/uL 150-450 [facility] Potassium measurement (mass/ volume)Ordered By: Moreno Travis on 03-21-2025 Potassium (Unsp spec) [Mass/Vol] 4.5 mmol/L 3.3-5.1 [facility] RBC Auto (Bld) [#/Vol]Ordere d By: Moreno Travis on 03-21-2025 RBC (Bld) [#/Vol] 4.85 10*6/uL 4.6-6.2 [facility] Serum creatinine measurement (mass/volume)Ordered By: Moreno Travis on 03-21-2025 Creatinine [Mass/Vol] 1.57 mg/dL High 0.70-1.20 [facility] Serum globulin measurementOr dered By: Moreno Travis on 03-21-2025 Globulin (S) [Mass/Vol] 2.9 g/dL 2.2-4.2 [facility] Serum glucose measurement (m ass/volume)Ordered By: Moreno Travis on 03-21-2025 Glucose [Mass/Vol] 105 mg/dL High 70-99 [facility] Serum or plasma alanine zavala otransferase (ALT) measurementOrdered By: Moreno Travis on 03-21-2025 ALT [Catalytic activity/Vol] 21 U/L <47 [facility] Serum or plasma albumin mikayla urement (mass/volume)Ordered By: Moreno Travis on 03-21-2025 Albumin [Mass/Vol] 4.4 g/dL 3.4-4.8 [facility] Serum or plasma albumin/glob ulin mass ratioOrdered By: Moreno Travis on 03-21-2025 Albumin/Globulin [Mass ratio] 1.5 {ratio} 0.9-2.4 [facility] Serum or plasma alkaline jazlyn sphatase measurementOrdered By: Moreno Travis on 03-21-2025 ALP [Catalytic activity/Vol] 70 U/L 40-129 [facility] Serum or plasma calcium mikayla urement (mass/volume)Ordered By: Moreno Travis on 03-21-2025 Calcium [Mass/Vol] 9.8 mg/dL 7.6-11.0 [facility] Serum or plasma urea nitroge n measurement (mass/volume)Ordered By: Moreno Travis on 03-21-2025 Urea nitrogen [Mass/Vol] 33 mg/dL High 4-19 [facility] Sodium levelOrdered By: Keith Travis on 03-21-2025 Sodium [Moles/Vol] 140 mmol/L 133-145 [facility] Total proteinOrdered By: Carlos Alberto Travis on 03-21-2025 Protein [Mass/Vol] 7.3 g/dL 5.9-8.4 [facility] White blood cell (WBC) count Ordered By: Moreno Travis on 03-21-2025 WBC (Bld) [#/Vol] 11.9 10*3/uL High 4.4-11.0 [facility] Oncology Visit Reporton 11-25 Oncology Visit Report [facility] [place] [address] OFFICE VISIT Date of Service: 12/14/24 1051 MR#: [id number] Acct: [id number] Name: RENATA MARTIN Rep #: [id number] : 1950 From: Moreno Travis MD Age/Sex: 74/M Location: [facility] Status: Signed HPI Subjective Date of Service 12/14/24 Chief Complaint F/u for DVT. History of Present Illness 74y.o.man had R lower extremity DVT in 2016, treated with anticoagulant. He was found to have MTHFR heterozygous mutation at that time. He developed another R Lower extremity DVT on 09/27/2025 and started on Eliquis. He is referred for further evaluation. He feels well. [facility] Medical History History of DVT (deep vein thrombosis) Nonalcoholic fatty liver disease Chronic kidney disease (CKD) Metabolic syndrome Obesity BPH (benign prostatic hyperplasia) Obstructive sleep apnea Arthritis Surgical History History of total right knee replacement Hx of cystoscopy H/O vasectomy History of foot surgery History of cholecystectomy H/O arthroscopic knee surgery History of left knee replacement Family History Mother Hypertension CVA (cerebral vascular accident) Myocardial infarction, Onset Age: 72 Heart disease Father Kidney disease Brother Kidney disease Lung cancer Heart disease Sister Breast cancer Hypertension Diabetes Social History household members: spouse current occupational status: retired Smoking Status: Former smoker alcohol intake: never substance use type: does not use ROS Constitutional Constitutional: Reports systems reviewed and no addt'l complaints, except as documented Eyes Eyes: Reports systems reviewed and no addt'l complaints, except as documented ENT HEENT: Reports systems reviewed and no addt'l complaints, except as documented Cardiovascular Cardiovascular: Reports systems reviewed and no addt'l complaints, except as documented Respiratory/Chest Respiratory/Chest: Reports systems reviewed and no addt'l complaints, except as documented Gastrointestinal Gastrointestinal: Reports systems reviewed and no addt'l complaints, except as documented Genitourinary Genitourinary: Reports systems reviewed and no addt'l complaints, except as documented Musculoskeletal Musculoskeletal: Reports systems reviewed and no addt'l complaints, except as documented Integumentary Integumentary: Reports systems reviewed and no addt'l complaints, except as documented Neurologic Neurologic: Reports systems reviewed and no addt'l complaints, except as documented Psychiatric Psychiatric: Reports systems reviewed and no addt'l complaints, except as documented Endocrine Endocrinology: Reports systems reviewed and no addt'l complaints, except as documented Hematologic/Lympha tic Hematologic/Lympha tic: Reports systems reviewed and no addt'l complaints, except as documented Allergic/Immunolog ic Allergic/Immunolog ic: Reports systems reviewed and no addt'l complaints, except as documented Intake Vital Signs 09/26/24 13:40 12/14/24 10:51 12/14/24 11:02 Height 5 ft 9 in 5 ft 9 in 5 ft 9 in Weight: 92.278 kg 92.278 kg BMI 30.0 30.0 BP 121/73 H Blood Pressure Location Lt brachial Position Sitting Respiration 18 Pulse 59 L Pulse Source Monitor Temp 98.3 F Temperature Source Temporal Artery Pulse Oximetry (%) 95 Oxygen Delivery Method room air Intake Is patient in pain?: No Allergies cephalexin monohydrate (From Keflex) Allergy (Severe, Verified 12/14/24 10:54) Swelling Medications ???Medication ???Instructions ???Recorded ???Confirmed ???Type multivitamin (Multiple Vitamins 1 ea PO DAILY SUPPLEMENT 12/30/17 12/14/24 History tablet) apixaban 5 mg tablet (Eliquis) 5 mg PO BID #60 tabs 12/14/24 12/14/24 Rx Have you fallen in the past year?: No Central Venous Access Central Venous Access: No Exam Physical Exam Const alert, oriented x3 and no apparent distress HEENT normocephalic, external ears normal and external nose normal Eyes conjunctivae normal and no scleral icterus Neck no lymphadenopathy and supple Lymph Lymphatic: no lymphadenopathy noted Resp normal respiratory effort and clear to auscultation bilaterally Cardio regular rate, regular rhythm, S1 normal heart sound, S2 normal heart sound and no murmurs GI normal to inspection, nondistended, normoactive bowel sounds no CVA tenderness Back/Spine thoracic and lumbar spine normal to inspection Extremity Extremity Narrative: +scar Skin no rashes or lesions noted Neuro oriented x3, CN's II-XII intact b (more content not included)... Normal [facility] PSA,Total - Annual Screenon 11-26-2024 PSA,TOT SCREEN 6.87 ng/mL High 0.00-4.00 [facility] Comment on above: Order Comment: Order Date: 11/26/24 Order Info: [id number] - PSA Result Comment: This test was performed using the TPSA assay method for the [employer] chemistry system. Values obtained with different assay methods cannot be used interchangably. When changing PSA assays in the course of monitoring a patient, additional sequential testing should be carried out to confirm baseline values. Performed By: #### L 501.9910 #### [facility] [address] [place], [address] Venous Duplex US, Unilateral on 09-27-2024 Venous Duplex US, Unilateral [facility] [address] [place] [address] Venous Duplex US, Unilateral 09/27/24 0918 MR#: [id number] Acct: [id number] Name: RENATA MARTIN Rep #: [id number] : 1950 73 From: Donald Hermosillo MD Attending Dr: Dr. Scottie Leo, Status: REG CLI Ordering Dr: Scottie Leo DO Date: 09/27/24 Location: [facility] Sex: M C Admitted: Reason For Study: Right leg swelling RIGHT LEFT GSV is normal. CFV is compressible, spontaneous, phasic, Acute deep vein thrombosis is noted in the competent, and demonstrates normal CFV, FV, PopV, T/P trunk, PTV, PeroV, augmentation. GastrocV and SoleusV. It is dilated and NONCOMPRESSIBLE. Thrombus in CFV is mobile with minimal venous flow noted. Procedure This is a venous duplex using B-mode, color flow and spectral Doppler. Exam performed in department. A preliminary report was called and/or faxed to PCP: Emely TOLENTINO. VL/Venous Duplex US, Unilateral Interpretation Summary Acute deep vein thrombosis is noted in the right common femoral vein. Acute deep vein thrombosis is noted in the right femoral vein. Acute deep vein thrombosis is noted in the right popliteal vein. Acute deep vein thrombosis is noted in the right tibio-peroneal trunk. Acute deep vein thrombosis is noted in the right posterior tibial vein. Acute deep vein thrombosis is noted in the right peroneal vein. Acute deep vein thrombosis is noted in the right gastrocnemius vein. Acute deep vein thrombosis is noted in the right soleus vein. The right great saphenous vein appears patent and compressible segmentally. The left common femoral vein is patent and compressible . Ordering Physician: Scottie Leo Referring Physician: Nakul Oliva Performed By: Nadja Brooks RVT 09/27/241705 Date Donald Hermosillo MD CC: Dr. Scottie Leo DO; Dr. Nakul Oliva MD Date Dictated: 09/27/24917 Date Transcribed: 09/27/241705 Perfusionist: Usha [facility] Susy 09-26-2024 [facility] Office Visit ([facility]) -------- VERONICARENATA D ([id number]) 1950 M Date Time Provider Department 09/26/24 1:30 PM NIGEL SR [facility] During your visit today, we recorded the following information about you: Nigel Sr, AMANDA 09/26/2024 1:51 PM Signed Patient presents to express care triage with chief complaint of right leg [...] over the weekend. Patient will go to [facility] ED to be evaluated. Allergies As of Date: 09/26/2024 Noted Allergy Reaction KEFLEX (CEPHALEXIN) 03/17/2009 14 - Other: See Comments Comments: local swelling Date Reviewed: 11/25/2015 Reviewed by: Sylvie Conner LPN - Fully Assessed Primary Visit Diagnosis:Right leg swelling [M79.89] Prescriptions as of 09/26/2024 - benzonatate (TESSALON PERLES) 100 mg capsule Take 1 capsule by mouth three times daily as needed for Cough. - doxycycline monohydrate 100 mg tablet Take 1 tablet by mouth twice daily. - TAMSULOSIN 0.4 mg Cp24 once daily. - AMMONIUM LACTATE 12 % cream as needed. - MULTIVITAMIN TAB Take one(1) tablet daily. Problem List As Of Date 09/26/2024 Noted Resolved Cholelithiasis [K80.20] 04/29/2013 Polyp of gallbladder [K82.4] 04/29/2013 Kidney stones [N20.0] 04/29/2013 Choledocholithiasi s [K80.50] 05/15/2013 Encounter Status:Closed by NIGEL SR on 09/26/24 Normal [facility] Emergency Department Summary on 09-26-2024 Emergency Department Summary [facility] Records Department [address] [place] [address] Emergency Department Summary 09/26/24 MR#: [id number] Acct: [id number] Name: RENATA MARTIN Rep #: [id number] : 1950 73 From: Scottie Leo DO PCP: Dr. Nakul Oliva MD Status:DEP ER Location: ED HPI History of Present Illness Chief Complaint: Lower Extremity Injury Informant: patient Narrative Narrative: 73-year-old male presenting to the emergency room with swelling of the right leg. Patient noted that yesterday morning he awoke had fullness and discomfort posterior to the knee on the right. He notes swelling of the leg. He states he has had prior DVT in that leg. Not currently on any anticoagulants. He has had prior knee replacement. No history that he knows of Rushing's cyst. Denies any fever chest pain shortness of breath. He states that his toes feel fine. PFSH PFSH Medical History Nonalcoholic fatty liver disease Chronic kidney disease (CKD) Metabolic syndrome Obesity BPH (benign prostatic hyperplasia) Obstructive sleep apnea Arthritis Home Medications ???Medication ???Instructions ???Recorded ???Last Taken ???Type multivitamin (Multiple Vitamins 1 ea PO DAILY SUPPLEMENT 12/30/17 05/21/18 08:00 History tablet) 1 TAB aspirin 81 mg tablet,delayed 81 mg PO DAILY BLOOD THINNER 05/18/18 05/26/18 16:44 History release (Adult Aspirin Regimen) 81 MG Allergy/AdvReac Type Severity Reaction Status Date / Time cephalexin monohydrate (From Allergy Severe Swelling Verified 09/26/24 13:42 Keflex) Family History Mother Hypertension CVA (cerebral vascular accident) Myocardial infarction, Onset Age: 72 Father Kidney disease Brother Kidney disease Lung cancer Sister Breast cancer Surgical History History of foot surgery History of cholecystectomy H/O arthroscopic knee surgery History of left knee replacement Social History Smoking Status: Former smoker ROS ROS ED Constitutional Constitutional ED: Denies chills, fever(s) or weight loss Eyes Eyes: Denies change in vision or diplopia ENT ENT ED: Denies ear pain, rhinorrhea or sore throat Cardiovascular Cardiovascular: Denies chest pain, orthopnea, palpitations or racing heartbeat Respiratory/Chest Respiratory/Chest: Denies cough, dyspnea or orthopnea Gastrointestinal Gastrointestinal: Denies abdominal pain, diarrhea, nausea or vomiting Genitourinary Genitourinary ED: Denies dysuria, hematuria or urinary frequency Musculoskeletal Musculoskeletal: Reports other Details: See history of present illness ; Denies arthralgias or myalgias Integumentary Denies abscess or rash Neurologic Neurologic: Denies headache(s), paresthesias or weakness Psychiatric Psychiatric: Denies anxiety, depression, suicidal ideation or suicidal thoughts Endocrine Endocrinology: Denies polydipsia, polyphagia or polyuria Allergic/Immunolog ic Allergic/Immunolog ic ED: Denies mouth swelling, tongue swelling or urticaria EXAM Physical Exam Const Vital Signs: 09/26/24 13:40 Temperature 97.8 F Temperature Source Oral Pulse Rate 62 Respiratory Rate 16 Blood Pressure 156/61 H Blood Pressure Mean 92 Pulse Ox 99 Oxygen Delivery Method Room Air Positive well nourished and well developed General Appearance ED: well developed and NAD HEENT Reports normocephalic, head/scalp atraumatic and moist mucous membranes Eyes PERRL and EOMs intact bilaterally Neck no lymphadenopathy, supple and no JVD Resp normal respiratory effort and clear to auscultation bilaterally Cardio regular rate, regular rhythm and no murmurs GI normal to inspection, nondistended, normoactive bowel sounds and non-tender Palpation: soft Back/Spine no CVA tenderness and normal ROM Extremity Extremity Narrative: There is a palpable fullness to the popliteal fossa. There is mild nonpitting edema of the right leg to the level of the ankle. There are no palpable cords or varicosities. Normal skin color. The foot appears with no significant swelling discoloration. I am able to palpate a dorsalis pedis pulse. General Extremety ED: Negative for edema General Extremity: Negative for edema Neuro oriented x3 and CN's II-XII intact bilaterally Sensorium / Orientation: alert Motor Exam: strength 5/5 throughout Psych mental status grossly normal Mood Affect: Negative for depressed or tearful Skin no rashes or lesions noted and no wounds MDM MDM MDM Narrative Medical decision making narrative: Differential diagnosis includes but not limited to lymphedema DVT Rushing's cyst p (more content not included)... Normal [facility] Basophil percentageOrdered B y: Nakul Oliva on 11-11-2023 Bilirubin [Mass/Vol] 1.10 mg/dL 0.20-1.00 [facility] Comment on above: For patients on eltr ombopag therapy, use of Dimension Mchenry TBIL is not recommended. Chloride [Moles/Vol] 110 mmol/L 98-107 [facility] Cholesterol [Mass/Vol] 194 mg/dL <200 [facility] Comment on above: <200 mg/dL Desirable 200-240 mg/dL Borderline >240 mg/dL High Risk Glucose [Mass/Vol] 99 mg/dL 74-106 [facility] Potassium [Moles/Vol] 4.2 mmol/L 3.5-5.1 [facility] Protein [Mass/Vol] 7.7 g/dL 6.4-8.2 [facility] Sodium [Moles/Vol] 141 mmol/L 136-145 [facility] Triglyceride [Mass/Vol] 207 mg/dL <199 [facility] Comment on above: The drugs N-Acetylcy steine and Metamizole may falsely depress this assay.Serum Triglycerides Reference Interval Normal <150 mg/dL Borderline high 150 - 199 mg/dL High 200 - 499 mg/dL Very High > or = 500 mg/dL Laboratory - Chemistry and C hemistry - challengeOrdered By: Nakul Oliva on 11-11-2023 ALP [Catalytic activity/Vol] 80 U/L 45-117 [facility] ALT [Catalytic activity/Vol] 37 U/L 16-61 [facility] Amylase [Catalytic activity/Vol] 29 U/L 15-85 [facility] CO2 [Moles/Vol] 27.0 mmol/L 21.0-32.0 [facility] Globulin (S) [Mass/Vol] 3.9 g/dL 2.2-4.2 [facility] Urea nitrogen/Creatinine [Mass ratio] 16.4 mg/mg 10-20 [facility] No Panel InformationOrdered By: Nakul Oliva on 11-11-2023 Estimated GFR (MDRD) Amer 61 mL/min >60 [facility] Comment on above: GFR Calc Estimated GFR (MDRD) Non-Af Amer 50 mL/min >60 [facility] Comment on above: Non- GFR Calc Prostate Specific Antigen Screen 4.23 ng/mL 0.00-4.00 [facility] Comment on above: This test was perfor med using the TPSA assay method for the[employer] chemistry system. Values obtained with differentassay methods cannot be used interchangably.When changing PSA assays in the course of monitoring apatient, additional sequential testing should be carriedout to confirm baseline values. Serum or plasma albumin mikayla urement (mass/volume)Ordered By: Nakul Oliva on 11-11-2023 Albumin [Mass/Vol] 3.8 g/dL 3.2-5.0 [facility] Serum or plasma albumin/glob ulin mass ratioOrdered By: Nakul Oliva on 11-11-2023 Albumin/Globulin [Mass ratio] 1.0 {ratio} 0.9-2.4 [facility] Serum or plasma calcium mikayla urement (mass/volume)Ordered By: Nakul Oliva on 11-11-2023 Calcium [Mass/Vol] 9.9 mg/dL 8.5-10.1 [facility] Serum or plasma cholesterol in HDL measurement (mass/volume)Ordered By: Nakul Oliva on 11-11-2023 Cholesterol in HDL [Mass/Vol] 39 mg/dL >40 [facility] Comment on above: The drugs N-Acetylcy steine and Metamizole may falsely depress this assay. Reference Range HDL <40 mg/dL Low HDL Cholesterol HDL >or= 60 mg/dL High HDL Cholesterol Serum or plasma cholesterol in VLDL measurement (mass/volume)Ordered By: Nakul Oliva on 11-11-2023 Cholesterol in VLDL [Mass/Vol] 41 mg/dL 5-40 [facility] Serum or plasma creatinine m easurement (mass/volume)Ordered By: Nakul Oliva on 11-11-2023 Creatinine [Mass/Vol] 1.46 mg/dL 0.70-1.30 [facility] Comment on above: The validity of the calculated GFR & GFRAA in patients over 70 years has not been determined. Clinical correlation is essential. Serum or plasma low density lipoprotein (LDL) cholesterol measurement (mass/volume)Ordered By: Nakul Oliva on 11-11-2023 Cholesterol in LDL [Mass/Vol] 114 mg/dL 0-130 [facility] Serum or plasma urea nitroge n measurement (mass/volume)Ordered By: Nakul Oliva on 11-11-2023 Urea nitrogen [Mass/Vol] 24 mg/dL 7-18 [facility] Serum or plasma uric acid me asurement (mass/volume)Ordered By: Nakul Oliva on 11-11-2023 Urate [Mass/Vol] 8.4 mg/dL 3.5-7.2 [facility] Comment on above: The drugs N-Acetylcy steine and Metamizole may falsely depress this assay. Thin prep Papanicolaou smear with manual screeningOrdered By: Nakul Oliva on 11-11-2023 Thin prep Papanicolaou smear with manual screening 21 U/L 15-37 [facility] Thin prep Papanicolaou smear with manual screening 4 5-15 [facility] Whole blood hemoglobin A1c/t otal hemoglobin ratio (mass fraction)Ordered By: Nakul Oliva on 11-11-2023 HbA1c (Bld) [Mass fraction] 5.5 % 3.8-5.6 [facility] Comment on above: Normal < 5.7 % Predi abetic 5.7 - 6.4 % Diabetic >or= 6.5 % Please note range changes. Absolute lymphocyte countOrd ered By: Nakul Oliva on 05-20-2023 Lymphocytes Auto (Unsp spec) [#/Vol] 2.29 10*3/uL 0.83-4.51 [facility] Basophil percentageOrdered B y: Nakul Oliva on 05-20-2023 Basophils/100 WBC (Bld) 0.7 % 0-1 [facility] Bilirubin [Mass/Vol] 0.90 mg/dL 0.20-1.00 [facility] Comment on above: For patients on eltr ombopag therapy, use of Dimension Mchenry TBIL is not recommended. Chloride [Moles/Vol] 109 mmol/L 98-107 [facility] Cholesterol [Mass/Vol] 181 mg/dL <200 [facility] Comment on above: <200 mg/dL Desirable 200-240 mg/dL Borderline >240 mg/dL High Risk Eosinophils/100 WBC (Bld) 4.1 % 0-5 [facility] Glucose [Mass/Vol] 105 mg/dL 74-106 [facility] Comment on above: Fasting Glucose resu lt from 100 to 125 mg/dL suggests IMPAIRED HOMEOSTASIS per A.D.A. criteria. Neutrophils (Bld) [#/Vol] 4.4 10*3/uL 2.0-7.7 [facility] Neutrophils/100 WBC (Bld) 58.0 % 47-70 [facility] Potassium [Moles/Vol] 4.3 mmol/L 3.5-5.1 [facility] Protein [Mass/Vol] 7.5 g/dL 6.4-8.2 [facility] Sodium [Moles/Vol] 141 mmol/L 136-145 [facility] Triglyceride [Mass/Vol] 156 mg/dL <199 [facility] Comment on above: The drugs N-Acetylcy steine and Metamizole may falsely depress this assay.Serum Triglycerides Reference Interval Normal <150 mg/dL Borderline high 150 - 199 mg/dL High 200 - 499 mg/dL Very High > or = 500 mg/dL WBC (Bld) [#/Vol] 7.6 10*3/uL 4.4-11.0 [facility] Blood erythrocytes count (nu mber/volume)Ordered By: Nakul Oliva on 05-20-2023 RBC (Bld) [#/Vol] 4.98 10*6/uL 4.6-6.2 [facility] Blood hemoglobin measurement (mass/volume)Ordered By: Nakul Oliva on 05-20-2023 Hemoglobin (Bld) [Mass/Vol] 16.1 g/dL 13.0-16.5 [facility] Blood lymphocytes/100 leukoc ytesOrdered By: Nakul Oliva on 05-20-2023 Lymphocytes/100 WBC (Bld) 30.0 % 19-41 [facility] Blood monocytes/100 leukocyt esOrdered By: Nakul Oliva on 05-20-2023 Monocytes/100 WBC (Bld) 6.8 % 0-10 [facility] Blood platelet mean volumeOr dered By: Nakul Oliva on 05-20-2023 Platelet mean volume (Bld) [Entitic vol] 9.4 fL 6.2-12.0 [facility] Determination of erythrocyte mean corpuscular volume (MCV)Ordered By: Nakul Oliva on 05-20-2023 MCV (RBC) [Entitic vol] 94.8 fL 80-94 [facility] Hematocrit Auto (Bld) [Volum e fraction]Ordered By: Nakul Oliva on 05-20-2023 Hematocrit (Bld) [Volume fraction] 47.2 % 40-54 [facility] Laboratory - Chemistry and C hemistry - challengeOrdered By: Nakul Oliva on 05-20-2023 ALP [Catalytic activity/Vol] 78 U/L 45-117 [facility] ALT [Catalytic activity/Vol] 29 U/L 16-61 [facility] CO2 [Moles/Vol] 25.0 mmol/L 21.0-32.0 [facility] Globulin (S) [Mass/Vol] 3.9 g/dL 2.2-4.2 [facility] Urea nitrogen/Creatinine [Mass ratio] 14.8 mg/mg 10-20 [facility] Laboratory - Hematology and Cell countsOrdered By: Nakul Oliva on 05-20-2023 Erythrocyte distribution width (RBC) [Entitic vol] 46.9 fL 35.1-43.9 [facility] Erythrocyte distribution width (RBC) [Ratio] 13.6 % 11.6-14.6 [facility] Immature granulocytes/100 WBC (Bld) 0.400 % 0.0-0.9 [facility] Comment on above: IG% - Immature Granu locytes (promyelocytes, myelocytes and metamyelocytes) > 1% indicates that a LEFT SHIFT is Present. MCH (RBC) [Entitic mass] 32.3 pg 27.0-32.0 [facility] Nucleated RBC/100 WBC (Bld) [Ratio] 0 % 0-5 [facility] MCHC Auto (RBC) [Mass/Vol]Or dered By: Nakul Oliva on 05-20-2023 MCHC (RBC) [Mass/Vol] 34.1 g/dL 32-36 [facility] No Panel InformationOrdered By: Nakul Oliva on 05-20-2023 Estimated GFR (MDRD) Amer 57 mL/min >60 [facility] Comment on above: GFR Calc Estimated GFR (MDRD) Non-Af Amer 47 mL/min >60 [facility] Comment on above: Non- GFR Calc Thyroid Stimulating Hormone (TSH) 3.35 uIU/mL 0.358-3.74 [facility] Urine Microalbumin/Creatinine Ratio 25.3 mg/g CRE <30 [facility] Vitamin D 25-Hydroxy 62.2 ng/mL [facility] Comment on above: Vitamin D 25(OH) Sta tus Range Deficiency <20 ng/mL (50nmol/L) Insufficiency 20 - 30 ng/mL (50 - 75 nmol/L) Sufficiency 30 - 100 ng/mL (75 - 250 nmol/L) Toxicity >100 ng/mL (>250 nmol/L) Platelets bldOrdered By: Briseyda Oliva on 05-20-2023 Platelets (Bld) [#/Vol] 215 10*3/uL 150-450 [facility] Serum or plasma albumin mikayla urement (mass/volume)Ordered By: Nakul Oliva on 05-20-2023 Albumin [Mass/Vol] 3.6 g/dL 3.2-5.0 [facility] Serum or plasma albumin/glob ulin mass ratioOrdered By: Nakul Oliva on 05-20-2023 Albumin/Globulin [Mass ratio] 0.9 {ratio} 0.9-2.4 [facility] Serum or plasma calcium mikayla urement (mass/volume)Ordered By: Nakul Oliva on 05-20-2023 Calcium [Mass/Vol] 9.6 mg/dL 8.5-10.1 [facility] Serum or plasma cholesterol in HDL measurement (mass/volume)Ordered By: Nakul Oliva on 05-20-2023 Cholesterol in HDL [Mass/Vol] 39 mg/dL >40 [facility] Comment on above: The drugs N-Acetylcy steine and Metamizole may falsely depress this assay. Reference Range HDL <40 mg/dL Low HDL Cholesterol HDL >or= 60 mg/dL High HDL Cholesterol Serum or plasma cholesterol in VLDL measurement (mass/volume)Ordered By: Nakul Oliva on 05-20-2023 Cholesterol in VLDL [Mass/Vol] 31 mg/dL 5-40 [facility] Serum or plasma creatinine m easurement (mass/volume)Ordered By: Nakul Oliva on 05-20-2023 Creatinine [Mass/Vol] 1.55 mg/dL 0.70-1.30 [facility] Comment on above: The validity of the calculated GFR & GFRAA in patients over 70 years has not been determined. Clinical correlation is essential. Serum or plasma low density lipoprotein (LDL) cholesterol measurement (mass/volume)Ordered By: Nakul Oliva on 05-20-2023 Cholesterol in LDL [Mass/Vol] 111 mg/dL 0-130 [facility] Serum or plasma urea nitroge n measurement (mass/volume)Ordered By: Nakul Oliva on 05-20-2023 Urea nitrogen [Mass/Vol] 23 mg/dL 7-18 [facility] Serum or plasma uric acid me asurement (mass/volume)Ordered By: Nakul Oliva on 05-20-2023 Urate [Mass/Vol] 9.3 mg/dL 3.5-7.2 [facility] Comment on above: The drugs N-Acetylcy steine and Metamizole may falsely depress this assay. Thin prep Papanicolaou smear with manual screeningOrdered By: Nakul Oliva on 05-20-2023 Thin prep Papanicolaou smear with manual screening 21 U/L 15-37 [facility] Thin prep Papanicolaou smear with manual screening 7 5-15 [facility] Thin prep Papanicolaou smear with manual screening 23.1 mg/L NO RANGE EST. [facility] Urine creatinine measurement (mass/volume)Ordered By: Nakul Oliva on 05-20-2023 Creatinine (U) [Mass/Vol] 91.40 mg/dL NO RANGE EST. [facility] Whole blood hemoglobin A1c/t otal hemoglobin ratio (mass fraction)Ordered By: Nakul Oliva on 05-20-2023 HbA1c (Bld) [Mass fraction] 5.7 % 3.8-5.6 [facility] Comment on above: Normal < 5.7 % Predi abetic 5.7 - 6.4 % Diabetic >or= 6.5 % Please note range changes. Basophil percentageon 2021 Basophil percentage 0 SEEN /hpf 0-5 [facility] Work Phone: Bilirubin Test strip Ql (U)o n 11-11-2022 Bilirubin Ql (U) Negative Negative [facility] Work Phone: Ketones Test strip Ql (U)on 11-11-2022 Ketones Ql (U) Negative Negative [facility] Work Phone: Mucus LM Ql (Urine sed)on Mucus Ql (Urine sed) 0 SEEN /hpf [facility] Work Phone: Nitrite Test strip Ql (U)on 11-11-2022 Nitrite Ql (U) Negative Negative [facility] Work Phone: Protein Test strip Ql (U)on 11-11-2022 Protein Ql (U) Negative Negative [facility] Work Phone: Squamous epithelial cells de tection in urine sediment by light microscopyon 11-11-2022 Epithelial cells.squamous LM Ql (Urine sed) 0 SEEN /hpf 0-5 [facility] Work Phone: Urine blood detectionon 10-24 RBC Ql (U) 25 /ul Negative [facility] Work Phone: RBC Ql (U) 0-5 SEEN /hpf 0-5 [facility] Work Phone: Urine clarityon 11-11-2022 Clarity (U) Clear Clear [facility] Work Phone: Urine color determinationon 11-11-2022 Color (U) Yellow Yellow [facility] Work Phone: Urine glucose detectionon Glucose Ql (U) Normal mg/dl Normal [facility] Work Phone: Urine leukocyte esterase det ection by dipstickon 11-11-2022 Leukocyte esterase Test strip Ql (U) Negative Negative [facility] Work Phone: Urine pHon 11-11-2022 pH (U) 6.0 [pH] 5.0 - 8.0 [facility] Work Phone: Urine sediment bacteria coun t by microscopy (number/high power field)on 11-11-2022 Bacteria LM.HPF (Urine sed) [#/Area] 0 /[HPF] None Seen [facility] Work Phone: Urine specific gravity measu rementon 11-11-2022 Specific gravity (U) [Rel density] 1.010 1.002-1.030 [facility] Work Phone: Urobilinogen Auto test strip Ql (U)on 11-11-2022 Urobilinogen Ql (U) Normal mg/dl Normal [facility] Work Phone: Absolute lymphocyte counton 11-08-2022 Lymphocytes Auto (Unsp spec) [#/Vol] 1.74 10*3/uL 0.83-4.51 [facility] Work Phone: Basophil percentageon 2021 Basophils/100 WBC (Bld) 0.6 % 0-1 [facility] Work Phone: Bilirubin [Mass/Vol] 0.40 mg/dL 0.20-1.00 [facility] Work Phone: Comment on above: For patients on eltr ombopag therapy, use of Dimension Mchenry TBIL is not recommended. Chloride [Moles/Vol] 113 mmol/L 98-107 [facility] Work Phone: Cholesterol [Mass/Vol] 180 mg/dL <200 [facility] Work Phone: Comment on above: <200 mg/dL Desirable 200-240 mg/dL Borderline >240 mg/dL High Risk Eosinophils/100 WBC (Bld) 2.6 % 0-5 [facility] Work Phone: Glucose [Mass/Vol] 68 mg/dL 74-106 [facility] Work Phone: Neutrophils (Bld) [#/Vol] 5.6 10*3/uL 2.0-7.7 [facility] Work Phone: Neutrophils/100 WBC (Bld) 68.2 % 47-70 [facility] Work Phone: Potassium [Moles/Vol] 4.2 mmol/L 3.5-5.1 [facility] Work Phone: Protein [Mass/Vol] 6.6 g/dL 6.4-8.2 [facility] Work Phone: Sodium [Moles/Vol] 143 mmol/L 136-145 [facility] Work Phone: WBC (Bld) [#/Vol] 8.2 10*3/uL 4.4-11.0 [facility] Work Phone: Blood erythrocytes count (nu mber/volume)on 11-08-2022 RBC (Bld) [#/Vol] 4.76 10*6/uL 4.6-6.2 [facility] Work Phone: Blood hemoglobin measurement (mass/volume)on 11-08-2022 Hemoglobin (Bld) [Mass/Vol] 15.3 g/dL 13.0-16.5 [facility] Work Phone: Blood lymphocytes/100 leukoc yteson 11-08-2022 Lymphocytes/100 WBC (Bld) 21.3 % 19-41 [facility] Work Phone: Blood monocytes/100 leukocyt eson 11-08-2022 Monocytes/100 WBC (Bld) 6.9 % 0-10 [facility] Work Phone: Blood platelet mean volumeon 11-08-2022 Platelet mean volume (Bld) [Entitic vol] 9.4 fL 6.2-12.0 [facility] Work Phone: Cholesterol in LDL Direct as say [Mass/Vol]on 11-08-2022 Cholesterol in LDL [Mass/Vol] 125 mg/dL 0-99 [facility] Work Phone: Comment on above: Performed at: [address] [id number] Director: Lobo Alicia PhD, Phone: [phone] Determination of erythrocyte mean corpuscular volume (MCV)on 11-08-2022 MCV (RBC) [Entitic vol] 95.0 fL 80-94 [facility] Work Phone: Hematocrit Auto (Bld) [Volum e fraction]on 11-08-2022 Hematocrit (Bld) [Volume fraction] 45.2 % 40-54 [facility] Work Phone: Laboratory - Chemistry and C hemistry - challengeon 11-08-2022 ALP [Catalytic activity/Vol] 102 U/L 45-117 [facility] Work Phone: ALT [Catalytic activity/Vol] 27 U/L 16-61 [facility] Work Phone: CO2 [Moles/Vol] 24.0 mmol/L 21.0-32.0 [facility] Work Phone: Globulin (S) [Mass/Vol] 3.1 g/dL 2.2-4.2 [facility] Work Phone: Urea nitrogen/Creatinine [Mass ratio] 24.0 mg/mg 10-20 [facility] Work Phone: Laboratory - Hematology and Cell countson 11-08-2022 Erythrocyte distribution width (RBC) [Entitic vol] 46.5 fL 35.1-43.9 [facility] Work Phone: Erythrocyte distribution width (RBC) [Ratio] 13.3 % 11.6-14.6 [facility] Work Phone: Immature granulocytes/100 WBC (Bld) 0.400 % 0.0-0.9 [facility] Work Phone: Comment on above: IG% - Immature Granu locytes (promyelocytes, myelocytes and metamyelocytes) > 1% indicates that a LEFT SHIFT is Present. MCH (RBC) [Entitic mass] 32.1 pg 27.0-32.0 [facility] Work Phone: Nucleated RBC/100 WBC (Bld) [Ratio] 0 % 0-5 [facility] Work Phone: Laboratory - Miscellaneous t estson 11-08-2022 Service comment (Unsp spec) [Interp] TNP [facility] Work Phone: Comment on above: Test not performed MCHC Auto (RBC) [Mass/Vol]on 11-08-2022 MCHC (RBC) [Mass/Vol] 33.8 g/dL 32-36 [facility] Work Phone: No Panel Informationon 11-08 Estimated GFR (MDRD) Amer 70 mL/min >60 [facility] Work Phone: Comment on above: GFR Calc Estimated GFR (MDRD) Non-Af Amer 58 mL/min >60 [facility] Work Phone: Comment on above: Non- GFR Calc Prostate Specific Antigen Screen 4.31 ng/mL 0.00-4.00 [facility] Work Phone: Comment on above: This test was perfor med using the TPSA assay method for [employer] chemistry system. Values obtained with differentassay methods cannot be used interchangably.When changing PSA assays in the course of monitoring apatient, additional sequential testing should be carriedout to confirm baseline values. Urine Microalbumin/Creatinine Ratio 42.3 mg/g CRE <30 [facility] Work Phone: Vitamin D 25-Hydroxy 43.5 ng/mL [facility] Work Phone: Comment on above: Vitamin D 25(OH) Sta tus Range Deficiency <20 ng/mL (50nmol/L) Insufficiency 20 - 30 ng/mL (50 - 75 nmol/L) Sufficiency 30 - 100 ng/mL (75 - 250 nmol/L) Toxicity >100 ng/mL (>250 nmol/L) Platelets bldon 11-08-2022 Platelets (Bld) [#/Vol] 204 10*3/uL 150-450 [facility] Work Phone: Serum or plasma albumin mikayla urement (mass/volume)on 11-08-2022 Albumin [Mass/Vol] 3.5 g/dL 3.2-5.0 [facility] Work Phone: Serum or plasma albumin/glob ulin mass ratioon 11-08-2022 Albumin/Globulin [Mass ratio] 1.1 {ratio} 0.9-2.4 [facility] [facility] Work Phone: Serum or plasma calcium mikayla urement (mass/volume)on 11-08-2022 Calcium [Mass/Vol] 8.9 mg/dL 8.5-10.1 [facility] Work Phone: Serum or plasma cholesterol in HDL measurement (mass/volume)on 11-08-2022 Cholesterol in HDL [Mass/Vol] 41 mg/dL >40 [facility] Work Phone: Comment on above: The drugs N-Acetylcy steine and Metamizole may falsely depress this assay. Reference Range HDL <40 mg/dL Low HDL Cholesterol HDL >or= 60 mg/dL High HDL Cholesterol Serum or plasma creatinine m easurement (mass/volume)on 11-08-2022 Creatinine [Mass/Vol] 1.29 mg/dL 0.70-1.30 [facility] Work Phone: Comment on above: The validity of the calculated GFR & GFRAA in patients over 70 years has not been determined. Clinical correlation is essential. Serum or plasma urea nitroge n measurement (mass/volume)on 11-08-2022 Urea nitrogen [Mass/Vol] 31 mg/dL 7-18 [facility] Work Phone: Thin prep Papanicolaou smear with manual screeningon 11-08-2022 Thin prep Papanicolaou smear with manual screening 15 U/L 15-37 [facility] Work Phone: Thin prep Papanicolaou smear with manual screening 6 5-15 [facility] Work Phone: Thin prep Papanicolaou smear with manual screening 26.0 mg/L NO RANGE EST. [facility] Work Phone: Urine creatinine measurement (mass/volume)on 11-08-2022 Creatinine (U) [Mass/Vol] 61.50 mg/dL NO RANGE EST. [facility] Work Phone: Basophil percentageon 2021 Basophil percentage 2.5 mg/dL 2.5-4.9 [facility] Work Phone: Chloride [Moles/Vol] 111 mmol/L 98-107 [facility] Work Phone: Cholesterol [Mass/Vol] 167 mg/dL <200 [facility] Work Phone: Comment on above: <200 mg/dL Desirable 200-240 mg/dL Borderline >240 mg/dL High Risk Glucose [Mass/Vol] 107 mg/dL 74-106 [facility] Work Phone: Comment on above: Fasting Glucose resu lt from 100 to 125 mg/dL suggests IMPAIRED HOMEOSTASIS per A.D.A. criteria. Potassium [Moles/Vol] 4.1 mmol/L 3.5-5.1 [facility] Work Phone: Sodium [Moles/Vol] 142 mmol/L 136-145 [facility] Work Phone: Laboratory - Chemistry and C hemistry - challengeon 02-01-2022 CO2 [Moles/Vol] 26.0 mmol/L 21.0-32.0 [facility] Work Phone: Urea nitrogen/Creatinine [Mass ratio] 18.6 mg/mg 10-20 [facility] Work Phone: No Panel Informationon 02-01 Estimated GFR (MDRD) Amer 57 mL/min >60 [facility] Work Phone: Comment on above: GFR Calc Estimated GFR (MDRD) Non-Af Amer 47 mL/min >60 [facility] Work Phone: Comment on above: Non- GFR Calc Vitamin D 25-Hydroxy 40.5 ng/mL [facility] Work Phone: Comment on above: Vitamin D 25(OH) Sta tus Range Deficiency <20 ng/mL (50nmol/L) Insufficiency 20 - 30 ng/mL (50 - 75 nmol/L) Sufficiency 30 - 100 ng/mL (75 - 250 nmol/L) Toxicity >100 ng/mL (>250 nmol/L) Serum or plasma albumin mikayla urement (mass/volume)on 02-01-2022 Albumin [Mass/Vol] 3.5 g/dL 3.2-5.0 [facility] Work Phone: Serum or plasma calcium mikayla urement (mass/volume)on 02-01-2022 Calcium [Mass/Vol] 9.4 mg/dL 8.5-10.1 [facility] Work Phone: Serum or plasma cholesterol in HDL measurement (mass/volume)on 02-01-2022 Cholesterol in HDL [Mass/Vol] 36 mg/dL [facility] Work Phone: Comment on above: The drugs N-Acetylcy steine and Metamizole may falsely depress this assay. Reference Range HDL <40 mg/dL Low HDL Cholesterol HDL >or= 60 mg/dL High HDL Cholesterol Serum or plasma creatinine m easurement (mass/volume)on 02-01-2022 Creatinine [Mass/Vol] 1.56 mg/dL 0.70-1.30 [facility] Work Phone: Comment on above: The validity of the calculated GFR & GFRAA in patients over 70 years has not been determined. Clinical correlation is essential. Serum or plasma urea nitroge n measurement (mass/volume)on 02-01-2022 Urea nitrogen [Mass/Vol] 29 mg/dL 7-18 [facility] Work Phone: No Panel Informationon 01-02 Thyroid Stimulating Hormone (TSH) 2.60 uIU/mL 0.358-3.74 [facility] Work Phone: Office Visiton 06-23-2017 Documentation of current medications (procedure) Done Invalid Interpretation Code [facility] Work Phone: Protein mass conc Done [facility] Work Phone: Tobacco smoking status NHIS Never Invalid Interpretation Code [facility] Work Phone: Tobacco smoking status NHIS Former smoker [facility] Work Phone: Tobacco use CPHS Former smoker Invalid Interpretation Code [facility] Work Phone: Office Visiton 05-09-2017 Documentation of current medications (procedure) Done Invalid Interpretation Code [facility] Work Phone: Protein mass conc Done [facility] Work Phone: Tobacco smoking status NHIS Never Invalid Interpretation Code [facility] Work Phone: Tobacco smoking status NHIS Former smoker [facility] Work Phone: Tobacco use CPHS Former smoker Invalid Interpretation Code [facility] Work Phone: Office Visiton 04-11-2017 Documentation of current medications (procedure) Done Invalid Interpretation Code [facility] Work Phone: Tobacco smoking status NHIS Never Invalid Interpretation Code [facility] Work Phone: Tobacco use CPHS Former smoker Invalid Interpretation Code [facility] Work Phone: Office Visiton 03-26-2017 Documentation of current medications (procedure) Done Invalid Interpretation Code [facility] Work Phone: Tobacco smoking status NHIS Never Invalid Interpretation Code [facility] Work Phone: Tobacco use CPHS Former smoker Invalid Interpretation Code [facility] Work Phone: Microbiology: Culture, Body Fluidon 03-19-2017 body fluid culture . Invalid Interpretation Code [facility] Work Phone: CUBF . [facility] Work Phone: Lab Report: GLUCOSE, SYNOVIA L FLUIDon 03-07-2017 GE use only - for [employer] import when terms are not otherwise specified 133 mg/dL Invalid Interpretation Code . [facility] Work Phone: GLU, SYN FLD 133 mg/dL . [facility] Work Phone: Lab Report: Crystals, Body F luidon 03-06-2017 PATH REV Reviewed [facility] Work Phone: Pathology comment Reviewed Invalid Interpretation Code [facility] Work Phone: Lab Report: (P) Synovial Flu id RBC, WBC AND Diffon 03-05-2017 Cell Count, Synovial Fluid 0.1820 10 3 uL High 0.000-0.000 [facility] Work Phone: mononuclear cells, synovial fluid as percent of leukocytes 78.4 % Invalid Interpretation Code [facility] Work Phone: neutrophils, polymorphonuclear as percent of synovial fluid leukocytes 21.6 % Invalid Interpretation Code [facility] Work Phone: SYBF MN WBC% 78.4 % [facility] Work Phone: SYBF PMN WBC% 21.6 % [facility] Work Phone: SYN Tot Cell Ct 0.1820 10 3 uL High 0.000-0.000 [facility] Work Phone: SYNOVIAL WBC 0.1760 10 3UL High 0.000-0.002 [facility] Work Phone: WBC, Fluid 0.1760 10 3UL High 0.000-0.002 [facility] Work Phone: Office Visiton 03-05-2017 Documentation of current medications (procedure) Done Invalid Interpretation Code [facility] Work Phone: Tobacco smoking status NHIS Never Invalid Interpretation Code [facility] Work Phone: Tobacco use CPHS Former smoker Invalid Interpretation Code [facility] Work Phone: Replaced Document: (P) Cryst als, Body Fluidon 03-05-2017 crystals, body fluid SYNOVIAL Invalid Interpretation Code [facility] Work Phone: CRYSTALS/BF SYNOVIAL [facility] Work Phone: Replaced Document: (P) Synov ial Fluid RBC, WBC AND Diffon 03-05-2017 Erythrocytes (RBC) 0.68056 10*6/uL High 0 [facility] Work Phone: SYNOVIAL RBC 590 /uL High 0 [facility] Work Phone: appearance, body fluid Sl Cl Invalid Interpretation Code CLEAR [facility] Work Phone: color, synovial fluid Yellow Invalid Interpretation Code Pale Yellow [facility] Work Phone: SYNOVIAL COLOR Yellow Pale Yellow [facility] Work Phone: Replaced Document: Synovial Fluid RBC, WBC AND Diffon 03-05-2017 Lymphocytes/100 leukocytes 54 % Invalid Interpretation Code [facility] Work Phone: Lymphocytes/100 WBC (Bld) 54 % [facility] Work Phone: Monocytes 31 % Invalid Interpretation Code [facility] Work Phone: Monocytes #/vol (Bld) 31 % [facility] Work Phone: NEUTROPHIL 15 % 0-25 [facility] Work Phone: neutrophils as percent of body fluid leukocytes 15 % Invalid Interpretation Code 0-25 [facility] Work Phone: source of sample KNEE Invalid Interpretation Code [facility] Work Phone: SYNOVIAL SOURCE KNEE [facility] Work Phone: Lab Report: CBC W/Diff, Auto - EPLAB Onlyon 02-04-2017 Basophils/100 leukocytes 0.7 % Invalid Interpretation Code 0-1 [facility] Work Phone: Basophils/100 WBC (Bld) 0.7 % 0-1 [facility] Work Phone: Eosinophils/100 leukocytes 2.7 % Invalid Interpretation Code 0-5 [facility] Work Phone: Eosinophils/100 WBC (Bld) 2.7 % 0-5 [facility] Work Phone: Erythrocytes (RBC) 4.85 10*6/uL Invalid Interpretation Code 4.6-6.2 [facility] Work Phone: Hematocrit (HCT) 47.5 % Invalid Interpretation Code 40-54 [facility] Work Phone: Hematocrit Volume Fraction (Bld) 47.5 % 40-54 [facility] Work Phone: Hemoglobin (HGB) 15.9 g/dL Invalid Interpretation Code 13.0-16.5 [facility] Work Phone: Lymphocytes/100 leukocytes 27.9 % Invalid Interpretation Code 19-41 [facility] Work Phone: Lymphocytes/100 WBC (Bld) 27.9 % 19-41 [facility] Work Phone: MCH 32.7 pg High 27.0-32.0 [facility] Work Phone: MCH Entitic mass (RBC) 32.7 pg High 27.0-32.0 [facility] Work Phone: MCHC 33.4 g/dL Invalid Interpretation Code 32-36 [facility] Work Phone: MCHC mass conc (RBC) 33.4 g/dL 32-36 [facility] Work Phone: MCV 98.0 fL High 80-94 [facility] Work Phone: MCV Entitic volume (RBC) 98.0 fL High 80-94 [facility] Work Phone: Monocytes/100 leukocytes 4.7 % Invalid Interpretation Code 0-10 [facility] Work Phone: Monocytes/100 WBC (Bld) 4.7 % 0-10 [facility] Work Phone: Neutrophils/100 leukocytes 64.0 % Invalid Interpretation Code 47-70 [facility] Work Phone: Neutrophils/100 WBC (Bld) 64.0 % 47-70 [facility] Work Phone: Platelet mean volume Entitic volume (Bld) 6.1 fL Low 6.2-12.0 [facility] Work Phone: Platelets 201 10*3/mm3 Invalid Interpretation Code 150-450 [facility] Work Phone: Platelets #/vol (Bld) 201 10*3/mm3 150-450 [facility] Work Phone: PMV by Isacc 6.1 fL Low 6.2-12.0 [facility] Work Phone: RBC #/vol (Bld) 4.85 10*6/uL 4.6-6.2 [facility] Work Phone: WBC #/vol (Bld) 8.8 10*3/uL 4.4-11.0 [facility] Work Phone: WBC (Leukocytes) 8.8 10*3/uL Invalid Interpretation Code 4.4-11.0 [facility] Work Phone: Erythrocyte distribution width Ratio (RBC) 12.9 % 11.6-14.6 [facility] Work Phone: Lymphocytes 2.47 X10 3/UL Invalid Interpretation Code 0.83-4.51 [facility] Work Phone: Lymphocytes #/vol (Bld) 2.47 X10 3/UL 0.83-4.51 [facility] Work Phone: neutrophil count, blood 5.7 X10 3/UL Invalid Interpretation Code 2.0-7.7 [facility] Work Phone: Neutrophils #/vol (Bld) 5.7 X10 3/UL 2.0-7.7 [facility] Work Phone: RDW-CA 12.9 % Invalid Interpretation Code 11.6-14.6 [facility] Work Phone: Lab Report: [facility] Profil 02-04-2017 Alanine aminotransferase (ALT) 83 U/L High 12-78 [facility] Work Phone: Albumin 3.8 g/dL Invalid Interpretation Code 3.4-5.0 [facility] Work Phone: Albumin/Globulin Ratio 1 {ratio} Invalid Interpretation Code 0.9-2.4 [facility] Work Phone: Alkaline phosphatase (ALP) 97 U/L Invalid Interpretation Code 45-117 [facility] Work Phone: ALP enzyme act/vol (Bld) 97 U/L 45-117 [facility] Work Phone: Anion gap 9 mmol/L Invalid Interpretation Code 5-15 [facility] Work Phone: Anion gap molar conc 9 mmol/L 5-15 [facility] Work Phone: Aspartate aminotransferase (AST) 41 U/L High 15-37 [facility] Work Phone: Bilirubin (total) 0.60 mg/dL Invalid Interpretation Code 0.20-1.00 [facility] Work Phone: BUN/Creatinine Ratio 18.8 RATIO Invalid Interpretation Code 10-20 [facility] Work Phone: Calcium 9.7 mg/dL Invalid Interpretation Code 8.5-10.1 [facility] Work Phone: Chloride 107 mmol/L Invalid Interpretation Code 98-107 [facility] Work Phone: CO2 27.0 mmol/L Invalid Interpretation Code 21.0-32.0 [facility] Work Phone: CO2 ppres (BldV) 27.0 mmol/L 21.0-32.0 [facility] Work Phone: Creatinine 1.54 mg/dL High 0.70-1.30 [facility] Work Phone: eGFR (non-black) 58 mL/min/{1.73_m2} Low >60 [facility] Work Phone: eGFR (non-black) 48 mL/min/{1.73_m2} Low >60 [facility] Work Phone: EST GFR - AA 58 mL/min Low >60 [facility] Work Phone: Globulin 3.8 g/dL High 2.3-3.5 [facility] Work Phone: Globulin mass conc (S) 3.8 g/dL High 2.3-3.5 [facility] Work Phone: Glucose 99 mg/dL Invalid Interpretation Code 70-110 [facility] Work Phone: Glucose mass conc 99 mg/dL 70-110 [facility] Work Phone: Potassium 4.1 mmol/L Invalid Interpretation Code 3.5-5.1 [facility] Work Phone: Protein 7.6 g/dL Invalid Interpretation Code 6.4-8.2 [facility] Work Phone: Sodium 143 mmol/L Invalid Interpretation Code 136-145 [facility] Work Phone: Urea nitrogen 29 mg/dL High 7-18 [facility] Work Phone: Office Visit: 3 mo f/u: Unpr ovoked DVT (Xarelto) PHQ9 Completeon 02-04-2017 Adolescent depression screening assessment Adolescent depression screening assessment Invalid Interpretation Code [facility] Work Phone: Adult depression screening assessment Adolescent depression screening assessment Invalid Interpretation Code [facility] Work Phone: Replaced Document: (P) Antit hrombin 3 Functionon 11-02-2016 antithrombin, functional 129 % Invalid Interpretation Code 75-135 [facility] Work Phone: AT3 FUNCTION 129 % 75-135 [facility] Work Phone: Replaced Document: (P) Fact V Leiden Mutationon 11-02-2016 FACTOR V LEIDEN Comment . [facility] Work Phone: factor V Leiden, DNA testing by PCR, whole blood Comment Invalid Interpretation Code . [facility] Work Phone: Replaced Document: (P) Facto r II, DNA Analysison 11-02-2016 Protein mass conc Comment . [facility] Work Phone: prothrombin [id number] mutation, DNA testing by PCR, whole blood Comment Invalid Interpretation Code . [facility] Work Phone: Replaced Document: (P) Lupus Anticoagulant Compon 11-02-2016 aPTT 45.5 s High 0.0-40.6 [facility] Work Phone: coagulation comments Comment: Invalid Interpretation Code . [facility] Work Phone: DILUTE PT (dPT) 78.8 s High 0.0-55.0 [facility] Work Phone: dilute Pacheco Viper venom time 115.6 s High 0.0-44.0 [facility] Work Phone: dPT Conf. Ratio 1.8 ratio High 0.8-1.2 [facility] Work Phone: DRVVT 115.6 s High 0.0-44.0 [facility] Work Phone: dRVVT confirm 1.8 ratio High 0.8-1.2 [facility] Work Phone: HEX PHAS PHOSPH 10 s 0-11 [facility] Work Phone: hexagonal phospholipid, neutral 10 s Invalid Interpretation Code 0-11 [facility] Work Phone: Interpretation Comment: . [facility] Work Phone: Prothrombin time, outside laboratory 78.8 s High 0.0-55.0 [facility] Work Phone: PTT-LA 45.5 s High 0.0-40.6 [facility] Work Phone: Thrombin Time 18.3 s Invalid Interpretation Code 0.0-20.9 [facility] Work Phone: Replaced Document: (P) Prote in C Defic. Profileon 11-02-2016 protein C antigen, plasma 124 % Invalid Interpretation Code 60-150 [facility] Work Phone: Protein mass conc 124 % 60-150 [facility] Work Phone: Replaced Document: (P) Prote in C, Functionalon 11-02-2016 Protein C, Functional 148 % Invalid Interpretation Code 73-180 [facility] Work Phone: Protein mass conc 148 % 73-180 [facility] Work Phone: Replaced Document: (P) Prote in Electroph, Son 11-02-2016 Albumin 3.8 g/dL Invalid Interpretation Code 2.9-4.4 [facility] Work Phone: Albumin/Globulin Ratio 1.3 (?) Invalid Interpretation Code 0.7-1.7 [facility] Work Phone: ALPHA-1 GLOBUL 0.2 g/dL 0.0-0.4 [facility] Work Phone: ALPHA-2 GLOBUL 0.7 g/dL 0.4-1.0 [facility] Work Phone: BETA GLOBULIN 1.1 g/dL 0.7-1.3 [facility] Work Phone: GAMMA GLOBULIN 0.9 g/dL 0.4-1.8 [facility] Work Phone: Globulin 3.0 g/dL Invalid Interpretation Code 2.2-3.9 [facility] Work Phone: Globulin . Invalid Interpretation Code [facility] Work Phone: Globulin 0.9 g/dL Invalid Interpretation Code 0.4-1.8 [facility] Work Phone: Globulin 1.1 g/dL Invalid Interpretation Code 0.7-1.3 [facility] Work Phone: Globulin 0.7 g/dL Invalid Interpretation Code 0.4-1.0 [facility] Work Phone: Globulin 0.2 g/dL Invalid Interpretation Code 0.0-0.4 [facility] Work Phone: Globulin mass conc (S) 3.0 g/dL 2.2-3.9 [facility] Work Phone: lab comments Comment Invalid Interpretation Code . [facility] Work Phone: M-SPIKE . [facility] Work Phone: NOTE: Comment . [facility] Work Phone: Protein 6.8 g/dL Invalid Interpretation Code 6.0-8.5 [facility] Work Phone: serum protein electrophoresis, interpretation/comment Comment Invalid Interpretation Code . [facility] Work Phone: Replaced Document: (P) Prote in S Defic. Profileon 11-02-2016 Protein mass conc 175 % High 63-140 [facility] Work Phone: Protein S, Functional 175 % High 63-140 [facility] Work Phone: Lab Report: Vitamin B12on Cobalamin (Vitamin B12) mass conc 674 pg/mL 211-911 [facility] Work Phone: vitamin b12, serum 674 pg/mL Invalid Interpretation Code 911 [facility] Work Phone: Lab Report: CBC W/Diff, Auto matedon 10-24-2016 Erythrocyte distribution width Ratio (RBC) 48.2 fL High 35.1-43.9 [facility] Work Phone: Immature granulocytes #/vol (Bld) 0.300 % 0.0-0.9 [facility] Work Phone: immature granulocytes, percentage of total cells, blood 0.300 % Invalid Interpretation Code 0.0-0.9 [facility] Work Phone: red blood cell distribution width, size density 48.2 fL High 35.1-43.9 [facility] Work Phone: Lab Report: D-Dimer Quantita tive (DVT/PE)on 10-24-2016 D-dimer quantitative mcg/mL 0.34 FEU/UG/M Invalid Interpretation Code 0.27-0.49 [facility] Work Phone: D-DIMER QUANT 0.34 FEU/UG/M 0.27-0.49 [facility] Work Phone: Lab Report: Folates, (Folic Acid)on 10-24-2016 Folate 64.40 ng/mL High 3.1-17.5 [facility] Work Phone: Lab Report: Iron Binding Cap acity,Totalon 10-24-2016 iron binding capacity, total 367 ug/dL Invalid Interpretation Code 250-450 [facility] Work Phone: Lab Report: LDHon 10-24-2016 lactate dehydrogenase - serum 231 U/L Invalid Interpretation Code 87-241 [facility] Work Phone: LDH 231 U/L 87-241 [facility] Work Phone: Lab Report: Uric Acidon 12-0 Urate 7.6 mg/dL High 3.5-7.2 [facility] Work Phone: Office Visit: 3 mo f/u: Unpr ovoked DVT (Xarelto) PHQ9 Completeon 09-25-2005 Colonoscopy (procedure) Colonoscopy (procedure) Invalid Interpretation Code [facility] Work Phone: Protein mass conc Colonoscopy (procedure) [facility] Orth[facility] Work Phone: Culture, urine Bacteria identified Cx Nom (U) Culture exhibits no growth. [facility] Work Phone: Vital Signs Date Time Vital Sign Value Performing Clinician Facility 06-10-2025 11:14-0400 Body temperature 98.2 [degF] Dr. Nakul Oliva MD Work Phone: 7([phone])616-635312 [place] [address] 06-10-2025 11:14-0400 Body weight 91.[address] Nakul Oliva MD Work Phone: 3(930)110-110212 [place] [address] 06-10-2025 11:14-0400 Diastolic blood pressure 73 mm[Hg] Dr. Nakul Oliva MD Work Phone: 6(470)731-672212 [place] [address] 06-10-2025 11:14-0400 Heart rate 59 /min Dr. Nakul Oliva MD Work Phone: 2([phone])441-010012 [place] [address] 06-10-2025 11:14-0400 Respiratory rate 18 /min Dr. Nakul Oliva MD Work Phone: 8([phone])142-442212 [place] [address] 06-10-2025 11:14-0400 SaO2% (BldA) [Mass fraction] 96 % Dr. Nakul Oliva MD Work Phone: 6(699)978-246712 [place] [address] 06-10-2025 11:14-0400 Systolic blood pressure 133 mm[Hg] Dr. Nakul Oliva MD Work Phone: 5(358)188-396312 [place] [address] 03-22-2025 11:17-0400 Body height 175.[address] Nakul Oliva MD Work Phone: 5([phone])862-647612 [place] [address] 03-22-2025 11:17-0400 Body mass index (BMI) [Ratio] 29.9 kg/m2 Dr. Nakul Oliva MD Work Phone: 5(792)907-972712 [place] [address] 03-22-2025 11:17-0400 Body temperature 98.3 [degF] Dr. Nakul Oliva MD Work Phone: [phone] [place] [address] 03-22-2025 11:17-0400 Body weight 92.[address] Nakul Oliva MD Work Phone: 6([phone])[phone] [place] [address] 03-22-2025 11:17-0400 Diastolic blood pressure 73 mm[Hg] Dr. Nakul Oliva MD Work Phone: [phone])421-724612 [place] [address] 03-22-2025 11:17-0400 Heart rate 57 /min Dr. Nakul Oliva MD Work Phone: [facility] 03-22-2025 11:17-0400 Respiratory rate 18 /min Dr. Nakul Oliva MD Work Phone: [facility] 03-22-2025 11:17-0400 SaO2% (BldA) [Mass fraction] 93 % Dr. Nakul Oliva MD Work Phone: [facility] 03-22-2025 11:17-0400 Systolic blood pressure 122 mm[Hg] Dr. Nakul Oliva MD Work Phone: [facility] 01-02-2022 13:33-0500 Body height 175.[address] Nakul Oliva Work Phone: [facility] Work Phone: 01-02-2022 13:33-0500 Body mass index (BMI) [Ratio] 29.3 kg/m2 Dr. Nakul Oliva Work Phone: [facility] Work Phone: 01-02-2022 13:33-0500 Body weight 90.[address] Nakul Oliva Work Phone: [facility] Work Phone: 01-02-2022 13:33-0500 Diastolic blood pressure 82 mm[Hg] Dr. Nkaul Oliva Work Phone: [facility] Work Phone: 01-02-2022 13:33-0500 Heart rate 66 /min Dr. Nakul Oliva Work Phone: [facility] Work Phone: 01-02-2022 13:33-0500 Respiratory rate 16 /min Dr. Nakul Oliva Work Phone: [facility] Work Phone: 01-02-2022 13:33-0500 SaO2% (BldA) [Mass fraction] 95 % Dr. Nakul Oliva Work Phone: [facility] Work Phone: 01-02-2022 13:33-0500 Systolic blood pressure 147 mm[Hg] Dr. Nakul Oliva Work Phone: [facility] Work Phone: 02-20-2017 14:03-0400 BMI (Body Mass Index) 33.96 kg/m2 [facility] Work Phone: 02-20-2017 14:03-0400 Weight 104.33 kg [facility] Work Phone: 02-18-2017 14:12-0400 Body Temperature 98.2 [degF] [facility] Work Phone: 02-18-2017 14:12-0400 BP Diastolic 80 mm[Hg] [facility] Work Phone: 02-18-2017 14:12-0400 BP Systolic 133 mm[Hg] [facility] Work Phone: 02-18-2017 14:12-0400 BSA (Body Surface Area) 2.21 m2 [facility] Work Phone: 02-18-2017 14:12-0400 Height 175.26 cm [facility] Work Phone: 02-18-2017 14:12-0400 Pulse (Heart Rate) 65 /min [facility] Work Phone: 02-18-2017 14:12-0400 Pulse Oximetry 96 % [facility] Work Phone: 02-18-2017 14:12-0400 Respiratory Rate 18 /min [facility] ter [facility] Work Phone: 02-18-2017 14:12-0400 Weight 106.36 kg Beverly Navarro [facility] Work Phone: 07-12-2010 10:24-0400 Height 175.26 cm Beverly Navarro [facility] Work Phone: Encounters Encounter Date Encounter Type Care Provider Facility Start: 06-10-2025 End: 06-10-2025 Patient encounter procedure Denae PICHARDO -[facility] Work Phone: Start: 06-10-2025 End: 06-10-[address] Nakul Oliva MD Work Phone: -[facility] Start: 05-24-2025 Non-patient / Non-visit Dr. Nakul leonard MD -[facility] Start: 05-24-2025 End: 05-24-[address] Nakul Oliva MD Work Phone: -[facility] Start: 05-24-2025 End: 05-24-[address] Nakul Oliva MD -[facility] Work Phone: Start: 05-24-2025 End: 05-24-[address] Nakul Oliva MD Work Phone: -[facility] Start: 05-24-2025 End: 05-24-[address] Nakul Oliva MD -[facility] Start: 05-24-2025 End: 05-24-2025 ambulatory Nakul Oliva Facility:[facility] Start: 05-09-2025 End: 05-09-[address] Nakul Oliva MD Work Phone: [facility] Work Phone: Start: 05-09-2025 End: 05-09-2025 Patient encounter procedure Amanda Corey -[facility] Work Phone: Start: 05-09-2025 End: 05-09-2025 ambulatory Nakul Oliva Facility:[facility] Start: 03-22-2025 End: 03-22-[address] Moreno Travis MD -[facility] Work Phone: Start: 03-22-2025 End: 03-22-2025 ambulatory Nakul Oliva Facility:[facility] Start: 03-21-2025 End: 03-21-[address] Moreno Travis MD -[facility] [place] Work Phone: Start: 03-21-2025 End: 03-21-2025 ambulatory Moreno Travis Facility:[facility] Start: 12-14-2024 End: 12-14-2024 ambulatory Moreno Travis Facility:[facility] Start: 11-26-2024 End: 11-26-2024 ambulatory Nakul Oliva Facility:[facility] Start: 10-07-2024 ambulatory Nakul Oliva Facility:[facility] Start: 09-26-2024 End: 09-26-2024 Emergency department patient visit Nakulchong Oliva Facility:[facility] Start: 09-26-2024 End: 09-27-2024 ambulatory Nakul Oliva Facility:[facility] Start: 09-26-2024 End: 09-26-2024 Patient encounter procedure Nigel Sr PA-C Work Phone: [facility] Comment on above: Right leg swelling ( Primary Dx) Start: 11-11-2023 End: 11-11-2023 ambulatory [facility] Work Phone: Start: 11-11-2023 End: 11-11-2023 Patient encounter procedure [facility] Start: 05-20-2023 End: 05-20-2023 ambulatory [facility] Work Phone: Start: 05-20-2023 End: 05-20-2023 Patient encounter procedure [facility] Start: 11-22-2022 End: 11-22-2022 ambulatory [facility] Work Phone: Start: 11-22-2022 End: 11-22-2022 Patient encounter procedure [facility]-Cat Scan, [facility] Start: 11-11-2022 End: 11-11-2022 ambulatory [facility] Work Phone: Start: 11-11-2022 End: 11-11-2022 Patient encounter procedure [facility]-Laboratory, Specimen Start: 11-08-2022 End: 11-08-2022 ambulatory [facility] Work Phone: Start: 11-08-2022 End: 11-08-2022 Patient encounter procedure [facility] Start: 02-01-2022 End: 02-01-[address] Nakul Oliva Work Phone: [facility] Start: 01-17-2022 Non-patient / Non-visit Dr. Barb Oliva Work Phone: [facility] Start: 01-17-2022 End: 01-17-[address] Nakul Oliva Work Phone: [facility]-Cardiovascula r Services Start: 01-02-2022 End: 01-02-[address] Nakul Oliva Work Phone: [facility]-Laboratory Procedures Date Procedure Procedure Detail Performing Clinician Start: 05-09-2025 Assay of prostate sp ecific antigen total Dr. Nakul Oliva MD Work Phone: Comment on above: This test was perfor med using the [employer] tPSA method. Measured values of a patient sample can vary depending on the testing procedure used. PSA values determined on patient samples by different testing procedures cannot be used interchangeably. If there is a change in PSA assays while monitoring therapy, sequential testing should be performed to confirm baseline values. Start: 03-21-2025 D-dimer assay, quantitative Dr. Nakul Oliva MD Work Phone: Comment on above: NORMAL D-Dimer level (<0.50) indicates no DVT or PE. Start: 11-22-2022 CT of chest Start: 03-05-2017 End: 03-05-2017 *BFRW - Body [...] 02-19-2017 Referral to orthopedic surgeon Linda Go [employer] Work Phone: Start: 02-12-2017 End: 03-05-2017 Us exam, abdom, complete Linda R Schlabac h [employer] Work Phone: Start: 02-04-2017 End: 02-04-2017 *CBC w/Diff - oncology ONLY Raul short Work Phone: Start: 02-04-2017 End: 02-04-2017 *CMP Complete Metabolic Panel Raul Willard Work Phone: Start: 02-04-2017 End: 02-04-2017 Extremity study Lindamichael Go [employer] Work Phone: Start: 02-04-2017 End: 03-05-2017 Fibrin D-dimer FEU Raul Willard Work Phone: Start: 02-04-2017 End: 03-05-2017 Lactate dehydrogenase (LDH) Raul short Work Phone: Start: 02-04-2017 End: 03-05-2017 Urate Raul Green Alaakash Work Phone: Start: 05-23-2009 Colonoscopy Nigel Sr PA-C Work Phone: Urine culture Plan of Treatment Date Care Activity Detail Author Start: 12-01-2028 Urine microalbumin profile DTaP,Tdap,Td Vaccine (2 - Td or Tdap) [facility] Start: 2025 RSV Vaccine (1 - 1-dose 75+ series) RSV Vaccine (1 - 1-dose 75+ series) [facility] Start: 11-19-2024 Screening for malignant neoplasm of colon Cologuard (FIT-DNA) [facility] Start: 07-25-2024 Covid-19 Vaccine ( season) Covid-19 Vaccine () [facility] Start: 07-25-2024 Influenza vaccination Influenza Vaccine (#1) [facility] Start: 11-24-2023 Advance Directive Discussion Advance Directive Discussion [facility] Start: 11-20-2021 Screening for malignant neoplasm of colon Colorectal Cancer Screening [facility] Start: 05-23-2019 Screening for malignant neoplasm of colon Colonoscopy [facility] Start: 06-23-2017 End: 06-23-2017 Appointment Appointment [facility] Work Phone: Start: 05-09-2017 End: 05-09-2017 Appointment Appointment [facility] Work Phone: Start: 05-09-2017 End: 05-09-2017 Appointment Appointment [facility] Work Phone: Start: 04-11-2017 End: 04-11-2017 Appointment Appointment [facility] Work Phone: Start: 04-01-2017 End: 04-01-2017 Appointment Appointment [facility] Work Phone: Start: 03-26-2017 End: 03-26-2017 Appointment Appointment [facility] Work Phone: Start: 03-17-2017 End: 02-21-2017 *LUPA Lupus Anticoag Comp [id number] *LUPA Lupus Anticoag Comp [id number] [facility] Work Phone: Start: 03-17-2017 End: 02-21-2017 *MISC - Miscellaneous Lab Test #1 *MISC - Miscellaneous Lab Test #1 [facility] Work Phone: Start: 03-17-2017 End: 02-21-2017 *MISC2 - Miscellaneious Lab Test #2 *MISC2 - Miscellaneious Lab Test #2 [facility] Work Phone: Start: 03-17-2017 End: 02-21-2017 *PROTS Protein S Defic. Profile [id number] *PROTS Protein S Defic. Profile [id number] [facility] Work Phone: Start: 03-17-2017 End: 02-21-2017 Coagulation factor induced.INR assay in platelet poor plasma *Prothrombin Time (PT) [facility] Work Phone: Start: 03-17-2017 End: 02-21-2017 Fibrin D-dimer FEU *DDIMQ - Fibrin Degrd Ultrsens Qual/Semiquan [facility] Work Phone: Start: 03-17-2017 End: 02-21-2017 Fibrin D-dimer FEU mass conc (PPP) *DDIMQ - Fibrin Degrd Ultrsens Qual/Semiquan [facility] Work Phone: Start: 03-05-2017 End: 03-05-2017 *BFRW - Body Fluid RBC, WBC & DIFF *BFRW - Body Fluid RBC, WBC & DIFF [facility] Work Phone: Start: 03-05-2017 End: 03-05-2017 Bacteria identified in Body fluid by Culture *CUBF- Culture, Body Fluid [facility] Work Phone: Start: 03-05-2017 End: 03-05-2017 Crystals [type] in Body fluid by Light microscopy *SAE - Crystals, Body Fluid [facility] Work Phone: Start: 03-05-2017 End: 03-05-2017 Glucose *GLUBF - Glucose, Body Fluid [facility] Work Phone: Start: 03-05-2017 End: 03-05-2017 Glucose mass conc (Body fld) *GLUBF - Glucose, Body Fluid [facility] Work Phone: Start: 03-05-2017 End: 03-05-2017 Protein in fluid *PROBF - Protein, Body Fluid [facility] Work Phone: Start: 02-21-2017 End: 02-21-2017 *CBC w/Diff - oncology ONLY *CBC w/Diff - oncology ONLY [facility] Work Phone: Start: 02-21-2017 End: 02-21-2017 *CMP Complete Metabolic Panel *CMP Complete Metabolic Panel [facility] Work Phone: Start: 02-20-2017 End: 03-05-2017 Mri jnt of lwr extre w/o dye MRI Joint Lower Extremity [facility] Work Phone: Start: 02-18-2017 End: 02-24-2017 Orthopedic Referral Orthopedic Referral Ross Cleary DO, [facility], [address] [place] [address], [address], [place], [address] [facility] Work Phone: Start: 02-12-2017 End: 03-05-2017 Us exam, abdom, complete US Abdomen Complete [facility] Work Phone: Start: 02-04-2017 End: 02-04-2017 *CBC w/Diff - oncology ONLY *CBC w/Diff - oncology ONLY [facility] Work Phone: Start: 02-04-2017 End: 02-04-2017 *CMP Complete Metabolic Panel *CMP Complete Metabolic Panel [facility] Work Phone: Start: 02-04-2017 End: 02-04-2017 Extremity study [facility]ous [facility] Work Phone: Start: 02-04-2017 End: 03-05-2017 Fibrin D-dimer FEU *DDIMQ - Fibrin Degrd Ultrsens Qual/Semiquan [facility] Work Phone: Start: 02-04-2017 End: 03-05-2017 Fibrin D-dimer FEU mass conc (PPP) *DDIMQ - Fibrin Degrd Ultrsens Qual/Semiquan [facility] Work Phone: Start: 02-04-2017 End: 03-05-2017 Lactate dehydrogenase (LDH) *LDH -LDH (Lactate Dehydrogenase) [facility] Work Phone: Start: 02-04-2017 End: 03-05-2017 Urate *Uric Acid Blood [facility] Work Phone: Start: 05-05-2016 Diabetes Screening Diabetes Screening [facility] Start: 1995 Screening for malignant neoplasm of colon [facility] Start: 1985 Lipid panel Lipid Screening [facility] Start: 1968 Anxiety Screening Anxiety Screening [facility] Start: 1968 Depression Screening Depression Screening [facility] Start: 1968 Hepatitis C screening Hepatitis C Screening [facility] Start: 1950 Abdominal aortic aneurysm screening Abdominal Aortic Aneurysm Screening [facility] D-dimer assay, quantitative [facility] Partial thromboplast in time, activated [facility] Patient Education Rosuvastatin%2 0(Oral)%20 (Tablet) [facility] Work Phone: Prothrombin time [facility] Immunizations Immunization Date Immunization Notes Care Provider Mauro vieyra 07-26-2015 influenza virus vacc ine, unspecified formulation Nigel Sr PA-C Work Phone: [facility] Payers Date Payer Category Payer Private Health Insurance [id number] 2024 Self-pay [id number] 2015 Medicare [id number] 2015 Medicare MEDICARE MEDICAR E B [id number] 2015-Present [address] [address] [place] [address] Medicare [id number] 2015 Medicare [id number] 2007 Unknown [employer] BLUE CARD PPO OOS [id number] 2007-Present [phone] [address] [place] [address] PPO [id number] 2007 Unknown [id number] Unknown [id number] Unknown [id number] Unknown [id number] .[id number] Unknown [id number] Unknown [id number] Unknown [id number] Unknown [id number] .[id number] Unknown [id number] Unknown [id number] .[id number] Unknown [id number] .[id number] Unknown [id number] Unknown [id number] Unknown [id number] .462 Social History Date Type Detail Facility Start: 01-02-2022 End: 01-02-2022 Tobacco smoking status [facility] Unknown if ever smoked [facility] Start: 05-27-2018 Cigarettes [facility] Start: 1950 Sex Assigned At Male [facility] Start: 11-25-2015 End: 10-07-2024 Tobacco smoking status MSIS Ex-smoker [facility] Start: 02-18-1970 End: 02-18-2015 History of tobacco use Current smoker [facility] Start: 02-18-1970 End: 02-18-2015 History of tobacco use Cigarette Smoker [facility] Start: 11-25-2015 Cigarettes smoked current (pack per day) - Reported 1 [facility] Start: 11-25-2015 Alcoholic beverage intake Current drinker of alcohol (finding) [facility] Start: 05-05-2013 Alcohol Comment 2 drinks per year [facility] Start: 1950 Sex assigned at Not on file [facility] Gender identity Not on file [facility] Medical Equipment Procedure Code Equipment Code Equipment Origin al Text Equipment Identifier Dates HEADED PINS FDA Start: 01-06-2018 HEADED PINS FDA Start: 01-06-2018 HEADLESS PINS FDA Start: 01-06-2018 TRAITH TRITAN FDA Start: 01-06-2018 TRAITHLON X3 TIB IAL INSERT-CS FDA Start: 01-06-2018 TRIATH TRITAN TI BIAL COMPONENT FDA Start: 01-06-2018 TRIATHLON CRUC R ET FEM COMP FDA Start: 01-06-2018 CEMENT,BONE CONCHA H 1/2 BATCH FDA Start: 05-26-2018 TRIATHLON CRUC R ET FEM COMP FDA Start: 05-26-2018 TRIATHLON TRITAN IUM TIB COMP FDA Start: 05-26-2018 TRIATHLON X3 PATELLA FDA Star t: 05-26-2018 TRIATLHON X3 TIB IAL INSERT-CS FDA Start: 05-26-2018 HEADED PINS FDA Start: 01-06-2018 HEADED PINS FDA Start: 01-06-2018 HEADLESS PINS FDA Start: 01-06-2018 TRAITH TRITAN FDA Start: 01-06-2018 TRAITHLON X3 TIB IAL INSERT-CS FDA Start: 01-06-2018 TRIATH TRITAN TI BIAL COMPONENT FDA Start: 01-06-2018 TRIATHLON CRUC R ET FEM COMP FDA Start: 01-06-2018 CEMENT,BONE CONCHA H 1/2 BATCH FDA Start: 05-26-2018 TRIATHLON CRUC R ET FEM COMP FDA Start: 05-26-2018 TRIATHLON TRITAN IUM TIB COMP FDA Start: 05-26-2018 TRIATHLON X3 PATELLA FDA Star t: 05-26-2018 TRIATLHON X3 TIB IAL INSERT-CS FDA Start: 05-26-2018 HEADED PINS FDA Start: 01-06-2018 HEADED PINS FDA Start: 01-06-2018 HEADLESS PINS FDA Start: 01-06-2018 TRAITH TRITAN FDA Start: 01-06-2018 TRAITHLON X3 TIB IAL INSERT-CS FDA Start: 01-06-2018 TRIATH TRITAN TI BIAL COMPONENT FDA Start: 01-06-2018 TRIATHLON CRUC R ET FEM COMP FDA Start: 01-06-2018 CEMENT,BONE CONCHA H 1/2 BATCH FDA Start: 05-26-2018 TRIATHLON CRUC R ET FEM COMP FDA Start: 05-26-2018 TRIATHLON TRITAN IUM TIB COMP FDA Start: 05-26-2018 TRIATHLON X3 PATELLA FDA Star t: 05-26-2018 TRIATLHON X3 TIB IAL INSERT-CS FDA Start: 05-26-2018 HEADED PINS FDA Start: 01-06-2018 HEADED PINS FDA Start: 01-06-2018 HEADLESS PINS FDA Start: 01-06-2018 TRAITH TRITAN FDA Start: 01-06-2018 TRAITHLON X3 TIB IAL INSERT-CS FDA Start: 01-06-2018 TRIATH TRITAN TI BIAL COMPONENT FDA Start: 01-06-2018 TRIATHLON CRUC R ET FEM COMP FDA Start: 01-06-2018 CEMENT,BONE CONCHA H 1/2 BATCH FDA Start: 05-26-2018 TRIATHLON CRUC R ET FEM COMP FDA Start: 05-26-2018 TRIATHLON TRITAN IUM TIB COMP FDA Start: 05-26-2018 TRIATHLON X3 PATELLA FDA Star t: 05-26-2018 TRIATLHON X3 TIB IAL INSERT-CS FDA Start: 05-26-2018 HEADED PINS FDA Start: 01-06-2018 HEADED PINS FDA Start: 01-06-2018 HEADLESS PINS FDA Start: 01-06-2018 TRAITH TRITAN FDA Start: 01-06-2018 TRAITHLON X3 TIB IAL INSERT-CS FDA Start: 01-06-2018 TRIATH TRITAN TI BIAL COMPONENT FDA Start: 01-06-2018 TRIATHLON CRUC R ET FEM COMP FDA Start: 01-06-2018 CEMENT,BONE CONCHA H 1/2 BATCH FDA Start: 05-26-2018 TRIATHLON CRUC R ET FEM COMP FDA Start: 05-26-2018 TRIATHLON TRITAN IUM TIB COMP FDA Start: 05-26-2018 TRIATHLON X3 PATELLA FDA Star t: 05-26-2018 TRIATLHON X3 TIB IAL INSERT-CS FDA Start: 05-26-2018 HEADED PINS FDA Start: 01-06-2018 HEADED PINS FDA Start: 01-06-2018 HEADLESS PINS FDA Start: 01-06-2018 TRAITH TRITAN FDA Start: 01-06-2018 TRAITHLON X3 TIB IAL INSERT-CS FDA Start: 01-06-2018 TRIATH TRITAN TI BIAL COMPONENT FDA Start: 01-06-2018 TRIATHLON CRUC R ET FEM COMP FDA Start: 01-06-2018 CEMENT,BONE CONCHA H 1/2 BATCH FDA Start: 05-26-2018 TRIATHLON CRUC R ET FEM COMP FDA Start: 05-26-2018 TRIATHLON TRITAN IUM TIB COMP FDA Start: 05-26-2018 TRIATHLON X3 PATELLA FDA Star t: 05-26-2018 TRIATLHON X3 TIB IAL INSERT-CS FDA Start: 05-26-2018 HEADED PINS FDA Start: 01-06-2018 HEADED PINS FDA Start: 01-06-2018 HEADLESS PINS FDA Start: 01-06-2018 TRAITH TRITAN FDA Start: 01-06-2018 TRAITHLON X3 TIB IAL INSERT-CS FDA Start: 01-06-2018 TRIATH TRITAN TI BIAL COMPONENT FDA Start: 01-06-2018 TRIATHLON CRUC R ET FEM COMP FDA Start: 01-06-2018 CEMENT,BONE CONCHA H 1/2 BATCH FDA Start: 05-26-2018 TRIATHLON CRUC R ET FEM COMP FDA Start: 05-26-2018 TRIATHLON TRITAN IUM TIB COMP FDA Start: 05-26-2018 TRIATHLON X3 PATELLA FDA Star t: 05-26-2018 TRIATLHON X3 TIB IAL INSERT-CS FDA Start: 05-26-2018 HEADED PINS FDA Start: 01-06-2018 HEADED PINS FDA Start: 01-06-2018 HEADLESS PINS FDA Start: 01-06-2018 TRAITH TRITAN FDA Start: 01-06-2018 TRAITHLON X3 TIB IAL INSERT-CS FDA Start: 01-06-2018 TRIATH TRITAN TI BIAL COMPONENT FDA Start: 01-06-2018 TRIATHLON CRUC R ET FEM COMP FDA Start: 01-06-2018 CEMENT,BONE CONCHA H 1/2 BATCH FDA Start: 05-26-2018 TRIATHLON CRUC R ET FEM COMP FDA Start: 05-26-2018 TRIATHLON TRITAN IUM TIB COMP FDA Start: 05-26-2018 TRIATHLON X3 PATELLA FDA Star t: 05-26-2018 TRIATLHON X3 TIB IAL INSERT-CS FDA Start: 05-26-2018 HEADED PINS FDA Start: 01-06-2018 HEADED PINS FDA Start: 01-06-2018 HEADLESS PINS FDA Start: 01-06-2018 TRAITH TRITAN FDA Start: 01-06-2018 TRAITHLON X3 TIB IAL INSERT-CS FDA Start: 01-06-2018 TRIATH TRITAN TI BIAL COMPONENT FDA Start: 01-06-2018 TRIATHLON CRUC R ET FEM COMP FDA Start: 01-06-2018 CEMENT,BONE CONCHA H 1/2 BATCH FDA Start: 05-26-2018 TRIATHLON CRUC R ET FEM COMP FDA Start: 05-26-2018 TRIATHLON TRITAN IUM TIB COMP FDA Start: 05-26-2018 TRIATHLON X3 PATELLA FDA Star t: 05-26-2018 TRIATLHON X3 TIB IAL INSERT-CS FDA Start: 05-26-2018 HEADED PINS FDA Start: 01-06-2018 HEADED PINS FDA Start: 01-06-2018 HEADLESS PINS FDA Start: 01-06-2018 TRAITH TRITAN FDA Start: 01-06-2018 TRAITHLON X3 TIB IAL INSERT-CS FDA Start: 01-06-2018 TRIATH TRITAN TI BIAL COMPONENT FDA Start: 01-06-2018 TRIATHLON CRUC R ET FEM COMP FDA Start: 01-06-2018 CEMENT,BONE CONCHA H 1/2 BATCH FDA Start: 05-26-2018 TRIATHLON CRUC R ET FEM COMP FDA Start: 05-26-2018 TRIATHLON TRITAN IUM TIB COMP FDA Start: 05-26-2018 TRIATHLON X3 PATELLA FDA Star t: 05-26-2018 TRIATLHON X3 TIB IAL INSERT-CS FDA Start: 05-26-2018 Evaluation note 03-22-2025 Note Date & Type Note Facility 03-22-2025 Evaluation note Diagnosis Onset Date Resolution DVT (deep venous thrombosis) acute March 22, 2025 11:06am 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 March 22, 2025 11:06am Varicose vein of leg chronic Apri l 2024 11:06am [facility] Work Phone: Evaluation note 03-22-2025 Note Date & Type Note Facility 03-22-2025 Evaluation note Diagnosis Onset Date Resolution DVT (deep venous thrombosis) acute March 22, 2025 11:06am 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 Author Type: Physician Section Chief Type: Progress Notes Filed: 09/26/2024 13:51 Note Text: Patient presents to express care triage with chief complaint of right leg [...] over the weekend. Patient will go to [facility] ED to be evaluated. [facility] History of Present illness Narrative 09-26-2024 Nigel Sr PA-C - 09/26/2024 1:49 PM EST Note Date & Type Note Facility 09-26-2024 History of Presen t illness Narrative Patient presents to express care triage with chief complaint of right leg [...] over the weekend. Patient will go to [facility] ED to be evaluated. documented in this encounter [facility] Evaluation note Note Date & Type Note Facility Evaluation note Diagnosis Onset Date Bradycardia acute [facility] Work Phone: Evaluation note Note Date & Type Note Facility Evaluation note No assessment information availa ble [facility] Work Phone: Evaluation note Note Date & Type Note Facility Evaluation note Diagnosis Right leg swelling- Primary Swelling of limb documented in this encounter [facility] Reason for referral (narrative) Note Date & Type Note Facility Reason for referral (narrative) No reason for referral information available [facility] Work Phone: Chief Complaint and Reason for Visit Chief Complaint BRADYCARDIA (OLIVA)( EKG) E ORDER ARRYHTHMIA Reason for Visit Bradycardia Chief Complaint HX OF TOBACCO USE Chief Complaint Admit Date EORDERS March 21, 2025 9:4 6am [facility] March 22, 2025 11: 06am PSA May 09, 2025 9:29 am Reason for Visit Admit Date DVT (deep venous thrombosis) March 22, 2025 11:06am Heterozygous MTHFR mutation C677T March 22, 2025 11:06am Varicose vein of leg March 22, 2025 11 :06am Chief Complaint Admit Date EORDERS March 21, 2025 9:4 6am [facility] March 22, 2025 11: 06am PSA May 09, 2025 9:29 am DVT May 24, 2025 10:40 am Chief Complaint Admit Date EORDERS March 21, 2025 9:4 6am [facility] March 22, 2025 11: 06am PSA May 09, 2025 9:29 am DVT May 24, 2025 10:40 am Deep vein thrombosis June 10, 2025 10: 35am Reason for Visit Admit Date DVT (deep venous thrombosis) March 22, 2025 11:06am Heterozygous MTHFR mutation C677T March 22, 2025 11:06am Varicose vein of leg March 22, 2025 11 :06am DVT (deep venous thrombosis) June 10, 2025 10:35am Family History No Family History Records Found Relationship Condition Age at Onset Recorded Date/T hayder mother Hypertension Unknown Cerebrovascular accident (CVA) Unknown Myocardial infarction 72 father Kidney disorder Unknown brother Kidney disorder Unknown Malignant neoplasm of lung Unknown sister Malignant neoplasm of breast Unknown Relationship Condition Age at Onset Recorded Date/T hayder mother Hypertension Unknown Cerebrovascular accident (CVA) Unknown Myocardial infarction 72 Cardiac disease Unknown father Kidney disorder Unknown brother Kidney disorder Unknown Malignant neoplasm of lung Unknown sister Malignant neoplasm of breast Unknown Hypertension Unknown Diabetes mellitus Unknown Advance Directives No Advanced Directives Records Found Advance Directive Response Recorded Date/ Time Advance Directives No December 2:45pm Living Will No May 18, 2018 8:18am Power of Geropsychologist No May 18 8 8:18am Advance Directive Response Recorded Date/ Time Advance Directives No December 1:45pm Living Will No May 18, 2018 7:18am Power of Geropsychologist No May 18 8 7:18am Advance Directive Response Recorded Date/ Time Advance Directives No December 2:45pm Summary Purpose Additional Source Comments Goals (unrecognized section and content) Goals may be documented in a n alternate sectionGoals may be documented in an alternate sectionGoals may be documented in an alternate sectionGoals may be documented in an alternate sectionGoals may be documented in an alternate sectionGoals may be documented in an alternate sectionGoals may be documented in an alternate sectionGoals may be documented in an alternate sectionGoals may be documented in an alternate sectionGoals may be documented in an alternate section Care Teams (unrecognized sec tion and content) Team Status: Active Member Role Status Dates Dr. Nakul Oliva MD Family Provider Active Dr. Nakul Oliva MD Primary Care Provider Active Team Status: Inactive Member Role Status Dates Dr. Nakul Oliva MD Primary Care Provider, Attending Jeffery mi Active Team Status: Active Member Role Status Dates Dr. Nakul Oliva MD Primary Care Provider Active Team Status: Inactive Member Role Status Dates Dr. Nakul Oliva MD Primary Care Provider Active Start: March 21, 2025 End: March 21, 2025 Dr. Moreno Travis MD Attending Provider Active S tart: March 21, 2025 End: March 21, 2025 Dr. Moreno Travis MD Referring Provider Active S tart: March 21, 2025 End: March 21, 2025 Team Status: Inactive Member Role Status Dates Dr. Nakul Oliva MD Primary Care Provider Active Start: March 22, 2025 End: March 22, 2025 Dr. Nakul Oliva MD Referring Provider Active St art: March 22, 2025 End: March 22, 2025 Dr. Moreno Travis MD Attending Provider Active S tart: March 22, 2025 End: March 22, 2025 Team Status: Inactive Member Role Status Dates Dr. Nakul Oliva MD Primary Care Provider Active Start: May 09, 2025 End: May 09, 2025 Amanda Philippeing Attending Provider Active Start : May 09, 2025 End: May 09, 2025 Amanda Philippeing Referring Provider Active Start : May 09, 2025 End: May 09, 2025 Team Status: Active Member Role/Relationship Status Dates Dr. Nakul Oliva MD Primary Care Provider Active Team Status: Inactive Member Role/Relationship Status Dates Dr. Nakul Oliva MD Primary Care Provider Active Start: March 21, 2025 End: March 21, 2025 Dr. Moreno Travis MD Attending Provider Active S tart: March 21, 2025 End: March 21, 2025 Dr. Moreno Travis MD Referring Provider Active S tart: March 21, 2025 End: March 21, 2025 Team Status: Inactive Member Role/Relationship Status Dates Dr. Nakul Oliva MD Primary Care Provider Active Start: March 22, 2025 End: March 22, 2025 Dr. Nakul Oliva MD Referring Provider Active St art: March 22, 2025 End: March 22, 2025 Dr. Moreno Travis MD Attending Provider Active S tart: March 22, 2025 End: March 22, 2025 Team Status: Inactive Member Role/Relationship Status Dates Dr. Nakul Oliva MD Primary Care Provider Active Start: May 09, 2025 End: May 09, 2025 Amanda Bonaparte Attending Provider Active Start : May 09, 2025 End: May 09, 2025 Amanda Bonaparte Referring Provider Active Start : May 09, 2025 End: May 09, 2025 Team Status: Active Member Role/Relationship Status Dates Dr. Nakul Oliva MD Primary Care Provider Active Start: May 24, 2025 Dr. Nakul Oliva MD Attending Provider Active St art: May 24, 2025 Dr. Nakul Oliva MD Referring Provider Active St art: May 24, 2025 Team Status: Inactive Member Role/Relationship Status Dates Dr. Nakul Oliva MD Primary Care Provider Active Start: May 24, 2025 End: May 24, 2025 Dr. Nakul Oliva MD Attending Provider Active St art: May 24, 2025 End: May 24, 2025 Dr. Nakul Oliva MD Referring Provider Active St art: May 24, 2025 End: May 24, 2025 Team Status: Active Member Role/Relationship Status Dates Dr. Nakul Oliva MD Primary Care Provider Active Start: May 24, 2025 Dr. Nakul Zelaya MD Attending Provider Active S tart: May 24, 2025 Team Status: Inactive Member Role/Relationship Status Dates Dr. Nakul Oliva MD Primary Care Provider Active Start: May 24, 2025 End: May 24, 2025 Dr. Nakul Oliva MD Attending Provider Active St art: May 24, 2025 End: May 24, 2025 Dr. Nakul Oliva MD Referring Provider Active St art: May 24, 2025 End: May 24, 2025 Team Status: Active Member Role/Relationship Status Dates Dr. Nakul Oliva MD Primary Care Provider Active Start: May 24, 2025 Dr. Nakul Oliva MD Referring Provider Active St art: May 24, 2025 Dr. Nakul Zelaya MD Attending Provider Active S tart: May 24, 2025 Team Status: Inactive Member Role/Relationship Status Dates Dr. Nakul Oliva MD Primary Care Provider Active Start: June 10, 2025 End: June 10, 2025 Dr. Nakul Oliva MD Referring Provider Active St art: June 10, 2025 End: June 10, 2025 MARINO Krause Attending Provider Active Star t: June 10, 2025 End: June 10, 2025 Source Comments (unrecognize d section and content) In the event this informatio n is protected by the Federal Confidentiality of Alcohol and Drug Abuse Patient Records regulations: The Federal rules restrict any use of the information to criminally investigate or prosecute any alcohol or drug abuse patient.[facility] (unrecognized sect ion and content) No Status Records FoundNo Status Records Found INFORMATION SOURCE (unrecogn ized section and content) DATE CREATED AUTHOR 09/27/2024 [facility] DATE CREATED AUTHOR AUTHOR'S DANTE PEREZ 06/16/2025 [facility] FOR RECORDS PERTAINING TO PATIENTS WHO ARE [...] BE BASED ON THE PRIMARY CLINICAL RECORDS. [employer] provides no warranty or guarantee of the accuracy or completeness of information in this document.
== END | disposition home or self-care (01) ==
LOC: MTLAB 15:20
PROVIDERS: PCP Family Medicine; Referring Provider Internal Medicine Medical Oncology; Visit Provider Internal Medicine Medical Oncology
DX: I82.409 Acute embolism and thrombosis of unspecified deep veins of unspecified lower extremity (principal); I82.411 Acute embolism and thrombosis of right femoral vein
CPT/HCPCS: 36415; 85379; 85610; 85730